=== PATIENT | female | born 1955 | race Caucasian/White ===

== ENCOUNTER 2020-05-13 22:05 | Inpatient (IN) | payer BC, MEDICARE ==
[~2020-05-13] VITALS: Ht 157.5 cm; Wt 67.8 kg
[2020-05-13 21:30] VITALS: BP 150/80
[2020-05-13 23:02] VITALS: BP 144/78
[2020-05-14] VITALS (7 sets, daily range): BP systolic 138–180; BP diastolic 69–106
[2020-05-14] MEDS ORDERED: HYDR12.58 PO (00:46)
[2020-05-14] MEDS ORDERED: METO-247 PO (00:46)
[2020-05-14] MEDS ORDERED: ESOM40CA PO (00:46)
[2020-05-14] MEDS ORDERED: LOSA-73 PO (00:46)
[2020-05-14] MEDS ORDERED: AMIT25TA PO (00:46)
[2020-05-14] MEDS ORDERED: ATOR20TA58 PO (00:46)
[2020-05-14] MEDS ORDERED: VALA10008 PO (00:46)
[2020-05-14] MEDS ORDERED: ALPR0.254 PO (00:46)
[2020-05-14] MEDS ORDERED: ESTR1.25 PO (00:46)
[2020-05-14] MEDS: IV NORMAL SALINE 1000ML BAG 1,000 ML IV SCH ×3 (00:57→21:00)
[2020-05-14] MEDS: AMITRIPTYLINE HCL 25 MG TABLET. PO SCH ×2 (01:00→19:15)
[2020-05-14] MEDS: KETOROLAC 15 MG/ML VIAL. IVP PRN ×4 (01:22→20:25)
[2020-05-14 04:12] LABS: BASO % 0 % (0-3); EOS % 0 % (0-3); HEMATOCRIT 38.3 % (36.0-47.0); HEMOGLOBIN 12.9 g/dL (12.0-15.5); LYMPH # 2.4 x10^3/uL (1.0-4.8); LYMPH % 15 % (24-48); MEAN CORPUSCULAR HEMOGLOBIN 30 pg (25-35); MEAN CORPUSCULAR HGB CONC 34 g/dL (31-37); MEAN CORPUSCULAR VOLUME 89 fL (79-100); MONO # 1.1 x10^3/uL (0.0-1.1); MONO % 7 % (0-9); NEUT # 13.2 x10^3/uL (1.8-7.7); NEUT % 79 % (31-73); PLATELET COUNT 204 x10^3/uL (140-400); RED CELL DISTRIBUTION WIDTH 13.8 % (11.5-14.5); WHITE BLOOD COUNT 16.8 x10^3/uL (4.0-11.0)
[2020-05-14 04:53] LABS: ALBUMIN 2.9 g/dL (3.4-5.0); ALBUMIN/GLOBULIN RATIO 0.8 (1.0-1.7); C-REACTIVE PROTEIN 3.3 mg/L (0-3.3); CALCIUM 7.7 mg/dL (8.5-10.1); CREATININE 0.8 mg/dL (0.6-1.0); GFR 71.5; POTASSIUM 3.5 mmol/L (3.5-5.1); TOTAL BILIRUBIN 0.3 mg/dL (0.2-1.0); TOTAL PROTEIN 6.4 g/dL (6.4-8.2)
[2020-05-14] MEDS: hydroCHLOROthiazide 12.5 MG CAPSULE PO SCH (08:29)
[2020-05-14] MEDS: METOPROLOL SUCC 24HR ER 100 MG TAB.ER.24H. PO SCH (08:29)
[2020-05-14] MEDS: ESTROGENS, CONJUGATED 0.625 MG TABLET PO SCH (08:29)
[2020-05-14] MEDS: LOSARTAN POTASSIUM 50 MG TABLET. PO SCH (08:29)
[2020-05-14] MEDS: valACYclovir 500 MG TABLET. PO SCH ×2 (08:30→19:18)
--- NOTE | 2020-05-14 09:05 | NUR ---
Patient complaining this morning of increased numbness from her feet and up her legs. She also feels like her throat is more weak this morning and her voice is more hoarse. Patient continues to be on 2L nasal canula and O2 sats stay above 95%. She states that she is very scared and anxious about her condition and has been reassured by staff that we are monitoring her closely. Dr. Barnes and Dr. Chung both notified of patients change in condition and her concerns.
[2020-05-14] MEDS: PANTOPRAZOLE IV PUSH 40 MG VIAL. IVP SCH (09:11)
[2020-05-14] MEDS: LABETALOL 20 MG/4 ML DISP.SYRIN. IVP PRN (09:12)
--- NOTE | 2020-05-14 10:20 | HP ---
ADMIT DATE: 05/13/2020 HISTORY OF PRESENT ILLNESS: The patient is a 65-year-old female patient who was admitted through the Emergency Room of [facility] where she came complaining of feeling dizzy with left arm numbness. The patient states that approximately 4 hours prior to arrival she had begun developing room spinning sensation. States it is somewhat difficult to ambulate and falls to the left side. She also notes left arm numbness. She denied any falls or head trauma. Denied any syncope. Denied any headache. She does note that she has felt generally fatigued as well as has some sore throat. She apparently had a flu shot as well as shingles shot at the same time a week ago and 4 days ago, she developed a bad headache. She also complained of hoarseness of voice, but she said that she has had also hiatal hernia and acid reflux, it caused hoarseness of voice. She was followed for that by Dr. Lomeli and she was on proton pump inhibitor twice a day and she is now getting only once a day. She was basically evaluated extensively in the Emergency Room, has had lab work, which is unremarkable. Urinalysis is unremarkable. Her CT scan of the head showed no acute intracranial abnormalities; however, CT angio showed that the patient has left middle cranial fossa meningioma measuring about 2 cm, otherwise normal CT angio of the head and neck. The CT scan of the soft tissue of the neck also unremarkable and she was admitted for further evaluation and treatment. Throughout her stay, she developed dysphagia and was unable to swallow even her saliva. She continued to complain of weakness that is generalized although when she is in bed she was able to move all her extremities. I could elicit her left ankle jerks with reinforcement, but not the right one. 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 When I saw her this morning, she continued to have hoarseness of voice and she is now complaining of generalized tingling and numbness of all upper and lower extremities and generalized weakness and continued to have dysphagia. She has episodes of tachycardia and hypertension. PAST MEDICAL HISTORY: Significant for hypertension, hyperlipidemia, hiatal hernia, and gastroesophageal reflux disease. PAST SURGICAL HISTORY: Significant for total abdominal hysterectomy, bilateral salpingo-oophorectomy. ALLERGIES: SHE IS ALLERGIC TO PENICILLIN. MEDICATIONS: Consist of valacyclovir 1000 mg twice a day, although when I asked her, she was not sure that she was on it; atorvastatin 20 mg at bedtime; metoprolol succinate 100 mg once a day; losartan potassium 50 mg once a day; amitriptyline 25 mg at bedtime; alprazolam 0.25 mg at bedtime; hydrochlorothiazide 12.5 mg once a day; Nexium 40 mg once a day, conjugated estrogen for Premarin 1.25 mg p.o. daily. The patient was actually kept n.p.o. as she has dysphagia. PHYSICAL EXAMINATION: GENERAL: When I saw her this morning, she was resting slightly propped up in bed, in no apparent respiratory distress. No pallor, jaundice, cyanosis or thyromegaly. No jugular venous distention or limb edema. VITAL SIGNS: Her heart rate was 112, blood pressure was 180/106, temperature was 97.7, respiratory rate was 18, and oxygen saturation 100% on 2 liters of oxygen. HEAD, EYES, EARS, NOSE AND THROAT: Showed normocephalic, atraumatic. NECK: Supple. HEART: Showed normal first and second heart sounds. No gallop, rub or murmur. CHEST: Clear to auscultation. No crepitation or rhonchi. ABDOMEN: Distended, soft, nontender. NEUROLOGIC: She is awake, alert. She has hoarseness of voice and continued to spit her saliva, she is unable to swallow it but all her cranial nerves are generally grossly intact. She moves all upper and lower extremities without difficulty. She does complain of subjective tingling and numbness in all her limbs and also when she stands, she is having weakness and inability to walk. LABORATORY DATA: This morning showed her white cell count to be 16,800, hemoglobin 12.9, hematocrit 38, MCV 89 and platelet count 204,000 with normal manual differential. Her chemistry showed a serum sodium 141, potassium 3.5, chloride 107, bicarbonate 25, anion gap of 9, BUN 14, creatinine 0.8, estimated GFR was 71 mL per minute. Her glucose 137, calcium was 7.7. Total bilirubin, AST, ALT, alkaline phosphatase were normal. Her C-reactive protein was only 3.3. Total protein was 6.4, albumin was 2.9. ASSESSMENT: In summary, this is a 65-year-old female patient who was transferred from [facility] where she was admitted with new onset of initially some dizziness and numbness in her left upper extremity. She also was noted to have generalized weakness and inability to walk. She has had also developed room spinning sensation and initially since it was somewhat difficult to ambulate and falls to the left. Throughout her stay on the day at [facility] she was unable to swallow and therefore we kept her n.p.o. and we did consult physical and occupational and speech therapy. She was seen by Dr. Angel, the neurologist. PLAN: My plan is to continue to keeping her n.p.o. We will check her forced inspiratory pressure and I have consulted the neurologist and continue with IV fluid and continue with pain management. We will also consult Physical and Occupational Therapy as well as speech therapy. BLANCHE MARROQUIN MD DR: SONIA/sudarshan JOB#: [id number] / [id number]
[2020-05-14] MEDS ORDERED: LIDOCAINE 1% Multi-Dose 20 ML VIAL. INJ ONE (12:00)
--- NOTE | 2020-05-14 13:05 | RAD ---
FLUOROSCOPICALLY GUIDED LUMBAR PUNCTURE FOR CSF SAMPLING: Clinical History: Difficulty swallowing, GB versus polyneuropathy. Procedure: The relative benefits, risks and alternatives to the procedure were discussed and verbal and written informed consent was obtained. The patient was placed prone and slightly oblique on the fluoroscopic table and bony landmarks were used to plan for a lumbar puncture. The patient was carefully prepped and draped in a sterile fashion and with local anesthetic and sterile technique, a 22-gauge spinal needle was advanced at the L2 level. The L4 level was originally attempted without success and required a 7 inch needle. Clear CSF was seen at L2 and approximately 10 cc of clear fluid were aspirated and sent for testing. Needle was removed with stylet in place. Hemostasis achieved. The procedure was well tolerated and the patient was sent to inpatient room in good condition. Total fluoroscopy time for the procedure was 0.5 minutes. 0 fluoroscopic spot images. On crosstable lateral view. IMPRESSION: Fluoroscopic guided lumbar puncture. Electronically signed by: Yadiel Herbert MD (05/14/2020 1:02 PM) [id number]
[2020-05-14 14:04] LABS: CSF CLARITY HAZY; CSF RBC COUNT 1825 /cmm (Not Established); CSF WBC COUNT 4 /cmm (Not Established)
[2020-05-14 14:05] LABS: CSF COLOR COLORLESS
[2020-05-14] MEDS: IMMUNE GLOBULIN GAMMA 10% IV SCH (17:51)
--- NOTE | 2020-05-14 18:23 | NUR ---
NIF -15CM H2O
[2020-05-14] MEDS: ATORVASTATIN CALCIUM 20 MG TABLET PO SCH (19:16)
[2020-05-14] MEDS: GABAPENTIN 300 MG CAPSULE. PO SCH (19:17)
--- NOTE | 2020-05-14 21:15 | PDOC2 ---
CONSULT Date of Consult Date of Consult DATE: 05/14/20 TIME: 21:14 Reason for Consult Reason for Consult: weakness Identification/Chief Complaint Chief Complaint weakness numbness History of Present Illness Reason for Visit: This patient is 65-year-old woman who was initially presented to [facility] where she was complaining of weakness. Patient was having difficulty with ambulation. She reports she was having symptoms of lightheadedness, dizziness. Patient had symptoms of tingling numbness which started in her feet and last 2 days. Patient had worsening of symptoms. Patient is currently feeling tingling numbness in her both legs. Patient was having weakness. Patient was having difficulty with ambulation she was having unsteady gait. Patient denied any complaint of difficulty speaking tingling numbness on the face. Patient denied any loss of better bowel control. Patient denies any complaint of headache nausea or vomiting chest pain shortness of breath. Patient had a flu shot and she was short in the last 1 week. Patient had worsening of symptoms Reason for Visit: This patient is 65-year-old woman who was initially presented to [facility] Current Medications Current Medications Current Medications Alprazolam (Xanax) 0.125 mg PRN QHS PRN PO ANXIETY / AGITATION; Start 05/14/20 at 00:45 Amitriptyline HCl (Elavil) 25 mg QHS PO ; Start 05/14/20 at 01:00 Atorvastatin Calcium (Lipitor) 20 mg QHS PO ; Start 05/14/20 at 21:00 Losartan Potassium (Cozaar) 50 mg DAILY PO ; Start 05/14/20 at 09:00 Metoprolol Succinate (Toprol Xl) 100 mg DAILY PO ; Start 05/14/20 at 09:00 Estrogens Conjugated (Premarin) 1.25 mg DAILY PO ; Start 05/14/20 at 09:00 Hydrochlorothiazide (Microzide) 12.5 mg DAILY PO ; Start 05/14/20 at 09:00 Valacyclovir HCl (Valtrex) 1,000 mg BID PO ; Start 05/14/20 at 09:00 Sodium Chloride 1,000 ml @ 100 mls/hr Q10H IV Last administered on 05/14/20at 11:00; Start 05/14/20 at 01:00 Labetalol HCl (Normodyne Iv Push) 10 mg PRN Q4HRS PRN IVP HYPERTENSION Last administered on 05/14/20at 09:12; Start 05/14/20 at 01:00 Pantoprazole Sodium (PROTONIX VIAL for IV PUSH) 40 mg DAILYAC IVP Last administered on 05/14/20at 09:11; Start 05/14/20 at 07:30 Ketorolac Tromethamine (Toradol 15mg Vial) 15 mg PRN Q6HRS PRN IVP INFLAMMATION Last administered on 05/14/20at 20:25; Start 05/14/20 at 01:15; Stop 05/19/20 at 01:14 Lidocaine HCl (Lidocaine 1% 20ml Vial) 20 ml 1X ONCE INJ Last administered on 05/14/20at 12:08; Start 05/14/20 at 12:00; Stop 05/14/20 at 12:01; Status DC Gabapentin (Neurontin) 300 mg HS PO ; Start 05/14/20 at 21:00 Immune Globulin 400 ml @ 0 mls/hr Q24H IV Last administered on 05/14/20at 17:51; Start 05/14/20 at 18:00; Stop 05/16/20 at 18:01 Active Scripts Active Reported Valacyclovir (Valacyclovir Hcl) 1,000 Mg Tablet 1 Tab PO BID Metoprolol Succinate ( Xl ) (Metoprolol Succinate) 100 Mg Tab.er.24h 1 Tab PO DAILY Losartan Potassium 50 Mg Tablet 50 Mg PO DAILY Hydrochlorothiazide Tablet (Hydrochlorothiazide) 12.5 Mg Tablet 12.5 Mg PO DAILY Nexium Capsule (Esomeprazole Magnesium) 40 Mg Capsule.dr 1 Cap PO DAILY Premarin (Estrogens, Conjugated) 1.25 Mg Tablet 1 Tab PO DAILY Atorvastatin Calcium 20 Mg Tablet 1 Tab PO DAILY Amitriptyline Hcl 25 Mg Tablet 1 Tab PO QHS Alprazolam 0.25 Mg Tablet 0.5 Tab PO QHS PRN Allergies Allergies: Coded Allergies: Penicillins (Verified Allergy, Intermediate, 05/14/20) codeine (Verified Allergy, Intermediate, 05/14/20) Physical Exam Physical Exam General no acute distress. HEENT: Normocephalic and atraumatic. NECK: Supple without bruit Respiratory: Clear to auscultation bilaterally Heart: Regular rate and rhythm, S1S2 normal NEUROLOGIC: Mental status Alert oriented. Cranial nerve equally reactive pupils, and intact extraocular movements. No facial asymmetry. Palate elevates and tongue protrudes in midline. Reflexes are 1-2 with flexor plantar responses. Coordination no dysmetria limited Strength diffuse weakness hypo reflexes ankle reflexes absent. Sensory exam is intact dec light touch and pinprick on lower exts. Gait in bed. A 10-point review of systems was obtained. Other than the history of present illness the remainder of the review of systems is negative. Vitals VITALS Vital Signs Date Time Temp Pulse Resp B/P (MAP) Pulse Ox O2 Delivery O2 Flow Rate FiO2 05/14/20 19:36 Nasal Cannula 2.0 05/14/20 19:23 98.7 95 18 154/95 (114) 99 98.7 Labs Labs Laboratory Tests Test 05/14/20 03:40 05/14/20 12:30 White Blood Count 16.8 x10^3/uL (4.0-11.0) Red Blood Count 4.30 x10^6/uL (3.50-5.40) Hemoglobin 12.9 g/dL (12.0-15.5) Hematocrit 38.3 % (36.0-47.0) Mean Corpuscular Volume 89 fL (79-100) Mean Corpuscular Hemoglobin 30 pg (25-35) Mean Corpuscular Hemoglobin Concent 34 g/dL (31-37) Red Cell Distribution Width 13.8 % (11.5-14.5) Platelet Count 204 x10^3/uL (140-400) Neutrophils (%) (Auto) 79 % (31-73) Lymphocytes (%) (Auto) 15 % (24-48) Monocytes (%) (Auto) 7 % (0-9) Eosinophils (%) (Auto) 0 % (0-3) Basophils (%) (Auto) 0 % (0-3) Neutrophils # (Auto) 13.2 x10^3/uL (1.8-7.7) Lymphocytes # (Auto) 2.4 x10^3/uL (1.0-4.8) Monocytes # (Auto) 1.1 x10^3/uL (0.0-1.1) Eosinophils # (Auto) 0.0 x10^3/uL (0.0-0.7) Basophils # (Auto) 0.0 x10^3/uL (0.0-0.2) Sodium Level 141 mmol/L (136-145) Potassium Level 3.5 mmol/L (3.5-5.1) Chloride Level 107 mmol/L (98-107) Carbon Dioxide Level 25 mmol/L (21-32) Anion Gap 9 (6-14) Blood Urea Nitrogen 14 mg/dL (7-20) Creatinine 0.8 mg/dL (0.6-1.0) Estimated GFR (Cockcroft-Gault) 71.5 BUN/Creatinine Ratio 18 (6-20) Glucose Level 137 mg/dL (70-99) Calcium Level 7.7 mg/dL (8.5-10.1) Total Bilirubin 0.3 mg/dL (0.2-1.0) Aspartate Amino Transf (AST/SGOT) 27 U/L (15-37) Alanine Aminotransferase (ALT/SGPT) 24 U/L (14-59) Alkaline Phosphatase 77 U/L (46-116) C-Reactive Protein, Quantitative 3.3 mg/L (0-3.3) Total Protein 6.4 g/dL (6.4-8.2) Albumin 2.9 g/dL (3.4-5.0) Albumin/Globulin Ratio 0.8 (1.0-1.7) CSF Color Colorless CSF Clarity Hazy CSF WBC 4 /cmm (Not Established) CSF RBC 1825 /cmm (Not Established) CSF Total Protein 54.2 mg/dL (15.0-45.0) Laboratory Tests Test 05/14/20 03:40 05/14/20 12:30 White Blood Count 16.8 x10^3/uL (4.0-11.0) Red Blood Count 4.30 x10^6/uL (3.50-5.40) Hemoglobin 12.9 g/dL (12.0-15.5) Hematocrit 38.3 % (36.0-47.0) Mean Corpuscular Volume 89 fL (79-100) Mean Corpuscular Hemoglobin 30 pg (25-35) Mean Corpuscular Hemoglobin Concent 34 g/dL (31-37) Red Cell Distribution Width 13.8 % (11.5-14.5) Platelet Count 204 x10^3/uL (140-400) Neutrophils (%) (Auto) 79 % (31-73) Lymphocytes (%) (Auto) 15 % (24-48) Monocytes (%) (Auto) 7 % (0-9) Eosinophils (%) (Auto) 0 % (0-3) Basophils (%) (Auto) 0 % (0-3) Neutrophils # (Auto) 13.2 x10^3/uL (1.8-7.7) Lymphocytes # (Auto) 2.4 x10^3/uL (1.0-4.8) Monocytes # (Auto) 1.1 x10^3/uL (0.0-1.1) Eosinophils # (Auto) 0.0 x10^3/uL (0.0-0.7) Basophils # (Auto) 0.0 x10^3/uL (0.0-0.2) Sodium Level 141 mmol/L (136-145) Potassium Level 3.5 mmol/L (3.5-5.1) Chloride Level 107 mmol/L (98-107) Carbon Dioxide Level 25 mmol/L (21-32) Anion Gap 9 (6-14) Blood Urea Nitrogen 14 mg/dL (7-20) Creatinine 0.8 mg/dL (0.6-1.0) Estimated GFR (Cockcroft-Gault) 71.5 BUN/Creatinine Ratio 18 (6-20) Glucose Level 137 mg/dL (70-99) Calcium Level 7.7 mg/dL (8.5-10.1) Total Bilirubin 0.3 mg/dL (0.2-1.0) Aspartate Amino Transf (AST/SGOT) 27 U/L (15-37) Alanine Aminotransferase (ALT/SGPT) 24 U/L (14-59) Alkaline Phosphatase 77 U/L (46-116) C-Reactive Protein, Quantitative 3.3 mg/L (0-3.3) Total Protein 6.4 g/dL (6.4-8.2) Albumin 2.9 g/dL (3.4-5.0) Albumin/Globulin Ratio 0.8 (1.0-1.7) CSF Color Colorless CSF Clarity Hazy CSF WBC 4 /cmm (Not Established) CSF RBC 1825 /cmm (Not Established) CSF Total Protein 54.2 mg/dL (15.0-45.0) Assessment/Plan Assessment/Plan This patient is 65-year-old woman who was initially presented to [facility] where she was complaining of weakness. Patient was having difficulty with ambulation. She reports she was having symptoms of lightheadedness, dizziness. Patient had symptoms of tingling numbness which started in her feet and last 2 days. Patient had worsening of symptoms. Patient is currently feeling tingling numbness in her both legs. Patient was having weakness. Patient was having difficulty with ambulation she was having unsteady gait. Patient denied any complaint of difficulty speaking tingling numbness on the face. Patient denied any loss of better bowel control. Patient denies any complaint of headache nausea or vomiting chest pain shortness of breath. Patient had a flu shot and she was short in the last 1 week. Patient had worsening of symptoms With the symptoms concerning for Guillian [place] syndrome with the symptoms of tingling numbness which are so pending from feet to leg with the weakness of her lower extremity with gait and balance difficulty. Patient had lumbar puncture, CSF with elevated protein. And patient on exam. Patient was started on IVIG 400 mg per KG per day. Will get MRI of brain, lumbar spine to further evaluate. PT OT speech evaluation. Close monitoring. Continue medical management. Plan discussed with patient at length ANI HUNT MD May 14, 2020 21:15
[2020-05-15] VITALS (7 sets, daily range): BP systolic 118–184; BP diastolic 57–106
[2020-05-15] MEDS: KETOROLAC 15 MG/ML VIAL. IVP PRN ×3 (03:37→23:01)
[2020-05-15] MEDS: IV NORMAL SALINE 1000ML BAG 1,000 ML IV SCH (07:00)
[2020-05-15] MEDS: METOPROLOL SUCC 24HR ER 100 MG TAB.ER.24H. PO SCH (07:51)
[2020-05-15] MEDS: LOSARTAN POTASSIUM 50 MG TABLET. PO SCH (07:51)
[2020-05-15] MEDS: ESTROGENS, CONJUGATED 0.625 MG TABLET PO SCH (07:51)
[2020-05-15] MEDS: hydroCHLOROthiazide 12.5 MG CAPSULE PO SCH (07:51)
[2020-05-15] MEDS: valACYclovir 500 MG TABLET. PO SCH ×2 (07:52→20:17)
[2020-05-15] MEDS: PANTOPRAZOLE IV PUSH 40 MG VIAL. IVP SCH ×2 (08:16→20:37)
[2020-05-15] MEDS: LIDOCAINE (700MG/PATCH) PATCH. TD SCH (09:11)
[2020-05-15] MEDS: AMINO AC 3%/ELECTROLYTE/GLYCER 1,000 ML IV SCH ×2 (09:12→23:01)
--- NOTE | 2020-05-15 10:13 | PN ---
DATE: 05/15/2020 SUBJECTIVE: The patient is resting, slightly propped up in bed, in no apparent respiratory distress. She is awake, alert, continued to have difficulty swallowing and weakness, although she is now having tingling, numbness and feels that something is squeezing her legs. She was evaluated yesterday by Dr. Schaefer; started her on IVIG. PHYSICAL EXAMINATION: GENERAL: When I examined her this morning, she looked well and was clearly in no apparent respiratory distress. No pallor, jaundice, cyanosis or thyromegaly. No jugular venous distention. No lower limb edema. VITAL SIGNS: Her heart rate was 109, blood pressure was 161/91, temperature was 99, respiratory rate 20, and oxygen saturation was 98% on 2 liters of oxygen. HEAD, EYES, EARS, NOSE, AND THROAT: Showed normocephalic, atraumatic. NECK: Supple. HEART: Showed normal first and second heart sounds. No gallop or murmur. CHEST: Clear to auscultation. No crepitation or rhonchi. ABDOMEN: Distended, soft. NEUROLOGIC: She is awake, alert, responding appropriately. All her cranial nerves intact. She moves her extremities without difficulty, although she obviously has difficulty walking. She has had a lumbar puncture done yesterday that was apparently traumatic. It did show that she has 4 wbc's, 1825 rbc's, and CSF protein was 54. 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 2. Dysphagia. 3. Autonomic instability with episodes of tachycardia and hypertension. 4. Other medical problems include: A. Hypertension. B. Hyperlipidemia. C. Hiatal hernia. D. Gastroesophageal reflux disease. PLAN: My plan is to consult the milled rubber tender, increase her Protonix to 40 mg IV twice a day. We will discontinue IV fluids, start her on procalamine and keep her obviously n.p.o. BLANCHE MARROQUIN MD DR: SONIA/sudarshan JOB#: [id number] / [id number]
--- NOTE | 2020-05-15 10:28 | RAD ---
EXAM: Chest, single view. HISTORY: Dysphagia. Aspiration. COMPARISON: 05/12/2020 FINDINGS: A frontal view of the chest is obtained. There is mild elevation of the right hemidiaphragm which may be positional. There is bilateral basilar atelectasis or interstitial infiltrate. The heart is normal in size. There is no convincing pleural effusion or pneumothorax. IMPRESSION: Bilateral basilar atelectasis or interstitial infiltrate. Electronically signed by: Judy Kowalski MD (05/15/2020 10:25 AM) [place]
--- NOTE | 2020-05-15 13:12 | PDOC ---
PULMONARY PROGRESS NOTES DATE: 05/15/20 TIME: 13:11 Vitals Vital Signs Date Time Temp Pulse Resp B/P (MAP) Pulse Ox O2 Delivery O2 Flow Rate FiO2 05/15/20 11:25 99.2 95 22 171/85 (113) 97 Nasal Cannula 2.0 99.2 Labs Laboratory Tests Test 05/14/20 03:40 05/14/20 12:30 White Blood Count 16.8 x10^3/uL (4.0-11.0) Red Blood Count 4.30 x10^6/uL (3.50-5.40) Hemoglobin 12.9 g/dL (12.0-15.5) Hematocrit 38.3 % (36.0-47.0) Mean Corpuscular Volume 89 fL (79-100) Mean Corpuscular Hemoglobin 30 pg (25-35) Mean Corpuscular Hemoglobin Concent 34 g/dL (31-37) Red Cell Distribution Width 13.8 % (11.5-14.5) Platelet Count 204 x10^3/uL (140-400) Neutrophils (%) (Auto) 79 % (31-73) Lymphocytes (%) (Auto) 15 % (24-48) Monocytes (%) (Auto) 7 % (0-9) Eosinophils (%) (Auto) 0 % (0-3) Basophils (%) (Auto) 0 % (0-3) Neutrophils # (Auto) 13.2 x10^3/uL (1.8-7.7) Lymphocytes # (Auto) 2.4 x10^3/uL (1.0-4.8) Monocytes # (Auto) 1.1 x10^3/uL (0.0-1.1) Eosinophils # (Auto) 0.0 x10^3/uL (0.0-0.7) Basophils # (Auto) 0.0 x10^3/uL (0.0-0.2) Sodium Level 141 mmol/L (136-145) Potassium Level 3.5 mmol/L (3.5-5.1) Chloride Level 107 mmol/L (98-107) Carbon Dioxide Level 25 mmol/L (21-32) Anion Gap 9 (6-14) Blood Urea Nitrogen 14 mg/dL (7-20) Creatinine 0.8 mg/dL (0.6-1.0) Estimated GFR (Cockcroft-Gault) 71.5 BUN/Creatinine Ratio 18 (6-20) Glucose Level 137 mg/dL (70-99) Calcium Level 7.7 mg/dL (8.5-10.1) Total Bilirubin 0.3 mg/dL (0.2-1.0) Aspartate Amino Transf (AST/SGOT) 27 U/L (15-37) Alanine Aminotransferase (ALT/SGPT) 24 U/L (14-59) Alkaline Phosphatase 77 U/L (46-116) C-Reactive Protein, Quantitative 3.3 mg/L (0-3.3) Total Protein 6.4 g/dL (6.4-8.2) Albumin 2.9 g/dL (3.4-5.0) Albumin/Globulin Ratio 0.8 (1.0-1.7) CSF Color Colorless CSF Clarity Hazy CSF WBC 4 /cmm (Not Established) CSF RBC 1825 /cmm (Not Established) CSF Total Protein 54.2 mg/dL (15.0-45.0) Medications Active Scripts Medications Dose Route/Sig Max Daily Dose Days Date Category Valacyclovir (Valacyclovir Hcl) 1,000 Mg Tablet 1 Tab PO BID 05/14/20 Reported Metoprolol Succinate ( Xl ) (Metoprolol Succinate) 100 Mg Tab.er.24h 1 Tab PO DAILY 05/14/20 Reported Losartan Potassium 50 Mg Tablet 50 Mg PO DAILY 05/14/20 Reported Hydrochlorothiazide Tablet (Hydrochlorothiazide) 12.5 Mg Tablet 12.5 Mg PO DAILY 05/14/20 Reported Nexium Capsule (Esomeprazole Magnesium) 40 Mg Capsule.dr 1 Cap PO DAILY 05/14/20 Reported Premarin (Estrogens, Conjugated) 1.25 Mg Tablet 1 Tab PO DAILY 05/14/20 Reported Atorvastatin Calcium 20 Mg Tablet 1 Tab PO DAILY 05/14/20 Reported Amitriptyline Hcl 25 Mg Tablet 1 Tab PO QHS 05/14/20 Reported Alprazolam 0.25 Mg Tablet 0.5 Tab PO QHS PRN 05/14/20 Reported Impression . Full note dictated [place] syndrome, acute hypoxemic respiratory failure We will monitor closely, with forced vital capacity and maximum inspiratory pressure, every 2 hours Discussed with nurse Discussed with and patient, currently patient stable no need to transfer to the intensive care unit VIJI LAZARO MD May 15, 2020 13:12
[2020-05-15] MEDS: ENOXAPARIN 40 MG/0.4 ML SYRINGE. SQ SCH (14:00)
--- NOTE | 2020-05-15 15:09 | CONS ---
DATE OF CONSULTATION: 05/15/2020 ATTENDING PHYSICIAN: Terrie Barnes MD CONSULTING PHYSICIAN: Viji Lazaro MD REASON FOR CONSULTATION: The patient is seen in pulmonary consultation at the request of Dr. Barnes for evaluation of respiratory insufficiency. 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 HISTORY OF PRESENT ILLNESS: The patient is a 65-year-old that was initially presented at [facility] with complaints of weakness, having some difficulty with ambulation. She also was having symptoms of lightheadedness and dizziness, tingling and numbness in her feet for the last 2 days prior to admission. Upon further questioning, the patient also had a laryngitis, no sore throat. She initially denied any difficulty speaking. She has been seen by Neurology. 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 She had a lumbar puncture CSF with elevated protein. The patient was started on IVIG. Over the last 24 hours, she has had increasing difficulty with controlling her oral secretions and the voice is soft and I was asked to see her in consultation. Earlier today, I ordered a NIF which was reported to be -50. Upon evaluation, the patient is awake, alert, following command. She does not appear to be in any significant respiratory distress. The patient had a CT head that showed no acute intracranial abnormality, has had a CT angio showed that the patient had a left middle cranial fossa meningioma measuring about [address] soft tissue of the neck was unremarkable. PAST MEDICAL HISTORY: Significant for hypertension, hyperlipidemia, hiatal hernia, gastroesophageal reflux. She recently underwent vaccination for both flu and shingles. PAST SURGICAL HISTORY: Status post total abdominal hysterectomy, bilateral salpingo-oophorectomy. MEDICATIONS: List was reviewed. REVIEW OF SYSTEMS: As indicated above, otherwise, a 10-point system was reviewed and negative VACCINATION HISTORY: The patient recently underwent a flu and shingles vaccination at the same. SOCIAL HISTORY: She does not smoke. ALLERGIES: PENICILLIN AND CODEINE. PHYSICAL EXAMINATION: VITAL SIGNS: Stable. O2 saturation currently on 2 liters was greater than 92%. GENERAL: The patient was awake, alert, following command. She is able to speak. She did have a little bit of upper airway noise. Otherwise, she was utilizing a Yankauer to maintain oral secretions clear out of her mouth. NECK: Jugular venous distention was not elevated. LUNGS: She had upper airway noise with expiratory wheeze. CARDIOVASCULAR: Regular rate and rhythm with S1, S2, no S3. ABDOMEN: Soft, nontender, nondistended. EXTREMITIES: No clubbing, cyanosis or edema. NEUROLOGIC: The patient was awake, alert, following commands. I asked her to push my hand away with the bottom of her foot bilaterally, it was pretty strong 8/10. Sensation was normal. A detailed neuro exam was not performed. She was able to be shrug her shoulders. She was able to stick out her tongue. LABORATORY DATA: White count was 16,000. Hemoglobin and hematocrit were noted. Electrolytes were noted. Chest x-ray revealed bilateral atelectasis and interstitial infiltrates. IMPRESSION: 1. Acute hypoxemic respiratory failure. 2. 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 3. History of hypertension, hyperlipidemia, gastroesophageal reflux. 4. Recent vaccination with flu and shingles. 5. History of recent laryngitis, suspect viral. DISCUSSION: At this juncture, the patient appears to be holding her own, clinically I do not think she has progressed over the last 24 hours. We will monitor her negative inspiratory force q. 2 hours. I have spoken with the nurse, she should inform me if her NIF drops by 50% of the initial NIF of -50. For now, we will continue support. The patient is undergoing IVIG. PLAN: 1. Continue IVIG. 2. N.p.o. for now. 3. Yankauer to maintain oral secretions clear. 4. Every 2 hours NIF. 5. Initiate incentive spirometry. 6. DVT prophylaxis. VIJI LAZARO MD DR: TARAH/sudarshan JOB#: [id number] / [id number]
--- NOTE | 2020-05-15 15:35 | NUR ---
did not admin the lovenox shot today, pt had a lumbar puncture yesterday 05/14/2020. Severino Anderson RN
--- NOTE | 2020-05-15 15:39 | PDOC ---
PROGRESS NOTES DOS: DATE: 05/15/20 TIME: 15:39 Plan This patient is 65-year-old woman who was initially presented to [facility] where she was complaining of weakness. Patient was having difficulty with ambulation. She reports she was having symptoms of lightheadedness, dizziness. Patient had symptoms of tingling numbness which started in her feet and last 2 days. Patient had worsening of symptoms. Patient is currently feeling tingling numbness in her both legs. Patient was having weakness. Patient was having difficulty with ambulation she was having unsteady gait. Patient denied any complaint of difficulty speaking tingling numbness on the face. Patient denied any loss of better bowel control. Patient denies any complaint of headache nausea or vomiting chest pain shortness of breath. Patient had a flu shot and she was short in the last 1 week. Patient had worsening of symptoms With the symptoms concerning for Guillian [place] syndrome with the symptoms of tingling numbness which are so pending from feet to leg with the weakness of her lower extremity with gait and balance difficulty. Patient had lumbar puncture, CSF with elevated protein. And patient on exam. Patient was started on IVIG 400 mg per KG per day. She has improvement in symptoms. Will get MRI of brain, lumbar spine to further evaluate. PT OT speech evaluation. Close monitoring. Continue medical management. Plan discussed with patient at length Subjective Patient is resting in bed. Family at bedside. She is feeling better. Her symptoms are improving. She denies any complaint of headache nausea or vomiting chest pain shortness of breath Objective Vital Signs Date Time Temp Pulse Resp B/P (MAP) Pulse Ox O2 Delivery O2 Flow Rate FiO2 05/15/20 11:25 99.2 95 22 171/85 (113) 97 Nasal Cannula 2.0 99.2 Intake and Output 05/15/20 07:00 Intake Total 0 ml Balance 0 ml Intake Oral 0 ml # Voids 5 PHYSICAL EXAM General no acute distress. HEENT: Normocephalic and atraumatic. NECK: Supple without bruit Respiratory: Clear to auscultation bilaterally Heart: Regular rate and rhythm, S1S2 normal NEUROLOGIC: Mental status Alert oriented. Cranial nerve equally reactive pupils, and intact extraocular movements. No facial asymmetry. Palate elevates and tongue protrudes in midline. Reflexes are 1-2 with flexor plantar responses. Coordination no dysmetria limited Strength diffuse weakness hypo reflexes ankle reflexes absent. Sensory exam is intact dec light touch and pinprick on lower exts. Gait in bed. A 10-point review of systems was obtained. Other than the history of present illness the remainder of the review of systems is negative. Review of Relevant I have reviewed the following items susan (where applicable) has been applied. Labs Laboratory Tests Test 05/14/20 03:40 05/14/20 12:30 White Blood Count 16.8 x10^3/uL (4.0-11.0) Red Blood Count 4.30 x10^6/uL (3.50-5.40) Hemoglobin 12.9 g/dL (12.0-15.5) Hematocrit 38.3 % (36.0-47.0) Mean Corpuscular Volume 89 fL (79-100) Mean Corpuscular Hemoglobin 30 pg (25-35) Mean Corpuscular Hemoglobin Concent 34 g/dL (31-37) Red Cell Distribution Width 13.8 % (11.5-14.5) Platelet Count 204 x10^3/uL (140-400) Neutrophils (%) (Auto) 79 % (31-73) Lymphocytes (%) (Auto) 15 % (24-48) Monocytes (%) (Auto) 7 % (0-9) Eosinophils (%) (Auto) 0 % (0-3) Basophils (%) (Auto) 0 % (0-3) Neutrophils # (Auto) 13.2 x10^3/uL (1.8-7.7) Lymphocytes # (Auto) 2.4 x10^3/uL (1.0-4.8) Monocytes # (Auto) 1.1 x10^3/uL (0.0-1.1) Eosinophils # (Auto) 0.0 x10^3/uL (0.0-0.7) Basophils # (Auto) 0.0 x10^3/uL (0.0-0.2) Sodium Level 141 mmol/L (136-145) Potassium Level 3.5 mmol/L (3.5-5.1) Chloride Level 107 mmol/L (98-107) Carbon Dioxide Level 25 mmol/L (21-32) Anion Gap 9 (6-14) Blood Urea Nitrogen 14 mg/dL (7-20) Creatinine 0.8 mg/dL (0.6-1.0) Estimated GFR (Cockcroft-Gault) 71.5 BUN/Creatinine Ratio 18 (6-20) Glucose Level 137 mg/dL (70-99) Calcium Level 7.7 mg/dL (8.5-10.1) Total Bilirubin 0.3 mg/dL (0.2-1.0) Aspartate Amino Transf (AST/SGOT) 27 U/L (15-37) Alanine Aminotransferase (ALT/SGPT) 24 U/L (14-59) Alkaline Phosphatase 77 U/L (46-116) C-Reactive Protein, Quantitative 3.3 mg/L (0-3.3) Total Protein 6.4 g/dL (6.4-8.2) Albumin 2.9 g/dL (3.4-5.0) Albumin/Globulin Ratio 0.8 (1.0-1.7) CSF Color Colorless CSF Clarity Hazy CSF WBC 4 /cmm (Not Established) CSF RBC 1825 /cmm (Not Established) CSF Total Protein 54.2 mg/dL (15.0-45.0) Medications Current Medications Alprazolam (Xanax) 0.125 mg PRN QHS PRN PO ANXIETY / AGITATION; Start 05/14/20 at 00:45 Amitriptyline HCl (Elavil) 25 mg QHS PO ; Start 05/14/20 at 01:00 Atorvastatin Calcium (Lipitor) 20 mg QHS PO ; Start 05/14/20 at 21:00 Losartan Potassium (Cozaar) 50 mg DAILY PO ; Start 05/14/20 at 09:00 Metoprolol Succinate (Toprol Xl) 100 mg DAILY PO ; Start 05/14/20 at 09:00 Estrogens Conjugated (Premarin) 1.25 mg DAILY PO ; Start 05/14/20 at 09:00 Hydrochlorothiazide (Microzide) 12.5 mg DAILY PO ; Start 05/14/20 at 09:00 Valacyclovir HCl (Valtrex) 1,000 mg BID PO ; Start 05/14/20 at 09:00 Sodium Chloride 1,000 ml @ 100 mls/hr Q10H IV Last administered on 05/15/20at 07:00; Start 05/14/20 at 01:00; Stop 05/15/20 at 08:17; Status DC Labetalol HCl (Normodyne Iv Push) 10 mg PRN Q4HRS PRN IVP HYPERTENSION Last administered on 05/14/20at 09:12; Start 05/14/20 at 01:00 Pantoprazole Sodium (PROTONIX VIAL for IV PUSH) 40 mg DAILYAC IVP Last administered on 05/15/20at 08:16; Start 05/14/20 at 07:30; Stop 05/15/20 at 08:23; Status DC Ketorolac Tromethamine (Toradol 15mg Vial) 15 mg PRN Q6HRS PRN IVP INFLAMMATION Last administered on 05/15/20at 10:39; Start 05/14/20 at 01:15; Stop 05/19/20 at 01:14 Lidocaine HCl (Lidocaine 1% 20ml Vial) 20 ml 1X ONCE INJ Last administered on 05/14/20at 12:08; Start 05/14/20 at 12:00; Stop 05/14/20 at 12:01; Status DC Gabapentin (Neurontin) 300 mg HS PO ; Start 05/14/20 at 21:00 Immune Globulin 400 ml @ 0 mls/hr Q24H IV Last administered on 05/14/20at 17:51; Start 05/14/20 at 18:00; Stop 05/16/20 at 18:01 Amino Acids/ Glycerin/ Electrolytes 1,000 ml @ 80 mls/hr [id number] IV Last administered on 05/15/20at 09:12; Start 05/15/20 at 09:00 Lidocaine (Lidoderm) 2 patch DAILY TD Last administered on 05/15/20at 09:11; Start 05/15/20 at 09:00 Miscellaneous (Lidoderm Patch Removal) 1 ea QHS MC ; Start 05/15/20 at 21:00 Pantoprazole Sodium (PROTONIX VIAL for IV PUSH) 40 mg BID IVP ; Start 05/15/20 at 21:00 Enoxaparin Sodium (Lovenox 40mg Syringe) 40 mg Q24H SQ ; Start 05/15/20 at 14:00 Active Scripts Active Reported Valacyclovir (Valacyclovir Hcl) 1,000 Mg Tablet 1 Tab PO BID Metoprolol Succinate ( Xl ) (Metoprolol Succinate) 100 Mg Tab.er.24h 1 Tab PO DAILY Losartan Potassium 50 Mg Tablet 50 Mg PO DAILY Hydrochlorothiazide Tablet (Hydrochlorothiazide) 12.5 Mg Tablet 12.5 Mg PO DAILY Nexium Capsule (Esomeprazole Magnesium) 40 Mg Capsule.dr 1 Cap PO DAILY Premarin (Estrogens, Conjugated) 1.25 Mg Tablet 1 Tab PO DAILY Atorvastatin Calcium 20 Mg Tablet 1 Tab PO DAILY Amitriptyline Hcl 25 Mg Tablet 1 Tab PO QHS Alprazolam 0.25 Mg Tablet 0.5 Tab PO QHS PRN Vitals/I & O Vital Sign - Last 24 Hours 05/14/20 05/14/20 05/14/20 05/15/20 19:23 19:36 22:33 03:22 Temp 98.7 98.0 98.6 98.7 98.0 98.6 Pulse 95 105 97 Resp 18 16 16 B/P (MAP) 154/95 (114) 138/92 (107) 147/92 (110) Pulse Ox 99 98 95 O2 Delivery Nasal Cannula Nasal Cannula Nasal Cannula Nasal Cannula O2 Flow Rate 2.0 2.0 2.0 2.0 05/15/20 05/15/20 05/15/20 05/15/20 06:35 07:51 07:51 08:00 Temp 99.0 99.0 Pulse 109 109 109 Resp 20 B/P (MAP) 161/91 (114) 161/91 161/91 Pulse Ox 98 O2 Delivery Nasal Cannula Nasal Cannula O2 Flow Rate 2.0 2.0 05/15/20 11:25 Temp 99.2 99.2 Pulse 95 Resp 22 B/P (MAP) 171/85 (113) Pulse Ox 97 O2 Delivery Nasal Cannula O2 Flow Rate 2.0 Intake and Output 05/14/20 05/14/20 05/15/20 15:00 23:00 07:00 Intake Total 0 ml 0 ml 0 ml Balance 0 ml 0 ml 0 ml Justicifation of Admission Dx: Justifications for Admission: Justification of Admission Dx: Yes ANI HUNT MD May 15, 2020 15:39
[2020-05-15] MEDS: IMMUNE GLOBULIN GAMMA 10% IV SCH (17:46)
[2020-05-15] MEDS: ATORVASTATIN CALCIUM 20 MG TABLET PO SCH (20:17)
[2020-05-15] MEDS: GABAPENTIN 300 MG CAPSULE. PO SCH (20:17)
[2020-05-15] MEDS: AMITRIPTYLINE HCL 25 MG TABLET. PO SCH (20:17)
[2020-05-15] MEDS: ENALAPRILAT 2.5 MG/2 ML VIAL. IVP PRN (20:37)
[2020-05-15] MEDS: PATCH REMOVAL. MC SCH (21:00)
[2020-05-15] MEDS ORDERED: ENALAPRILAT 2.5 MG/2 ML VIAL. IVP SCH (21:00)
[2020-05-16] VITALS (10 sets, daily range): BP systolic 102–172; BP diastolic 54–105
[2020-05-16 07:21] LABS: HEMATOCRIT 39.6 % (36.0-47.0); HEMOGLOBIN 13.3 g/dL (12.0-15.5); RED BLOOD COUNT 4.41 x10^6/uL (3.50-5.40); RED CELL DISTRIBUTION WIDTH 13.4 % (11.5-14.5); WHITE BLOOD COUNT 6.8 x10^3/uL (4.0-11.0)
[2020-05-16 07:33] LABS: ALBUMIN 2.3 g/dL (3.4-5.0); ALBUMIN/GLOBULIN RATIO 0.4 (1.0-1.7); CALCIUM 8.2 mg/dL (8.5-10.1); CREATININE 0.6 mg/dL (0.6-1.0); GFR 99.7; POTASSIUM 3.5 mmol/L (3.5-5.1); TOTAL BILIRUBIN 0.5 mg/dL (0.2-1.0); TOTAL PROTEIN 8.4 g/dL (6.4-8.2)
--- NOTE | 2020-05-16 07:58 | PN ---
DATE: SUBJECTIVE: The patient is resting, slightly propped up in bed, in no apparent respiratory distress. She stated that she feels that she has gained some strength in her upper extremities and her legs are restless and has desire to keep moving them. Continue to have dysphagia. She was helped with the physical therapist at the bedside commode, although she has not had any bowel movement. She did receive her first dose of immunoglobulin yesterday. She is scheduled for another one today. PHYSICAL EXAMINATION: GENERAL: When I examined her, she looked pale, no jaundice, cyanosis or thyromegaly. No jugular venous distention. No limb edema. VITAL SIGNS: Her heart rate was 111, blood pressure was 154/94, temperature 98.6, respiratory rate was 20, and oxygen saturation was 98% on 2 liters of oxygen. HEAD, EYES, EARS, NOSE AND THROAT: Normocephalic, atraumatic. NECK: Supple. CARDIAC: Normal first and second heart sounds. No gallop, rub or murmur. CHEST: Clear to auscultation. No crepitation or rhonchi. ABDOMEN: Distended, soft, nontender. NEUROLOGIC: She is awake, alert, responding appropriately. She continued to have hoarseness of voice. However, all her cranial nerves are intact. She moves all extremities without difficulty. Her intake and output are incompletely recorded. LABORATORY DATA: Her lab work this morning showed that her white cell count 6800, hemoglobin 13.3, hematocrit 39, MCV 90 and platelet count of 158,000. Her chemistry is still pending at the time of this dictation. ASSESSMENT: 1. 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 Today is her second dose. 2. Dysphagia, for which she is on PPN. 3. Autonomic instability with episodes of tachycardia and hypertension. 4. Other medical problems include: A. Hypertension. B. Hyperlipidemia. C. Hiatal hernia. D. Gastroesophageal reflux disease. Apparently, she was followed by Dr. Lomeli for acid reflux and was on Nexium 40 mg twice a day. It was recently cut down to once a day. PLAN: To continue with monitoring her negative inspiratory pressure and forced vital capacity every two hours. Continue with IV Protonix. Continue with PPN. Continue with IVIG as recommended by the neurologist. BLANCHE MARROQUIN MD DR: Fitz JOB#: [id number] / [id number]
[2020-05-16] MEDS: LOSARTAN POTASSIUM 50 MG TABLET. PO SCH (09:00)
[2020-05-16] MEDS: ESTROGENS, CONJUGATED 0.625 MG TABLET PO SCH (09:00)
[2020-05-16] MEDS: METOPROLOL SUCC 24HR ER 100 MG TAB.ER.24H. PO SCH (09:00)
[2020-05-16] MEDS: valACYclovir 500 MG TABLET. PO SCH ×2 (09:00→20:26)
[2020-05-16] MEDS: hydroCHLOROthiazide 12.5 MG CAPSULE PO SCH (09:00)
[2020-05-16] MEDS: LIDOCAINE (700MG/PATCH) PATCH. TD SCH (09:07)
[2020-05-16] MEDS ORDERED: GADOTERATE 7.5 MMOL/15ML VIAL. IVP ONE (09:15)
[2020-05-16] MEDS: ENALAPRILAT 2.5 MG/2 ML VIAL. IVP PRN ×2 (11:04→20:26)
[2020-05-16] MEDS: PANTOPRAZOLE IV PUSH 40 MG VIAL. IVP SCH ×2 (11:06→20:25)
[2020-05-16] MEDS: KETOROLAC 15 MG/ML VIAL. IVP PRN ×2 (11:06→20:26)
--- NOTE | 2020-05-16 13:01 | PDOC ---
PULMONARY PROGRESS NOTES DATE: 05/16/20 TIME: 12:57 Subjective Resting comfortably No shortness of breath no cough continues to have weakness Vitals Vital Signs Date Time Temp Pulse Resp B/P (MAP) Pulse Ox O2 Delivery O2 Flow Rate FiO2 05/16/20 11:34 98.9 103 18 172/78 (109) 97 Nasal Cannula 2.0 98.9 Labs Laboratory Tests Test 05/16/20 06:35 White Blood Count 6.8 x10^3/uL (4.0-11.0) Red Blood Count 4.41 x10^6/uL (3.50-5.40) Hemoglobin 13.3 g/dL (12.0-15.5) Hematocrit 39.6 % (36.0-47.0) Mean Corpuscular Volume 90 fL (79-100) Mean Corpuscular Hemoglobin 30 pg (25-35) Mean Corpuscular Hemoglobin Concent 34 g/dL (31-37) Red Cell Distribution Width 13.4 % (11.5-14.5) Platelet Count 158 x10^3/uL (140-400) Sodium Level 133 mmol/L (136-145) Potassium Level 3.5 mmol/L (3.5-5.1) Chloride Level 102 mmol/L (98-107) Carbon Dioxide Level 21 mmol/L (21-32) Anion Gap 10 (6-14) Blood Urea Nitrogen 16 mg/dL (7-20) Creatinine 0.6 mg/dL (0.6-1.0) Estimated GFR (Cockcroft-Gault) 99.7 BUN/Creatinine Ratio 27 (6-20) Glucose Level 128 mg/dL (70-99) Calcium Level 8.2 mg/dL (8.5-10.1) Total Bilirubin 0.5 mg/dL (0.2-1.0) Aspartate Amino Transf (AST/SGOT) 29 U/L (15-37) Alanine Aminotransferase (ALT/SGPT) 20 U/L (14-59) Alkaline Phosphatase 65 U/L (46-116) Total Protein 8.4 g/dL (6.4-8.2) Albumin 2.3 g/dL (3.4-5.0) Albumin/Globulin Ratio 0.4 (1.0-1.7) Laboratory Tests Test 05/16/20 06:35 White Blood Count 6.8 x10^3/uL (4.0-11.0) Red Blood Count 4.41 x10^6/uL (3.50-5.40) Hemoglobin 13.3 g/dL (12.0-15.5) Hematocrit 39.6 % (36.0-47.0) Mean Corpuscular Volume 90 fL (79-100) Mean Corpuscular Hemoglobin 30 pg (25-35) Mean Corpuscular Hemoglobin Concent 34 g/dL (31-37) Red Cell Distribution Width 13.4 % (11.5-14.5) Platelet Count 158 x10^3/uL (140-400) Sodium Level 133 mmol/L (136-145) Potassium Level 3.5 mmol/L (3.5-5.1) Chloride Level 102 mmol/L (98-107) Carbon Dioxide Level 21 mmol/L (21-32) Anion Gap 10 (6-14) Blood Urea Nitrogen 16 mg/dL (7-20) Creatinine 0.6 mg/dL (0.6-1.0) Estimated GFR (Cockcroft-Gault) 99.7 BUN/Creatinine Ratio 27 (6-20) Glucose Level 128 mg/dL (70-99) Calcium Level 8.2 mg/dL (8.5-10.1) Total Bilirubin 0.5 mg/dL (0.2-1.0) Aspartate Amino Transf (AST/SGOT) 29 U/L (15-37) Alanine Aminotransferase (ALT/SGPT) 20 U/L (14-59) Alkaline Phosphatase 65 U/L (46-116) Total Protein 8.4 g/dL (6.4-8.2) Albumin 2.3 g/dL (3.4-5.0) Albumin/Globulin Ratio 0.4 (1.0-1.7) Medications Active Scripts Medications Dose Route/Sig Max Daily Dose Days Date Category Valacyclovir (Valacyclovir Hcl) 1,000 Mg Tablet 1 Tab PO BID 05/14/20 Reported Metoprolol Succinate ( Xl ) (Metoprolol Succinate) 100 Mg Tab.er.24h 1 Tab PO DAILY 05/14/20 Reported Losartan Potassium 50 Mg Tablet 50 Mg PO DAILY 05/14/20 Reported Hydrochlorothiazide Tablet (Hydrochlorothiazide) 12.5 Mg Tablet 12.5 Mg PO DAILY 05/14/20 Reported Nexium Capsule (Esomeprazole Magnesium) 40 Mg Capsule.dr 1 Cap PO DAILY 05/14/20 Reported Premarin (Estrogens, Conjugated) 1.25 Mg Tablet 1 Tab PO DAILY 05/14/20 Reported Atorvastatin Calcium 20 Mg Tablet 1 Tab PO DAILY 05/14/20 Reported Amitriptyline Hcl 25 Mg Tablet 1 Tab PO QHS 05/14/20 Reported Alprazolam 0.25 Mg Tablet 0.5 Tab PO QHS PRN 05/14/20 Reported Comments CXR IMPRESSION: Bilateral basilar atelectasis or interstitial infiltrate. Impression . IMPRESSION: 1. Acute hypoxemic respiratory failure. 2. 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 3. History of hypertension, hyperlipidemia, gastroesophageal reflux. 4. Recent vaccination with flu and shingles. 5. History of recent laryngitis, suspect viral. Plan . PLAN: Continue supplemental oxygen as needed to keep oxygen saturations greater than 92% Monitor negative, notify provider if and if drops more than 50%--no decrease in in the last 24 hours Neurology Recommendations , MRI pending, LP preformed -- monitor cultures Continue IVIG per neurology IS at bedside Cont. NPO status and PPN for nutritional support DVT/GI -- lovenox/pepcid D/W VIJI YIN MD May 16, 2020 13:01
--- NOTE | 2020-05-16 13:45 | NUR ---
SS following for discharge planning. SS reviewed pt chart and discussed with pt RN. Pt is from home with spouse and is currently requiring oxygen. COVID19 negative. Pt on PPN and having MRI of brain and lumbar spine. SS will continue to follow for discharge planning.
--- NOTE | 2020-05-16 13:52 | NUR ---
SS following up with discharge planning. PT/OT recommended acute rehabilitation. SS met with pt and pt's family in room. SS discussed discharge planning and acute rehabilitation. SS provided pt's family with a list of acute rehabilitation facilities. Pt's family will discuss with pt and will notify SS of decision. SS will continue to follow for discharge planning.
--- NOTE | 2020-05-16 14:38 | RAD ---
BRAIN WO/W CONTRAST Date: 05/16/2020 8:57 AM Indication: Guillan Berre, lower extremity paresthesias, difficulty swallowing Comparison: CT 05/12/2020. Technique: Multiplanar multisequence MRI of the brain was performed with and without intravenous contrast using the standard protocol. 14 cc Dotarem contrast was administered intravenously during the exam. Findings: No acute infarct. No acute or chronic hemorrhage. The ventricles are normal in size and configuration without hydrocephalus. Mild scattered FLAIR hyperintensities in the subcortical and periventricular deep white matter, a nonspecific finding, most commonly seen with chronic small vessel ischemic disease. Left anterior middle cranial fossa extra-axial solid enhancing mass measuring 2.2 x 1.3 x 1.5 cm (TV by AP by CC). Mass effect on underlying temporal lobe. No underlying parenchymal edema. Diffuse pachymeningeal enhancement. The scalp and calvarium are normal. The pituitary and sella are normal. No Chiari malformation. The visualized upper cervical spine is normal. The visualized orbits and globes are normal. The visualized paranasal sinuses are clear. The mastoid air cells are clear. Normal flow voids within the vertebral, basilar, and internal carotid arteries indicating patency. IMPRESSION: 1. No acute infarct or hemorrhage. 2. Left sphenoid wing 2 cm meningioma. Mass effect on the anterior temporal lobe. No underlying parenchymal enhancement. 3. Diffuse pachymeningeal enhancement, likely related to recent lumbar puncture. 4. Mild scattered FLAIR hyperintensities in the subcortical and periventricular deep white matter, a nonspecific finding, most commonly seen with chronic small vessel ischemic disease. Electronically signed by: Jon Peter MD (05/16/2020 2:35 PM) [id number]
--- NOTE | 2020-05-16 14:43 | RAD ---
LUMBAR SPINE WO/W CONTRAST Date: 05/16/2020 8:57 AM Indication: Guillan Berre, lower extremity paresthesias Comparison: None. Technique: Multi-planar multi-weighted magnetic resonance imaging of the lumbar spine was performed with and without intravenous contrast using the standard lumbar spine protocol. 14 cc Dotarem contrast was administered intravenously during the examination. FINDINGS: The lumbar spine is normally aligned. No acute fracture. Mild multilevel degenerative disc desiccation and disc height loss. No marrow replacing process to suggest malignancy. The conus terminates at a normal level. No abnormal signal is seen within the visualized distal spinal cord. No clumping of intrathecal nerve roots. No abnormal enhancement. Sacral Tarlov cyst. No soft tissue abnormality in the visualized abdomen or pelvis. No significant spinal stenosis or neural foraminal narrowing. IMPRESSION: No abnormal enhancement of the nerve roots of the cauda equina. No significant spinal canal stenosis. Electronically signed by: Jon Peter MD (05/16/2020 2:40 PM) [id number]
--- NOTE | 2020-05-16 15:42 | PDOC ---
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 She noticed weakness starting after flu and shingles shots on 05/02 Spinal fluid showed 4 white blood cells, 1825 red blood cells, protein 54.2. C- reactive protein is 3.3 She still has some dysphagia. 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 Pachymeningeal enhancement, likely related to recent spinal tap. Coronavirus negative at [facility] IVIG 400 mg per KG per day x 5 days. Rehab, will need inpatient, consult social work Will need a decision regarding possible PEG if her swallowing does not continue to improve. Additional labs Close monitoring. Subjective Denies pain Objective Vital Signs Date Time Temp Pulse Resp B/P (MAP) Pulse Ox O2 Delivery O2 Flow Rate FiO2 05/16/20 14:49 99.0 106 20 102/54 (70) 98 Nasal Cannula 2.0 99.0 Intake and Output 05/16/20 07:00 Intake Total 1040 ml Output Total 600 ml Balance 440 ml Intake Oral 0 ml IV Total 1040 ml Output Urine Total 600 ml # Voids 1 PHYSICAL EXAM Physical Exam: Alert. Oriented to time, place and person. PERRL. EOMI. CN: no focal findings. Muscle tone: normal. Muscle strength: 3/5 DTR: 0-1+ Plantar reflex: Flexor Gait: not examined in bed. Sensory exam: Normal pinprick, decreased vibratory appreciation in feet. No cerebellar signs elicited. Review of Relevant I have reviewed the following items susan (where applicable) has been applied. Labs Laboratory Tests Test 05/16/20 06:35 White Blood Count 6.8 x10^3/uL (4.0-11.0) Red Blood Count 4.41 x10^6/uL (3.50-5.40) Hemoglobin 13.3 g/dL (12.0-15.5) Hematocrit 39.6 % (36.0-47.0) Mean Corpuscular Volume 90 fL (79-100) Mean Corpuscular Hemoglobin 30 pg (25-35) Mean Corpuscular Hemoglobin Concent 34 g/dL (31-37) Red Cell Distribution Width 13.4 % (11.5-14.5) Platelet Count 158 x10^3/uL (140-400) Sodium Level 133 mmol/L (136-145) Potassium Level 3.5 mmol/L (3.5-5.1) Chloride Level 102 mmol/L (98-107) Carbon Dioxide Level 21 mmol/L (21-32) Anion Gap 10 (6-14) Blood Urea Nitrogen 16 mg/dL (7-20) Creatinine 0.6 mg/dL (0.6-1.0) Estimated GFR (Cockcroft-Gault) 99.7 BUN/Creatinine Ratio 27 (6-20) Glucose Level 128 mg/dL (70-99) Calcium Level 8.2 mg/dL (8.5-10.1) Total Bilirubin 0.5 mg/dL (0.2-1.0) Aspartate Amino Transf (AST/SGOT) 29 U/L (15-37) Alanine Aminotransferase (ALT/SGPT) 20 U/L (14-59) Alkaline Phosphatase 65 U/L (46-116) Total Protein 8.4 g/dL (6.4-8.2) Albumin 2.3 g/dL (3.4-5.0) Albumin/Globulin Ratio 0.4 (1.0-1.7) Laboratory Tests Test 05/16/20 06:35 White Blood Count 6.8 x10^3/uL (4.0-11.0) Red Blood Count 4.41 x10^6/uL (3.50-5.40) Hemoglobin 13.3 g/dL (12.0-15.5) Hematocrit 39.6 % (36.0-47.0) Mean Corpuscular Volume 90 fL (79-100) Mean Corpuscular Hemoglobin 30 pg (25-35) Mean Corpuscular Hemoglobin Concent 34 g/dL (31-37) Red Cell Distribution Width 13.4 % (11.5-14.5) Platelet Count 158 x10^3/uL (140-400) Sodium Level 133 mmol/L (136-145) Potassium Level 3.5 mmol/L (3.5-5.1) Chloride Level 102 mmol/L (98-107) Carbon Dioxide Level 21 mmol/L (21-32) Anion Gap 10 (6-14) Blood Urea Nitrogen 16 mg/dL (7-20) Creatinine 0.6 mg/dL (0.6-1.0) Estimated GFR (Cockcroft-Gault) 99.7 BUN/Creatinine Ratio 27 (6-20) Glucose Level 128 mg/dL (70-99) Calcium Level 8.2 mg/dL (8.5-10.1) Total Bilirubin 0.5 mg/dL (0.2-1.0) Aspartate Amino Transf (AST/SGOT) 29 U/L (15-37) Alanine Aminotransferase (ALT/SGPT) 20 U/L (14-59) Alkaline Phosphatase 65 U/L (46-116) Total Protein 8.4 g/dL (6.4-8.2) Albumin 2.3 g/dL (3.4-5.0) Albumin/Globulin Ratio 0.4 (1.0-1.7) Medications Current Medications Alprazolam (Xanax) 0.125 mg PRN QHS PRN PO ANXIETY / AGITATION; Start 05/14/20 at 00:45 Amitriptyline HCl (Elavil) 25 mg QHS PO ; Start 05/14/20 at 01:00 Atorvastatin Calcium (Lipitor) 20 mg QHS PO ; Start 05/14/20 at 21:00 Losartan Potassium (Cozaar) 50 mg DAILY PO ; Start 05/14/20 at 09:00 Metoprolol Succinate (Toprol Xl) 100 mg DAILY PO ; Start 05/14/20 at 09:00 Estrogens Conjugated (Premarin) 1.25 mg DAILY PO ; Start 05/14/20 at 09:00 Hydrochlorothiazide (Microzide) 12.5 mg DAILY PO ; Start 05/14/20 at 09:00 Valacyclovir HCl (Valtrex) 1,000 mg BID PO ; Start 05/14/20 at 09:00 Sodium Chloride 1,000 ml @ 100 mls/hr Q10H IV Last administered on 05/15/20at 07:00; Start 05/14/20 at 01:00; Stop 05/15/20 at 08:17; Status DC Labetalol HCl (Normodyne Iv Push) 10 mg PRN Q4HRS PRN IVP HYPERTENSION Last administered on 05/14/20at 09:12; Start 05/14/20 at 01:00 Pantoprazole Sodium (PROTONIX VIAL for IV PUSH) 40 mg DAILYAC IVP Last administered on 05/15/20at 08:16; Start 05/14/20 at 07:30; Stop 05/15/20 at 08:23; Status DC Ketorolac Tromethamine (Toradol 15mg Vial) 15 mg PRN Q6HRS PRN IVP INFLAMMATION Last administered on 05/16/20at 11:06; Start 05/14/20 at 01:15; Stop 05/19/20 at 01:14 Lidocaine HCl (Lidocaine 1% 20ml Vial) 20 ml 1X ONCE INJ Last administered on 05/14/20at 12:08; Start 05/14/20 at 12:00; Stop 05/14/20 at 12:01; Status DC Gabapentin (Neurontin) 300 mg HS PO ; Start 05/14/20 at 21:00 Immune Globulin 400 ml @ 0 mls/hr Q24H IV Last administered on 05/15/20at 17:46; Start 05/14/20 at 18:00; Stop 05/16/20 at 18:01 Amino Acids/ Glycerin/ Electrolytes 1,000 ml @ 80 mls/hr [id number] IV Last administered on 05/15/20at 23:01; Start 05/15/20 at 09:00 Lidocaine (Lidoderm) 2 patch DAILY TD Last administered on 05/16/20at 09:07; Start 05/15/20 at 09:00 Miscellaneous (Lidoderm Patch Removal) 1 ea QHS MC Last administered on 05/15/20at 21:00; Start 05/15/20 at 21:00 Pantoprazole Sodium (PROTONIX VIAL for IV PUSH) 40 mg BID IVP Last administered on 05/16/20at 11:06; Start 05/15/20 at 21:00 Enoxaparin Sodium (Lovenox 40mg Syringe) 40 mg Q24H SQ ; Start 05/15/20 at 14:00 Enalaprilat (Vasotec Inj) 2.5 mg Q6HRS IVP ; Start 05/15/20 at 21:00; Stop 05/15/20 at 20:19; Status DC Enalaprilat (Vasotec Inj) 2.5 mg PRN Q6HRS PRN IVP HYPERTENSION Last administered on 05/16/20at 11:04; Start 05/15/20 at 20:30 Gadoterate Meglumine (Dotarem) 14 ml 1X ONCE IVP Last administered on 05/16/20at 12:58; Start 05/16/20 at 09:15; Stop 05/16/20 at 09:16; Status DC Active Scripts Active Reported Valacyclovir (Valacyclovir Hcl) 1,000 Mg Tablet 1 Tab PO BID Metoprolol Succinate ( Xl ) (Metoprolol Succinate) 100 Mg Tab.er.24h 1 Tab PO DAILY Losartan Potassium 50 Mg Tablet 50 Mg PO DAILY Hydrochlorothiazide Tablet (Hydrochlorothiazide) 12.5 Mg Tablet 12.5 Mg PO DAILY Nexium Capsule (Esomeprazole Magnesium) 40 Mg Capsule.dr 1 Cap PO DAILY Premarin (Estrogens, Conjugated) 1.25 Mg Tablet 1 Tab PO DAILY Atorvastatin Calcium 20 Mg Tablet 1 Tab PO DAILY Amitriptyline Hcl 25 Mg Tablet 1 Tab PO QHS Alprazolam 0.25 Mg Tablet 0.5 Tab PO QHS PRN Vitals/I & O Vital Sign - Last 24 Hours 05/15/20 05/15/20 05/15/20 05/15/20 16:17 19:30 19:40 20:37 Temp 99.0 99.5 99.0 99.5 Pulse 113 90 90 Resp 18 22 B/P (MAP) 158/63 (94) 184/106 (132) 184/106 Pulse Ox 99 98 O2 Delivery Nasal Cannula Nasal Cannula Nasal Cannula O2 Flow Rate 2.0 2.0 2.0 05/15/20 05/15/20 05/16/20 05/16/20 22:05 22:42 00:29 02:12 Temp 99.0 98.6 99.0 98.6 Pulse 105 111 Resp 18 20 B/P (MAP) 118/72 (87) 154/94 (114) Pulse Ox 99 98 97 97 O2 Delivery Nasal Cannula Nasal Cannula Nasal Cannula Nasal Cannula O2 Flow Rate 2.0 2.0 2.0 2.0 05/16/20 05/16/20 05/16/20 05/16/20 02:48 04:35 07:18 07:22 Temp 98.5 98.5 Pulse 100 Resp 20 B/P (MAP) 151/92 (111) Pulse Ox 97 97 98 98 O2 Delivery Nasal Cannula Nasal Cannula Nasal Cannula Nasal Cannula O2 Flow Rate 2.0 2.0 2.0 2.0 05/16/20 05/16/20 05/16/20 05/16/20 08:00 09:00 09:00 10:07 Pulse 106 106 B/P (MAP) 102/54 102/54 Pulse Ox 98 O2 Delivery Nasal Cannula Nasal Cannula O2 Flow Rate 2.0 2.0 05/16/20 05/16/20 05/16/20 11:04 11:34 14:49 Temp 98.9 99.0 98.9 99.0 Pulse 100 103 106 Resp 18 20 B/P (MAP) 151/92 172/78 (109) 102/54 (70) Pulse Ox 97 98 O2 Delivery Nasal Cannula Nasal Cannula O2 Flow Rate 2.0 2.0 Intake and Output 05/15/20 05/15/20 05/16/20 15:00 23:00 07:00 Intake Total 0 ml 400 ml 640 ml Output Total 600 ml Balance 0 ml -200 ml 640 ml Images BRAIN WO/W CONTRAST Date: 05/16/2020 8:57 AM Indication: Guillan Berre, lower extremity paresthesias, difficulty swallowing Comparison: CT 05/12/2020. Technique: Multiplanar multisequence MRI of the brain was performed with and without intravenous contrast using the standard protocol. 14 cc Dotarem contrast was administered intravenously during the exam. Findings: No acute infarct. No acute or chronic hemorrhage. The ventricles are normal in size and configuration without hydrocephalus. Mild scattered FLAIR hyperintensities in the subcortical and periventricular deep white matter, a nonspecific finding, most commonly seen with chronic small vessel ischemic disease. Left anterior middle cranial fossa extra-axial solid enhancing mass measuring 2.2 x 1.3 x 1.5 cm (TV by AP by CC). Mass effect on underlying temporal lobe. No underlying parenchymal edema. Diffuse pachymeningeal enhancement. The scalp and calvarium are normal. The pituitary and sella are normal. No Chiari malformation. The visualized upper cervical spine is normal. The visualized orbits and globes are normal. The visualized paranasal sinuses are clear. The mastoid air cells are clear. Normal flow voids within the vertebral, basilar, and internal carotid arteries indicating patency. IMPRESSION: 1. No acute infarct or hemorrhage. 2. Left sphenoid wing 2 cm meningioma. Mass effect on the anterior temporal lobe. No underlying parenchymal enhancement. 3. Diffuse pachymeningeal enhancement, likely related to recent lumbar puncture. 4. Mild scattered FLAIR hyperintensities in the subcortical and periventricular deep white matter, a nonspecific finding, most commonly seen with chronic small vessel ischemic disease. LUMBAR SPINE WO/W CONTRAST Date: 05/16/2020 8:57 AM Indication: Guillan Berre, lower extremity paresthesias Comparison: None. Technique: Multi-planar multi-weighted magnetic resonance imaging of the lumbar spine was performed with and without intravenous contrast using the standard lumbar spine protocol. 14 cc Dotarem contrast was administered intravenously during the examination. FINDINGS: The lumbar spine is normally aligned. No acute fracture. Mild multilevel degenerative disc desiccation and disc height loss. No marrow replacing process to suggest malignancy. The conus terminates at a normal level. No abnormal signal is seen within the visualized distal spinal cord. No clumping of intrathecal nerve roots. No abnormal enhancement. Sacral Tarlov cyst. No soft tissue abnormality in the visualized abdomen or pelvis. No significant spinal stenosis or neural foraminal narrowing. IMPRESSION: No abnormal enhancement of the nerve roots of the cauda equina. No significant spinal canal stenosis. Justicifation of Admission Dx: Justifications for Admission: Justification of Admission Dx: Yes ROLY SHABAZZ MD May 16, 2020 15:42
[2020-05-16] MEDS: ENOXAPARIN 40 MG/0.4 ML SYRINGE. SQ SCH (16:13)
[2020-05-16] MEDS: AMINO AC 3%/ELECTROLYTE/GLYCER 1,000 ML IV SCH ×2 (16:13→22:30)
--- NOTE | 2020-05-16 17:13 | NUR ---
Have reviewed and agree with documentation completed by consumer insights intern and made changes as needed/appropriate
[2020-05-16] MEDS: IMMUNE GLOBULIN GAMMA 10% IV SCH (18:25)
[2020-05-16] MEDS: ATORVASTATIN CALCIUM 20 MG TABLET PO SCH (20:26)
[2020-05-16] MEDS: GABAPENTIN 300 MG CAPSULE. PO SCH (20:26)
[2020-05-16] MEDS: AMITRIPTYLINE HCL 25 MG TABLET. PO SCH (20:26)
[2020-05-16] MEDS: PATCH REMOVAL. MC SCH (20:50)
[2020-05-17] VITALS (10 sets, daily range): BP systolic 144–181; BP diastolic 72–92
[2020-05-17] MEDS: KETOROLAC 15 MG/ML VIAL. IVP PRN ×3 (01:32→22:31)
[2020-05-17] MEDS: LIDOCAINE (700MG/PATCH) PATCH. TD SCH (05:17)
--- NOTE | 2020-05-17 08:55 | PN ---
DATE: 05/17/2020 SUBJECTIVE: The patient is resting slightly propped up in bed, in no apparent respiratory distress. She is awake, alert, continued to have episodes of tachycardia and hypertension. Continued to have obviously dysphagia; however, so far she did not require any intubation, she is maintaining her oxygen saturation at 98% on 2 liters of oxygen. PHYSICAL EXAMINATION: GENERAL: When I examined her this morning, she looked well and was clearly in no apparent respiratory distress. No pallor, jaundice, cyanosis or thyromegaly. No jugular venous distention. No lower limb edema. VITAL SIGNS: Her heart rate was 112, blood pressure was 141/85, temperature was 98.2, respiratory rate was 18 and oxygen saturation was 98% on 2 liters of oxygen. HEAD, EYES, EARS, NOSE AND THROAT: Showed normocephalic, atraumatic. NECK: Supple. HEART: Showed normal first and second heart sounds. No gallop, rub or murmur. CHEST: Clear to auscultation. No crepitation or rhonchi. ABDOMEN: Distended, soft, nontender. NEUROLOGIC: She is awake, alert, responding appropriately. All cranial nerves intact. She moves extremities without difficulty, although she is mostly bedbound. Her intake was 1040, output was 600. LABORATORY DATA: As of yesterday showed a serum sodium 133, potassium 3.5, chloride 102, bicarbonate 21, anion gap of 10, BUN 16, creatinine 0.6, estimated GFR was 99 mL per minute. Her glucose 128, calcium was 8.2. Total bilirubin, AST, ALT, alkaline phosphatase were normal. Total protein was 8.4, albumin was 2.3. As of yesterday, her white cell count is 6800, hemoglobin 13.3, hematocrit 39, MCV 90 and platelet count of 158,000. Her MRI of the brain showed that the patient has no acute infarct or hemorrhage. Left sphenoid wing 2 cm meningioma, mass effect on the anterior temporal lobe. No underlying parenchymal enhancement. Diffuse pachymeningeal enhancement, likely related to recent lumbar puncture. Mild scattered FLAIR hyperintensities in the subcortical and periventricular deep white matter and nonspecific finding most commonly seen with chronic small vessel ischemic disease. Her lumbar spine MRI showed that the patient has no abnormal enhancement of the nerve roots of the cauda equina. No significant spinal canal stenosis. ASSESSMENT: Guillain-Chelsea syndrome. The patient received 3 injections of IVIG. She continues unfortunate to have dysphagia, incidental left sphenoid wing 2 cm meningioma, pachymeningeal enhancement likely related to recent spinal tap. Her coronavirus was negative at [facility]. PLAN: Obviously to continue with IVIG 400 mg/kg per day for 5 days. Continue with physical and occupational therapy. I have placed a PICC line and consulted Dr. Lomeli as she has a history of esophagitis and recurrent laryngitis and wondering whether some of this is possibly related to esophageal stricture. BLANCHE MARROQUIN MD DR: SONIA/sudarshan JOB#: [id number] / [id number]
[2020-05-17] MEDS: LOSARTAN POTASSIUM 50 MG TABLET. PO SCH (09:00)
[2020-05-17] MEDS: METOPROLOL SUCC 24HR ER 100 MG TAB.ER.24H. PO SCH (09:00)
[2020-05-17] MEDS: hydroCHLOROthiazide 12.5 MG CAPSULE PO SCH (09:00)
[2020-05-17] MEDS: valACYclovir 500 MG TABLET. PO SCH ×2 (09:00→20:37)
--- NOTE | 2020-05-17 09:07 | PDOC ---
PULMONARY PROGRESS NOTES DATE: 05/17/20 TIME: 09:04 Subjective Resting comfortably, on 2 liter N/C No shortness of breath no cough Weakness has significantly improved Vitals Vital Signs Date Time Temp Pulse Resp B/P (MAP) Pulse Ox O2 Delivery O2 Flow Rate FiO2 05/17/20 08:23 96 Nasal Cannula 2.0 05/17/20 03:26 98.2 86 18 171/86 (114) 98.2 ROS: No Nausea, No Chest Pain, No Abdominal Pain, No Increase Cough General: Alert, Oriented X4 Lungs: Clear Cardiovascular: S1, S2 Abdomen: Soft, Non-tender Neuro Exam: Alert Extremities: No Edema Skin: Warm, Dry Labs Laboratory Tests Test 05/16/20 06:35 White Blood Count 6.8 x10^3/uL (4.0-11.0) Red Blood Count 4.41 x10^6/uL (3.50-5.40) Hemoglobin 13.3 g/dL (12.0-15.5) Hematocrit 39.6 % (36.0-47.0) Mean Corpuscular Volume 90 fL (79-100) Mean Corpuscular Hemoglobin 30 pg (25-35) Mean Corpuscular Hemoglobin Concent 34 g/dL (31-37) Red Cell Distribution Width 13.4 % (11.5-14.5) Platelet Count 158 x10^3/uL (140-400) Sodium Level 133 mmol/L (136-145) Potassium Level 3.5 mmol/L (3.5-5.1) Chloride Level 102 mmol/L (98-107) Carbon Dioxide Level 21 mmol/L (21-32) Anion Gap 10 (6-14) Blood Urea Nitrogen 16 mg/dL (7-20) Creatinine 0.6 mg/dL (0.6-1.0) Estimated GFR (Cockcroft-Gault) 99.7 BUN/Creatinine Ratio 27 (6-20) Glucose Level 128 mg/dL (70-99) Calcium Level 8.2 mg/dL (8.5-10.1) Total Bilirubin 0.5 mg/dL (0.2-1.0) Aspartate Amino Transf (AST/SGOT) 29 U/L (15-37) Alanine Aminotransferase (ALT/SGPT) 20 U/L (14-59) Alkaline Phosphatase 65 U/L (46-116) Total Protein 8.4 g/dL (6.4-8.2) Albumin 2.3 g/dL (3.4-5.0) Albumin/Globulin Ratio 0.4 (1.0-1.7) Medications Active Scripts Medications Dose Route/Sig Max Daily Dose Days Date Category Valacyclovir (Valacyclovir Hcl) 1,000 Mg Tablet 1 Tab PO BID 05/14/20 Reported Metoprolol Succinate ( Xl ) (Metoprolol Succinate) 100 Mg Tab.er.24h 1 Tab PO DAILY 05/14/20 Reported Losartan Potassium 50 Mg Tablet 50 Mg PO DAILY 05/14/20 Reported Hydrochlorothiazide Tablet (Hydrochlorothiazide) 12.5 Mg Tablet 12.5 Mg PO DAILY 05/14/20 Reported Nexium Capsule (Esomeprazole Magnesium) 40 Mg Capsule.dr 1 Cap PO DAILY 05/14/20 Reported Premarin (Estrogens, Conjugated) 1.25 Mg Tablet 1 Tab PO DAILY 05/14/20 Reported Atorvastatin Calcium 20 Mg Tablet 1 Tab PO DAILY 05/14/20 Reported Amitriptyline Hcl 25 Mg Tablet 1 Tab PO QHS 05/14/20 Reported Alprazolam 0.25 Mg Tablet 0.5 Tab PO QHS PRN 05/14/20 Reported Comments CXR IMPRESSION: Bilateral basilar atelectasis or interstitial infiltrate. MRI brain IMPRESSION: 1. No acute infarct or hemorrhage. 2. Left sphenoid wing 2 cm meningioma. Mass effect on the anterior temporal lobe. No underlying parenchymal enhancement. 3. Diffuse pachymeningeal enhancement, likely related to recent lumbar puncture. 4. Mild scattered FLAIR hyperintensities in the subcortical and periventricular deep white matter, a nonspecific finding, most commonly seen with chronic small vessel ischemic disease. Impression . IMPRESSION: 1. Acute hypoxemic respiratory failure. 2. Clinical presentation compatible with Guillain-Orlando syndrome. 3. History of hypertension, hyperlipidemia, gastroesophageal reflux. 4. Recent vaccination with flu and shingles. 5. History of recent laryngitis, suspect viral. Plan . PLAN: Continue supplemental oxygen as needed to keep oxygen saturations greater than 92% Monitor NIF, notify provider if and if drops more than -25 ----no decrease in in the last 24 hours-- NIF today was -60 Neurology Recommendations, LP preformed -- monitor cultures Continue IVIG per neurology IS at bedside Cont. NPO status and PPN for nutritional support-- ST to eval PT/OT DVT/GI -- lovenox/pepcid D/W ANI DEVRIES MD May 17, 2020 09:07
--- NOTE | 2020-05-17 09:47 | PDOC2 ---
GI CONSULT Date of Service: DATE: 05/17/20 TIME: 09:47 Reason For Consult: esophageal stricture??? 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 Associated w/ dysphagia - unable to tolerate secretions. Upper and lower extremity weakness has improved. Says yesterday she was able to tell when she needed to urinate. Does have a h/o reflux - past ENT eval for laryngitis/hoarseness - eventually led to GI eval. EGD by Dr. Lomeli in 04/2011 showed Grade 1 reflux esophagitis, non-erosive gastritis, and normal duodenum. Was on Nexium BID for awhile with improvement - most recently on daily dosing per PCP. Also recalls having esophagram in the past - recalls no significant findings. Reflux mostly occurs at night or after drinking the occasional/rare glass of wine. However, prior to this, NO h/o dysphagia. Denies odynophagia, n/v, abd pain, diarrhea, hematochezia, melena, or weight loss. Hasn't stooled since this all began. Has been told she has IBS and a hiatal hernia. No GB, liver, pancreas, or PUD history. Had a colonoscopy in the past - was a difficult procedure and she was awake so never wants to repeat that. Has had Cologuard testing and barium enemas since then - recalls no significant findings. PMH: PMH: HTN, HLD, GERD, anxiety D&C, hysterectomy w/ BSO FH: Family History: Cancer (lung - mother), CAD, CVA, DM, Other (father - cirrhosis) Social History: Smoke: No ALCOHOL: occassional Drugs: None ROS: GEN: Denies fevers, chills, sweats HEENT: +hoarseness CV: Denies chest pain RESP: +SOA GI: Per HPI : Denies hematuria, dysuria ENDO: Denies weight changes NEURO: Denies confusion, dizziness MSK: +weakness SKIN: Denies jaundice, pruritus Vitals: Vitals: Vital Signs Date Time Temp Pulse Resp B/P (MAP) Pulse Ox O2 Delivery O2 Flow Rate FiO2 05/17/20 08:23 96 Nasal Cannula 2.0 05/17/20 07:00 98.5 120 22 179/91 (120) 98.5 Labs: Labs: Laboratory Tests Test 05/17/20 09:30 White Blood Count 6.8 x10^3/uL Red Blood Count 4.14 x10^6/uL Hemoglobin 12.6 g/dL Hematocrit 37.3 % Mean Corpuscular Volume 90 fL Mean Corpuscular Hemoglobin 30 pg Mean Corpuscular Hemoglobin Concent 34 g/dL Red Cell Distribution Width 13.3 % Platelet Count 178 x10^3/uL Sodium Level 136 mmol/L Potassium Level 3.4 mmol/L Chloride Level 103 mmol/L Carbon Dioxide Level 23 mmol/L Anion Gap 10 Blood Urea Nitrogen 23 mg/dL Creatinine 0.7 mg/dL Estimated GFR (Cockcroft-Gault) 83.5 BUN/Creatinine Ratio 33 Glucose Level 119 mg/dL Calcium Level 8.6 mg/dL Phosphorus Level 2.8 mg/dL Magnesium Level 2.9 mg/dL Total Bilirubin 0.9 mg/dL Aspartate Amino Transf (AST/SGOT) 29 U/L Alanine Aminotransferase (ALT/SGPT) 24 U/L Alkaline Phosphatase 70 U/L Total Protein 9.4 g/dL Albumin 2.5 g/dL Albumin/Globulin Ratio 0.4 Vitamin B12 Level 621 pg/mL Thyroid Stimulating Hormone (TSH) 1.060 uIU/mL Allergies: Coded Allergies: Penicillins (Verified Allergy, Intermediate, 05/14/20) codeine (Verified Allergy, Intermediate, 05/14/20) Medications: Active Scripts Medications Dose Route/Sig Max Daily Dose Days Date Category Valacyclovir (Valacyclovir Hcl) 1,000 Mg Tablet 1 Tab PO BID 05/14/20 Reported Metoprolol Succinate ( Xl ) (Metoprolol Succinate) 100 Mg Tab.er.24h 1 Tab PO DAILY 05/14/20 Reported Losartan Potassium 50 Mg Tablet 50 Mg PO DAILY 05/14/20 Reported Hydrochlorothiazide Tablet (Hydrochlorothiazide) 12.5 Mg Tablet 12.5 Mg PO DAILY 05/14/20 Reported Nexium Capsule (Esomeprazole Magnesium) 40 Mg Capsule.dr 1 Cap PO DAILY 05/14/20 Reported Premarin (Estrogens, Conjugated) 1.25 Mg Tablet 1 Tab PO DAILY 05/14/20 Reported Atorvastatin Calcium 20 Mg Tablet 1 Tab PO DAILY 05/14/20 Reported Amitriptyline Hcl 25 Mg Tablet 1 Tab PO QHS 05/14/20 Reported Alprazolam 0.25 Mg Tablet 0.5 Tab PO QHS PRN 05/14/20 Reported Imaging: Imaging: 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 Etiology of dysphagia appears r/t to current acute illness which is under work-up. Prognosis for safe po intake long- term is unclear but not favorable in short-term. Would consider short-term non- oral nutrition and f/u medical diagnosis and any potential progress toward resuming safe po intake. Videoswallow not indicated at this time as pt unable to produce a swallow for study. RECOMMENDATIONS: NPO meds and nutrition; Yankauer suction bedside; aggressive oral care. NO ice chips, no swabs soaked in water. Written precautions provided to RN to send w/pt chart upon xfer to 2. BREAD OVEN OPERATOR will f/u per POC. DW MARYSE Jin and pt. S/p LP 05/14 CXR 05/15 IMPRESSION: Bilateral basilar atelectasis or interstitial infiltrate. L-spine MRI 05/16 IMPRESSION: No abnormal enhancement of the nerve roots of the cauda equina. No significant spinal canal stenosis. Brain MRI 05/16 IMPRESSION: 1. No acute infarct or hemorrhage. 2. Left sphenoid wing 2 cm meningioma. Mass effect on the anterior temporal lobe. No underlying parenchymal enhancement. 3. Diffuse pachymeningeal enhancement, likely related to recent lumbar puncture. 4. Mild scattered FLAIR hyperintensities in the subcortical and periventricular deep white matter, a nonspecific finding, most commonly seen with chronic small vessel ischemic disease. 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 Not clear that current dysphagia is a GI issue. Follow BREAD OVEN OPERATOR evals, continue IV PPI BID. Reviewed other notes - possible need for PEG mentioned so I discussed with her. GENARO POWELL May 17, 2020 09:47
[2020-05-17 10:02] LABS: HEMATOCRIT 37.3 % (36.0-47.0); HEMOGLOBIN 12.6 g/dL (12.0-15.5); RED BLOOD COUNT 4.14 x10^6/uL (3.50-5.40); RED CELL DISTRIBUTION WIDTH 13.3 % (11.5-14.5); WHITE BLOOD COUNT 6.8 x10^3/uL (4.0-11.0)
[2020-05-17 10:23] LABS: MAGNESIUM 2.9 mg/dL (1.8-2.4); PHOSPHORUS 2.8 mg/dL (2.6-4.7)
[2020-05-17 10:26] LABS: ALBUMIN 2.5 g/dL (3.4-5.0); ALBUMIN/GLOBULIN RATIO 0.4 (1.0-1.7); CALCIUM 8.6 mg/dL (8.5-10.1); CREATININE 0.7 mg/dL (0.6-1.0); GFR 83.5; POTASSIUM 3.4 mmol/L (3.5-5.1); TOTAL BILIRUBIN 0.9 mg/dL (0.2-1.0); TOTAL PROTEIN 9.4 g/dL (6.4-8.2)
[2020-05-17] MEDS: AMINO AC 3%/ELECTROLYTE/GLYCER 1,000 ML IV SCH (11:00)
[2020-05-17] MEDS: ESTROGENS, CONJ VAGINAL CREAM 30GM TUBE. VG SCH (11:11)
--- NOTE | 2020-05-17 13:01 | NUR ---
SS following up with discharge planning. SS reviewed pt chart and discussed with pt RN. COVID19 negative. Pt is currently requiring oxygen. Pt NPO. Pt having PICC line placed today and per RN, starting TPN later today. SS met with pt and and family in room and discussed discharge planning and residential unit. Pt's family agreeable to residential unit but reported that they will NOT go to [facility]. Pt and pt's family requesting referral to [facility], ; fax [phone]. SS phoned and faxed referral as requested. SS received notification from [facility] stating that they are on admission holds for TPN pt's due to staffing. SS was notified that [facility] in [facility] is accepting TPN pt's. SS met with pt and discussed [facility] location. Pt was agreeable. SS phoned and faxed referral to [facility], ; fax [phone]. SS will continue to follow for discharge planning.
[2020-05-17] MEDS ORDERED: LIDOCAINE WITH 8.4% SOD BICARB 3 ML DISP.SYRIN. INJ ONE (14:00)
[2020-05-17] MEDS ORDERED: LIDOCAINE WITH 8.4% SOD BICARB 3 ML DISP.SYRIN. ONE (14:06)
[2020-05-17] MEDS: PANTOPRAZOLE IV PUSH 40 MG VIAL. IVP SCH ×2 (15:32→20:36)
[2020-05-17] MEDS: ENOXAPARIN 40 MG/0.4 ML SYRINGE. SQ SCH (15:32)
[2020-05-17] MEDS: TPN PER PHARMACY MC PRN (15:39)
--- NOTE | 2020-05-17 15:39 | NUR ---
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 -Serum mag elevated, start TPN with 5 mEq/day mag sulfate. -BMP, mag, phos, triglyceride tomorrow. R: Begin TPN @ 63 ml/hr and above formula. Will monitor electrolytes, glucose, and tolerance to TPN. JARED BAILEY FORMERLY [facility], 05/17/20 [id number]
--- NOTE | 2020-05-17 16:11 | RAD ---
Exam: Fluoroscopic and ultrasound guided right percutaneous inserted central venous catheter placement 05/17/2020 2:07 PM .Indication: starting TPN Technique: Informed oral and written consent were obtained. The right upper extremity was prepped and draped using sterile barrier technique. All elements of maximal sterile barrier technique including the use of a cap, mask, sterile gown, sterile gloves, large sterile sheet, appropriate hand hygiene, and 2% chlorhexidine for cutaneous antisepsis (or acceptable alternative antiseptic per current guidelines) were followed for this procedure.. Real-time ultrasound demonstrated a patent right basilic vein which was prepped and draped in usual sterile fashion. 1% lidocaine used for local anesthesia. Using real-time ultrasound guidance the access needle percutaneously punctured the selected right basilic vein. Reference ultrasound images were saved to the medical record. A guidewire was advanced through the needle to the cavoatrial junction, and a peel-away sheath placed. The catheter was cut to length and inserted through the peel-away sheath such that its tip is at the cavoatrial junction. The wire and sheath were removed, and the catheter secured in place, and a sterile dressing was applied. Catheter was found to flush and aspirate normally. No immediate complications are identified. FLUORO TIME: 0.1 DOSE AREA PRODUCT: 0.2 Gycm2 Impression: Ultrasound and fluoroscopically guided placement of a right upper extremity PICC line.
[2020-05-17] MEDS: IMMUNE GLOBULIN GAMMA 10% IV SCH (17:55)
--- NOTE | 2020-05-17 19:49 | PDOC ---
PROGRESS NOTES Date of Service DATE: 05/17/20 TIME: 19:44 Assessment Guillain [place] syndrome, already improving with IVIG. She has received 4 of 5 intended dosages to a total of 2 g/kg. Her speech is better today. She notes that yesterday she was only able to speak a few words and lose her wind. Now she is able to speak complete sentences. She noticed weakness starting after flu and shingles shots on 05/02 Spinal fluid showed 4 white blood cells, 1825 red blood cells, protein 54.2. C- reactive protein is 3.3 She still has dysphagia and inability to swallow. TPN was initiated. 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 Pachymeningeal enhancement, likely related to recent spinal tap. Coronavirus negative at [place]' Plan IVIG 400 mg per KG per day x 5 days. 1 more dosage to go. Rehab, will need inpatient, consult social work Will need a decision regarding possible PEG if her swallowing does not continue to improve. Speech therapy will evaluate her daily. Close monitoring. Subjective I am feeling a little better. My speech is better than yesterday. My arms are much less tingly and they are strong. My legs are less tingly but they feel like something tight is wrapped around them. It is not a painful sensation Objective Vital Signs Date Time Temp Pulse Resp B/P (MAP) Pulse Ox O2 Delivery O2 Flow Rate FiO2 05/17/20 18:55 119 18 181/83 (115) 96 Nasal Cannula 2.0 05/17/20 18:29 99.2 99.2 Intake and Output 05/17/20 07:00 Intake Total 1040 ml Output Total 600 ml Balance 440 ml Intake Oral 0 ml IV Total 1040 ml Output Urine Total 600 ml PHYSICAL EXAM She was alert, awake and cooperative. Speech was slight hoarse but fluent and easy to understand. She was able to complete sentences. She followed commands well. She was fully oriented. Cranial nerves were intact. Muscle bulk and tone was normal. Power was fairly full in the upper extremities except for arm abduction 4/5. She was quite weak in both legs. Tendon reflexes were absent in the legs but present at biceps. Toes were not upgoing. Sensation was intact to light touch, sharp, cold thermal and vibration bilaterally in upper and lower extremities. Review of Relevant I have reviewed the following items susan (where applicable) has been applied. Labs Laboratory Tests Test 05/16/20 06:35 05/17/20 09:30 White Blood Count 6.8 x10^3/uL (4.0-11.0) 6.8 x10^3/uL (4.0-11.0) Red Blood Count 4.41 x10^6/uL (3.50-5.40) 4.14 x10^6/uL (3.50-5.40) Hemoglobin 13.3 g/dL (12.0-15.5) 12.6 g/dL (12.0-15.5) Hematocrit 39.6 % (36.0-47.0) 37.3 % (36.0-47.0) Mean Corpuscular Volume 90 fL (79-100) 90 fL (79-100) Mean Corpuscular Hemoglobin 30 pg (25-35) 30 pg (25-35) Mean Corpuscular Hemoglobin Concent 34 g/dL (31-37) 34 g/dL (31-37) Red Cell Distribution Width 13.4 % (11.5-14.5) 13.3 % (11.5-14.5) Platelet Count 158 x10^3/uL (140-400) 178 x10^3/uL (140-400) Sodium Level 133 mmol/L (136-145) 136 mmol/L (136-145) Potassium Level 3.5 mmol/L (3.5-5.1) 3.4 mmol/L (3.5-5.1) Chloride Level 102 mmol/L (98-107) 103 mmol/L (98-107) Carbon Dioxide Level 21 mmol/L (21-32) 23 mmol/L (21-32) Anion Gap 10 (6-14) 10 (6-14) Blood Urea Nitrogen 16 mg/dL (7-20) 23 mg/dL (7-20) Creatinine 0.6 mg/dL (0.6-1.0) 0.7 mg/dL (0.6-1.0) Estimated GFR (Cockcroft-Gault) 99.7 83.5 BUN/Creatinine Ratio 27 (6-20) 33 (6-20) Glucose Level 128 mg/dL (70-99) 119 mg/dL (70-99) Calcium Level 8.2 mg/dL (8.5-10.1) 8.6 mg/dL (8.5-10.1) Total Bilirubin 0.5 mg/dL (0.2-1.0) 0.9 mg/dL (0.2-1.0) Aspartate Amino Transf (AST/SGOT) 29 U/L (15-37) 29 U/L (15-37) Alanine Aminotransferase (ALT/SGPT) 20 U/L (14-59) 24 U/L (14-59) Alkaline Phosphatase 65 U/L (46-116) 70 U/L (46-116) Total Protein 8.4 g/dL (6.4-8.2) 9.4 g/dL (6.4-8.2) Albumin 2.3 g/dL (3.4-5.0) 2.5 g/dL (3.4-5.0) Albumin/Globulin Ratio 0.4 (1.0-1.7) 0.4 (1.0-1.7) Phosphorus Level 2.8 mg/dL (2.6-4.7) Magnesium Level 2.9 mg/dL (1.8-2.4) Vitamin B12 Level 621 pg/mL (247-911) Thyroid Stimulating Hormone (TSH) 1.060 uIU/mL (0.358-3.74) Laboratory Tests Test 05/17/20 09:30 White Blood Count 6.8 x10^3/uL (4.0-11.0) Red Blood Count 4.14 x10^6/uL (3.50-5.40) Hemoglobin 12.6 g/dL (12.0-15.5) Hematocrit 37.3 % (36.0-47.0) Mean Corpuscular Volume 90 fL (79-100) Mean Corpuscular Hemoglobin 30 pg (25-35) Mean Corpuscular Hemoglobin Concent 34 g/dL (31-37) Red Cell Distribution Width 13.3 % (11.5-14.5) Platelet Count 178 x10^3/uL (140-400) Sodium Level 136 mmol/L (136-145) Potassium Level 3.4 mmol/L (3.5-5.1) Chloride Level 103 mmol/L (98-107) Carbon Dioxide Level 23 mmol/L (21-32) Anion Gap 10 (6-14) Blood Urea Nitrogen 23 mg/dL (7-20) Creatinine 0.7 mg/dL (0.6-1.0) Estimated GFR (Cockcroft-Gault) 83.5 BUN/Creatinine Ratio 33 (6-20) Glucose Level 119 mg/dL (70-99) Calcium Level 8.6 mg/dL (8.5-10.1) Phosphorus Level 2.8 mg/dL (2.6-4.7) Magnesium Level 2.9 mg/dL (1.8-2.4) Total Bilirubin 0.9 mg/dL (0.2-1.0) Aspartate Amino Transf (AST/SGOT) 29 U/L (15-37) Alanine Aminotransferase (ALT/SGPT) 24 U/L (14-59) Alkaline Phosphatase 70 U/L (46-116) Total Protein 9.4 g/dL (6.4-8.2) Albumin 2.5 g/dL (3.4-5.0) Albumin/Globulin Ratio 0.4 (1.0-1.7) Vitamin B12 Level 621 pg/mL (247-911) Thyroid Stimulating Hormone (TSH) 1.060 uIU/mL (0.358-3.74) Medications Current Medications Alprazolam (Xanax) 0.125 mg PRN QHS PRN PO ANXIETY / AGITATION; Start 05/14/20 at 00:45 Amitriptyline HCl (Elavil) 25 mg QHS PO ; Start 05/14/20 at 01:00 Atorvastatin Calcium (Lipitor) 20 mg QHS PO ; Start 05/14/20 at 21:00 Losartan Potassium (Cozaar) 50 mg DAILY PO ; Start 05/14/20 at 09:00 Metoprolol Succinate (Toprol Xl) 100 mg DAILY PO ; Start 05/14/20 at 09:00 Estrogens Conjugated (Premarin) 1.25 mg DAILY PO ; Start 05/14/20 at 09:00; Stop 05/17/20 at 08:23; Status DC Hydrochlorothiazide (Microzide) 12.5 mg DAILY PO ; Start 05/14/20 at 09:00 Valacyclovir HCl (Valtrex) 1,000 mg BID PO ; Start 05/14/20 at 09:00 Sodium Chloride 1,000 ml @ 100 mls/hr Q10H IV Last administered on 05/15/20 07:00; Start 05/14/20 at 01:00; Stop 05/15/20 at 08:17; Status DC Labetalol HCl (Normodyne Iv Push) 10 mg PRN Q4HRS PRN IVP HYPERTENSION Last administered on 05/14/20at 09:12; Start 05/14/20 at 01:00 Pantoprazole Sodium (PROTONIX VIAL for IV PUSH) 40 mg DAILYAC IVP Last administered on 05/15/20at 08:16; Start 05/14/20 at 07:30; Stop 05/15/20 at 08:23; Status DC Ketorolac Tromethamine (Toradol 15mg Vial) 15 mg PRN Q6HRS PRN IVP INFLAMMATION Last administered on 05/17/20 01:32; Start 05/14/20 at 01:15; Stop 05/19/20 at 01:14 Lidocaine HCl (Lidocaine 1% 20ml Vial) 20 ml 1X ONCE INJ Last administered on 05/14/20at 12:08; Start 05/14/20 at 12:00; Stop 05/14/20 at 12:01; Status DC Gabapentin (Neurontin) 300 mg HS PO ; Start 05/14/20 at 21:00 Immune Globulin 400 ml @ 0 mls/hr Q24H IV Last administered on 05/16/20 18:25; Start 05/14/20 at 18:00; Stop 05/16/20 at 18:01; Status DC Amino Acids/ Glycerin/ Electrolytes 1,000 ml @ 80 mls/hr [id number] IV Last administered on 05/16/20at 16:13; Start 05/15/20 at 09:00; Stop 05/17/20 at 21:59 Lidocaine (Lidoderm) 2 patch DAILY TD Last administered on 05/17/20 05:17; Start 05/15/20 at 09:00 Miscellaneous (Lidoderm Patch Removal) 1 ea QHS MC Last administered on 05/16/20at 20:50; Start 05/15/20 at 21:00 Pantoprazole Sodium (PROTONIX VIAL for IV PUSH) 40 mg BID IVP Last administered on 05/17/20at 15:32; Start 05/15/20 at 21:00 Enoxaparin Sodium (Lovenox 40mg Syringe) 40 mg Q24H SQ Last administered on 05/17/20at 15:32; Start 05/15/20 at 14:00 Enalaprilat (Vasotec Inj) 2.5 mg Q6HRS IVP ; Start 05/15/20 at 21:00; Stop 05/15/20 at 20:19; Status DC Enalaprilat (Vasotec Inj) 2.5 mg PRN Q6HRS PRN IVP HYPERTENSION Last administered on 05/16/20at 20:26; Start 05/15/20 at 20:30 Gadoterate Meglumine (Dotarem) 14 ml 1X ONCE IVP Last administered on 05/16/20at 12:58; Start 05/16/20 at 09:15; Stop 05/16/20 at 09:16; Status DC Estrogens Conjugated (Premarin) 2 sarah DAILY VG Last administered on 05/17/20at 11:11; Start 05/17/20 at 09:00 Info (Tpn Per Pharmacy) 1 each PRN DAILY PRN MC SEE COMMENTS Last administered on 05/17/20at 15:39; Start 05/17/20 at 08:30 Sodium Chloride 90 meq/Potassium Chloride 50 meq/ Potassium Phosphate 13.6 mmol/Magnesium Sulfate 5 meq/ Calcium Gluconate 10 meq/ Multivitamins 10 ml/Chromium/ Copper/Manganese/ Seleni/Zn 1 ml/ Total Parenteral Nutrition/Amino Acids/Dextrose/ Fat Emulsion Intravenous 1,512 ml @ 63 mls/hr TPN CONT IV ; Start 05/17/20 at 22:00; Stop 05/18/20 at 21:59 Lidocaine HCl (Buffered Lidocaine 1%) 3 ml 1X ONCE INJ Last administered on 05/17/20at 14:22; Start 05/17/20 at 14:00; Stop 05/17/20 at 14:01; Status DC Lidocaine HCl (Buffered Lidocaine 1%) 3 ml STK-MED ONCE .ROUTE ; Start 05/17/20 at 14:06; Stop 05/17/20 at 14:07; Status DC Immune Globulin 300 ml @ 0 mls/hr Q24H IV Last administered on 05/17/20at 17:55; Start 05/17/20 at 18:00; Stop 05/18/20 at 18:01 Active Scripts Active Reported Valacyclovir (Valacyclovir Hcl) 1,000 Mg Tablet 1 Tab PO BID Metoprolol Succinate ( Xl ) (Metoprolol Succinate) 100 Mg Tab.er.24h 1 Tab PO DAILY Losartan Potassium 50 Mg Tablet 50 Mg PO DAILY Hydrochlorothiazide Tablet (Hydrochlorothiazide) 12.5 Mg Tablet 12.5 Mg PO DAILY Nexium Capsule (Esomeprazole Magnesium) 40 Mg Capsule.dr 1 Cap PO DAILY Premarin (Estrogens, Conjugated) 1.25 Mg Tablet 1 Tab PO DAILY Atorvastatin Calcium 20 Mg Tablet 1 Tab PO DAILY Amitriptyline Hcl 25 Mg Tablet 1 Tab PO QHS Alprazolam 0.25 Mg Tablet 0.5 Tab PO QHS PRN Vitals/I & O Vital Sign - Last 24 Hours 05/16/20 05/16/20 05/16/20 05/16/20 19:54 20:00 20:26 23:34 Temp 98.7 98.7 Pulse 111 117 106 Resp 18 B/P (MAP) 154/76 (102) 164/76 157/105 (122) Pulse Ox 98 92 O2 Delivery Nasal Cannula Nasal Cannula O2 Flow Rate 2.0 2.0 05/16/20 05/17/20 05/17/20 05/17/20 23:35 03:26 07:00 08:00 Temp 98.2 98.5 98.2 98.5 Pulse 86 120 Resp 18 22 B/P (MAP) 171/86 (114) 179/91 (120) Pulse Ox 98 98 96 O2 Delivery Nasal Cannula Nasal Cannula Nasal Cannula Nasal Cannula O2 Flow Rate 2.0 2.0 2.0 2.0 05/17/20 05/17/20 05/17/20 05/17/20 08:23 11:00 15:00 17:55 Temp 99.0 98.8 99.2 99.0 98.8 99.2 Pulse 94 102 121 Resp 20 18 18 B/P (MAP) 164/81 (108) 155/88 (110) 151/92 (111) Pulse Ox 96 98 96 97 O2 Delivery Nasal Cannula Nasal Cannula Nasal Cannula Nasal Cannula O2 Flow Rate 2.0 2.0 2.0 2.0 05/17/20 05/17/20 05/17/20 18:10 18:29 18:55 Temp 99.1 99.2 99.1 99.2 Pulse 106 100 119 Resp 18 18 18 B/P (MAP) 178/79 (112) 175/87 (116) 181/83 (115) Pulse Ox 95 96 96 O2 Delivery Nasal Cannula Nasal Cannula Nasal Cannula O2 Flow Rate 2.0 2.0 2.0 Intake and Output 05/16/20 05/16/20 05/17/20 15:00 23:00 07:00 Intake Total 0 ml 400 ml 640 ml Output Total 300 ml 300 ml Balance 0 ml 100 ml 340 ml Justicifation of Admission Dx: Justifications for Admission: Justification of Admission Dx: Yes ANTONIO GONZALEZ MD May 17, 2020 19:49
[2020-05-17] MEDS: ENALAPRILAT 2.5 MG/2 ML VIAL. IVP PRN (20:36)
[2020-05-17] MEDS: ATORVASTATIN CALCIUM 20 MG TABLET PO SCH (20:37)
[2020-05-17] MEDS: AMITRIPTYLINE HCL 25 MG TABLET. PO SCH (20:37)
[2020-05-17] MEDS: GABAPENTIN 300 MG CAPSULE. PO SCH (20:37)
[2020-05-17] MEDS: PATCH REMOVAL. MC SCH (20:37)
[2020-05-17] MEDS: [UNRECOGNIZED DRUG - OTHER] IV SCH (22:00)
[2020-05-17] MEDS: AMINO ACID IV SCH (22:00)
[2020-05-17] MEDS: DEXTROSE 70% IV SCH (22:00)
[2020-05-17] MEDS: TOTAL PARENTERAL NUTRITION IV SCH (22:00)
[2020-05-18] MEDS: fentaNYL PF VIAL 100 MCG/2 ML VIAL IVP PRN ×2 (02:01→09:27)
[2020-05-18] MEDS: LIDOCAINE (700MG/PATCH) PATCH. TD SCH (02:10)
[2020-05-18] MEDS: TOTAL PARENTERAL NUTRITION IV SCH (02:39)
[2020-05-18] MEDS: AMINO ACID IV SCH (02:39)
[2020-05-18] MEDS: DEXTROSE 70% IV SCH (02:39)
[2020-05-18] MEDS: [UNRECOGNIZED DRUG - OTHER] IV SCH (02:39)
[2020-05-18 03:03] VITALS: BP 128/87
[2020-05-18 07:00] VITALS: BP 176/81
[2020-05-18] MEDS: hydroCHLOROthiazide 12.5 MG CAPSULE PO SCH (08:01)
[2020-05-18] MEDS: LOSARTAN POTASSIUM 50 MG TABLET. PO SCH (08:01)
[2020-05-18] MEDS: METOPROLOL SUCC 24HR ER 100 MG TAB.ER.24H. PO SCH (08:01)
[2020-05-18] MEDS: valACYclovir 500 MG TABLET. PO SCH ×2 (08:01→21:00)
[2020-05-18] MEDS: PANTOPRAZOLE IV PUSH 40 MG VIAL. IVP SCH ×2 (09:26→21:57)
[2020-05-18] MEDS: ESTROGENS, CONJ VAGINAL CREAM 30GM TUBE. VG SCH (09:27)
--- NOTE | 2020-05-18 09:38 | PN ---
DATE: 05/18/2020 SUBJECTIVE: The patient is resting, slightly propped up in bed, in no apparent respiratory distress. She is awake, alert. She said that she is able to talk much easier than before. She attempted even to swallow some of his saliva today. Her biggest problem is her back pain for which I started her on fentanyl 50 mcg IV every 3 hours. PHYSICAL EXAMINATION: GENERAL: When I examined her this morning, she looked well and was clearly in no apparent distress, pale, no jaundice, cyanosis or thyromegaly. No jugular venous distention. No limb edema. VITAL SIGNS: Her heart rate was 109, blood pressure was 176/81, temperature was 99, respiratory rate was 16, and oxygen saturation was 94% on 2 liters of oxygen. HEENT:: Showed normocephalic, atraumatic. NECK: Supple. HEART: Showed normal first and second heart sounds. No gallop or murmur. CHEST: Shows central trachea, equal bilateral chest expansion, air entry, vesicular breath sounds. No crepitation or rhonchi. ABDOMEN: Distended, soft, nontender. NEUROLOGIC: She was more awake, alert, responding appropriately. All her cranial nerves intact. She moves extremities without difficulty. Her intake over the last 24 hours was 1040, output was 600. LABORATORY DATA: As of yesterday, her white cell count was 6800, hemoglobin 12.6, hematocrit 37, MCV 90 and platelet count of 178,000. Her serum sodium was 136, potassium 3.4, chloride 103, bicarbonate 23, anion gap of 10, BUN 23, creatinine 0.7, estimated GFR was 83 mL per minute. Her glucose was 119, calcium was 8.6, phosphorus 2.8, magnesium was 2.9. Total bilirubin, AST, ALT, alkaline phosphatase are normal. Total protein was 9.4, albumin was 2.5. Her vitamin B12 was 621 and TSH was 1.060. ASSESSMENT: 1. Guillain-[place] syndrome. The patient received so far 4 injections of IVIG; however, she continued to have dysphagia. 2. She has incidental left sphenoid wing 2 cm meningioma with pachymeningeal enhancement likely related to recent spinal tap. 3. Her coronavirus by PCR was negative. OTHER MEDICAL PROBLEMS: Include: A. Hypertension. B. Hyperlipidemia. C. Hiatal hernia. D. Gastroesophageal reflux disease. PLAN: Obviously to continue with IVIG as well as recommended by the neurologist. Continue with TPN for nutritional support. Continue with pain management. Continue with physical and occupational and speech. BLANCHE MARROQUIN MD DR: SONIA/sudarshan JOB#: [id number] / [id number]
--- NOTE | 2020-05-18 10:16 | PDOC ---
PULMONARY PROGRESS NOTES DATE: 05/18/20 TIME: 10:14 Subjective Resting comfortably, on 2 liter N/C No shortness of breath no cough Weakness has significantly improved, able to lift legs off bed, improvement in voice production Complains of back pain Vitals Vital Signs Date Time Temp Pulse Resp B/P (MAP) Pulse Ox O2 Delivery O2 Flow Rate FiO2 05/18/20 09:27 94 Nasal Cannula 2.0 05/18/20 07:00 99.0 109 16 176/81 (112) 99.0 ROS: No Nausea, No Chest Pain, No Abdominal Pain, No Increase Cough General: Alert, Oriented X4 Lungs: Clear Cardiovascular: S1, S2 Abdomen: Soft, Non-tender Neuro Exam: Alert Extremities: No Edema Skin: Warm, Dry Labs Laboratory Tests Test 05/17/20 09:30 White Blood Count 6.8 x10^3/uL (4.0-11.0) Red Blood Count 4.14 x10^6/uL (3.50-5.40) Hemoglobin 12.6 g/dL (12.0-15.5) Hematocrit 37.3 % (36.0-47.0) Mean Corpuscular Volume 90 fL (79-100) Mean Corpuscular Hemoglobin 30 pg (25-35) Mean Corpuscular Hemoglobin Concent 34 g/dL (31-37) Red Cell Distribution Width 13.3 % (11.5-14.5) Platelet Count 178 x10^3/uL (140-400) Sodium Level 136 mmol/L (136-145) Potassium Level 3.4 mmol/L (3.5-5.1) Chloride Level 103 mmol/L (98-107) Carbon Dioxide Level 23 mmol/L (21-32) Anion Gap 10 (6-14) Blood Urea Nitrogen 23 mg/dL (7-20) Creatinine 0.7 mg/dL (0.6-1.0) Estimated GFR (Cockcroft-Gault) 83.5 BUN/Creatinine Ratio 33 (6-20) Glucose Level 119 mg/dL (70-99) Calcium Level 8.6 mg/dL (8.5-10.1) Phosphorus Level 2.8 mg/dL (2.6-4.7) Magnesium Level 2.9 mg/dL (1.8-2.4) Total Bilirubin 0.9 mg/dL (0.2-1.0) Aspartate Amino Transf (AST/SGOT) 29 U/L (15-37) Alanine Aminotransferase (ALT/SGPT) 24 U/L (14-59) Alkaline Phosphatase 70 U/L (46-116) Total Protein 9.4 g/dL (6.4-8.2) Albumin 2.5 g/dL (3.4-5.0) Albumin/Globulin Ratio 0.4 (1.0-1.7) Vitamin B12 Level 621 pg/mL (247-911) Thyroid Stimulating Hormone (TSH) 1.060 uIU/mL (0.358-3.74) Medications Active Scripts Medications Dose Route/Sig Max Daily Dose Days Date Category Valacyclovir (Valacyclovir Hcl) 1,000 Mg Tablet 1 Tab PO BID 05/14/20 Reported Metoprolol Succinate ( Xl ) (Metoprolol Succinate) 100 Mg Tab.er.24h 1 Tab PO DAILY 05/14/20 Reported Losartan Potassium 50 Mg Tablet 50 Mg PO DAILY 05/14/20 Reported Hydrochlorothiazide Tablet (Hydrochlorothiazide) 12.5 Mg Tablet 12.5 Mg PO DAILY 05/14/20 Reported Nexium Capsule (Esomeprazole Magnesium) 40 Mg Capsule.dr 1 Cap PO DAILY 05/14/20 Reported Premarin (Estrogens, Conjugated) 1.25 Mg Tablet 1 Tab PO DAILY 05/14/20 Reported Atorvastatin Calcium 20 Mg Tablet 1 Tab PO DAILY 05/14/20 Reported Amitriptyline Hcl 25 Mg Tablet 1 Tab PO QHS 05/14/20 Reported Alprazolam 0.25 Mg Tablet 0.5 Tab PO QHS PRN 05/14/20 Reported Comments CXR IMPRESSION: Bilateral basilar atelectasis or interstitial infiltrate. MRI brain IMPRESSION: 1. No acute infarct or hemorrhage. 2. Left sphenoid wing 2 cm meningioma. Mass effect on the anterior temporal lobe. No underlying parenchymal enhancement. 3. Diffuse pachymeningeal enhancement, likely related to recent lumbar puncture. 4. Mild scattered FLAIR hyperintensities in the subcortical and periventricular deep white matter, a nonspecific finding, most commonly seen with chronic small vessel ischemic disease. Impression . IMPRESSION: 1. Acute hypoxemic respiratory failure. 2. Clinical presentation compatible with Guillain-[place] syndrome. 3. History of hypertension, hyperlipidemia, gastroesophageal reflux. 4. Recent vaccination with flu and shingles. 5. History of recent laryngitis, suspect viral. Plan . PLAN: Continue supplemental oxygen as needed to keep oxygen saturations greater than 92%-- on 2 liters N/C wean as tolerated Monitor NIF, notify provider if and if drops more than -25 ----no decrease in in the last 24 hours-- NIF today was -70 Neurology Recommendations, LP preformed -- monitor cultures Continue IVIG per neurology IS at bedside Cont. TPN for nutritional support PT/OT DVT/GI -- lovenox/pepcid D/W ANI DEVRIES MD May 18, 2020 10:15
[2020-05-18 10:24] VITALS: BP 184/87
--- NOTE | 2020-05-18 11:28 | NUR ---
SS following up with discharge planning. SS reviewed pt chart and discussed with pt RN. Pt is currently requiring oxygen. Pt on TPN. COVID19 negative. SS phoned and faxed referral to [facility] in [facility] on 05/17/2020. SS contacted Eron at [facility], , and requested update on acceptance decision. SS will continue to follow for discharge planning.
--- NOTE | 2020-05-18 11:58 | PDOC ---
Date of Service: DATE: 05/18/20 TIME: 11:54 Subjective: Subjective: Swallowing might be better - thinks was able to swallow saliva once, but then not a second time. Moving arms and legs. Objective: Vital Signs: Vital Signs Date Time Temp Pulse Resp B/P (MAP) Pulse Ox O2 Delivery O2 Flow Rate FiO2 05/18/20 10:24 98.1 100 20 184/87 (119) 92 Nasal Cannula 2.0 98.1 Imaging: S/p PICC 05/17 PE: GEN: NAD HEENT: hoarse - voice a little stronger? 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 Justicifation of Admission Dx: Justifications for Admission: Justification of Admission Dx: Yes GENARO POWELL May 18, 2020 11:58
[2020-05-18] MEDS: TPN PER PHARMACY MC PRN ×2 (12:06→16:23)
[2020-05-18 14:14] LABS: HEMATOCRIT 35.5 % (36.0-47.0); HEMOGLOBIN 12.1 g/dL (12.0-15.5); RED BLOOD COUNT 3.76 x10^6/uL (3.50-5.40); RED CELL DISTRIBUTION WIDTH 13.9 % (11.5-14.5); WHITE BLOOD COUNT 7.5 x10^3/uL (4.0-11.0)
[2020-05-18] MEDS: ENOXAPARIN 40 MG/0.4 ML SYRINGE. SQ SCH (14:22)
[2020-05-18 15:00] VITALS: BP 180/91
[2020-05-18 15:02] LABS: ALBUMIN 2.5 g/dL (3.4-5.0); ALBUMIN/GLOBULIN RATIO 0.4 (1.0-1.7); CALCIUM 8.6 mg/dL (8.5-10.1); CREATININE 0.7 mg/dL (0.6-1.0); GFR 83.5; MAGNESIUM 2.2 mg/dL (1.8-2.4); PHOSPHORUS 1.8 mg/dL (2.6-4.7); POTASSIUM 3.5 mmol/L (3.5-5.1); TOTAL BILIRUBIN 1.2 mg/dL (0.2-1.0); TOTAL PROTEIN 9.3 g/dL (6.4-8.2)
--- NOTE | 2020-05-18 16:25 | NUR ---
Pharmacy TPN Dosing Note S: LILLIAN CLEANING is a 65 year old F Currently receiving Central Continuous TPN started 05/17/20 B:Pertinent PMH: Guiann [place] Syndrome Height: 5 feet, 2 inches Weight: 73.0 kg Current diet: NPO LABS: Sodium: 142 Potassium: 3.5 Chloride: 107 Calcium: 8.6 Corrected Calcium: 9.80 Magnesium: 2.2 CO2: 29 SCr: 0.7 Glucose: 168 Albumin: 2.5 AST: 35 ALT: 31 TPN FORMULA: TPN TYPE: Central Continuous AMINO ACIDS: 60 gm DEXTROSE: 195 gm LIPIDS: 20 gm SODIUM CHLORIDE: 90 mEq SODIUM ACETATE: mEq SODIUM PHOSPHATE: mmol POTASSIUM CHLORIDE: 50 mEq POTASSIUM ACETATE: mEq POTASSIUM PHOSPHATE: 20 mmol MAGNESIUM: 5 mEq CALCIUM: 10 mEq INSULIN: - units MULTIPLE VITAMIN: 10 ml TRACE ELEMENTS: 1 ml(s) TPN PLAN: INCREASE PHOSPATE TO 20 MM CMP/LYTES TOMORROW R: Continue TPN AT 63ML/HR Will monitor electrolytes, glucose, and tolerance to TPN. [facility], 05/18/20 [id number]
[2020-05-18] MEDS: IMMUNE GLOBULIN GAMMA 10% IV SCH (17:47)
[2020-05-18] MEDS: LABETALOL 20 MG/4 ML DISP.SYRIN. IVP PRN (19:10)
[2020-05-18 19:33] VITALS: BP 181/99
[2020-05-18] MEDS: PATCH REMOVAL. MC SCH (21:00)
[2020-05-18] MEDS: ATORVASTATIN CALCIUM 20 MG TABLET PO SCH (21:00)
[2020-05-18] MEDS: AMITRIPTYLINE HCL 25 MG TABLET. PO SCH (21:00)
[2020-05-18] MEDS: GABAPENTIN 300 MG CAPSULE. PO SCH (21:00)
--- NOTE | 2020-05-18 21:29 | PDOC ---
PROGRESS NOTES Date of Service DATE: 05/18/20 TIME: 21:24 Assessment Guillain Medrano syndrome, already improving with IVIG. She currently receiving her fifth IVIG dosage to achieve a total of 2 g/kg. Her speech is better today. She notes that 2 days ago she was only able to speak a few words and lose her wind. Now she is able to speak complete sentences. She noticed weakness starting after flu and shingles shots on 05/02 Spinal fluid showed 4 white blood cells, 1825 red blood cells, protein 54.2. C- reactive protein is 3.3 She still has dysphagia and inability to swallow. TPN was initiated. 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 Pachymeningeal enhancement, likely related to recent spinal tap. Coronavirus negative at [facility] IVIG 400 mg per KG per day x 5 days. Today completes the course. If she deteriorates in 3-4 weeks she could receive another 1 g/kg but we can play this by ear. Rehab, will need inpatient, consult social work Will need a decision regarding possible PEG if her swallowing does not continue to improve. Speech therapy will likely need to do a video swallow on Saturday. She continues to work with physical therapy. After she is done with the session she feels like she has run a marathon. Close monitoring. Subjective I feel like when I try to swallow it is getting stuck at the bottom of my throat. It still feels like there is a squeezing sensation in my feet but is not painful. The tingling is gone in my hands. Objective Laboratory Tests Test 05/18/20 14:00 05/18/20 14:40 White Blood Count 7.5 x10^3/uL Red Blood Count 3.76 x10^6/uL Hemoglobin 12.1 g/dL Hematocrit 35.5 % Mean Corpuscular Volume 94 fL Mean Corpuscular Hemoglobin 32 pg Mean Corpuscular Hemoglobin Concent 34 g/dL Red Cell Distribution Width 13.9 % Platelet Count 147 x10^3/uL Sodium Level 142 mmol/L Potassium Level 3.5 mmol/L Chloride Level 107 mmol/L Carbon Dioxide Level 29 mmol/L Anion Gap 6 Blood Urea Nitrogen 23 mg/dL Creatinine 0.7 mg/dL Estimated GFR (Cockcroft-Gault) 83.5 BUN/Creatinine Ratio 33 Glucose Level 168 mg/dL Calcium Level 8.6 mg/dL Phosphorus Level 1.8 mg/dL Magnesium Level 2.2 mg/dL Total Bilirubin 1.2 mg/dL Aspartate Amino Transf (AST/SGOT) 35 U/L Alanine Aminotransferase (ALT/SGPT) 31 U/L Alkaline Phosphatase 63 U/L Total Protein 9.3 g/dL Albumin 2.5 g/dL Albumin/Globulin Ratio 0.4 Triglycerides Level 125 mg/dL Current Medications Medications (Trade) Dose Ordered Sig/Demarco Route PRN Reason Start Time Stop Time Status Last Admin Dose Admin Alprazolam (Xanax) 0.125 mg PRN QHS PRN PO ANXIETY / AGITATION 05/14/20 00:45 Amitriptyline HCl (Elavil) 25 mg QHS PO 05/14/20 01:00 Atorvastatin Calcium (Lipitor) 20 mg QHS PO 05/14/20 21:00 Losartan Potassium (Cozaar) 50 mg DAILY PO 05/14/20 09:00 Metoprolol Succinate (Toprol Xl) 100 mg DAILY PO 05/14/20 09:00 Estrogens Conjugated (Premarin) 1.25 mg DAILY PO 05/14/20 09:00 05/17/20 08:23 DC Hydrochlorothiazide (Microzide) 12.5 mg DAILY PO 05/14/20 09:00 Valacyclovir HCl (Valtrex) 1,000 mg BID PO 05/14/20 09:00 Sodium Chloride 1,000 ml @ 100 mls/hr Q10H IV 05/14/20 01:00 05/15/20 08:17 DC 05/15/20 07:00 Labetalol HCl (Normodyne Iv Push) 10 mg PRN Q4HRS PRN IVP HYPERTENSION 05/14/20 01:00 05/18/20 19:10 Pantoprazole Sodium (PROTONIX VIAL for IV PUSH) 40 mg DAILYAC IVP 05/14/20 07:30 05/15/20 08:23 DC 05/15/20 08:16 Ketorolac Tromethamine (Toradol 15mg Vial) 15 mg PRN Q6HRS PRN IVP INFLAMMATION 05/14/20 01:15 05/19/20 01:14 05/17/20 22:31 Lidocaine HCl (Lidocaine 1% 20ml Vial) 20 ml 1X ONCE INJ 05/14/20 12:00 05/14/20 12:01 DC 05/14/20 12:08 Gabapentin (Neurontin) 300 mg HS PO 05/14/20 21:00 Immune Globulin 400 ml @ 0 mls/hr Q24H IV 05/14/20 18:00 05/16/20 18:01 DC 05/16/20 18:25 Amino Acids/ Glycerin/ Electrolytes 1,000 ml @ 80 mls/hr [id number] IV 05/15/20 09:00 05/17/20 21:59 DC 05/16/20 16:13 Lidocaine (Lidoderm) 2 patch DAILY TD 05/15/20 09:00 05/18/20 02:10 Miscellaneous (Lidoderm Patch Removal) 1 ea QHS MC 05/15/20 21:00 05/17/20 20:37 Pantoprazole Sodium (PROTONIX VIAL for IV PUSH) 40 mg BID IVP 05/15/20 21:00 05/18/20 09:26 Enoxaparin Sodium (Lovenox 40mg Syringe) 40 mg Q24H SQ 05/15/20 14:00 05/18/20 14:22 Enalaprilat (Vasotec Inj) 2.5 mg Q6HRS IVP 05/15/20 21:00 05/15/20 20:19 DC Enalaprilat (Vasotec Inj) 2.5 mg PRN Q6HRS PRN IVP HYPERTENSION 05/15/20 20:30 05/17/20 20:36 Gadoterate Meglumine (Dotarem) 14 ml 1X ONCE IVP 05/16/20 09:15 05/16/20 09:16 DC 05/16/20 12:58 Estrogens Conjugated (Premarin) 2 sarah DAILY VG 05/17/20 09:00 05/18/20 09:27 Info (Tpn Per Pharmacy) 1 each PRN DAILY PRN MC SEE COMMENTS 05/17/20 08:30 05/18/20 16:23 Sodium Chloride 90 meq/Potassium Chloride 50 meq/ Potassium Phosphate 13.6 mmol/Magnesium Sulfate 5 meq/ Calcium Gluconate 10 meq/ Multivitamins 10 ml/Chromium/ Copper/Manganese/ Seleni/Zn 1 ml/ Total Parenteral Nutrition/Amino Acids/Dextrose/ Fat Emulsion Intravenous 1,512 ml @ 63 mls/hr TPN CONT IV 05/17/20 22:00 05/18/20 21:59 05/18/20 02:39 Lidocaine HCl (Buffered Lidocaine 1%) 3 ml 1X ONCE INJ 05/17/20 14:00 05/17/20 14:01 DC 05/17/20 14:22 Lidocaine HCl (Buffered Lidocaine 1%) 3 ml STK-MED ONCE .ROUTE 05/17/20 14:06 05/17/20 14:07 DC Immune Globulin 300 ml @ 0 mls/hr Q24H IV 05/17/20 18:00 05/18/20 18:01 DC 05/18/20 17:47 Fentanyl Citrate (Fentanyl 2ml Vial) 50 mcg PRN Q3HRS PRN IVP SEVERE PAIN 7-10 05/18/20 02:00 05/18/20 09:27 Sodium Chloride 90 meq/Potassium Chloride 50 meq/ Potassium Phosphate 20 mmol/ Magnesium Sulfate 5 meq/Calcium Gluconate 10 meq/ Multivitamins 10 ml/Chromium/ Copper/Manganese/ Seleni/Zn 1 ml/ Total Parenteral Nutrition/Amino Acids/Dextrose/ Fat Emulsion Intravenous 1,512 ml @ 63 mls/hr TPN CONT IV 05/18/20 22:00 05/19/20 21:59 Vital Signs Date Time Temp Pulse Resp B/P (MAP) Pulse Ox O2 Delivery O2 Flow Rate FiO2 05/18/20 19:33 99.3 93 16 181/99 (126) 97 Room Air 99.3 05/18/20 15:00 2.0 Intake and Output 05/18/20 07:00 Intake Total 843 ml Output Total 1000 ml Balance -157 ml Intake Oral 0 ml Other 843 ml Output Urine Total 1000 ml PHYSICAL EXAM She was lying in bed in no distress. She was able to talk loudly, clearly and fluently. Her voice seems somewhat hoarse. She was well oriented. She had a good fund of recent and remote knowledge. Attention and concentration was intact. Cranial nerves II through XII are intact. Muscle bulk and tone was normal. Arm strength was good. She was able to briskly raise either leg off the bed. Power was 4/5. Reflexes were absent at the knees and ankles but present at biceps. Sensation was intact to light touch. Review of Relevant I have reviewed the following items susan (where applicable) has been applied. Labs Laboratory Tests Test 05/17/20 09:30 05/18/20 14:00 05/18/20 14:40 White Blood Count 6.8 x10^3/uL (4.0-11.0) 7.5 x10^3/uL (4.0-11.0) Red Blood Count 4.14 x10^6/uL (3.50-5.40) 3.76 x10^6/uL (3.50-5.40) Hemoglobin 12.6 g/dL (12.0-15.5) 12.1 g/dL (12.0-15.5) Hematocrit 37.3 % (36.0-47.0) 35.5 % (36.0-47.0) Mean Corpuscular Volume 90 fL (79-100) 94 fL (79-100) Mean Corpuscular Hemoglobin 30 pg (25-35) 32 pg (25-35) Mean Corpuscular Hemoglobin Concent 34 g/dL (31-37) 34 g/dL (31-37) Red Cell Distribution Width 13.3 % (11.5-14.5) 13.9 % (11.5-14.5) Platelet Count 178 x10^3/uL (140-400) 147 x10^3/uL (140-400) Sodium Level 136 mmol/L (136-145) 142 mmol/L (136-145) Potassium Level 3.4 mmol/L (3.5-5.1) 3.5 mmol/L (3.5-5.1) Chloride Level 103 mmol/L (98-107) 107 mmol/L (98-107) Carbon Dioxide Level 23 mmol/L (21-32) 29 mmol/L (21-32) Anion Gap 10 (6-14) 6 (6-14) Blood Urea Nitrogen 23 mg/dL (7-20) 23 mg/dL (7-20) Creatinine 0.7 mg/dL (0.6-1.0) 0.7 mg/dL (0.6-1.0) Estimated GFR (Cockcroft-Gault) 83.5 83.5 BUN/Creatinine Ratio 33 (6-20) 33 (6-20) Glucose Level 119 mg/dL (70-99) 168 mg/dL (70-99) Calcium Level 8.6 mg/dL (8.5-10.1) 8.6 mg/dL (8.5-10.1) Phosphorus Level 2.8 mg/dL (2.6-4.7) 1.8 mg/dL (2.6-4.7) Magnesium Level 2.9 mg/dL (1.8-2.4) 2.2 mg/dL (1.8-2.4) Total Bilirubin 0.9 mg/dL (0.2-1.0) 1.2 mg/dL (0.2-1.0) Aspartate Amino Transf (AST/SGOT) 29 U/L (15-37) 35 U/L (15-37) Alanine Aminotransferase (ALT/SGPT) 24 U/L (14-59) 31 U/L (14-59) Alkaline Phosphatase 70 U/L (46-116) 63 U/L (46-116) Total Protein 9.4 g/dL (6.4-8.2) 9.3 g/dL (6.4-8.2) Albumin 2.5 g/dL (3.4-5.0) 2.5 g/dL (3.4-5.0) Albumin/Globulin Ratio 0.4 (1.0-1.7) 0.4 (1.0-1.7) Vitamin B12 Level 621 pg/mL (247-911) Thyroid Stimulating Hormone (TSH) 1.060 uIU/mL (0.358-3.74) Triglycerides Level 125 mg/dL (0-150) Laboratory Tests Test 05/18/20 14:00 05/18/20 14:40 White Blood Count 7.5 x10^3/uL (4.0-11.0) Red Blood Count 3.76 x10^6/uL (3.50-5.40) Hemoglobin 12.1 g/dL (12.0-15.5) Hematocrit 35.5 % (36.0-47.0) Mean Corpuscular Volume 94 fL (79-100) Mean Corpuscular Hemoglobin 32 pg (25-35) Mean Corpuscular Hemoglobin Concent 34 g/dL (31-37) Red Cell Distribution Width 13.9 % (11.5-14.5) Platelet Count 147 x10^3/uL (140-400) Sodium Level 142 mmol/L (136-145) Potassium Level 3.5 mmol/L (3.5-5.1) Chloride Level 107 mmol/L (98-107) Carbon Dioxide Level 29 mmol/L (21-32) Anion Gap 6 (6-14) Blood Urea Nitrogen 23 mg/dL (7-20) Creatinine 0.7 mg/dL (0.6-1.0) Estimated GFR (Cockcroft-Gault) 83.5 BUN/Creatinine Ratio 33 (6-20) Glucose Level 168 mg/dL (70-99) Calcium Level 8.6 mg/dL (8.5-10.1) Phosphorus Level 1.8 mg/dL (2.6-4.7) Magnesium Level 2.2 mg/dL (1.8-2.4) Total Bilirubin 1.2 mg/dL (0.2-1.0) Aspartate Amino Transf (AST/SGOT) 35 U/L (15-37) Alanine Aminotransferase (ALT/SGPT) 31 U/L (14-59) Alkaline Phosphatase 63 U/L (46-116) Total Protein 9.3 g/dL (6.4-8.2) Albumin 2.5 g/dL (3.4-5.0) Albumin/Globulin Ratio 0.4 (1.0-1.7) Triglycerides Level 125 mg/dL (0-150) Medications Current Medications Alprazolam (Xanax) 0.125 mg PRN QHS PRN PO ANXIETY / AGITATION; Start 05/14/20 at 00:45 Amitriptyline HCl (Elavil) 25 mg QHS PO ; Start 05/14/20 at 01:00 Atorvastatin Calcium (Lipitor) 20 mg QHS PO ; Start 05/14/20 at 21:00 Losartan Potassium (Cozaar) 50 mg DAILY PO ; Start 05/14/20 at 09:00 Metoprolol Succinate (Toprol Xl) 100 mg DAILY PO ; Start 05/14/20 at 09:00 Estrogens Conjugated (Premarin) 1.25 mg DAILY PO ; Start 05/14/20 at 09:00; Stop 05/17/20 at 08:23; Status DC Hydrochlorothiazide (Microzide) 12.5 mg DAILY PO ; Start 05/14/20 at 09:00 Valacyclovir HCl (Valtrex) 1,000 mg BID PO ; Start 10/10/20 at 09:00 Sodium Chloride 1,000 ml @ 100 mls/hr Q10H IV Last administered on 05/15/20at 07:00; Start 05/14/20 at 01:00; Stop 05/15/20 at 08:17; Status DC Labetalol HCl (Normodyne Iv Push) 10 mg PRN Q4HRS PRN IVP HYPERTENSION Last administered on 05/18/20at 19:10; Start 05/14/20 at 01:00 Pantoprazole Sodium (PROTONIX VIAL for IV PUSH) 40 mg DAILYAC IVP Last administered on 05/15/20at 08:16; Start 05/14/20 at 07:30; Stop 05/15/20 at 08:23; Status DC Ketorolac Tromethamine (Toradol 15mg Vial) 15 mg PRN Q6HRS PRN IVP INFLAMMATION Last administered on 05/17/20at 22:31; Start 05/14/20 at 01:15; Stop 05/19/20 at 01:14 Lidocaine HCl (Lidocaine 1% 20ml Vial) 20 ml 1X ONCE INJ Last administered on 05/14/20at 12:08; Start 05/14/20 at 12:00; Stop 05/14/20 at 12:01; Status DC Gabapentin (Neurontin) 300 mg HS PO ; Start 05/14/20 at 21:00 Immune Globulin 400 ml @ 0 mls/hr Q24H IV Last administered on 05/16/20at 18:25; Start 05/14/20 at 18:00; Stop 05/16/20 at 18:01; Status DC Amino Acids/ Glycerin/ Electrolytes 1,000 ml @ 80 mls/hr [id number] IV Last adm inistered on 05/16/20at 16:13; Start 05/15/20 at 09:00; Stop 05/17/20 at 21:59; Status DC Lidocaine (Lidoderm) 2 patch DAILY TD Last administered on 05/18/20at 02:10; Start 05/15/20 at 09:00 Miscellaneous (Lidoderm Patch Removal) 1 ea QHS MC Last administered on 05/17/20at 20:37; Start 05/15/20 at 21:00 Pantoprazole Sodium (PROTONIX VIAL for IV PUSH) 40 mg BID IVP Last administered on 05/18/20at 09:26; Start 05/15/20 at 21:00 Enoxaparin Sodium (Lovenox 40mg Syringe) 40 mg Q24H SQ Last administered on 05/18/20at 14:22; Start 05/15/20 at 14:00 Enalaprilat (Vasotec Inj) 2.5 mg Q6HRS IVP ; Start 05/15/20 at 21:00; Stop 05/15/20 at 20:19; Status DC Enalaprilat (Vasotec Inj) 2.5 mg PRN Q6HRS PRN IVP HYPERTENSION Last administered on 05/17/20at 20:36; Start 05/15/20 at 20:30 Gadoterate Meglumine (Dotarem) 14 ml 1X ONCE IVP Last administered on 05/16/20at 12:58; Start 05/16/20 at 09:15; Stop 05/16/20 at 09:16; Status DC Estrogens Conjugated (Premarin) 2 sarah DAILY VG Last administered on 05/18/20at 09:27; Start 05/17/20 at 09:00 Info (Tpn Per Pharmacy) 1 each PRN DAILY PRN MC SEE COMMENTS Last administered on 05/18/20at 16:23; Start 05/17/20 at 08:30 Sodium Chloride 90 meq/Potassium Chloride 50 meq/ Potassium Phosphate 13.6 mmol/Magnesium Sulfate 5 meq/ Calcium Gluconate 10 meq/ Multivitamins 10 ml/Chromium/ Copper/Manganese/ Seleni/Zn 1 ml/ Total Parenteral Nutrition/Amino Acids/Dextrose/ Fat Emulsion Intravenous 1,512 ml @ 63 mls/hr TPN CONT IV Last administered on 05/18/20at 02:39; Start 05/17/20 at 22:00; Stop 05/18/20 at 21:59 Lidocaine HCl (Buffered Lidocaine 1%) 3 ml 1X ONCE INJ Last administered on 05/17/20at 14:22; Start 05/17/20 at 14:00; Stop 05/17/20 at 14:01; Status DC Lidocaine HCl (Buffered Lidocaine 1%) 3 ml STK-MED ONCE .ROUTE ; Start 05/17/20 at 14:06; Stop 05/17/20 at 14:07; Status DC Immune Globulin 300 ml @ 0 mls/hr Q24H IV Last administered on 05/18/20at 17:47; Start 05/17/20 at 18:00; Stop 05/18/20 at 18:01; Status DC Fentanyl Citrate (Fentanyl 2ml Vial) 50 mcg PRN Q3HRS PRN IVP SEVERE PAIN 7-10 Last administered on 05/18/20at 09:27; Start 05/18/20 at 02:00 Sodium Chloride 90 meq/Potassium Chloride 50 meq/ Potassium Phosphate 20 mmol/ Magnesium Sulfate 5 meq/Calcium Gluconate 10 meq/ Multivitamins 10 ml/Chromium/ Copper/Manganese/ Seleni/Zn 1 ml/ Total Parenteral Nutrition/Amino Acids/Dextrose/ Fat Emulsion Intravenous 1,512 ml @ 63 mls/hr TPN CONT IV ; Start 05/18/20 at 22:00; Stop 05/19/20 at 21:59 Active Scripts Active Reported Valacyclovir (Valacyclovir Hcl) 1,000 Mg Tablet 1 Tab PO BID Metoprolol Succinate ( Xl ) (Metoprolol Succinate) 100 Mg Tab.er.24h 1 Tab PO DAILY Losartan Potassium 50 Mg Tablet 50 Mg PO DAILY Hydrochlorothiazide Tablet (Hydrochlorothiazide) 12.5 Mg Tablet 12.5 Mg PO DAILY Nexium Capsule (Esomeprazole Magnesium) 40 Mg Capsule.dr 1 Cap PO DAILY Premarin (Estrogens, Conjugated) 1.25 Mg Tablet 1 Tab PO DAILY Atorvastatin Calcium 20 Mg Tablet 1 Tab PO DAILY Amitriptyline Hcl 25 Mg Tablet 1 Tab PO QHS Alprazolam 0.25 Mg Tablet 0.5 Tab PO QHS PRN Vitals/I & O Vital Sign - Last 24 Hours 05/17/20 05/18/20 05/18/20 05/18/20 23:00 02:01 02:31 03:03 Temp 98.1 98.4 98.1 98.4 Pulse 101 100 Resp 18 18 18 18 B/P (MAP) 144/72 (96) 128/87 (101) Pulse Ox 97 97 97 96 O2 Delivery Nasal Cannula Nasal Cannula Nasal Cannula Nasal Cannula O2 Flow Rate 2.0 2.0 2.0 2.0 05/18/20 05/18/20 05/18/20 05/18/20 07:00 08:00 09:27 09:57 Temp 99.0 99.0 Pulse 109 Resp 16 B/P (MAP) 176/81 (112) Pulse Ox 94 94 92 O2 Delivery Nasal Cannula Nasal Cannula Nasal Cannula Nasal Cannula O2 Flow Rate 2.0 2.0 2.0 2.0 05/18/20 05/18/20 05/18/20 05/18/20 10:24 15:00 19:10 19:33 Temp 98.1 98.0 99.3 98.1 98.0 99.3 Pulse 100 107 106 93 Resp 20 16 16 B/P (MAP) 184/87 (119) 180/91 (120) 183/94 181/99 (126) Pulse Ox 92 98 97 O2 Delivery Nasal Cannula Nasal Cannula Room Air O2 Flow Rate 2.0 2.0 l Intake and Output 05/17/20 05/17/20 05/18/20 15:00 23:00 07:00 Intake Total 0 ml 150 ml 693 ml Output Total 400 ml 300 ml 300 ml Balance -400 ml -150 ml 393 ml Justicifation of Admission Dx: Justifications for Admission: Justification of Admission Dx: Yes ANTONIO GONZALEZ MD May 18, 2020 21:29
[2020-05-18 22:00] VITALS: BP 170/89
[2020-05-18] MEDS ORDERED: [UNRECOGNIZED DRUG - OTHER] IV SCH (22:00)
[2020-05-18] MEDS ORDERED: DEXTROSE 70% IV SCH (22:00)
[2020-05-18] MEDS ORDERED: TOTAL PARENTERAL NUTRITION IV SCH (22:00)
[2020-05-18] MEDS ORDERED: AMINO ACID IV SCH (22:00)
[2020-05-18] MEDS: ENALAPRILAT 2.5 MG/2 ML VIAL. IVP PRN (22:07)
[2020-05-19] MEDS: fentaNYL PF VIAL 100 MCG/2 ML VIAL IVP PRN ×2 (00:40→08:21)
[2020-05-19 03:00] VITALS: BP 158/76
[2020-05-19 06:40] LABS: HEMATOCRIT 33.4 % (36.0-47.0); HEMOGLOBIN 11.4 g/dL (12.0-15.5); RED BLOOD COUNT 3.74 x10^6/uL (3.50-5.40); RED CELL DISTRIBUTION WIDTH 13.1 % (11.5-14.5); WHITE BLOOD COUNT 8.9 x10^3/uL (4.0-11.0)
[2020-05-19 06:41] LABS: ALBUMIN 2.3 g/dL (3.4-5.0); ALBUMIN/GLOBULIN RATIO 0.3 (1.0-1.7); CALCIUM 8.6 mg/dL (8.5-10.1); CREATININE 0.6 mg/dL (0.6-1.0); GFR 99.7; MAGNESIUM 2.3 mg/dL (1.8-2.4); PHOSPHORUS 2.9 mg/dL (2.6-4.7); POTASSIUM 3.4 mmol/L (3.5-5.1); TOTAL BILIRUBIN 1.1 mg/dL (0.2-1.0); TOTAL PROTEIN 9.4 g/dL (6.4-8.2)
[2020-05-19 07:00] VITALS: BP 193/94
[2020-05-19] MEDS: LOSARTAN POTASSIUM 50 MG TABLET. PO SCH (07:57)
[2020-05-19] MEDS: valACYclovir 500 MG TABLET. PO SCH ×2 (07:57→21:00)
[2020-05-19] MEDS: METOPROLOL SUCC 24HR ER 100 MG TAB.ER.24H. PO SCH (07:57)
[2020-05-19] MEDS: hydroCHLOROthiazide 12.5 MG CAPSULE PO SCH (07:57)
[2020-05-19] MEDS: LIDOCAINE (700MG/PATCH) PATCH. TD SCH (08:20)
[2020-05-19] MEDS: PANTOPRAZOLE IV PUSH 40 MG VIAL. IVP SCH ×2 (08:21→20:16)
[2020-05-19] MEDS: LABETALOL 20 MG/4 ML DISP.SYRIN. IVP PRN ×2 (08:21→10:53)
[2020-05-19] MEDS: ESTROGENS, CONJ VAGINAL CREAM 30GM TUBE. VG SCH (08:36)
--- NOTE | 2020-05-19 09:55 | PDOC ---
PULMONARY PROGRESS NOTES DATE: 05/19/20 TIME: 09:53 Subjective Resting comfortably, on 2 liter N/C No shortness of breath no cough Weakness has significantly improved, able to lift legs off bed, improvement in voice production Complains of back pain Vitals Vital Signs Date Time Temp Pulse Resp B/P (MAP) Pulse Ox O2 Delivery O2 Flow Rate FiO2 05/19/20 08:51 17 95 Nasal Cannula 2.0 05/19/20 08:21 104 193/94 05/19/20 07:00 97.9 97.9 ROS: No Nausea, No Chest Pain, No Abdominal Pain, No Increase Cough General: Alert, Oriented X4 Lungs: Clear Cardiovascular: S1, S2 Abdomen: Soft, Non-tender Neuro Exam: Alert Extremities: No Edema Skin: Warm, Dry Labs Laboratory Tests Test 05/18/20 14:00 05/18/20 14:40 05/19/20 06:00 White Blood Count 7.5 x10^3/uL (4.0-11.0) 8.9 x10^3/uL (4.0-11.0) Red Blood Count 3.76 x10^6/uL (3.50-5.40) 3.74 x10^6/uL (3.50-5.40) Hemoglobin 12.1 g/dL (12.0-15.5) 11.4 g/dL (12.0-15.5) Hematocrit 35.5 % (36.0-47.0) 33.4 % (36.0-47.0) Mean Corpuscular Volume 94 fL (79-100) 89 fL (79-100) Mean Corpuscular Hemoglobin 32 pg (25-35) 31 pg (25-35) Mean Corpuscular Hemoglobin Concent 34 g/dL (31-37) 34 g/dL (31-37) Red Cell Distribution Width 13.9 % (11.5-14.5) 13.1 % (11.5-14.5) Platelet Count 147 x10^3/uL (140-400) 170 x10^3/uL (140-400) Sodium Level 142 mmol/L (136-145) 142 mmol/L (136-145) Potassium Level 3.5 mmol/L (3.5-5.1) 3.4 mmol/L (3.5-5.1) Chloride Level 107 mmol/L (98-107) 108 mmol/L (98-107) Carbon Dioxide Level 29 mmol/L (21-32) 28 mmol/L (21-32) Anion Gap 6 (6-14) 6 (6-14) Blood Urea Nitrogen 23 mg/dL (7-20) 20 mg/dL (7-20) Creatinine 0.7 mg/dL (0.6-1.0) 0.6 mg/dL (0.6-1.0) Estimated GFR (Cockcroft-Gault) 83.5 99.7 BUN/Creatinine Ratio 33 (6-20) 33 (6-20) Glucose Level 168 mg/dL (70-99) 173 mg/dL (70-99) Calcium Level 8.6 mg/dL (8.5-10.1) 8.6 mg/dL (8.5-10.1) Phosphorus Level 1.8 mg/dL (2.6-4.7) 2.9 mg/dL (2.6-4.7) Magnesium Level 2.2 mg/dL (1.8-2.4) 2.3 mg/dL (1.8-2.4) Total Bilirubin 1.2 mg/dL (0.2-1.0) 1.1 mg/dL (0.2-1.0) Aspartate Amino Transf (AST/SGOT) 35 U/L (15-37) 34 U/L (15-37) Alanine Aminotransferase (ALT/SGPT) 31 U/L (14-59) 31 U/L (14-59) Alkaline Phosphatase 63 U/L (46-116) 53 U/L (46-116) Total Protein 9.3 g/dL (6.4-8.2) 9.4 g/dL (6.4-8.2) Albumin 2.5 g/dL (3.4-5.0) 2.3 g/dL (3.4-5.0) Albumin/Globulin Ratio 0.4 (1.0-1.7) 0.3 (1.0-1.7) Triglycerides Level 125 mg/dL (0-150) Laboratory Tests Test 05/18/20 14:00 05/18/20 14:40 05/19/20 06:00 White Blood Count 7.5 x10^3/uL (4.0-11.0) 8.9 x10^3/uL (4.0-11.0) Red Blood Count 3.76 x10^6/uL (3.50-5.40) 3.74 x10^6/uL (3.50-5.40) Hemoglobin 12.1 g/dL (12.0-15.5) 11.4 g/dL (12.0-15.5) Hematocrit 35.5 % (36.0-47.0) 33.4 % (36.0-47.0) Mean Corpuscular Volume 94 fL (79-100) 89 fL (79-100) Mean Corpuscular Hemoglobin 32 pg (25-35) 31 pg (25-35) Mean Corpuscular Hemoglobin Concent 34 g/dL (31-37) 34 g/dL (31-37) Red Cell Distribution Width 13.9 % (11.5-14.5) 13.1 % (11.5-14.5) Platelet Count 147 x10^3/uL (140-400) 170 x10^3/uL (140-400) Sodium Level 142 mmol/L (136-145) 142 mmol/L (136-145) Potassium Level 3.5 mmol/L (3.5-5.1) 3.4 mmol/L (3.5-5.1) Chloride Level 107 mmol/L (98-107) 108 mmol/L (98-107) Carbon Dioxide Level 29 mmol/L (21-32) 28 mmol/L (21-32) Anion Gap 6 (6-14) 6 (6-14) Blood Urea Nitrogen 23 mg/dL (7-20) 20 mg/dL (7-20) Creatinine 0.7 mg/dL (0.6-1.0) 0.6 mg/dL (0.6-1.0) Estimated GFR (Cockcroft-Gault) 83.5 99.7 BUN/Creatinine Ratio 33 (6-20) 33 (6-20) Glucose Level 168 mg/dL (70-99) 173 mg/dL (70-99) Calcium Level 8.6 mg/dL (8.5-10.1) 8.6 mg/dL (8.5-10.1) Phosphorus Level 1.8 mg/dL (2.6-4.7) 2.9 mg/dL (2.6-4.7) Magnesium Level 2.2 mg/dL (1.8-2.4) 2.3 mg/dL (1.8-2.4) Total Bilirubin 1.2 mg/dL (0.2-1.0) 1.1 mg/dL (0.2-1.0) Aspartate Amino Transf (AST/SGOT) 35 U/L (15-37) 34 U/L (15-37) Alanine Aminotransferase (ALT/SGPT) 31 U/L (14-59) 31 U/L (14-59) Alkaline Phosphatase 63 U/L (46-116) 53 U/L (46-116) Total Protein 9.3 g/dL (6.4-8.2) 9.4 g/dL (6.4-8.2) Albumin 2.5 g/dL (3.4-5.0) 2.3 g/dL (3.4-5.0) Albumin/Globulin Ratio 0.4 (1.0-1.7) 0.3 (1.0-1.7) Triglycerides Level 125 mg/dL (0-150) Medications Active Scripts Medications Dose Route/Sig Max Daily Dose Days Date Category Valacyclovir (Valacyclovir Hcl) 1,000 Mg Tablet 1 Tab PO BID 05/14/20 Reported Metoprolol Succinate ( Xl ) (Metoprolol Succinate) 100 Mg Tab.er.24h 1 Tab PO DAILY 05/14/20 Reported Losartan Potassium 50 Mg Tablet 50 Mg PO DAILY 05/14/20 Reported Hydrochlorothiazide Tablet (Hydrochlorothiazide) 12.5 Mg Tablet 12.5 Mg PO DAILY 05/14/20 Reported Nexium Capsule (Esomeprazole Magnesium) 40 Mg Capsule.dr 1 Cap PO DAILY 05/14/20 Reported Premarin (Estrogens, Conjugated) 1.25 Mg Tablet 1 Tab PO DAILY 05/14/20 Reported Atorvastatin Calcium 20 Mg Tablet 1 Tab PO DAILY 05/14/20 Reported Amitriptyline Hcl 25 Mg Tablet 1 Tab PO QHS 05/14/20 Reported Alprazolam 0.25 Mg Tablet 0.5 Tab PO QHS PRN 05/14/20 Reported Comments CXR IMPRESSION: Bilateral basilar atelectasis or interstitial infiltrate. MRI brain IMPRESSION: 1. No acute infarct or hemorrhage. 2. Left sphenoid wing 2 cm meningioma. Mass effect on the anterior temporal lobe. No underlying parenchymal enhancement. 3. Diffuse pachymeningeal enhancement, likely related to recent lumbar puncture. 4. Mild scattered FLAIR hyperintensities in the subcortical and periventricular deep white matter, a nonspecific finding, most commonly seen with chronic small vessel ischemic disease. Impression . IMPRESSION: 1. Acute hypoxemic respiratory failure. 2. Guillain-[place] syndrome. 3. History of hypertension, hyperlipidemia, gastroesophageal reflux. 4. Recent vaccination with flu and shingles. 5. History of recent laryngitis, suspect viral. 6. Dysphagia Plan . PLAN: Continue supplemental oxygen as needed to keep oxygen saturations greater than 92%-- on 2 liters N/C wean as tolerated Monitor NIF, notify provider if and if drops more than -25 ----no decrease in in the last 24 hours-- NIF 05/18 was -70, VC 1.3 litres Neurology Recommendations, LP preformed -- monitor cultures Continue IVIG per neurology IS at bedside Cont. TPN for nutritional support PT/OT DVT/GI -- lovenox/pepcid D/W ANI DEVRIES MD May 19, 2020 09:55
--- NOTE | 2020-05-19 10:13 | PN ---
DATE: 05/19/2020 SUBJECTIVE: The patient is resting, slightly propped up in bed, in no apparent distress, awake, alert, maintaining her oxygen saturation at 97% on room air. Her biggest complaint is her back pain She apparently has managed to swallow some of her secretion. PHYSICAL EXAMINATION: GENERAL: When I examined her, she was pale, no jaundice, cyanosis or thyromegaly. No jugular venous distention. No limb edema. VITAL SIGNS: Her heart rate was 104, blood pressure was 193/94, temperature 97.9, respiratory rate was 14 and oxygen saturation was 95%. HEENT: Showed normocephalic, atraumatic. NECK: Supple. HEART: Showed normal first and second heart sounds. No gallop or murmur. CHEST: Clear to auscultation. No crepitation or rhonchi. ABDOMEN: Distended, soft, nontender. No guarding or rigidity. No organomegaly. All hernial orifice intact. Bowel sounds normal. NEUROLOGIC: She is awake, alert, responding appropriately. All cranial nerves intact. She moves her extremities without difficulty. Her intake was 845, output was 1000. LABORATORY DATA: As of this morning, her white cell count was 8900, hemoglobin 11.4, hematocrit 33, MCV 89 and platelet count of 170,000. Serum sodium 142, potassium 3.4, chloride 108, bicarbonate 28, anion gap of 6, BUN 20, creatinine 0.6, estimated GFR was 99 mL per minute. Her glucose 173, calcium was 8.6. Total bilirubin, AST, ALT, alkaline phosphatase were normal. Total protein 9.4, albumin was 2.3. ASSESSMENT: 1. Guillain-[place] syndrome. The patient received her fifth injection of IVIG; however, she continued to have dysphagia. 2. She has incidental finding of a sphenoid wing 2 cm meningioma with pachymeningeal enhancement likely due to recent spinal tap. 3. Her coronavirus by PCR was negative. 4. Other medical problems include: A. Hypertension. B. Hyperlipidemia. C. Hiatal hernia. B. Gastroesophageal reflux disease. PLAN: The patient has received her fifth dose of IVIG as recommended by neurologist. She is on TPN for nutritional support. She has continued back pain. I will start her on a fentanyl patch. Meanwhile, continue with physical and occupational and speech therapist. I will consult Dr. Jacob to see if he can assist with her pain management. BLANCHE MARROQUIN MD DR: SONIA/sudarshan JOB#: [id number] / [id number]
[2020-05-19 10:52] VITALS: BP 181/87
[2020-05-19] MEDS ORDERED: fentaNYL 25MCG/HR PATCH 1 PATCH PATCH.TD72 TD SCH (11:00)
[2020-05-19] MEDS: TPN PER PHARMACY MC PRN ×2 (12:30→12:36)
--- NOTE | 2020-05-19 12:35 | NUR ---
Pharmacy TPN Dosing Note S: LILLIAN CLEANING is a 65 year old F Currently receiving Central Continuous TPN started 05/17/20 B:Pertinent PMH: Guillann Duncan Syndrome Height: 5 feet, 2 inches Weight: 72.6 kg Current diet: NPO LABS: Sodium: 142 Potassium: 3.4 Chloride: 108 Calcium: 8.6 Corrected Calcium: 9.96 Magnesium: 2.3 CO2: 28 SCr: 0.6 Glucose: 173 Albumin: 2.3 AST: 34 ALT: 31 TPN FORMULA: TPN TYPE: Central Continuous AMINO ACIDS: 60 gm DEXTROSE: 195 gm LIPIDS: 20 gm SODIUM CHLORIDE: 90 mEq POTASSIUM ACETATE: 70 mEq POTASSIUM PHOSPHATE: 20 mmol MAGNESIUM: 5 mEq CALCIUM: 10 mEq MULTIPLE VITAMIN: 10 ml TRACE ELEMENTS: 1 ml(s) TPN PLAN: Increase potassium to 70 mEq/bag and convert to acetate salt form. R: Change TPN per plan and ordered formula Will monitor electrolytes, glucose, and tolerance to TPN. Antonina Mcdermott Eulalio, 05/19/20 1516
--- NOTE | 2020-05-19 12:36 | NUR ---
SS following up with discharge planning. SS reviewed pt chart and discussed with pt RN. Pt is currently on room air and TPN. SS received notification from Tiffani at [facility] on [address] reporting that they could not accept pt under her [employer] commercial plan because the reimbursement rate was low and TPN would be too costly. SS met with pt and family in room to discuss discharge planning. SS provided pt with other long-term unit options such as [facility] and [facility]. Pt and pt's family reported that they wanted to go to [facility] and offered to privately pay for TPN. SS contacted Tiffani at [facility] and discussed. Tiffani is currently discussing options for care with her business department and reported that she will contact SS with options for admission. SS will continue to follow for discharge planning.
--- NOTE | 2020-05-19 13:05 | PDOC ---
Date of Service: DATE: 05/19/20 TIME: 13:01 Subjective: Subjective: Breathing better. Wakes up in the night feeling "panicked." Suctioning less - sometimes she thinks she might swallow? Other times feels like she swallows an air bubble. Objective: Vital Signs: Vital Signs Date Time Temp Pulse Resp B/P (MAP) Pulse Ox O2 Delivery O2 Flow Rate FiO2 05/19/20 10:53 95 181/87 05/19/20 10:52 98.5 20 96 Room Air 98.5 05/19/20 08:51 2.0 Labs: Laboratory Tests Test 05/18/20 14:00 05/18/20 14:40 05/19/20 06:00 White Blood Count 7.5 x10^3/uL 8.9 x10^3/uL Red Blood Count 3.76 x10^6/uL 3.74 x10^6/uL Hemoglobin 12.1 g/dL 11.4 g/dL Hematocrit 35.5 % 33.4 % Mean Corpuscular Volume 94 fL 89 fL Mean Corpuscular Hemoglobin 32 pg 31 pg Mean Corpuscular Hemoglobin Concent 34 g/dL 34 g/dL Red Cell Distribution Width 13.9 % 13.1 % Platelet Count 147 x10^3/uL 170 x10^3/uL Sodium Level 142 mmol/L 142 mmol/L Potassium Level 3.5 mmol/L 3.4 mmol/L Chloride Level 107 mmol/L 108 mmol/L Carbon Dioxide Level 29 mmol/L 28 mmol/L Anion Gap 6 6 Blood Urea Nitrogen 23 mg/dL 20 mg/dL Creatinine 0.7 mg/dL 0.6 mg/dL Estimated GFR (Cockcroft-Gault) 83.5 99.7 BUN/Creatinine Ratio 33 33 Glucose Level 168 mg/dL 173 mg/dL Calcium Level 8.6 mg/dL 8.6 mg/dL Phosphorus Level 1.8 mg/dL 2.9 mg/dL Magnesium Level 2.2 mg/dL 2.3 mg/dL Total Bilirubin 1.2 mg/dL 1.1 mg/dL Aspartate Amino Transf (AST/SGOT) 35 U/L 34 U/L Alanine Aminotransferase (ALT/SGPT) 31 U/L 31 U/L Alkaline Phosphatase 63 U/L 53 U/L Total Protein 9.3 g/dL 9.4 g/dL Albumin 2.5 g/dL 2.3 g/dL Albumin/Globulin Ratio 0.4 0.3 Triglycerides Level 125 mg/dL Imaging: [employer] eval 05/18 * No change in swallow function from 05/17. Pt con't on tx 4 of 5 IVIG treatments. at bedside. Pt con't to expectorate her secretions w/assist of Noa. Pt sitting in bed. Phonation quality improving daily as is cough; cough con't mildly hoarse and mildly low intesity. Extensive dysphagia education completed as outlined above. During session, pt attempted to swallow saliva only twice after which she expectorated and used suction as she felt it did not clear w/swallow. IMPRESSIONS: Mild improvement from eval. Laryngeal dysfunction con't w/moderate dysphagia w/pt unable to swallow her secretions. No po given d/t risk to pt at this time based on inability to handle own secretions as well as results w/attempted dry/saliva swallows. Will con't f/u and allow time for medical improvment that would positively impact swallow function. Anticipate pt may require long-term non-oral nutrition given progress thus far has not resulted in functional swallow for safe and efficient po intake. RECOMMENDATIONS: Con't NPO meds and nutrition. Aggressive oral care. Consider need for non-oral nutrition. Decrease POC to 3x over 7 days. PE: GEN: NAD - up in chair - suctioning less LUNGS: clear, room air sat 96% HEART: RRR ABD: S/ND/NT NEURO/PSYCH: A & O 3 A/P: Weakness - better in extremities, possible Guillian-[place] syndrome - resp status better Dysphagia - new, on TPN H/o GERD on PPI -- Swallow eval as above, will review w/ Dr. Lomeli. Justicifation of Admission Dx: Justifications for Admission: Justification of Admission Dx: Yes GENARO POWELL May 19, 2020 13:05
[2020-05-19] MEDS: ENOXAPARIN 40 MG/0.4 ML SYRINGE. SQ SCH (14:53)
[2020-05-19 15:11] VITALS: BP 147/84
--- NOTE | 2020-05-19 16:04 | NUR ---
Have reviewed documentation completed by internet marketing specialist and made changes/adjustments. RD available [id number] as needed
[2020-05-19 17:10] LABS: ANA INTERP Negative (.)
[2020-05-19 18:09] LABS: ALBUM 2.9 g/dL (2.9-4.4); ALPHA 1 0.2 g/dL (0.0-0.4); ALPHA 2 1.1 g/dL (0.4-1.0); BETA 0.8 g/dL (0.7-1.3); GAMMA 3.5 g/dL (0.4-1.8); PROTEIN TOTAL 8.5 g/dL (6.0-8.5); SPEP AG RATIO 0.5 (0.7-1.7)
[2020-05-19 19:49] VITALS: BP 196/97
--- NOTE | 2020-05-19 20:15 | NUR ---
Computer went down/ after scanning Ativan and before saving. Rescanned patient and corrected time on administration of Ativan.
[2020-05-19] MEDS: ENALAPRILAT 2.5 MG/2 ML VIAL. IVP PRN (20:17)
--- NOTE | 2020-05-19 20:18 | PDOC ---
PROGRESS NOTES Date of Service DATE: 05/19/20 TIME: 20:13 Assessment Guillain [place] syndrome, already improving with IVIG. She completed IVIG dosage to achieve a total of 2 g/kg. Her speech is better today. She notes that 3 days ago she was only able to speak a few words and lose her wind. Now she is able to speak complete sentences. She noticed weakness starting after flu and shingles shots on 05/02. Overall I feel her legs are becoming stronger. She still does not have reflexes in the legs and still maintains the reflexes in the arms. Spinal fluid showed 4 white blood cells, 1825 red blood cells, protein 54.2. C- reactive protein is 3.3 She still has dysphagia and inability to swallow. TPN was initiated. 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 Pachymeningeal enhancement, likely related to recent spinal tap. Coronavirus negative at [facility] Completed the course of IVIG. If she deteriorates in 3-4 weeks she could receive another 1 g/kg but we can play this by ear. Rehab, will need inpatient, consult social work Will need a decision regarding possible PEG if her swallowing does not continue to improve. I have ordered a speech therapy guided a video swallow for Saturday. She continues to work with physical therapy. After she is done with the session she feels like she has run a marathon. Continue close monitoring. She is becoming extremely anxious because she is not on her usual medications. I will make available intravenous lorazepam as needed. She will be able to go to inpatient rehabilitation once the nutritional route is secured. Subjective I had a pretty good day. I am feeling a little anxious. My son was watching me today and he said I did swallow. Objective Vital Signs Date Time Temp Pulse Resp B/P (MAP) Pulse Ox O2 Delivery O2 Flow Rate FiO2 05/19/20 19:49 99.2 123 22 196/97 (130) 97 Room Air 99.2 05/19/20 14:53 2.0 Intake and Output 05/19/20 07:00 Intake Total 0 ml Output Total 50 ml Balance -50 ml Intake Oral 0 ml Output Urine Total 50 ml # Voids 4 PHYSICAL EXAM She was alert, awake and cooperative. Speech was quite powerful and without deficit. Cranial nerves were intact. Muscle bulk and tone was normal. Power was full in the arms. Power in the legs was 4/5. Reflexes were absent in the legs but present in the biceps. Sensation was intact to light touch, cold thermal and vibration. Review of Relevant I have reviewed the following items susan (where applicable) has been applied. Labs Laboratory Tests Test 05/18/20 14:00 05/18/20 14:40 05/19/20 06:00 White Blood Count 7.5 x10^3/uL (4.0-11.0) 8.9 x10^3/uL (4.0-11.0) Red Blood Count 3.76 x10^6/uL (3.50-5.40) 3.74 x10^6/uL (3.50-5.40) Hemoglobin 12.1 g/dL (12.0-15.5) 11.4 g/dL (12.0-15.5) Hematocrit 35.5 % (36.0-47.0) 33.4 % (36.0-47.0) Mean Corpuscular Volume 94 fL (79-100) 89 fL (79-100) Mean Corpuscular Hemoglobin 32 pg (25-35) 31 pg (25-35) Mean Corpuscular Hemoglobin Concent 34 g/dL (31-37) 34 g/dL (31-37) Red Cell Distribution Width 13.9 % (11.5-14.5) 13.1 % (11.5-14.5) Platelet Count 147 x10^3/uL (140-400) 170 x10^3/uL (140-400) Sodium Level 142 mmol/L (136-145) 142 mmol/L (136-145) Potassium Level 3.5 mmol/L (3.5-5.1) 3.4 mmol/L (3.5-5.1) Chloride Level 107 mmol/L (98-107) 108 mmol/L (98-107) Carbon Dioxide Level 29 mmol/L (21-32) 28 mmol/L (21-32) Anion Gap 6 (6-14) 6 (6-14) Blood Urea Nitrogen 23 mg/dL (7-20) 20 mg/dL (7-20) Creatinine 0.7 mg/dL (0.6-1.0) 0.6 mg/dL (0.6-1.0) Estimated GFR (Cockcroft-Gault) 83.5 99.7 BUN/Creatinine Ratio 33 (6-20) 33 (6-20) Glucose Level 168 mg/dL (70-99) 173 mg/dL (70-99) Calcium Level 8.6 mg/dL (8.5-10.1) 8.6 mg/dL (8.5-10.1) Phosphorus Level 1.8 mg/dL (2.6-4.7) 2.9 mg/dL (2.6-4.7) Magnesium Level 2.2 mg/dL (1.8-2.4) 2.3 mg/dL (1.8-2.4) Total Bilirubin 1.2 mg/dL (0.2-1.0) 1.1 mg/dL (0.2-1.0) Aspartate Amino Transf (AST/SGOT) 35 U/L (15-37) 34 U/L (15-37) Alanine Aminotransferase (ALT/SGPT) 31 U/L (14-59) 31 U/L (14-59) Alkaline Phosphatase 63 U/L (46-116) 53 U/L (46-116) Total Protein 9.3 g/dL (6.4-8.2) 9.4 g/dL (6.4-8.2) Albumin 2.5 g/dL (3.4-5.0) 2.3 g/dL (3.4-5.0) Albumin/Globulin Ratio 0.4 (1.0-1.7) 0.3 (1.0-1.7) Triglycerides Level 125 mg/dL (0-150) Laboratory Tests Test 05/19/20 06:00 White Blood Count 8.9 x10^3/uL (4.0-11.0) Red Blood Count 3.74 x10^6/uL (3.50-5.40) Hemoglobin 11.4 g/dL (12.0-15.5) Hematocrit 33.4 % (36.0-47.0) Mean Corpuscular Volume 89 fL (79-100) Mean Corpuscular Hemoglobin 31 pg (25-35) Mean Corpuscular Hemoglobin Concent 34 g/dL (31-37) Red Cell Distribution Width 13.1 % (11.5-14.5) Platelet Count 170 x10^3/uL (140-400) Sodium Level 142 mmol/L (136-145) Potassium Level 3.4 mmol/L (3.5-5.1) Chloride Level 108 mmol/L (98-107) Carbon Dioxide Level 28 mmol/L (21-32) Anion Gap 6 (6-14) Blood Urea Nitrogen 20 mg/dL (7-20) Creatinine 0.6 mg/dL (0.6-1.0) Estimated GFR (Cockcroft-Gault) 99.7 BUN/Creatinine Ratio 33 (6-20) Glucose Level 173 mg/dL (70-99) Calcium Level 8.6 mg/dL (8.5-10.1) Phosphorus Level 2.9 mg/dL (2.6-4.7) Magnesium Level 2.3 mg/dL (1.8-2.4) Total Bilirubin 1.1 mg/dL (0.2-1.0) Aspartate Amino Transf (AST/SGOT) 34 U/L (15-37) Alanine Aminotransferase (ALT/SGPT) 31 U/L (14-59) Alkaline Phosphatase 53 U/L (46-116) Total Protein 9.4 g/dL (6.4-8.2) Albumin 2.3 g/dL (3.4-5.0) Albumin/Globulin Ratio 0.3 (1.0-1.7) Medications Current Medications Alprazolam (Xanax) 0.125 mg PRN QHS PRN PO ANXIETY / AGITATION; Start 05/14/20 at 00:45 Amitriptyline HCl (Elavil) 25 mg QHS PO ; Start 05/14/20 at 01:00 Atorvastatin Calcium (Lipitor) 20 mg QHS PO ; Start 05/14/20 at 21:00 Losartan Potassium (Cozaar) 50 mg DAILY PO ; Start 05/14/20 at 09:00 Metoprolol Succinate (Toprol Xl) 100 mg DAILY PO ; Start 05/14/20 at 09:00 Estrogens Conjugated (Premarin) 1.25 mg DAILY PO ; Start 05/14/20 at 09:00; Stop 05/17/20 at 08:23; Status DC Hydrochlorothiazide (Microzide) 12.5 mg DAILY PO ; Start 05/14/20 at 09:00 Valacyclovir HCl (Valtrex) 1,000 mg BID PO ; Start 05/14/20 at 09:00 Sodium Chloride 1,000 ml @ 100 mls/hr Q10H IV Last administered on 05/15/20at 07:00; Start 05/14/20 at 01:00; Stop 05/15/20 at 08:17; Status DC Labetalol HCl (Normodyne Iv Push) 10 mg PRN Q4HRS PRN IVP HYPERTENSION, 2ND CHOICE Last administered on 05/19/20at 10:53; Start 05/14/20 at 01:00 Pantoprazole Sodium (PROTONIX VIAL for IV PUSH) 40 mg DAILYAC IVP Last administered on 05/15/20at 08:16; Start 05/14/20 at 07:30; Stop 05/15/20 at 08:23; Status DC Ketorolac Tromethamine (Toradol 15mg Vial) 15 mg PRN Q6HRS PRN IVP INFLAMMATION Last administered on 05/17/20at 22:31; Start 05/14/20 at 01:15; Stop 05/19/20 at 01:14; Status DC Lidocaine HCl (Lidocaine 1% 20ml Vial) 20 ml 1X ONCE INJ Last administered on 05/14/20at 12:08; Start 05/14/20 at 12:00; Stop 05/14/20 at 12:01; Status DC Gabapentin (Neurontin) 300 mg HS PO ; Start 05/14/20 at 21:00 Immune Globulin 400 ml @ 0 mls/hr Q24H IV Last administered on 05/16/20at 18:25; Start 05/14/20 at 18:00; Stop 05/16/20 at 18:01; Status DC Amino Acids/ Glycerin/ Electrolytes 1,000 ml @ 80 mls/hr [id number] IV Last administered on 05/16/20at 16:13; Start 05/15/20 at 09:00; Stop 05/17/20 at 21:59; Status DC Lidocaine (Lidoderm) 2 patch DAILY TD Last administered on 05/19/20at 08:20; Start 05/15/20 at 09:00 Miscellaneous (Lidoderm Patch Removal) 1 ea QHS MC Last administered on 05/17/20at 20:37; Start 05/15/20 at 21:00 Pantoprazole Sodium (PROTONIX VIAL for IV PUSH) 40 mg BID IVP Last administered on 05/19/20at 08:21; Start 05/15/20 at 21:00 Enoxaparin Sodium (Lovenox 40mg Syringe) 40 mg Q24H SQ Last administered on 05/19/20at 14:53; Start 05/15/20 at 14:00 Enalaprilat (Vasotec Inj) 2.5 mg Q6HRS IVP ; Start 05/15/20 at 21:00; Stop 05/15/20 at 20:19; Status DC Enalaprilat (Vasotec Inj) 2.5 mg PRN Q6HRS PRN IVP HYPERTENSION, 1ST CHOICE Last administered on 05/18/20at 22:07; Start 05/15/20 at 20:30 Gadoterate Meglumine (Dotarem) 14 ml 1X ONCE IVP Last administered on 05/16/20at 12:58; Start 05/16/20 at 09:15; Stop 05/16/20 at 09:16; Status DC Estrogens Conjugated (Premarin) 2 sarah DAILY VG Last administered on 05/18/20at 09:27; Start 05/17/20 at 09:00 Info (Tpn Per Pharmacy) 1 each PRN DAILY PRN MC SEE COMMENTS Last administered on 05/19/20at 12:36; Start 05/17/20 at 08:30 Sodium Chloride 90 meq/Potassium Chloride 50 meq/ Potassium Phosphate 13.6 mmol/Magnesium Sulfate 5 meq/ Calcium Gluconate 10 meq/ Multivitamins 10 ml/Chromium/ Copper/Manganese/ Seleni/Zn 1 ml/ Total Parenteral Nutrition/Amino Acids/Dextrose/ Fat Emulsion Intravenous 1,512 ml @ 63 mls/hr TPN CONT IV Last administered on 05/18/20at 02:39; Start 05/17/20 at 22:00; Stop 05/18/20 at 21:59; Status DC Lidocaine HCl (Buffered Lidocaine 1%) 3 ml 1X ONCE INJ Last administered on 05/17/20at 14:22; Start 05/17/20 at 14:00; Stop 05/17/20 at 14:01; Status DC Lidocaine HCl (Buffered Lidocaine 1%) 3 ml STK-MED ONCE .ROUTE ; Start 05/17/20 at 14:06; Stop 05/17/20 at 14:07; Status DC Immune Globulin 300 ml @ 0 mls/hr Q24H IV Last administered on 05/18/20at 17:47; Start 05/17/20 at 18:00; Stop 05/18/20 at 18:01; Status DC Fentanyl Citrate (Fentanyl 2ml Vial) 50 mcg PRN Q3HRS PRN IVP SEVERE PAIN 7-10 Last administered on 05/19/20at 08:21; Start 05/18/20 at 02:00 Sodium Chloride 90 meq/Potassium Chloride 50 meq/ Potassium Phosphate 20 mmol/ Magnesium Sulfate 5 meq/Calcium Gluconate 10 meq/ Multivitamins 10 ml/Chromium/ Copper/Manganese/ Seleni/Zn 1 ml/ Total Parenteral Nutrition/Amino Acids/Dextrose/ Fat Emulsion Intravenous 1,512 ml @ 63 mls/hr TPN CONT IV Last administered on 05/18/20at 21:58; Start 05/18/20 at 22:00; Stop 05/19/20 at 21:59 Fentanyl (Duragesic 25mcg/ Hr Patch) 1 patch Q3DAYS TD Last administered on 05/19/20at 10:50; Start 05/19/20 at 11:00 Sodium Chloride 90 meq/Potassium Acetate 70 meq/ Potassium Phosphate 20 mmol/ Magnesium Sulfate 5 meq/Calcium Gluconate 10 meq/ Multivitamins 10 ml/Chromium/ Copper/Manganese/ Seleni/Zn 1 ml/ Total Parenteral Nutrition/Amino Acids/Dextrose/ Fat Emulsion Intravenous 1,512 ml @ 63 mls/hr TPN CONT IV ; Start 05/19/20 at 22:00; Stop 05/20/20 at 21:59 Lorazepam (Ativan Inj) 0.5 mg Q6HRS PRN IVP ANXIETY / AGITATION; Start 05/19/20 at 20:15; Status UNV Active Scripts Active Reported Valacyclovir (Valacyclovir Hcl) 1,000 Mg Tablet 1 Tab PO BID Metoprolol Succinate ( Xl ) (Metoprolol Succinate) 100 Mg Tab.er.24h 1 Tab PO DAILY Losartan Potassium 50 Mg Tablet 50 Mg PO DAILY Hydrochlorothiazide Tablet (Hydrochlorothiazide) 12.5 Mg Tablet 12.5 Mg PO DAILY Nexium Capsule (Esomeprazole Magnesium) 40 Mg Capsule.dr 1 Cap PO DAILY Premarin (Estrogens, Conjugated) 1.25 Mg Tablet 1 Tab PO DAILY Atorvastatin Calcium 20 Mg Tablet 1 Tab PO DAILY Amitriptyline Hcl 25 Mg Tablet 1 Tab PO QHS Alprazolam 0.25 Mg Tablet 0.5 Tab PO QHS PRN Vitals/I & O Vital Sign - Last 24 Hours 05/18/20 05/18/20 05/19/20 05/19/20 22:00 22:07 00:40 01:10 Temp 98.8 98.8 Pulse 97 93 Resp 16 18 18 B/P (MAP) 170/89 (116) 181/99 Pulse Ox 96 96 96 O2 Delivery Room Air Nasal Cannula Nasal Cannula O2 Flow Rate 2.0 2.0 05/19/20 05/19/20 05/19/20 05/19/20 03:00 07:00 08:00 08:21 Temp 98.9 97.9 98.9 97.9 Pulse 105 104 104 Resp 20 B/P (MAP) 158/76 (103) 193/94 (127) 193/94 Pulse Ox 97 95 O2 Delivery Room Air Room Air Nasal Cannula O2 Flow Rate 2.0 05/19/20 05/19/20 05/19/20 05/19/20 08:21 08:51 10:50 10:52 Temp 98.5 98.5 Pulse 95 Resp 14 17 16 20 B/P (MAP) 181/87 (118) Pulse Ox 95 95 95 96 O2 Delivery Room Air Nasal Cannula Room Air Room Air O2 Flow Rate 2.0 05/19/20 05/19/20 05/19/20 05/19/20 10:53 14:53 15:11 19:49 Temp 97.9 99.2 97.9 99.2 Pulse 95 84 123 Resp 18 22 B/P (MAP) 181/87 147/84 (105) 196/97 (130) Pulse Ox 96 98 97 O2 Delivery Nasal Cannula Room Air Room Air O2 Flow Rate 2.0 Intake and Output 05/18/20 05/18/20 05/19/20 15:00 23:00 07:00 Intake Total 0 ml 0 ml Output Total 50 ml Balance -50 ml 0 ml Justicifation of Admission Dx: Justifications for Admission: Justification of Admission Dx: Yes ANTONIO GONZALEZ MD May 19, 2020 20:18
[2020-05-19] MEDS: AMITRIPTYLINE HCL 25 MG TABLET. PO SCH (21:00)
[2020-05-19] MEDS: GABAPENTIN 300 MG CAPSULE. PO SCH (21:00)
[2020-05-19] MEDS: PATCH REMOVAL. MC SCH (21:00)
[2020-05-19] MEDS: ATORVASTATIN CALCIUM 20 MG TABLET PO SCH (21:00)
[2020-05-19] MEDS ORDERED: DEXTROSE 70% IV SCH (22:00)
[2020-05-19] MEDS ORDERED: TOTAL PARENTERAL NUTRITION IV SCH (22:00)
[2020-05-19] MEDS ORDERED: [UNRECOGNIZED DRUG - OTHER] IV SCH (22:00)
[2020-05-19] MEDS ORDERED: AMINO ACID IV SCH (22:00)
[2020-05-19 22:24] VITALS: BP 169/96
[2020-05-20 02:00] VITALS: BP 154/80
[2020-05-20 07:00] VITALS: BP 182/101
[2020-05-20 07:12] LABS: CALCIUM 8.5 mg/dL (8.5-10.1); CREATININE 0.6 mg/dL (0.6-1.0); GFR 99.7; MAGNESIUM 1.9 mg/dL (1.8-2.4); PHOSPHORUS 3.5 mg/dL (2.6-4.7)
[2020-05-20] MEDS: LABETALOL 20 MG/4 ML DISP.SYRIN. IVP PRN ×3 (07:44→21:07)
[2020-05-20] MEDS: PANTOPRAZOLE IV PUSH 40 MG VIAL. IVP SCH ×2 (07:44→21:07)
[2020-05-20] MEDS: ESTROGENS, CONJ VAGINAL CREAM 30GM TUBE. VG SCH (07:56)
[2020-05-20] MEDS: LIDOCAINE (700MG/PATCH) PATCH. TD SCH (08:01)
[2020-05-20 08:04] VITALS: BP 168/77
[2020-05-20] MEDS: LOSARTAN POTASSIUM 50 MG TABLET. PO SCH (08:04)
[2020-05-20] MEDS: METOPROLOL SUCC 24HR ER 100 MG TAB.ER.24H. PO SCH (08:05)
[2020-05-20] MEDS: hydroCHLOROthiazide 12.5 MG CAPSULE PO SCH (08:05)
[2020-05-20] MEDS: valACYclovir 500 MG TABLET. PO SCH ×2 (08:05→21:00)
--- NOTE | 2020-05-20 09:37 | PDOC ---
PULMONARY PROGRESS NOTES DATE: 05/20/20 TIME: 09:33 Subjective Resting comfortably, room air No shortness of breath no cough states she is getting stronger Vitals Vital Signs Date Time Temp Pulse Resp B/P (MAP) Pulse Ox O2 Delivery O2 Flow Rate FiO2 05/20/20 08:04 108 168/77 (107) 05/20/20 07:55 94 Room Air 05/20/20 07:00 98.0 21 98.0 05/19/20 20:00 2.0 ROS: No Nausea, No Chest Pain, No Abdominal Pain, No Increase Cough General: Alert, Oriented X4 Lungs: Clear Cardiovascular: S1, S2 Abdomen: Soft, Non-tender Neuro Exam: Alert Extremities: No Edema Skin: Warm, Dry Labs Laboratory Tests Test 05/18/20 14:00 05/18/20 14:40 05/19/20 06:00 05/20/20 06:30 White Blood Count 7.5 x10^3/uL (4.0-11.0) 8.9 x10^3/uL (4.0-11.0) Red Blood Count 3.76 x10^6/uL (3.50-5.40) 3.74 x10^6/uL (3.50-5.40) Hemoglobin 12.1 g/dL (12.0-15.5) 11.4 g/dL (12.0-15.5) Hematocrit 35.5 % (36.0-47.0) 33.4 % (36.0-47.0) Mean Corpuscular Volume 94 fL (79-100) 89 fL (79-100) Mean Corpuscular Hemoglobin 32 pg (25-35) 31 pg (25-35) Mean Corpuscular Hemoglobin Concent 34 g/dL (31-37) 34 g/dL (31-37) Red Cell Distribution Width 13.9 % (11.5-14.5) 13.1 % (11.5-14.5) Platelet Count 147 x10^3/uL (140-400) 170 x10^3/uL (140-400) Sodium Level 142 mmol/L (136-145) 142 mmol/L (136-145) 142 mmol/L (136-145) Potassium Level 3.5 mmol/L (3.5-5.1) 3.4 mmol/L (3.5-5.1) 4.0 mmol/L (3.5-5.1) Chloride Level 107 mmol/L (98-107) 108 mmol/L (98-107) 107 mmol/L (98-107) Carbon Dioxide Level 29 mmol/L (21-32) 28 mmol/L (21-32) 29 mmol/L (21-32) Anion Gap 6 (6-14) 6 (6-14) 6 (6-14) Blood Urea Nitrogen 23 mg/dL (7-20) 20 mg/dL (7-20) 21 mg/dL (7-20) Creatinine 0.7 mg/dL (0.6-1.0) 0.6 mg/dL (0.6-1.0) 0.6 mg/dL (0.6-1.0) Estimated GFR (Cockcroft-Gault) 83.5 99.7 99.7 BUN/Creatinine Ratio 33 (6-20) 33 (6-20) Glucose Level 168 mg/dL (70-99) 173 mg/dL (70-99) 189 mg/dL (70-99) Calcium Level 8.6 mg/dL (8.5-10.1) 8.6 mg/dL (8.5-10.1) 8.5 mg/dL (8.5-10.1) Phosphorus Level 1.8 mg/dL (2.6-4.7) 2.9 mg/dL (2.6-4.7) 3.5 mg/dL (2.6-4.7) Magnesium Level 2.2 mg/dL (1.8-2.4) 2.3 mg/dL (1.8-2.4) 1.9 mg/dL (1.8-2.4) Total Bilirubin 1.2 mg/dL (0.2-1.0) 1.1 mg/dL (0.2-1.0) Aspartate Amino Transf (AST/SGOT) 35 U/L (15-37) 34 U/L (15-37) Alanine Aminotransferase (ALT/SGPT) 31 U/L (14-59) 31 U/L (14-59) Alkaline Phosphatase 63 U/L (46-116) 53 U/L (46-116) Total Protein 9.3 g/dL (6.4-8.2) 9.4 g/dL (6.4-8.2) Albumin 2.5 g/dL (3.4-5.0) 2.3 g/dL (3.4-5.0) Albumin/Globulin Ratio 0.4 (1.0-1.7) 0.3 (1.0-1.7) Triglycerides Level 125 mg/dL (0-150) Laboratory Tests Test 05/20/20 06:30 Sodium Level 142 mmol/L (136-145) Potassium Level 4.0 mmol/L (3.5-5.1) Chloride Level 107 mmol/L (98-107) Carbon Dioxide Level 29 mmol/L (21-32) Anion Gap 6 (6-14) Blood Urea Nitrogen 21 mg/dL (7-20) Creatinine 0.6 mg/dL (0.6-1.0) Estimated GFR (Cockcroft-Gault) 99.7 Glucose Level 189 mg/dL (70-99) Calcium Level 8.5 mg/dL (8.5-10.1) Phosphorus Level 3.5 mg/dL (2.6-4.7) Magnesium Level 1.9 mg/dL (1.8-2.4) Medications Active Scripts Medications Dose Route/Sig Max Daily Dose Days Date Category Valacyclovir (Valacyclovir Hcl) 1,000 Mg Tablet 1 Tab PO BID 05/14/20 Reported Metoprolol Succinate ( Xl ) (Metoprolol Succinate) 100 Mg Tab.er.24h 1 Tab PO DAILY 05/14/20 Reported Losartan Potassium 50 Mg Tablet 50 Mg PO DAILY 05/14/20 Reported Hydrochlorothiazide Tablet (Hydrochlorothiazide) 12.5 Mg Tablet 12.5 Mg PO DAILY 05/14/20 Reported Nexium Capsule (Esomeprazole Magnesium) 40 Mg Capsule.dr 1 Cap PO DAILY 05/14/20 Reported Premarin (Estrogens, Conjugated) 1.25 Mg Tablet 1 Tab PO DAILY 05/14/20 Reported Atorvastatin Calcium 20 Mg Tablet 1 Tab PO DAILY 05/14/20 Reported Amitriptyline Hcl 25 Mg Tablet 1 Tab PO QHS 05/14/20 Reported Alprazolam 0.25 Mg Tablet 0.5 Tab PO QHS PRN 05/14/20 Reported Comments CXR IMPRESSION: Bilateral basilar atelectasis or interstitial infiltrate. MRI brain IMPRESSION: 1. No acute infarct or hemorrhage. 2. Left sphenoid wing 2 cm meningioma. Mass effect on the anterior temporal lobe. No underlying parenchymal enhancement. 3. Diffuse pachymeningeal enhancement, likely related to recent lumbar puncture. 4. Mild scattered FLAIR hyperintensities in the subcortical and periventricular deep white matter, a nonspecific finding, most commonly seen with chronic small vessel ischemic disease. Impression . IMPRESSION: 1. Acute hypoxemic respiratory failure--resolved 2. Guillain-[place] syndrome-- improving S/P IVIG tx. 3. History of hypertension, hyperlipidemia, gastroesophageal reflux. 4. Recent vaccination with flu and shingles. 5. History of recent laryngitis, suspect viral. 6. Dysphagia-- Plan . PLAN: Continue supplemental oxygen as needed to keep oxygen saturations greater than 92%-- now on room air Monitor NIF, notify provider if and if drops more than -25 ----no decrease in in the last 24 hours-- (-)50 NIF today Neurology Recommendations, LP preformed -- monitor cultures Completed full course IVIG IS at bedside Cont. PPN for nutritional support--- follow ST recfabiola, planned for swallow test today PT/OT DVT/GI -- lovenox/pepcid D/W ANI DEVRIES MD May 20, 2020 09:37
[2020-05-20] MEDS ORDERED: BISACODYL 10 MG SUPP.RECT. PR PRN (09:45)
[2020-05-20] MEDS ORDERED: DOCUSATE SODIUM 283 MG/5 ML ENEMA. PR PRN (09:45)
--- NOTE | 2020-05-20 09:55 | NUR ---
SS following up with discharge planning. SS reviewed pt chart and discussed with pt RN. Pt is currently on room air. Pt on TPN. PT/OT recommended alf unit. Pt and pt's family declining [facility] and [facility]. Pt's family insisting pt go to [facility] in [facility]. SS received phone contact from Tiffani at [facility] reporting that pt's [facility] plan does not reimburse well and offers no options for carve out. Tiffani reported that pt's family cannot privately pay for TPN because it would be a breach of there contract with [facility]. She reported that [facility] could not accept pt unless TPN was discontinued. SS met with pt and discussed. SS provided options of [facility] and [facility]. Pt declined other options at this time. SS discussed possibility of home with TPN through an infusion company and home healthcare. Pt reported that she would discuss with her family. SS contacted pt's spouse and left a voicemail discussing options and requesting a return call. SS phoned and faxed demographics to [employer], ; fax [phone], and requested benefits check for home TPN. SS will continue to follow for discharge planning.
[2020-05-20] MEDS ORDERED: BUPIVACAINE MPF 0.25% 10 ML VIAL. IJ ONE (10:00)
[2020-05-20] MEDS ORDERED: methylPREDNISolone ACETATE 40 MG/ML VIAL. IM ONE (10:00)
[2020-05-20 11:00] VITALS: BP 184/101
[2020-05-20] MEDS ORDERED: BARIUM SULFATE 40% (APPLE) 148 GM PWD. PO ONE (11:15)
--- NOTE | 2020-05-20 11:43 | PDOC ---
Date of Service: DATE: 05/20/20 TIME: 11:40 Objective: Objective: D/w nurse - suctioning secretions less. Reviewed SW note - discharge plans to SNU unclear - difficult w/ need for TPN and family's preferences. Vital Signs: Vital Signs Date Time Temp Pulse Resp B/P (MAP) Pulse Ox O2 Delivery O2 Flow Rate FiO2 05/20/20 11:00 98.6 114 20 184/101 (128) 99 Room Air 98.6 05/19/20 20:00 2.0 Labs: Laboratory Tests Test 05/20/20 06:30 Sodium Level 142 mmol/L Potassium Level 4.0 mmol/L Chloride Level 107 mmol/L Carbon Dioxide Level 29 mmol/L Anion Gap 6 Blood Urea Nitrogen 21 mg/dL Creatinine 0.6 mg/dL Estimated GFR (Cockcroft-Gault) 99.7 Glucose Level 189 mg/dL Calcium Level 8.5 mg/dL Phosphorus Level 3.5 mg/dL Magnesium Level 1.9 mg/dL PE: GEN: NAD LUNGS: room air HEART: RRR ABD: non-distended NEURO/PSYCH: sleeping - not awakened A/P: Weakness, 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 Continue TPN and PPI. Justicifation of Admission Dx: Justifications for Admission: Justification of Admission Dx: Yes GENARO POWELL May 20, 2020 11:43
[2020-05-20] MEDS: TPN PER PHARMACY MC PRN (12:04)
--- NOTE | 2020-05-20 13:54 | NUR ---
SS following up with pt's RN. SS received notification that home TPN with [facility] is covered at 100%. SS met with pt's son and pt's daughter in room and discuss discharge planning and options for fpc unit vs home with TPN. Pt's family reported that pt will not go to [facility] or [facility]. Pt's family reported that they would prefer home TPN with home healthcare. They reported that pt's spouse would be at hospital at 1500 and would discuss with him and would notify SS of there decision. SS will continue to follow for discharge planning.
--- NOTE | 2020-05-20 14:34 | CONS ---
DATE OF CONSULTATION: 05/20/2020 ATTENDING PHYSICIAN: Terrie Barnes MD REASON FOR CONSULTATION: The patient was seen at the request of Dr. Barnes for rehab evaluation. HISTORY OF PRESENT ILLNESS: This is a 65-year-old right-handed female, retired. The patient was seen initially at [facility] Emergency Room complaining of feeling dizzy and left arm numbness. About 4 hours prior to her arrival in the Emergency Room, she began developing the room spinning sensation, some difficulty to ambulate and falls to the left side. She noted left arm numbness. She denies any falls or head trauma in the past. She denies any syncopal episode or any headache. She felt generally fatigued as well as some sore throat. She had a flu shot as well as shingles injection done about a week before her problem started. The patient also complained of bad headache about 4 days prior to her admission. She also complained of hoarseness of her voice, but states that she had hiatal hernia and acid reflux, which causes some hoarseness on occasion. Dr. Lomeli is following her. The patient had evaluation in the Emergency Room, which failed to reveal any acute abnormalities, but CT angiogram revealed left middle cranial fossa meningioma measuring about 2 cm. The patient developed dysphagia and unable to swallow her saliva while in the Emergency Room, also complained of generalized weakness, but she was able to move her extremities and she had absent right ankle jerk. 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 The patient also had an episode of tachycardia and hypertension. PAST MEDICAL HISTORY: Includes hypertension, hyperlipidemia, hiatal hernia, gastroesophageal reflux disease, status post total abdominal hysterectomy, bilateral salpingo-oophorectomy. ALLERGIES: SHE IS KNOWN ALLERGIC TO PENICILLIN. The patient lives with her who still works in [employer], had a few stairs for her to manage. Since admission, the patient was diagnosed as having symptoms concerning Guillain-Concord syndrome with tingling and numbness and some weakness in her left leg with a difficulty gait and balance. She had lumbar puncture, which revealed elevated cerebrospinal fluid. The patient was started on IVIG 400 mg per kg and she also had an MRI scan of her brain and lumbar spine, which revealed no acute infarct or hemorrhage, left sphenoid wing 2 cm meningioma mass effect on the anterior temporal lobe. No underlying parenchymal enhancement. MRI scan of lumbar vertebrae failed to reveal any acute abnormality. It revealed mild multilevel degenerative disk disease. The patient improved after IVIG. She continued to have some numbness in her feet and right index finger area stiffness. The patient continues to have difficulty swallowing and she is scheduled for a video dysphagia study later on this afternoon. The patient also admits increased lower back pain with radiation to her left lower extremity since lumbar puncture. The patient is being followed by physical therapy and occupational therapy and they notes of her requiring significant assistance with mobility and self-care and recommended transfer to acute inpatient rehabilitation. The patient's main complaint is lower back pain with radiation to her left lower extremity and difficulty swallowing, she wants to eat. Because she is receiving parenteral nutrition that is a disqualification for her to go to acute rehabilitation unit. PHYSICAL EXAMINATION: Today revealed a middle-aged female. She is alert, oriented to time, place, person and circumstance and follows commands appropriately, moves all 4 extremities voluntarily where she had 4+/5 grade muscle strength. Deep tendon reflexes are decreased in upper extremities and absent at both knees and ankles and she had slightly decreased touch and pinprick sensation in her feet when compared to proximal aspects of her lower extremities. She had painful limited movements of her lumbar spine with tenderness to palpation over lumbar paraspinal muscles extending over to sacroiliac joint area and straight leg raising test is negative bilaterally. The patient is independent, rolling from side to side. I have not tested her transfers or ambulation skills at this time. Her skin is intact at this time. 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 RECOMMENDATION: To try physical modalities to help ease her back pain and also use lumbar support while up to consider trigger point injection if the pain persists. Agree with the plans for inpatient rehabilitation when she is medically stable. Dr. Barnes, I appreciate asking me to participate in the care of this interesting patient. I will be glad to see her for followup with you on as needed basis. JORDAN MORILLO MD DR: ANGIE/sudarshan JOB#: [id number] / [id number] GENO
--- NOTE | 2020-05-20 15:03 | NUR ---
Pharmacy TPN Dosing Note S: LILLIAN CLEANING is a 65 year old F Currently receiving Central Continuous TPN started 05/17/20 B:Pertinent PMH: Guillann [place] Syndrome Height: 5 feet, 2 inches Weight: 72.5 kg Current diet: NPO LABS: Sodium: 142 Potassium: 4 Chloride: 107 Calcium: 8.6 Corrected Calcium: 9.96 Magnesium: 2.3 CO2: 29 SCr: 0.6 Glucose: 189 Albumin: 2.3 AST: 34 ALT: 31 TPN FORMULA: TPN TYPE: Central Continuous AMINO ACIDS: 70 gm DEXTROSE: 225 gm LIPIDS: 20 gm SODIUM CHLORIDE: 90 mEq SODIUM ACETATE: mEq SODIUM PHOSPHATE: mmol POTASSIUM CHLORIDE: - mEq POTASSIUM ACETATE: 70 mEq POTASSIUM PHOSPHATE: 20 mmol MAGNESIUM: 5 mEq CALCIUM: 10 mEq INSULIN: - units MULTIPLE VITAMIN: 10 ml TRACE ELEMENTS: 1 ml(s) TPN PLAN: Adjust TPN macro nutrients per straw hat brusher recommendation,no change in micro nutrients R: Continue TPN as per the above change Will monitor electrolytes, glucose, and tolerance to TPN. RAUL BELTRÁN [facility], 05/20/20 [id number]
[2020-05-20] MEDS: ENOXAPARIN 40 MG/0.4 ML SYRINGE. SQ SCH (15:32)
--- NOTE | 2020-05-20 16:01 | NUR ---
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 Discussed w/dietary department and pt's RN, dietary department to send packets of nectar-thick thickener to pt's room. Once pt able to eat >50% of meals and supplements and tolerate, ok per RD to stop TPN. Discussed w/RN trying oral supplements (Ensure) thickened to nectar thick consistency to increase PO intake of calories and protein; each Ensure supplement provides 350 calories and [address] available [id number] as needed; will continue to follow and provide additional recommendations as needed/appropriate.
--- NOTE | 2020-05-20 17:51 | RAD ---
PROCEDURE: VIDEO SWALLOW STUDY STUDY DATE: 05/20/2020 CLINICAL INDICATION / HISTORY: Reason: dysphagia from Guillain-Heath syndrome . TECHNIQUE: Real-time fluoroscopic imaging examination was performed in conjunction with speech therapy. The patient was administered barium labeled thin liquids, nectar, honey, pudding, mixed and solid consistency compounds. FLUOROSCOPY TIME: 3.5 minutes. Number of Images: 0 COMPARISON: None FINDINGS: In the oral stage, those reduced oral coordination with increased transit time. In the pharyngeal phase, reduced laryngeal elevation and laryngeal closure was observed with some vallecular residue post swallow. Deep laryngeal penetration was observed with thin liquids by cup intermittently. IMPRESSION: Dysphagia of the oral and pharyngeal phases. Laryngeal penetration observed with thin liquids but no tracheal penetration is identified. Please refer to speech pathology notes for complete details and recommendations. Electronically signed by: Darrius Morris MD (05/20/2020 5:47 PM) [id number]
[2020-05-20 19:45] VITALS: BP 173/87
[2020-05-20] MEDS: PATCH REMOVAL. MC SCH (21:00)
--- NOTE | 2020-05-20 21:00 | NUR ---
Pt diet recently changed and now she can take oral medications. Pt refused acyclovir at [facility], states she would like to speak with the doctor about this medication more before taking it. We discussed its indication/action together.
[2020-05-20] MEDS: ATORVASTATIN CALCIUM 20 MG TABLET PO SCH (21:04)
[2020-05-20] MEDS: AMITRIPTYLINE HCL 25 MG TABLET. PO SCH (21:04)
[2020-05-20] MEDS: GABAPENTIN 300 MG CAPSULE. PO SCH (21:04)
--- NOTE | 2020-05-20 21:08 | PDOC ---
PROGRESS NOTES Date of Service DATE: 05/20/20 TIME: 21:03 Assessment Guillain Medrano syndrome, already improving with IVIG. She completed IVIG dosage to achieve a total of 2 g/kg. Her speech continues to improve. Now she able to speak complete sentences. She noticed weakness starting after flu and shingles shots on 05/02. Overall I feel her legs are becoming stronger. She still does not have reflexes in the legs and still maintains the reflexes in the arms. She was able to swallow today with a video swallow and is now taking in a modified diet. The speech therapist is concerned about her fatiguing while eating. Spinal fluid showed 4 white blood cells, 1825 red blood cells, protein 54.2. C-reactive protein is 3.3 Incidental left sphenoid wing 2 cm meningioma. Pachymeningeal enhancement, likely related to recent spinal tap. Coronavirus negative at [facility] Plan Completed the course of IVIG. If she deteriorates in 3-4 weeks she could receive another 1 g/kg but we can play this by ear. Rehab, will need inpatient, consult social work We will need to see how she does with the eating over the next day or 2. If she can maintain her food and fluid intake then she will be ready to transfer to a rehab facility. She continues to work with physical therapy. After she is done with the session she feels like she has run a marathon. Continue close monitoring. She is becoming extremely anxious because she is not on her usual medications. I will continue to make available intravenous lorazepam as needed. Subjective I was able to drink my first Diet Coke in a long time. We used thickener in it. It tasted the same. It hit the back of my throat and it was wonderful. Objective Vital Signs Date Time Temp Pulse Resp B/P (MAP) Pulse Ox O2 Delivery O2 Flow Rate FiO2 05/20/20 19:45 98.3 108 18 173/87 (115) 97 Room Air 98.3 05/20/20 08:00 2.0 Intake and Output 05/20/20 07:00 Intake Total 0 ml Balance 0 ml Intake Oral 0 ml # Voids 4 PHYSICAL EXAM She was initially sleeping upon my arrival. She awoke easily and was interactive. She had a good fund of recent and remote knowledge. Attention and concentration was intact. Her voice still had a hoarse sound. She continue to use the external suction for her oral secretions even though she is able to really swallow. The eyes were conjugate. There was no weakness with smile, eye closure or eyebrow movement. She moves her arms and legs well. She could raise her legs quickly off the bed without delay. Sensation was intact to light touch. Review of Relevant I have reviewed the following items susan (where applicable) has been applied. Labs Laboratory Tests Test 05/19/20 06:00 05/20/20 06:30 White Blood Count 8.9 x10^3/uL (4.0-11.0) Red Blood Count 3.74 x10^6/uL (3.50-5.40) Hemoglobin 11.4 g/dL (12.0-15.5) Hematocrit 33.4 % (36.0-47.0) Mean Corpuscular Volume 89 fL (79-100) Mean Corpuscular Hemoglobin 31 pg (25-35) Mean Corpuscular Hemoglobin Concent 34 g/dL (31-37) Red Cell Distribution Width 13.1 % (11.5-14.5) Platelet Count 170 x10^3/uL (140-400) Sodium Level 142 mmol/L (136-145) 142 mmol/L (136-145) Potassium Level 3.4 mmol/L (3.5-5.1) 4.0 mmol/L (3.5-5.1) Chloride Level 108 mmol/L (98-107) 107 mmol/L (98-107) Carbon Dioxide Level 28 mmol/L (21-32) 29 mmol/L (21-32) Anion Gap 6 (6-14) 6 (6-14) Blood Urea Nitrogen 20 mg/dL (7-20) 21 mg/dL (7-20) Creatinine 0.6 mg/dL (0.6-1.0) 0.6 mg/dL (0.6-1.0) Estimated GFR (Cockcroft-Gault) 99.7 99.7 BUN/Creatinine Ratio 33 (6-20) Glucose Level 173 mg/dL (70-99) 189 mg/dL (70-99) Calcium Level 8.6 mg/dL (8.5-10.1) 8.5 mg/dL (8.5-10.1) Phosphorus Level 2.9 mg/dL (2.6-4.7) 3.5 mg/dL (2.6-4.7) Magnesium Level 2.3 mg/dL (1.8-2.4) 1.9 mg/dL (1.8-2.4) Total Bilirubin 1.1 mg/dL (0.2-1.0) Aspartate Amino Transf (AST/SGOT) 34 U/L (15-37) Alanine Aminotransferase (ALT/SGPT) 31 U/L (14-59) Alkaline Phosphatase 53 U/L (46-116) Total Protein 9.4 g/dL (6.4-8.2) Albumin 2.3 g/dL (3.4-5.0) Albumin/Globulin Ratio 0.3 (1.0-1.7) Laboratory Tests Test 05/20/20 06:30 Sodium Level 142 mmol/L (136-145) Potassium Level 4.0 mmol/L (3.5-5.1) Chloride Level 107 mmol/L (98-107) Carbon Dioxide Level 29 mmol/L (21-32) Anion Gap 6 (6-14) Blood Urea Nitrogen 21 mg/dL (7-20) Creatinine 0.6 mg/dL (0.6-1.0) Estimated GFR (Cockcroft-Gault) 99.7 Glucose Level 189 mg/dL (70-99) Calcium Level 8.5 mg/dL (8.5-10.1) Phosphorus Level 3.5 mg/dL (2.6-4.7) Magnesium Level 1.9 mg/dL (1.8-2.4) Medications Current Medications Alprazolam (Xanax) 0.125 mg PRN QHS PRN PO ANXIETY / AGITATION; Start 05/14/20 at 00:45 Amitriptyline HCl (Elavil) 25 mg QHS PO ; Start 05/14/20 at 01:00 Atorvastatin Calcium (Lipitor) 20 mg QHS PO ; Start 05/14/20 at 21:00 Losartan Potassium (Cozaar) 50 mg DAILY PO ; Start 05/14/20 at 09:00 Metoprolol Succinate (Toprol Xl) 100 mg DAILY PO ; Start 05/14/20 at 09:00 Estrogens Conjugated (Premarin) 1.25 mg DAILY PO ; Start 05/14/20 at 09:00; Stop 05/17/20 at 08:23; Status DC Hydrochlorothiazide (Microzide) 12.5 mg DAILY PO ; Start 05/14/20 at 09:00 Valacyclovir HCl (Valtrex) 1,000 mg BID PO ; Start 05/14/20 at 09:00 Sodium Chloride 1,000 ml @ 100 mls/hr Q10H IV Last administered on 05/15/20at 07:00; Start 05/14/20 at 01:00; Stop 05/15/20 at 08:17; Status DC Labetalol HCl (Normodyne Iv Push) 10 mg PRN Q4HRS PRN IVP HYPERTENSION, 2ND CHOICE Last administered on 05/20/20at 17:07; Start 05/14/20 at 01:00 Pantoprazole Sodium (PROTONIX VIAL for IV PUSH) 40 mg DAILYAC IVP Last administered on 05/15/20at 08:16; Start 05/14/20 at 07:30; Stop 05/15/20 at 08:23; Status DC Ketorolac Tromethamine (Toradol 15mg Vial) 15 mg PRN Q6HRS PRN IVP INFLAMMATION Last administered on 05/17/20at 22:31; Start 05/14/20 at 01:15; Stop 05/19/20 at 01:14; Status DC Lidocaine HCl (Lidocaine 1% 20ml Vial) 20 ml 1X ONCE INJ Last administered on 05/14/20at 12:08; Start 05/14/20 at 12:00; Stop 05/14/20 at 12:01; Status DC Gabapentin (Neurontin) 300 mg HS PO ; Start 05/14/20 at 21:00 Immune Globulin 400 ml @ 0 mls/hr Q24H IV Last administered on 05/16/20at 18:25; Start 05/14/20 at 18:00; Stop 05/16/20 at 18:01; Status DC Amino Acids/ Glycerin/ Electrolytes 1,000 ml @ 80 mls/hr [id number] IV Last admin istered on 05/16/20at 16:13; Start 05/15/20 at 09:00; Stop 05/17/20 at 21:59; Status DC Lidocaine (Lidoderm) 2 patch DAILY TD Last administered on 05/20/20at 08:01; Start 05/15/20 at 09:00 Miscellaneous (Lidoderm Patch Removal) 1 ea QHS MC Last administered on 05/17/20at 20:37; Start 05/15/20 at 21:00 Pantoprazole Sodium (PROTONIX VIAL for IV PUSH) 40 mg BID IVP Last administered on 05/20/20at 07:44; Start 05/15/20 at 21:00 Enoxaparin Sodium (Lovenox 40mg Syringe) 40 mg Q24H SQ Last administered on 05/20/20at 15:32; Start 05/15/20 at 14:00 Enalaprilat (Vasotec Inj) 2.5 mg Q6HRS IVP ; Start 05/15/20 at 21:00; Stop 05/15/20 at 20:19; Status DC Enalaprilat (Vasotec Inj) 2.5 mg PRN Q6HRS PRN IVP HYPERTENSION, 1ST CHOICE Last administered on 05/19/20at 20:17; Start 05/15/20 at 20:30 Gadoterate Meglumine (Dotarem) 14 ml 1X ONCE IVP Last administered on 05/16/20at 12:58; Start 05/16/20 at 09:15; Stop 05/16/20 at 09:16; Status DC Estrogens Conjugated (Premarin) 2 sarah DAILY VG Last administered on 05/20/20at 07:56; Start 05/17/20 at 09:00 Info (Tpn Per Pharmacy) 1 each PRN DAILY PRN MC SEE COMMENTS Last administered on 05/20/20at 12:04; Start 05/17/20 at 08:30 Sodium Chloride 90 meq/Potassium Chloride 50 meq/ Potassium Phosphate 13.6 mmol/Magnesium Sulfate 5 meq/ Calcium Gluconate 10 meq/ Multivitamins 10 ml/Chromium/ Copper/Manganese/ Seleni/Zn 1 ml/ Total Parenteral Nutrition/Amino Acids/Dextrose/ Fat Emulsion Intravenous 1,512 ml @ 63 mls/hr TPN CONT IV Last administered on 05/18/20at 02:39; Start 05/17/20 at 22:00; Stop 05/18/20 at 21:59; Status DC Lidocaine HCl (Buffered Lidocaine 1%) 3 ml 1X ONCE INJ Last administered on 05/17/20at 14:22; Start 05/17/20 at 14:00; Stop 05/17/20 at 14:01; Status DC Lidocaine HCl (Buffered Lidocaine 1%) 3 ml STK-MED ONCE .ROUTE ; Start 05/17/20 at 14:06; Stop 05/17/20 at 14:07; Status DC Immune Globulin 300 ml @ 0 mls/hr Q24H IV Last administered on 05/18/20at 17:47; Start 05/17/20 at 18:00; Stop 05/18/20 at 18:01; Status DC Fentanyl Citrate (Fentanyl 2ml Vial) 50 mcg PRN Q3HRS PRN IVP SEVERE PAIN 7-10 Last administered on 05/19/20at 08:21; Start 05/18/20 at 02:00 Sodium Chloride 90 meq/Potassium Chloride 50 meq/ Potassium Phosphate 20 mmol/ Magnesium Sulfate 5 meq/Calcium Gluconate 10 meq/ Multivitamins 10 ml/Chromium/ Copper/Manganese/ Seleni/Zn 1 ml/ Total Parenteral Nutrition/Amino Acids/Dextrose/ Fat Emulsion Intravenous 1,512 ml @ 63 mls/hr TPN CONT IV Last administered on 05/18/20at 21:58; Start 05/18/20 at 22:00; Stop 05/19/20 at 21:59; Status DC Fentanyl (Duragesic 25mcg/ Hr Patch) 1 patch Q3DAYS TD Last administered on 05/19/20at 10:50; Start 05/19/20 at 11:00 Sodium Chloride 90 meq/Potassium Acetate 70 meq/ Potassium Phosphate 20 mmol/ Magnesium Sulfate 5 meq/Calcium Gluconate 10 meq/ Multivitamins 10 ml/Chromium/ Copper/Manganese/ Seleni/Zn 1 ml/ Total Parenteral Nutrition/Amino Acids/Dextrose/ Fat Emulsion Intravenous 1,512 ml @ 63 mls/hr TPN CONT IV Last administered on 05/19/20at 22:15; Start 05/19/20 at 22:00; Stop 05/20/20 at 21:59 Lorazepam (Ativan Inj) 0.5 mg PRN Q6HRS PRN IVP ANXIETY / AGITATION Last administered on 05/19/20at 20:15; Start 05/19/20 at 20:15 Bisacodyl (Dulcolax Supp) 10 mg PRN DAILY PRN GA CONSTIPATION; Start 05/20/20 at 09:45 Docusate Sodium (Enemeez) 283 mg PRN DAILY PRN GA CONSTIPATION; Start 05/20/20 at 09:45 Methylprednisolone Acetate (DEPO-Medrol 40MG VIAL) 40 mg 1X ONCE IM ; Start 05/20/20 at 10:00; Stop 05/20/20 at 10:01; Status DC Bupivacaine HCl (Sensorcaine-Mpf 0.25%) 10 ml 1X ONCE IJ ; Start 05/20/20 at 10:00; Stop 05/20/20 at 10:01; Status DC Barium Sulfate (Varibar Thin Liquid Apple) 148 gm 1X ONCE PO Last administered on 05/20/20at 14:30; Start 05/20/20 at 11:15; Stop 05/20/20 at 11:17; Status DC Sodium Chloride 90 meq/Potassium Acetate 70 meq/ Potassium Phosphate 20 mmol/ Magnesium Sulfate 5 meq/Calcium Gluconate 10 meq/ Multivitamins 10 ml/Chromium/ Copper/Manganese/ Seleni/Zn 1 ml/ Total Parenteral Nutrition/Amino Acids/Dextrose/ Fat Emulsion Intravenous 1,512 ml @ 63 mls/hr TPN CONT IV ; Start 05/20/20 at 22:00; Stop 05/21/20 at 21:59 Active Scripts Active Reported Valacyclovir (Valacyclovir Hcl) 1,000 Mg Tablet 1 Tab PO BID Metoprolol Succinate ( Xl ) (Metoprolol Succinate) 100 Mg Tab.er.24h 1 Tab PO DAILY Losartan Potassium 50 Mg Tablet 50 Mg PO DAILY Hydrochlorothiazide Tablet (Hydrochlorothiazide) 12.5 Mg Tablet 12.5 Mg PO DAILY Nexium Capsule (Esomeprazole Magnesium) 40 Mg Capsule.dr 1 Cap PO DAILY Premarin (Estrogens, Conjugated) 1.25 Mg Tablet 1 Tab PO DAILY Atorvastatin Calcium 20 Mg Tablet 1 Tab PO DAILY Amitriptyline Hcl 25 Mg Tablet 1 Tab PO QHS Alprazolam 0.25 Mg Tablet 0.5 Tab PO QHS PRN Vitals/I & O Vital Sign - Last 24 Hours 05/19/20 05/20/20 05/20/20 05/20/20 22:24 02:00 04:01 07:00 Temp 98.8 98.0 98.8 98.0 Pulse 99 126 120 Resp 16 18 21 B/P (MAP) 169/96 (120) 154/80 (104) 182/101 (128) Pulse Ox 96 95 97 O2 Delivery Room Air Room Air Room Air 10/16/20 10/16/20 10/16/20 10/16/20 07:44 07:55 08:00 08:04 Pulse 120 108 B/P (MAP) 182/101 168/77 (107) Pulse Ox 94 O2 Delivery Room Air Nasal Cannula O2 Flow Rate 2.0 05/20/20 05/20/20 05/20/20 11:00 17:07 19:45 Temp 98.6 98.3 98.6 98.3 Pulse 114 167 108 Resp 20 18 B/P (MAP) 184/101 (128) 158/98 173/87 (115) Pulse Ox 99 97 O2 Delivery Room Air Room Air Intake and Output 05/19/20 05/19/20 05/20/20 15:00 23:00 07:00 Intake Total 0 ml Balance 0 ml Justicifation of Admission Dx: Justifications for Admission: Justification of Admission Dx: Yes ANTONIO GONZALEZ MD May 20, 2020 21:08
[2020-05-20] MEDS: fentaNYL PF VIAL 100 MCG/2 ML VIAL IVP PRN (21:38)
[2020-05-20] MEDS ORDERED: DEXTROSE 70% IV SCH (22:00)
[2020-05-20] MEDS ORDERED: TOTAL PARENTERAL NUTRITION IV SCH (22:00)
[2020-05-20] MEDS ORDERED: AMINO ACID IV SCH (22:00)
[2020-05-20] MEDS ORDERED: [UNRECOGNIZED DRUG - OTHER] IV SCH (22:00)
[2020-05-20 23:20] VITALS: BP 124/69
[2020-05-21 03:25] VITALS: BP 136/76
[2020-05-21 06:21] LABS: CALCIUM 8.8 mg/dL (8.5-10.1); CREATININE 0.7 mg/dL (0.6-1.0); GFR 83.5; PHOSPHORUS 4.2 mg/dL (2.6-4.7); POTASSIUM 4.1 mmol/L (3.5-5.1)
[2020-05-21 07:00] VITALS: BP 143/78
[2020-05-21] MEDS: hydroCHLOROthiazide 12.5 MG CAPSULE PO SCH (09:00)
[2020-05-21] MEDS: METOPROLOL SUCC 24HR ER 100 MG TAB.ER.24H. PO SCH (09:00)
[2020-05-21] MEDS: valACYclovir 500 MG TABLET. PO SCH ×2 (09:00→21:00)
--- NOTE | 2020-05-21 09:05 | PDOC ---
PROGRESS NOTES Date of Service DATE: 05/21/20 TIME: 09:00 Subjective Subjective No new complaints. Objective Objective Vital Signs Date Time Temp Pulse Resp B/P (MAP) Pulse Ox O2 Delivery O2 Flow Rate FiO2 05/21/20 08:01 97 Room Air 05/21/20 07:00 98.5 106 20 143/78 (99) 2.0 98.5 Intake and Output 05/21/20 07:00 Intake Total 340 ml Output Total 650 ml Balance -310 ml Intake Oral 340 ml Output Urine Total 650 ml Physical Exam Physical Exam She is alert,supine in bed with head end of bed propped up and she is eating breakfast. She admits no significant back pain this AM. Plan Plan of Care To rehab unit when arrangements re completed. Comment Review of Relevant I have reviewed the following items susan (where applicable) has been applied. Labs Laboratory Tests Test 05/20/20 06:30 05/21/20 05:25 Sodium Level 142 mmol/L (136-145) 139 mmol/L (136-145) Potassium Level 4.0 mmol/L (3.5-5.1) 4.1 mmol/L (3.5-5.1) Chloride Level 107 mmol/L (98-107) 103 mmol/L (98-107) Carbon Dioxide Level 29 mmol/L (21-32) 30 mmol/L (21-32) Anion Gap 6 (6-14) 6 (6-14) Blood Urea Nitrogen 21 mg/dL (7-20) 26 mg/dL (7-20) Creatinine 0.6 mg/dL (0.6-1.0) 0.7 mg/dL (0.6-1.0) Estimated GFR (Cockcroft-Gault) 99.7 83.5 Glucose Level 189 mg/dL (70-99) 189 mg/dL (70-99) Calcium Level 8.5 mg/dL (8.5-10.1) 8.8 mg/dL (8.5-10.1) Phosphorus Level 3.5 mg/dL (2.6-4.7) 4.2 mg/dL (2.6-4.7) Magnesium Level 1.9 mg/dL (1.8-2.4) 2.0 mg/dL (1.8-2.4) Laboratory Tests Test 05/21/20 05:25 Sodium Level 139 mmol/L (136-145) Potassium Level 4.1 mmol/L (3.5-5.1) Chloride Level 103 mmol/L (98-107) Carbon Dioxide Level 30 mmol/L (21-32) Anion Gap 6 (6-14) Blood Urea Nitrogen 26 mg/dL (7-20) Creatinine 0.7 mg/dL (0.6-1.0) Estimated GFR (Cockcroft-Gault) 83.5 Glucose Level 189 mg/dL (70-99) Calcium Level 8.8 mg/dL (8.5-10.1) Phosphorus Level 4.2 mg/dL (2.6-4.7) Magnesium Level 2.0 mg/dL (1.8-2.4) Medications Current Medications Alprazolam (Xanax) 0.125 mg PRN QHS PRN PO ANXIETY / AGITATION; Start 05/14/20 at 00:45 Amitriptyline HCl (Elavil) 25 mg QHS PO Last administered on 05/20/20at 21:04; Start 05/14/20 at 01:00 Atorvastatin Calcium (Lipitor) 20 mg QHS PO Last administered on 05/20/20at 21:04; Start 05/14/20 at 21:00 Losartan Potassium (Cozaar) 50 mg DAILY PO ; Start 05/14/20 at 09:00 Metoprolol Succinate (Toprol Xl) 100 mg DAILY PO ; Start 05/14/20 at 09:00 Estrogens Conjugated (Premarin) 1.25 mg DAILY PO ; Start 05/14/20 at 09:00; Stop 05/17/20 at 08:23; Status DC Hydrochlorothiazide (Microzide) 12.5 mg DAILY PO ; Start 05/14/20 at 09:00 Valacyclovir HCl (Valtrex) 1,000 mg BID PO ; Start 05/14/20 at 09:00 Sodium Chloride 1,000 ml @ 100 mls/hr Q10H IV Last administered on 05/15/20at 07:00; Start 05/14/20 at 01:00; Stop 05/15/20 at 08:17; Status DC Labetalol HCl (Normodyne Iv Push) 10 mg PRN Q4HRS PRN IVP HYPERTENSION, 2ND CHOICE Last administered on 05/20/20at 21:07; Start 05/14/20 at 01:00 Pantoprazole Sodium (PROTONIX VIAL for IV PUSH) 40 mg DAILYAC IVP Last administered on 05/15/20at 08:16; Start 05/14/20 at 07:30; Stop 05/15/20 at 08:23; Status DC Ketorolac Tromethamine (Toradol 15mg Vial) 15 mg PRN Q6HRS PRN IVP INFLAMMATION Last administered on 05/17/20at 22:31; Start 05/14/20 at 01:15; Stop 05/19/20 at 01:14; Status DC Lidocaine HCl (Lidocaine 1% 20ml Vial) 20 ml 1X ONCE INJ Last administered on 05/14/20at 12:08; Start 05/14/20 at 12:00; Stop 05/14/20 at 12:01; Status DC Gabapentin (Neurontin) 300 mg HS PO Last administered on 05/20/20at 21:04; Start 05/14/20 at 21:00 Immune Globulin 400 ml @ 0 mls/hr Q24H IV Last administered on 05/16/20at 18:25; Start 05/14/20 at 18:00; Stop 05/16/20 at 18:01; Status DC Amino Acids/ Glycerin/ Electrolytes 1,000 ml @ 80 mls/hr [id number] IV Last administered on 05/16/20at 16:13; Start 05/15/20 at 09:00; Stop 05/17/20 at 21:59; Status DC Lidocaine (Lidoderm) 2 patch DAILY TD Last administered on 05/20/20at 08:01; Start 05/15/20 at 09:00 Miscellaneous (Lidoderm Patch Removal) 1 ea QHS MC Last administered on 05/20/20at 21:00; Start 05/15/20 at 21:00 Pantoprazole Sodium (PROTONIX VIAL for IV PUSH) 40 mg BID IVP Last administered on 05/20/20at 21:07; Start 05/15/20 at 21:00 Enoxaparin Sodium (Lovenox 40mg Syringe) 40 mg Q24H SQ Last administered on 05/20/20at 15:32; Start 05/15/20 at 14:00 Enalaprilat (Vasotec Inj) 2.5 mg Q6HRS IVP ; Start 05/15/20 at 21:00; Stop 05/15/20 at 20:19; Status DC Enalaprilat (Vasotec Inj) 2.5 mg PRN Q6HRS PRN IVP HYPERTENSION, 1ST CHOICE Last administered on 05/19/20at 20:17; Start 05/15/20 at 20:30 Gadoterate Meglumine (Dotarem) 14 ml 1X ONCE IVP Last administered on 05/16/20at 12:58; Start 05/16/20 at 09:15; Stop 05/16/20 at 09:16; Status DC Estrogens Conjugated (Premarin) 2 sarah DAILY VG Last administered on 05/20/20at 07:56; Start 05/17/20 at 09:00 Info (Tpn Per Pharmacy) 1 each PRN DAILY PRN MC SEE COMMENTS Last administered on 05/20/20at 12:04; Start 05/17/20 at 08:30 Sodium Chloride 90 meq/Potassium Chloride 50 meq/ Potassium Phosphate 13.6 mmol/Magnesium Sulfate 5 meq/ Calcium Gluconate 10 meq/ Multivitamins 10 ml/Chromium/ Copper/Manganese/ Seleni/Zn 1 ml/ Total Parenteral Nutrition/Amino Acids/Dextrose/ Fat Emulsion Intravenous 1,512 ml @ 63 mls/hr TPN CONT IV Last administered on 05/18/20at 02:39; Start 05/17/20 at 22:00; Stop 05/18/20 at 21:59; Status DC Lidocaine HCl (Buffered Lidocaine 1%) 3 ml 1X ONCE INJ Last administered on 05/17/20at 14:22; Start 05/17/20 at 14:00; Stop 05/17/20 at 14:01; Status DC Lidocaine HCl (Buffered Lidocaine 1%) 3 ml STK-MED ONCE .ROUTE ; Start 05/17/20 at 14:06; Stop 05/17/20 at 14:07; Status DC Immune Globulin 300 ml @ 0 mls/hr Q24H IV Last administered on 05/18/20at 17:47; Start 05/17/20 at 18:00; Stop 05/18/20 at 18:01; Status DC Fentanyl Citrate (Fentanyl 2ml Vial) 50 mcg PRN Q3HRS PRN IVP SEVERE PAIN 7-10 Last administered on 05/20/20at 21:38; Start 05/18/20 at 02:00 Sodium Chloride 90 meq/Potassium Chloride 50 meq/ Potassium Phosphate 20 mmol/ Magnesium Sulfate 5 meq/Calcium Gluconate 10 meq/ Multivitamins 10 ml/Chromium/ Copper/Manganese/ Seleni/Zn 1 ml/ Total Parenteral Nutrition/Amino Acids/Dextrose/ Fat Emulsion Intravenous 1,512 ml @ 63 mls/hr TPN CONT IV Last administered on 05/18/20at 21:58; Start 05/18/20 at 22:00; Stop 05/19/20 at 21:59; Status DC Fentanyl (Duragesic 25mcg/ Hr Patch) 1 patch Q3DAYS TD Last administered on 05/19/20at 10:50; Start 05/19/20 at 11:00 Sodium Chloride 90 meq/Potassium Acetate 70 meq/ Potassium Phosphate 20 mmol/ Magnesium Sulfate 5 meq/Calcium Gluconate 10 meq/ Multivitamins 10 ml/Chromium/ Copper/Manganese/ Seleni/Zn 1 ml/ Total Parenteral Nutrition/Amino Acids/Dextrose/ Fat Emulsion Intravenous 1,512 ml @ 63 mls/hr TPN CONT IV Last administered on 05/19/20at 22:15; Start 05/19/20 at 22:00; Stop 05/20/20 at 21:59; Status DC Lorazepam (Ativan Inj) 0.5 mg PRN Q6HRS PRN IVP ANXIETY / AGITATION Last administered on 05/19/20at 20:15; Start 05/19/20 at 20:15 Bisacodyl (Dulcolax Supp) 10 mg PRN DAILY PRN [place] CONSTIPATION; Start 05/20/20 at 09:45 Docusate Sodium (Enemeez) 283 mg PRN DAILY PRN [place] CONSTIPATION; Start 05/20/20 at 09:45 Methylprednisolone Acetate (DEPO-Medrol 40MG VIAL) 40 mg 1X ONCE IM ; Start 05/20/20 at 10:00; Stop 05/20/20 at 10:01; Status DC Bupivacaine HCl (Sensorcaine-Mpf 0.25%) 10 ml 1X ONCE IJ ; Start 05/20/20 at 10:00; Stop 05/20/20 at 10:01; Status DC Barium Sulfate (Varibar Thin Liquid Apple) 148 gm 1X ONCE PO Last administered on 05/20/20at 14:30; Start 05/20/20 at 11:15; Stop 05/20/20 at 11:17; Status DC Sodium Chloride 90 meq/Potassium Acetate 70 meq/ Potassium Phosphate 20 mmol/ Magnesium Sulfate 5 meq/Calcium Gluconate 10 meq/ Multivitamins 10 ml/Chromium/ Copper/Manganese/ Seleni/Zn 1 ml/ Total Parenteral Nutrition/Amino Acids/Dextrose/ Fat Emulsion Intravenous 1,512 ml @ 63 mls/hr TPN CONT IV Last administered on 05/20/20at 21:39; Start 05/20/20 at 22:00; Stop 05/21/20 at 21:59 Active Scripts Active Reported Valacyclovir (Valacyclovir Hcl) 1,000 Mg Tablet 1 Tab PO BID Metoprolol Succinate ( Xl ) (Metoprolol Succinate) 100 Mg Tab.er.24h 1 Tab PO DAILY Losartan Potassium 50 Mg Tablet 50 Mg PO DAILY Hydrochlorothiazide Tablet (Hydrochlorothiazide) 12.5 Mg Tablet 12.5 Mg PO DAILY Nexium Capsule (Esomeprazole Magnesium) 40 Mg Capsule.dr 1 Cap PO DAILY Premarin (Estrogens, Conjugated) 1.25 Mg Tablet 1 Tab PO DAILY Atorvastatin Calcium 20 Mg Tablet 1 Tab PO DAILY Amitriptyline Hcl 25 Mg Tablet 1 Tab PO QHS Alprazolam 0.25 Mg Tablet 0.5 Tab PO QHS PRN Vitals/I & O Vital Sign - Last 24 Hours 05/20/20 05/20/20 05/20/20 05/20/20 11:00 17:07 19:45 19:45 Temp 98.6 98.3 98.6 98.3 Pulse 114 167 108 Resp 20 18 B/P (MAP) 184/101 (128) 158/98 173/87 (115) Pulse Ox 99 97 O2 Delivery Room Air Room Air Room Air 05/20/20 05/20/20 05/20/20 05/20/20 21:07 21:38 22:08 23:20 Temp 98.0 98.0 Pulse 108 88 Resp 20 20 18 B/P (MAP) 173/87 124/69 (87) Pulse Ox 97 O2 Delivery Room Air Room Air 05/21/20 05/21/20 05/21/20 03:25 07:00 08:01 Temp 98.0 98.5 98.0 98.5 Pulse 107 106 Resp 18 20 B/P (MAP) 136/76 (96) 143/78 (99) Pulse Ox 100 97 97 O2 Delivery Nasal Cannula Nasal Cannula Room Air O2 Flow Rate 2.0 2.0 Intake and Output 05/20/20 05/20/20 05/21/20 15:00 23:00 07:00 Intake Total 0 ml 100 ml 240 ml Output Total 450 ml 200 ml Balance 0 ml -350 ml 40 ml Justifications for Admission Other Justification Nutrition Consultation Dietary Evaluation: Recommendations by RD: Dietary education by RD, Increase Calorie Intake, Protein supplementation Comments: REC advance diet as able/appropriate per TRANSPORTATION MAINTENANCE SPECIALIST, goal diet cardiac w/textures per TRANSPORTATION MAINTENANCE SPECIALIST recommendations REC continue TPN for short-term non-oral nutrition needs at this time and increasing TPN macros to 70 g AA, 225 dextrose, 20 g lipids (1225 kcal, 70 g protein), meeting ~61% est kcal, 100% est protein needs.If unable to advance diet within 24 - 72 hours, recommend consideration of feeding tube for TFs to best meet nutrition needs and support gut function Expected Outcomes/Goals: diet advancement- not met, ongoing, additional goal est 05/19 TPN to meet >75% of pt needs Malnutrition Findings: Food and Nutrition Intake (Sev: <50% est energy req 5days Body Fat Depletion (Non Severe: Mild Depletion Weight Status: Overweight JORDAN MORILLO MD May 21, 2020 09:04
[2020-05-21] MEDS: PANTOPRAZOLE IV PUSH 40 MG VIAL. IVP SCH ×2 (09:58→21:00)
[2020-05-21] MEDS: LOSARTAN POTASSIUM 50 MG TABLET. PO SCH (09:58)
[2020-05-21] MEDS: ESTROGENS, CONJ VAGINAL CREAM 30GM TUBE. VG SCH (09:59)
--- NOTE | 2020-05-21 10:00 | PDOC ---
PULMONARY PROGRESS NOTES DATE: 05/21/20 TIME: 09:59 Subjective on ra, sob better, has cough and post nasal drip states she is getting stronger Vitals Vital Signs Date Time Temp Pulse Resp B/P (MAP) Pulse Ox O2 Delivery O2 Flow Rate FiO2 05/21/20 08:01 97 Room Air 05/21/20 07:00 98.5 106 20 143/78 (99) 2.0 98.5 ROS: No Nausea, No Chest Pain, No Abdominal Pain, No Increase Cough General: Alert, Oriented X4 Lungs: Clear Cardiovascular: S1, S2 Abdomen: Soft, Non-tender Neuro Exam: Alert Extremities: No Edema Skin: Warm, Dry Labs Laboratory Tests Test 05/20/20 06:30 05/21/20 05:25 Sodium Level 142 mmol/L (136-145) 139 mmol/L (136-145) Potassium Level 4.0 mmol/L (3.5-5.1) 4.1 mmol/L (3.5-5.1) Chloride Level 107 mmol/L (98-107) 103 mmol/L (98-107) Carbon Dioxide Level 29 mmol/L (21-32) 30 mmol/L (21-32) Anion Gap 6 (6-14) 6 (6-14) Blood Urea Nitrogen 21 mg/dL (7-20) 26 mg/dL (7-20) Creatinine 0.6 mg/dL (0.6-1.0) 0.7 mg/dL (0.6-1.0) Estimated GFR (Cockcroft-Gault) 99.7 83.5 Glucose Level 189 mg/dL (70-99) 189 mg/dL (70-99) Calcium Level 8.5 mg/dL (8.5-10.1) 8.8 mg/dL (8.5-10.1) Phosphorus Level 3.5 mg/dL (2.6-4.7) 4.2 mg/dL (2.6-4.7) Magnesium Level 1.9 mg/dL (1.8-2.4) 2.0 mg/dL (1.8-2.4) Laboratory Tests Test 05/21/20 05:25 Sodium Level 139 mmol/L (136-145) Potassium Level 4.1 mmol/L (3.5-5.1) Chloride Level 103 mmol/L (98-107) Carbon Dioxide Level 30 mmol/L (21-32) Anion Gap 6 (6-14) Blood Urea Nitrogen 26 mg/dL (7-20) Creatinine 0.7 mg/dL (0.6-1.0) Estimated GFR (Cockcroft-Gault) 83.5 Glucose Level 189 mg/dL (70-99) Calcium Level 8.8 mg/dL (8.5-10.1) Phosphorus Level 4.2 mg/dL (2.6-4.7) Magnesium Level 2.0 mg/dL (1.8-2.4) Medications Active Scripts Medications Dose Route/Sig Max Daily Dose Days Date Category Valacyclovir (Valacyclovir Hcl) 1,000 Mg Tablet 1 Tab PO BID 05/14/20 Reported Metoprolol Succinate ( Xl ) (Metoprolol Succinate) 100 Mg Tab.er.24h 1 Tab PO DAILY 05/14/20 Reported Losartan Potassium 50 Mg Tablet 50 Mg PO DAILY 05/14/20 Reported Hydrochlorothiazide Tablet (Hydrochlorothiazide) 12.5 Mg Tablet 12.5 Mg PO DAILY 05/14/20 Reported Nexium Capsule (Esomeprazole Magnesium) 40 Mg Capsule.dr 1 Cap PO DAILY 05/14/20 Reported Premarin (Estrogens, Conjugated) 1.25 Mg Tablet 1 Tab PO DAILY 05/14/20 Reported Atorvastatin Calcium 20 Mg Tablet 1 Tab PO DAILY 05/14/20 Reported Amitriptyline Hcl 25 Mg Tablet 1 Tab PO QHS 05/14/20 Reported Alprazolam 0.25 Mg Tablet 0.5 Tab PO QHS PRN 05/14/20 Reported Comments CXR IMPRESSION: Bilateral basilar atelectasis or interstitial infiltrate. MRI brain IMPRESSION: 1. No acute infarct or hemorrhage. 2. Left sphenoid wing 2 cm meningioma. Mass effect on the anterior temporal lobe. No underlying parenchymal enhancement. 3. Diffuse pachymeningeal enhancement, likely related to recent lumbar puncture. 4. Mild scattered FLAIR hyperintensities in the subcortical and periventricular deep white matter, a nonspecific finding, most commonly seen with chronic small vessel ischemic disease. Impression . IMPRESSION: 1. Acute hypoxemic respiratory failure--resolved 2. 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 3. History of hypertension, hyperlipidemia, gastroesophageal reflux. 4. Recent vaccination with flu and shingles. 5. History of recent laryngitis, suspect viral. 6. Dysphagia-- Plan . PLAN: Continue supplemental oxygen as needed to keep oxygen saturations greater than 92%-- now on room air Monitor NIF, notify provider if and if drops more than -25 ---- Neurology Recommendations, LP preformed -- monitor cultures Completed full course IVIG IS at bedside Cont. PPN for nutritional support--- follow ST recs, planned for swallow test today PT/OT add flonase for post nasal drip DVT/GI -- lovenox/pepcid D/W RN, pt JEFRY MIRANDA MD May 21, 2020 10:00
[2020-05-21] MEDS: LIDOCAINE (700MG/PATCH) PATCH. TD SCH (10:01)
[2020-05-21 11:00] VITALS: BP 91/60
[2020-05-21] MEDS: TPN PER PHARMACY MC PRN (13:11)
--- NOTE | 2020-05-21 13:12 | NUR ---
Pharmacy TPN Dosing Note S: LILLIAN CLEANING is a 65 year old F Currently receiving Central Continuous TPN started 05/17/20 B:Pertinent PMH: Guillann [place] Syndrome Height: 5 feet, 2 inches Weight: 74.4 kg Current diet: Dysphagia III LABS: Sodium: 139 Potassium: 4.1 Chloride: 103 Calcium: 8.8 Corrected Calcium: 10.16 Magnesium: 2 CO2: 30 SCr: 0.7 Glucose: 189 Albumin: 2.3 AST: 34 ALT: 31 TPN FORMULA: TPN TYPE: Central Continuous AMINO ACIDS: 70 gm DEXTROSE: 225 gm LIPIDS: 20 gm SODIUM CHLORIDE: 90 mEq POTASSIUM ACETATE: 70 mEq POTASSIUM PHOSPHATE: 20 mmol MAGNESIUM: 5 mEq CALCIUM: 10 mEq MULTIPLE VITAMIN: 10 ml TRACE ELEMENTS: 1 ml(s) TPN PLAN: No change in TPN. R: Continue same TPN formula. Will monitor electrolytes, glucose, and tolerance to TPN. [facility], 05/21/20 [id number]
--- NOTE | 2020-05-21 14:03 | PDOC ---
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 She noticed weakness starting after flu and shingles shots on 05/02 Spinal fluid showed 4 white blood cells, 1825 red blood cells, protein 54.2. C- reactive protein is 3.3 She still has some dysphagia. 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 Pachymeningeal enhancement, likely related to recent spinal tap. Coronavirus negative at [facility] that she was on Valacyclovir for zoster or herpes, I told her this would not of caused the Guillain Medrano Plan She has completed the course of IVIG. If she deteriorates in 3-4 weeks she cou ld receive another 1 g/kg Rehab, will need inpatient, consult social work, Dr. Jacob's consult appreciated Monitor oral intake Continue physical therapy. After she is done with the session she feels like she has run a marathon. Continue close monitoring. Switch intravenous lorazepam to her usual Xanax. Objective Vital Signs Date Time Temp Pulse Resp B/P (MAP) Pulse Ox O2 Delivery O2 Flow Rate FiO2 05/21/20 09:58 106 143/78 05/21/20 08:01 97 Room Air 05/21/20 07:40 2.0 05/21/20 07:00 98.5 20 98.5 Intake and Output 05/21/20 07:00 Intake Total 340 ml Output Total 650 ml Balance -310 ml Intake Oral 340 ml Output Urine Total 650 ml PHYSICAL EXAM Alert. Oriented to time, place and person. PERRL. EOMI. CN: no focal findings. Muscle tone: normal. Muscle strength: 3/5 DTR: 0-1+ Plantar reflex: Flexor Gait: not examined in bed. Sensory exam: Normal pinprick, decreased vibratory appreciation in feet. No cerebellar signs elicited. Review of Relevant I have reviewed the following items susan (where applicable) has been applied. Labs Laboratory Tests Test 05/20/20 06:30 05/21/20 05:25 Sodium Level 142 mmol/L (136-145) 139 mmol/L (136-145) Potassium Level 4.0 mmol/L (3.5-5.1) 4.1 mmol/L (3.5-5.1) Chloride Level 107 mmol/L (98-107) 103 mmol/L (98-107) Carbon Dioxide Level 29 mmol/L (21-32) 30 mmol/L (21-32) Anion Gap 6 (6-14) 6 (6-14) Blood Urea Nitrogen 21 mg/dL (7-20) 26 mg/dL (7-20) Creatinine 0.6 mg/dL (0.6-1.0) 0.7 mg/dL (0.6-1.0) Estimated GFR (Cockcroft-Gault) 99.7 83.5 Glucose Level 189 mg/dL (70-99) 189 mg/dL (70-99) Calcium Level 8.5 mg/dL (8.5-10.1) 8.8 mg/dL (8.5-10.1) Phosphorus Level 3.5 mg/dL (2.6-4.7) 4.2 mg/dL (2.6-4.7) Magnesium Level 1.9 mg/dL (1.8-2.4) 2.0 mg/dL (1.8-2.4) Laboratory Tests Test 05/21/20 05:25 Sodium Level 139 mmol/L (136-145) Potassium Level 4.1 mmol/L (3.5-5.1) Chloride Level 103 mmol/L (98-107) Carbon Dioxide Level 30 mmol/L (21-32) Anion Gap 6 (6-14) Blood Urea Nitrogen 26 mg/dL (7-20) Creatinine 0.7 mg/dL (0.6-1.0) Estimated GFR (Cockcroft-Gault) 83.5 Glucose Level 189 mg/dL (70-99) Calcium Level 8.8 mg/dL (8.5-10.1) Phosphorus Level 4.2 mg/dL (2.6-4.7) Magnesium Level 2.0 mg/dL (1.8-2.4) Medications Current Medications Alprazolam (Xanax) 0.125 mg PRN QHS PRN PO ANXIETY / AGITATION; Start 05/14/20 at 00:45 Amitriptyline HCl (Elavil) 25 mg QHS PO Last administered on 05/20/20at 21:04; Start 05/14/20 at 01:00 Atorvastatin Calcium (Lipitor) 20 mg QHS PO Last administered on 05/20/20at 21:04; Start 05/14/20 at 21:00 Losartan Potassium (Cozaar) 50 mg DAILY PO Last administered on 05/21/20at 09:58; Start 05/14/20 at 09:00 Metoprolol Succinate (Toprol Xl) 100 mg DAILY PO ; Start 05/14/20 at 09:00 Estrogens Conjugated (Premarin) 1.25 mg DAILY PO ; Start 05/14/20 at 09:00; Stop 05/17/20 at 08:23; Status DC Hydrochlorothiazide (Microzide) 12.5 mg DAILY PO ; Start 05/14/20 at 09:00 Valacyclovir HCl (Valtrex) 1,000 mg BID PO ; Start 05/14/20 at 09:00 Sodium Chloride 1,000 ml @ 100 mls/hr Q10H IV Last administered on 05/15/20at 07:00; Start 05/14/20 at 01:00; Stop 05/15/20 at 08:17; Status DC Labetalol HCl (Normodyne Iv Push) 10 mg PRN Q4HRS PRN IVP HYPERTENSION, 2ND CHOICE Last administered on 05/20/20at 21:07; Start 05/14/20 at 01:00 Pantoprazole Sodium (PROTONIX VIAL for IV PUSH) 40 mg DAILYAC IVP Last administered on 05/15/20at 08:16; Start 05/14/20 at 07:30; Stop 05/15/20 at 0 8:23; Status DC Ketorolac Tromethamine (Toradol 15mg Vial) 15 mg PRN Q6HRS PRN IVP INFLAMMATION Last administered on 05/17/20at 22:31; Start 05/14/20 at 01:15; Stop 05/19/20 at 01:14; Status DC Lidocaine HCl (Lidocaine 1% 20ml Vial) 20 ml 1X ONCE INJ Last administered on 05/14/20at 12:08; Start 05/14/20 at 12:00; Stop 05/14/20 at 12:01; Status DC Gabapentin (Neurontin) 300 mg HS PO Last administered on 05/20/20at 21:04; Start 05/14/20 at 21:00 Immune Globulin 400 ml @ 0 mls/hr Q24H IV Last administered on 05/16/20at 18:25; Start 05/14/20 at 18:00; Stop 05/16/20 at 18:01; Status DC Amino Acids/ Glycerin/ Electrolytes 1,000 ml @ 80 mls/hr [id number] IV Last administered on 05/16/20at 16:13; Start 05/15/20 at 09:00; Stop 05/17/20 at 21:59; Status DC Lidocaine (Lidoderm) 2 patch DAILY TD Last administered on 05/21/20at 10:01; Start 05/15/20 at 09:00 Miscellaneous (Lidoderm Patch Removal) 1 ea QHS MC Last administered on 05/20/20at 21:00; Start 05/15/20 at 21:00 Pantoprazole Sodium (PROTONIX VIAL for IV PUSH) 40 mg BID IVP Last administered on 05/21/20at 09:58; Start 05/15/20 at 21:00 Enoxaparin Sodium (Lovenox 40mg Syringe) 40 mg Q24H SQ Last administered on 05/20/20at 15:32; Start 05/15/20 at 14:00 Enalaprilat (Vasotec Inj) 2.5 mg Q6HRS IVP ; Start 05/15/20 at 21:00; Stop 05/15/20 at 20:19; Status DC Enalaprilat (Vasotec Inj) 2.5 mg PRN Q6HRS PRN IVP HYPERTENSION, 1ST CHOICE Last administered on 05/19/20at 20:17; Start 05/15/20 at 20:30 Gadoterate Meglumine (Dotarem) 14 ml 1X ONCE IVP Last administered on 05/16/20at 12:58; Start 05/16/20 at 09:15; Stop 05/16/20 at 09:16; Status DC Estrogens Conjugated (Premarin) 2 sarah DAILY VG Last administered on 05/21/20at 09:59; Start 05/17/20 at 09:00 Info (Tpn Per Pharmacy) 1 each PRN DAILY PRN MC SEE COMMENTS Last administered on 05/21/20at 13:11; Start 05/17/20 at 08:30 Sodium Chloride 90 meq/Potassium Chloride 50 meq/ Potassium Phosphate 13.6 mmol/Magnesium Sulfate 5 meq/ Calcium Gluconate 10 meq/ Multivitamins 10 ml/Chromium/ Copper/Manganese/ Seleni/Zn 1 ml/ Total Parenteral Nutrition/Amino Acids/Dextrose/ Fat Emulsion Intravenous 1,512 ml @ 63 mls/hr TPN CONT IV Last administered on 05/18/20at 02:39; Start 05/17/20 at 22:00; Stop 05/18/20 at 21:59; Status DC Lidocaine HCl (Buffered Lidocaine 1%) 3 ml 1X ONCE INJ Last administered on 05/17/20at 14:22; Start 05/17/20 at 14:00; Stop 05/17/20 at 14:01; Status DC Lidocaine HCl (Buffered Lidocaine 1%) 3 ml STK-MED ONCE .ROUTE ; Start 05/17/20 at 14:06; Stop 05/17/20 at 14:07; Status DC Immune Globulin 300 ml @ 0 mls/hr Q24H IV Last administered on 05/18/20at 17:47; Start 05/17/20 at 18:00; Stop 05/18/20 at 18:01; Status DC Fentanyl Citrate (Fentanyl 2ml Vial) 50 mcg PRN Q3HRS PRN IVP SEVERE PAIN 7-10 Last administered on 05/20/20at 21:38; Start 05/18/20 at 02:00 Sodium Chloride 90 meq/Potassium Chloride 50 meq/ Potassium Phosphate 20 mmol/ Magnesium Sulfate 5 meq/Calcium Gluconate 10 meq/ Multivitamins 10 ml/Chromium/ Copper/Manganese/ Seleni/Zn 1 ml/ Total Parenteral Nutrition/Amino Acids/Dextrose/ Fat Emulsion Intravenous 1,512 ml @ 63 mls/hr TPN CONT IV Last administered on 05/18/20at 21:58; Start 05/18/20 at 22:00; Stop 05/19/20 at 21:59; Status DC Fentanyl (Duragesic 25mcg/ Hr Patch) 1 patch Q3DAYS TD Last administered on 05/19/20at 10:50; Start 05/19/20 at 11:00 Sodium Chloride 90 meq/Potassium Acetate 70 meq/ Potassium Phosphate 20 mmol/ Magnesium Sulfate 5 meq/Calcium Gluconate 10 meq/ Multivitamins 10 ml/Chromium/ Copper/Manganese/ Seleni/Zn 1 ml/ Total Parenteral Nutrition/Amino Acids/Dextrose/ Fat Emulsion Intravenous 1,512 ml @ 63 mls/hr TPN CONT IV Last administered on 05/19/20at 22:15; Start 05/19/20 at 22:00; Stop 05/20/20 at 21:59; Status DC Lorazepam (Ativan Inj) 0.5 mg PRN Q6HRS PRN IVP ANXIETY / AGITATION Last administered on 05/19/20at 20:15; Start 05/19/20 at 20:15 Bisacodyl (Dulcolax Supp) 10 mg PRN DAILY PRN [place] CONSTIPATION; Start 05/20/20 at 09:45 Docusate Sodium (Enemeez) 283 mg PRN DAILY PRN [place] CONSTIPATION; Start 05/20/20 at 09:45 Methylprednisolone Acetate (DEPO-Medrol 40MG VIAL) 40 mg 1X ONCE IM ; Start 05/20/20 at 10:00; Stop 05/20/20 at 10:01; Status DC Bupivacaine HCl (Sensorcaine-Mpf 0.25%) 10 ml 1X ONCE IJ ; Start 05/20/20 at 10:00; Stop 05/20/20 at 10:01; Status DC Barium Sulfate (Varibar Thin Liquid Apple) 148 gm 1X ONCE PO Last administered on 05/20/20at 14:30; Start 05/20/20 at 11:15; Stop 05/20/20 at 11:17; Status DC Sodium Chloride 90 meq/Potassium Acetate 70 meq/ Potassium Phosphate 20 mmol/ Magnesium Sulfate 5 meq/Calcium Gluconate 10 meq/ Multivitamins 10 ml/Chromium/ Copper/Manganese/ Seleni/Zn 1 ml/ Total Parenteral Nutrition/Amino Acids/Dextrose/ Fat Emulsion Intravenous 1,512 ml @ 63 mls/hr TPN CONT IV Last administered on 05/20/20at 21:39; Start 05/20/20 at 22:00; Stop 05/21/20 at 21:59 Fluticasone Propionate (Flonase) 2 spray DAILY NS ; Start 05/21/20 at 12:00 Sodium Chloride 90 meq/Potassium Acetate 70 meq/ Potassium Phosphate 20 mmol/ Magnesium Sulfate 5 meq/Calcium Gluconate 10 meq/ Multivitamins 10 ml/Chromium/ Copper/Manganese/ Seleni/Zn 1 ml/ Total Parenteral Nutrition/Amino Acids/Dextrose/ Fat Emulsion Intravenous 1,512 ml @ 63 mls/hr TPN CONT IV ; Start 05/21/20 at 22:00; Stop 05/22/20 at 21:59 Active Scripts Active Reported Valacyclovir (Valacyclovir Hcl) 1,000 Mg Tablet 1 Tab PO BID Metoprolol Succinate ( Xl ) (Metoprolol Succinate) 100 Mg Tab.er.24h 1 Tab PO DAILY Losartan Potassium 50 Mg Tablet 50 Mg PO DAILY Hydrochlorothiazide Tablet (Hydrochlorothiazide) 12.5 Mg Tablet 12.5 Mg PO DAILY Nexium Capsule (Esomeprazole Magnesium) 40 Mg Capsule.dr 1 Cap PO DAILY Premarin (Estrogens, Conjugated) 1.25 Mg Tablet 1 Tab PO DAILY Atorvastatin Calcium 20 Mg Tablet 1 Tab PO DAILY Amitriptyline Hcl 25 Mg Tablet 1 Tab PO QHS Alprazolam 0.25 Mg Tablet 0.5 Tab PO QHS PRN Vitals/I & O Vital Sign - Last 24 Hours 05/20/20 05/20/20 05/20/20 05/20/20 17:07 19:45 19:45 21:07 Temp 98.3 98.3 Pulse 167 108 108 Resp 18 B/P (MAP) 158/98 173/87 (115) 173/87 Pulse Ox 97 O2 Delivery Room Air Room Air 05/20/20 05/20/20 05/20/20 05/21/20 21:38 22:08 23:20 03:25 Temp 98.0 98.0 98.0 98.0 Pulse 88 107 Resp 20 20 18 18 B/P (MAP) 124/69 (87) 136/76 (96) Pulse Ox 97 100 O2 Delivery Room Air Room Air Nasal Cannula O2 Flow Rate 2.0 05/21/20 05/21/20 05/21/20 05/21/20 07:00 07:40 08:01 09:00 Temp 98.5 98.5 Pulse 106 106 Resp 20 B/P (MAP) 143/78 (99) 143/78 Pulse Ox 97 97 O2 Delivery Nasal Cannula Nasal Cannula Room Air O2 Flow Rate 2.0 2.0 05/21/20 09:58 Pulse 106 B/P (MAP) 143/78 Intake and Output 05/20/20 05/20/20 05/21/20 15:00 23:00 07:00 Intake Total 0 ml 100 ml 240 ml Output Total 450 ml 200 ml Balance 0 ml -350 ml 40 ml Justicifation of Admission Dx: Justifications for Admission: Justification of Admission Dx: Yes ROLY SHABAZZ MD May 21, 2020 14:03
[2020-05-21] MEDS: FLUTICASONE 50MCG/NASAL SPRAY 16GM BOTTLE. NS SCH (14:17)
[2020-05-21] MEDS: ENOXAPARIN 40 MG/0.4 ML SYRINGE. SQ SCH (14:18)
[2020-05-21 15:00] VITALS: BP 93/62
--- NOTE | 2020-05-21 15:39 | PN ---
DATE: 05/21/2020 SUBJECTIVE:. She is sitting up, eating her breakfast. She is apparently now on nectar-thickened liquid. She is on a pureed and solid appears to be safe in small boluses, but she apparently is still aspirating thin liquid and therefore should be on nectar or honey thickened liquid. PHYSICAL EXAMINATION: GENERAL: When I examined her this morning, she looked well and was clearly in no apparent respiratory distress. No pallor, jaundice, cyanosis, or thyromegaly. No jugular venous distention or limb edema. VITAL SIGNS: Her heart rate was 106, blood pressure was 143/78, temperature was 98.5, respiratory rate was 20, and oxygen saturation was 97% on 2 L of oxygen. HEAD, EYES, EARS, NOSE, AND THROAT: Normocephalic, atraumatic. NECK: Supple. HEART: Showed normal first and second heart sounds. No gallop or murmur. CHEST: Clear to auscultation. No crepitation or rhonchi. ABDOMEN: Distended, soft, nontender. NEUROLOGIC: She is awake, alert, definitely gaining strength. She gets out of the bed to bedside commode. Her intake over the last 24 hours and output are incompletely recorded. LABORATORY DATA: Her lab work this morning showed a serum sodium 139, potassium 4.1, chloride 103, bicarbonate 30, anion gap of 6, BUN 26, creatinine 0.7, and estimated GFR was 83 mL per minute. Her glucose 189, calcium was 8.8. Total protein was 4.2. Albumin was 2. Her white cell count was 8900, hemoglobin 11, hematocrit 33, MCV 89, and platelet count of 170,000. ASSESSMENT: 1. 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 2. She did have a video swallowing evaluation and she is now on pureed diet with nectar thickened liquid. 3. The patient has sphenoidal wing 2-cm meningioma which is incidental. 4. Pachymeningeal enhancement, likely due to a recent spinal tap. 5. Her coronavirus PCR was negative. 6. Other medical problems include: A. Hypertension. B. Hyperlipidemia. C. Hiatal hernia. D. Gastroesophageal reflux disease. PLAN: Obviously to continue with nutritional support. Continue with occupational therapy. Continue with physical therapy. She would probably be discharged to a rehab center on Saturday. BLANCHE MARROQUIN MD DR: Fitz JOB#: [id number] / [id number]
[2020-05-21 19:42] VITALS: BP 122/63
[2020-05-21] MEDS: GABAPENTIN 300 MG CAPSULE. PO SCH (21:00)
[2020-05-21] MEDS: PATCH REMOVAL. MC SCH (21:00)
[2020-05-21] MEDS ORDERED: [UNRECOGNIZED DRUG - OTHER] IV SCH (22:00)
[2020-05-21] MEDS ORDERED: AMINO ACID IV SCH (22:00)
[2020-05-21] MEDS ORDERED: DEXTROSE 70% IV SCH (22:00)
[2020-05-21] MEDS ORDERED: TOTAL PARENTERAL NUTRITION IV SCH (22:00)
[2020-05-21] MEDS: AMITRIPTYLINE HCL 25 MG TABLET. PO SCH (22:04)
[2020-05-21] MEDS: ATORVASTATIN CALCIUM 20 MG TABLET PO SCH (22:05)
[2020-05-21 22:45] VITALS: BP 134/84
[2020-05-22 03:15] VITALS: BP 138/78
[2020-05-22] MEDS: fentaNYL PF VIAL 100 MCG/2 ML VIAL IVP PRN (06:23)
[2020-05-22 07:00] VITALS: BP 128/71
--- NOTE | 2020-05-22 07:17 | NUR ---
Documented on 0500 interventions to clear interventions for the day.
--- NOTE | 2020-05-22 08:30 | PDOC ---
PULMONARY PROGRESS NOTES DATE: 05/22/20 TIME: 08:30 Subjective on ra, sob better, cough and post nasal drip better w flonase, has back pain states she is getting stronger, nif yesterday -60 Vitals Vital Signs Date Time Temp Pulse Resp B/P (MAP) Pulse Ox O2 Delivery O2 Flow Rate FiO2 05/22/20 07:00 98.5 108 19 128/71 (90) 98 Nasal Cannula 2.0 98.5 ROS: No Nausea, No Chest Pain, No Abdominal Pain General: Alert, Oriented X4 Lungs: Clear Cardiovascular: S1, S2 Abdomen: Soft, Non-tender Neuro Exam: Alert Extremities: No Edema Skin: Warm, Dry Labs Laboratory Tests Test 05/21/20 05:25 Sodium Level 139 mmol/L (136-145) Potassium Level 4.1 mmol/L (3.5-5.1) Chloride Level 103 mmol/L (98-107) Carbon Dioxide Level 30 mmol/L (21-32) Anion Gap 6 (6-14) Blood Urea Nitrogen 26 mg/dL (7-20) Creatinine 0.7 mg/dL (0.6-1.0) Estimated GFR (Cockcroft-Gault) 83.5 Glucose Level 189 mg/dL (70-99) Calcium Level 8.8 mg/dL (8.5-10.1) Phosphorus Level 4.2 mg/dL (2.6-4.7) Magnesium Level 2.0 mg/dL (1.8-2.4) Medications Active Scripts Medications Dose Route/Sig Max Daily Dose Days Date Category Valacyclovir (Valacyclovir Hcl) 1,000 Mg Tablet 1 Tab PO BID 05/14/20 Reported Metoprolol Succinate ( Xl ) (Metoprolol Succinate) 100 Mg Tab.er.24h 1 Tab PO DAILY 05/14/20 Reported Losartan Potassium 50 Mg Tablet 50 Mg PO DAILY 05/14/20 Reported Hydrochlorothiazide Tablet (Hydrochlorothiazide) 12.5 Mg Tablet 12.5 Mg PO DAILY 05/14/20 Reported Nexium Capsule (Esomeprazole Magnesium) 40 Mg Capsule.dr 1 Cap PO DAILY 05/14/20 Reported Premarin (Estrogens, Conjugated) 1.25 Mg Tablet 1 Tab PO DAILY 05/14/20 Reported Atorvastatin Calcium 20 Mg Tablet 1 Tab PO DAILY 05/14/20 Reported Amitriptyline Hcl 25 Mg Tablet 1 Tab PO QHS 05/14/20 Reported Alprazolam 0.25 Mg Tablet 0.5 Tab PO QHS PRN 05/14/20 Reported Comments CXR IMPRESSION: Bilateral basilar atelectasis or interstitial infiltrate. MRI brain IMPRESSION: 1. No acute infarct or hemorrhage. 2. Left sphenoid wing 2 cm meningioma. Mass effect on the anterior temporal lobe. No underlying parenchymal enhancement. 3. Diffuse pachymeningeal enhancement, likely related to recent lumbar puncture. 4. Mild scattered FLAIR hyperintensities in the subcortical and periventricular deep white matter, a nonspecific finding, most commonly seen with chronic small vessel ischemic disease. Impression . IMPRESSION: 1. Acute hypoxemic respiratory failure--resolved 2. Guillain-Rudolph syndrome-- improving S/P IVIG tx. 3. History of hypertension, hyperlipidemia, gastroesophageal reflux. 4. Recent vaccination with flu and shingles. 5. History of recent laryngitis, suspect viral. 6. Dysphagia-- Plan . PLAN: Continue supplemental oxygen as needed to keep oxygen saturations greater than 92%-- now on room air Monitor NIF, notify provider if and if drops more than -25 ---- Neurology Recommendations, LP preformed -- monitor cultures Completed full course IVIG IS at bedside to use PT/OT speech cont flonase for post nasal drip DVT/GI -- lovenox/pepcichong D/W RN, pt JEFRY MIRANDA MD May 22, 2020 08:30
[2020-05-22] MEDS: FLUTICASONE 50MCG/NASAL SPRAY 16GM BOTTLE. NS SCH (09:00)
[2020-05-22] MEDS: LOSARTAN POTASSIUM 50 MG TABLET. PO SCH (09:00)
[2020-05-22] MEDS: ESTROGENS, CONJ VAGINAL CREAM 30GM TUBE. VG SCH (09:00)
[2020-05-22] MEDS: hydroCHLOROthiazide 12.5 MG CAPSULE PO SCH (09:00)
[2020-05-22] MEDS: valACYclovir 500 MG TABLET. PO SCH ×2 (09:00→21:39)
[2020-05-22] MEDS: PANTOPRAZOLE IV PUSH 40 MG VIAL. IVP SCH ×2 (09:43→21:40)
[2020-05-22] MEDS: METOPROLOL SUCC 24HR ER 100 MG TAB.ER.24H. PO SCH (09:44)
[2020-05-22] MEDS: fentaNYL 50MCG/HR PATCH 1 PATCH PATCH.TD72 TD SCH (09:45)
--- NOTE | 2020-05-22 10:14 | PN ---
DATE: 05/22/2020 SUBJECTIVE: The patient is resting, slightly propped up in bed, eating her breakfast. She continued to complain of back pain and unfortunately she has fentanyl injection that was not offered to her for some reason. I made it clear to the nursing staff that she has the injection available every 3 hours of necessary and they did increase her fentanyl patch to 50 mcg. PHYSICAL EXAMINATION: GENERAL: When I saw her this morning, she looked well and was clearly in no apparent respiratory distress, pale, but no jaundice, cyanosis, or thyromegaly. No jugular venous distension. No lower limb edema. VITAL SIGNS: Her heart rate was 108, blood pressure was 128/71, temperature was 98.5, respiratory rate was 19 and oxygen saturation was 98% on 2 liters of oxygen. HEAD, EYES, EARS, NOSE AND THROAT: Showed normocephalic, atraumatic. NECK: Supple. HEART: Showed normal first and second heart sounds. No gallop, rub or murmur. CHEST: Clear to auscultation. No crepitation or rhonchi. ABDOMEN: Distended, soft, nontender. NEUROLOGIC: She is awake, alert, responding appropriately. All her cranial nerves intact. She moves extremities spontaneously without difficulty. She is now eating soft diet. Her intake over the last 24 hours was 340, output 650. LABORATORY DATA: She has no lab works ordered for this morning. ASSESSMENT: 1. Guillain-[place] syndrome. The patient completed her IVIG treatment and received total of 2 g/kg. 2. She did have a video swallowing evaluation. She is now on a pureed diet with nectar thickened liquid. 3. The patient has sphenoid wing 2 cm meningioma which is an incidental finding. 4. Pachymeningeal enhancement likely due to recent spinal tap. 5. Her coronavirus-2 PCR was negative. 6. She has multiple other medical problems including: A. Hypertension. B. Hyperlipidemia. C. Hiatal hernia. D. Gastroesophageal reflux disease. PLAN: To continue obviously with nutritional support orally and through TPN, continue with physical and occupational therapy. She will be discharged probably tomorrow to a rehab center. BLANCHE MARROQUIN MD DR: SONIA/sudarshan JOB#: [id number] / [id number]
[2020-05-22] MEDS: TPN PER PHARMACY MC PRN (10:53)
--- NOTE | 2020-05-22 10:53 | NUR ---
Pharmacy TPN Dosing Note S: LILLIAN CLEANING is a 65 year old F Currently receiving Central Continuous TPN started 05/17/20 B:Pertinent PMH: Guillann [place] Syndrome Height: 5 feet, 2 inches Weight: 73.0 kg Current diet: Dysphagia III LABS: Sodium: 139 Potassium: 4.1 Chloride: 103 Calcium: 8.8 Corrected Calcium: 10.16 Magnesium: 2 CO2: 30 SCr: 0.7 Glucose: 189 Albumin: 2.3 AST: 34 ALT: 31 TPN FORMULA: TPN TYPE: Central Continuous AMINO ACIDS: 70 gm DEXTROSE: 225 gm LIPIDS: 20 gm SODIUM CHLORIDE: 90 mEq POTASSIUM ACETATE: 70 mEq POTASSIUM PHOSPHATE: 20 mmol MAGNESIUM: 5 mEq CALCIUM: 10 mEq MULTIPLE VITAMIN: 10 ml TRACE ELEMENTS: 1 ml(s) TPN PLAN: No change in TPN. R: Continue same TPN formula. Will monitor electrolytes, glucose, and tolerance to TPN. CHICHO PATEL [facility], 05/22/20 [id number]
[2020-05-22 11:00] VITALS: BP 86/58
[2020-05-22] MEDS: LIDOCAINE (700MG/PATCH) PATCH. TD SCH (13:40)
[2020-05-22] MEDS: ENOXAPARIN 40 MG/0.4 ML SYRINGE. SQ SCH (13:42)
--- NOTE | 2020-05-22 13:51 | PDOC ---
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 She noticed weakness starting after flu and shingles shots on 05/02 Spinal fluid showed 4 white blood cells, 1825 red blood cells, protein 54.2. C- reactive protein is 3.3 She still has some dysphagia. 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 Pachymeningeal enhancement, likely related to recent spinal tap. Coronavirus negative at [facility] that she was on Valacyclovir for zoster or herpes, I told her this would not of caused the Guillain [place] Complains of orthostatic lightheadedness, note hypotension. Plan Back off on blood pressure medications. Appears she is taking sufficiently orally that she does not need the TPN anymore. She has completed the course of IVIG. If she deteriorates in 3-4 weeks she could receive another 1 g/kg Rehab, will need inpatient, consult social work, Dr. Jacob's consult appreciated Monitor oral intake Continue physical therapy. Continue close monitoring. Switch intravenous lorazepam to her usual Xanax. Discussed with patient and . Subjective Complains of orthostatic lightheadedness, is eating much better. Does not think she needs the TPN. Objective Vital Signs Date Time Temp Pulse Resp B/P (MAP) Pulse Ox O2 Delivery O2 Flow Rate FiO2 05/22/20 13:44 14 Room Air 05/22/20 11:00 98.3 116 86/58 (67) 96 2.0 98.3 Intake and Output 05/22/20 07:00 Intake Total 700 ml Output Total 700 ml Balance 0 ml Intake Oral 700 ml Output Urine Total 700 ml # Voids 1 PHYSICAL EXAM Alert. Oriented to time, place and person. PERRL. EOMI. CN: no focal findings. Muscle tone: normal. Muscle strength: 3/5 DTR: 0-1+ Plantar reflex: Flexor Gait: not examined in bed. Sensory exam: Normal pinprick, decreased vibratory appreciation in feet. No cerebellar signs elicited. Review of Relevant I have reviewed the following items susan (where applicable) has been applied. Labs Laboratory Tests Test 05/21/20 05:25 Sodium Level 139 mmol/L (136-145) Potassium Level 4.1 mmol/L (3.5-5.1) Chloride Level 103 mmol/L (98-107) Carbon Dioxide Level 30 mmol/L (21-32) Anion Gap 6 (6-14) Blood Urea Nitrogen 26 mg/dL (7-20) Creatinine 0.7 mg/dL (0.6-1.0) Estimated GFR (Cockcroft-Gault) 83.5 Glucose Level 189 mg/dL (70-99) Calcium Level 8.8 mg/dL (8.5-10.1) Phosphorus Level 4.2 mg/dL (2.6-4.7) Magnesium Level 2.0 mg/dL (1.8-2.4) Medications Current Medications Alprazolam (Xanax) 0.125 mg PRN QHS PRN PO ANXIETY / AGITATION; Start 05/14/20 at 00:45 Amitriptyline HCl (Elavil) 25 mg QHS PO Last administered on 05/21/20at 22:04; Start 05/14/20 at 01:00 Atorvastatin Calcium (Lipitor) 20 mg QHS PO Last administered on 05/21/20at 22:05; Start 05/14/20 at 21:00 Losartan Potassium (Cozaar) 50 mg DAILY PO Last administered on 05/21/20at 09:58; Start 05/14/20 at 09:00 Metoprolol Succinate (Toprol Xl) 100 mg DAILY PO Last administered on 05/22/20at 09:44; Start 05/14/20 at 09:00 Estrogens Conjugated (Premarin) 1.25 mg DAILY PO ; Start 05/14/20 at 09:00; Stop 05/17/20 at 08:23; Status DC Hydrochlorothiazide (Microzide) 12.5 mg DAILY PO ; Start 05/14/20 at 09:00 Valacyclovir HCl (Valtrex) 1,000 mg BID PO ; Start 05/14/20 at 09:00 Sodium Chloride 1,000 ml @ 100 mls/hr Q10H IV Last administered on 05/15/20at 07:00; Start 05/14/20 at 01:00; Stop 05/15/20 at 08:17; Status DC Labetalol HCl (Normodyne Iv Push) 10 mg PRN Q4HRS PRN IVP HYPERTENSION, 2ND CHOICE Last administered on 05/20/20at 21:07; Start 05/14/20 at 01:00 Pantoprazole Sodium (PROTONIX VIAL for IV PUSH) 40 mg DAILYAC IVP Last ad ministered on 05/15/20at 08:16; Start 05/14/20 at 07:30; Stop 05/15/20 at 08:23; Status DC Ketorolac Tromethamine (Toradol 15mg Vial) 15 mg PRN Q6HRS PRN IVP INFLAMMATION Last administered on 05/17/20at 22:31; Start 05/14/20 at 01:15; Stop 05/19/20 at 01:14; Status DC Lidocaine HCl (Lidocaine 1% 20ml Vial) 20 ml 1X ONCE INJ Last administered on 05/14/20at 12:08; Start 05/14/20 at 12:00; Stop 05/14/20 at 12:01; Status DC Gabapentin (Neurontin) 300 mg HS PO Last administered on 05/20/20 21:04; Start 05/14/20 at 21:00 Immune Globulin 400 ml @ 0 mls/hr Q24H IV Last administered on 05/16/20at 18:25; Start 05/14/20 at 18:00; Stop 05/16/20 at 18:01; Status DC Amino Acids/ Glycerin/ Electrolytes 1,000 ml @ 80 mls/hr [id number] IV Last administered on 05/16/20at 16:13; Start 05/15/20 at 09:00; Stop 05/17/20 at 21:59; Status DC Lidocaine (Lidoderm) 2 patch DAILY TD Last administered on 05/22/20at 13:40; Start 05/15/20 at 09:00 Miscellaneous (Lidoderm Patch Removal) 1 ea QHS MC Last administered on 05/21/20at 21:00; Start 05/15/20 at 21:00 Pantoprazole Sodium (PROTONIX VIAL for IV PUSH) 40 mg BID IVP Last administered on 05/22/20at 09:43; Start 05/15/20 at 21:00 Enoxaparin Sodium (Lovenox 40mg Syringe) 40 mg Q24H SQ Last administered on 05/22/20at 13:42; Start 05/15/20 at 14:00 Enalaprilat (Vasotec Inj) 2.5 mg Q6HRS IVP ; Start 10/11/20 at 21:00; Stop 05/15/20 at 20:19; Status DC Enalaprilat (Vasotec Inj) 2.5 mg PRN Q6HRS PRN IVP HYPERTENSION, 1ST CHOICE Last administered on 05/19/20at 20:17; Start 05/15/20 at 20:30 Gadoterate Meglumine (Dotarem) 14 ml 1X ONCE IVP Last administered on 05/16/20at 12:58; Start 05/16/20 at 09:15; Stop 05/16/20 at 09:16; Status DC Estrogens Conjugated (Premarin) 2 sarah DAILY VG Last administered on 05/22/20at 09:00; Start 05/17/20 at 09:00 Info (Tpn Per Pharmacy) 1 each PRN DAILY PRN MC SEE COMMENTS Last administered on 05/22/20at 10:53; Start 05/17/20 at 08:30 Sodium Chloride 90 meq/Potassium Chloride 50 meq/ Potassium Phosphate 13.6 mmol/Magnesium Sulfate 5 meq/ Calcium Gluconate 10 meq/ Multivitamins 10 ml/Chromium/ Copper/Manganese/ Seleni/Zn 1 ml/ Total Parenteral Nutrition/Amino Acids/Dextrose/ Fat Emulsion Intravenous 1,512 ml @ 63 mls/hr TPN CONT IV Last administered on 05/18/20at 02:39; Start 05/17/20 at 22:00; Stop 05/18/20 at 21:59; Status DC Lidocaine HCl (Buffered Lidocaine 1%) 3 ml 1X ONCE INJ Last administered on 05/17/20at 14:22; Start 05/17/20 at 14:00; Stop 05/17/20 at 14:01; Status DC Lidocaine HCl (Buffered Lidocaine 1%) 3 ml STK-MED ONCE .ROUTE ; Start 05/17/20 at 14:06; Stop 05/17/20 at 14:07; Status DC Immune Globulin 300 ml @ 0 mls/hr Q24H IV Last administered on 05/18/20at 17:47; Start 05/17/20 at 18:00; Stop 05/18/20 at 18:01; Status DC Fentanyl Citrate (Fentanyl 2ml Vial) 50 mcg PRN Q3HRS PRN IVP SEVERE PAIN 7-10 Last administered on 05/22/20at 06:23; Start 05/18/20 at 02:00 Sodium Chloride 90 meq/Potassium Chloride 50 meq/ Potassium Phosphate 20 mmol/ Magnesium Sulfate 5 meq/Calcium Gluconate 10 meq/ Multivitamins 10 ml/Chromium/ Copper/Manganese/ Seleni/Zn 1 ml/ Total Parenteral Nutrition/Amino Acids/Dextrose/ Fat Emulsion Intravenous 1,512 ml @ 63 mls/hr TPN CONT IV Last administered on 05/18/20at 21:58; Start 05/18/20 at 22:00; Stop 05/19/20 at 21:59; Status DC Fentanyl (Duragesic 25mcg/ Hr Patch) 1 patch Q3DAYS TD Last administered on 05/19/20at 10:50; Start 05/19/20 at 11:00; Stop 05/22/20 at 08:23; Status DC Sodium Chloride 90 meq/Potassium Acetate 70 meq/ Potassium Phosphate 20 mmol/ Magnesium Sulfate 5 meq/Calcium Gluconate 10 meq/ Multivitamins 10 ml/Chromium/ Copper/Manganese/ Seleni/Zn 1 ml/ Total Parenteral Nutrition/Amino Acids/Dextrose/ Fat Emulsion Intravenous 1,512 ml @ 63 mls/hr TPN CONT IV Last administered on 05/19/20at 22:15; Start 05/19/20 at 22:00; Stop 05/20/20 at 21:59; Status DC Lorazepam (Ativan Inj) 0.5 mg PRN Q6HRS PRN IVP ANXIETY / AGITATION Last administered on 05/19/20at 20:15; Start 05/19/20 at 20:15 Bisacodyl (Dulcolax Supp) 10 mg PRN DAILY PRN [place] CONSTIPATION-1st choice; Start 05/20/20 at 09:45 Docusate Sodium (Enemeez) 283 mg PRN DAILY PRN [place] CONSTIPATION; Start 05/20/20 at 09:45 Methylprednisolone Acetate (DEPO-Medrol 40MG VIAL) 40 mg 1X ONCE IM ; Start 05/20/20 at 10:00; Stop 05/20/20 at 10:01; Status DC Bupivacaine HCl (Sensorcaine-Mpf 0.25%) 10 ml 1X ONCE IJ ; Start 05/20/20 at 10:00; Stop 05/20/20 at 10:01; Status DC Barium Sulfate (Varibar Thin Liquid Apple) 148 gm 1X ONCE PO Last administered on 05/20/20at 14:30; Start 05/20/20 at 11:15; Stop 05/20/20 at 11:17; Status DC Sodium Chloride 90 meq/Potassium Acetate 70 meq/ Potassium Phosphate 20 mmol/ Magnesium Sulfate 5 meq/Calcium Gluconate 10 meq/ Multivitamins 10 ml/Chromium/ Copper/Manganese/ Seleni/Zn 1 ml/ Total Parenteral Nutrition/Amino Acids/Dextrose/ Fat Emulsion Intravenous 1,512 ml @ 63 mls/hr TPN CONT IV Last administered on 05/20/20at 21:39; Start 05/20/20 at 22:00; Stop 05/21/20 at 21:59; Status DC Fluticasone Propionate (Flonase) 2 spray DAILY NS Last administered on 05/05 03/24at 09:00; Start 05/21/20 at 12:00 Sodium Chloride 90 meq/Potassium Acetate 70 meq/ Potassium Phosphate 20 mmol/ Magnesium Sulfate 5 meq/Calcium Gluconate 10 meq/ Multivitamins 10 ml/Chromium/ Copper/Manganese/ Seleni/Zn 1 ml/ Total Parenteral Nutrition/Amino Acids/Dextrose/ Fat Emulsion Intravenous 1,512 ml @ 63 mls/hr TPN CONT IV Last administered on 05/21/20at 22:04; Start 05/21/20 at 22:00; Stop 05/22/20 at 21:59 Fentanyl (Duragesic 50mcg/ Hr Patch) 1 patch Q3DAYS TD Last administered on 05/22/20at 09:45; Start 05/22/20 at 09:00 Sodium Chloride 90 meq/Potassium Acetate 70 meq/ Potassium Phosphate 20 mmol/ Magnesium Sulfate 5 meq/Calcium Gluconate 10 meq/ Multivitamins 10 ml/Chromium/ Copper/Manganese/ Seleni/Zn 1 ml/ Total Parenteral Nutrition/Amino Acids/Dextrose/ Fat Emulsion Intravenous 1,512 ml @ 63 mls/hr TPN CONT IV ; Start 05/22/20 at 22:00; Stop 05/23/20 at 21:59 Active Scripts Active Reported Valacyclovir (Valacyclovir Hcl) 1,000 Mg Tablet 1 Tab PO BID Metoprolol Succinate ( Xl ) (Metoprolol Succinate) 100 Mg Tab.er.24h 1 Tab PO DAILY Losartan Potassium 50 Mg Tablet 50 Mg PO DAILY Hydrochlorothiazide Tablet (Hydrochlorothiazide) 12.5 Mg Tablet 12.5 Mg PO DAILY Nexium Capsule (Esomeprazole Magnesium) 40 Mg Capsule.dr 1 Cap PO DAILY Premarin (Estrogens, Conjugated) 1.25 Mg Tablet 1 Tab PO DAILY Atorvastatin Calcium 20 Mg Tablet 1 Tab PO DAILY Amitriptyline Hcl 25 Mg Tablet 1 Tab PO QHS Alprazolam 0.25 Mg Tablet 0.5 Tab PO QHS PRN Vitals/I & O Vital Sign - Last 24 Hours 05/21/20 05/21/20 05/21/20 05/21/20 15:00 19:42 20:10 22:45 Temp 98.1 99.2 98.7 98.1 99.2 98.7 Pulse 127 120 118 Resp 18 18 18 B/P (MAP) 93/62 (72) 122/63 (82) 134/84 (101) Pulse Ox 97 94 97 O2 Delivery Nasal Cannula Nasal Cannula Nasal Cannula Nasal Cannula O2 Flow Rate 2.0 2.0 2.0 2.0 05/22/20 05/22/20 05/22/20 05/22/20 03:15 06:23 07:00 07:45 Temp 98.4 98.5 98.4 98.5 Pulse 118 108 Resp 18 19 B/P (MAP) 138/78 (98) 128/71 (90) Pulse Ox 100 98 O2 Delivery Nasal Cannula Nasal Cannula Nasal Cannula Nasal Cannula O2 Flow Rate 2.0 2.0 2.0 2.0 05/22/20 05/22/20 05/22/20 05/22/20 09:00 09:44 09:45 11:00 Temp 98.3 98.3 Pulse 99 108 116 Resp 20 B/P (MAP) 86/58 128/71 86/58 (67) Pulse Ox 98 96 O2 Delivery Nasal Cannula Nasal Cannula O2 Flow Rate 2.0 2.0 05/22/20 13:44 Resp 14 O2 Delivery Room Air Intake and Output 05/21/20 05/21/20 05/22/20 15:00 23:00 07:00 Intake Total 100 ml 350 ml 250 ml Output Total 150 ml 450 ml 100 ml Balance -50 ml -100 ml 150 ml Justicifation of Admission Dx: Justifications for Admission: Justification of Admission Dx: Yes ROLY SHABAZZ MD May 22, 2020 13:51
[2020-05-22 15:00] VITALS: BP 122/63
[2020-05-22 19:45] VITALS: BP 114/62
[2020-05-22] MEDS: PATCH REMOVAL. MC SCH (21:00)
[2020-05-22] MEDS: ATORVASTATIN CALCIUM 20 MG TABLET PO SCH (21:39)
[2020-05-22] MEDS: GABAPENTIN 300 MG CAPSULE. PO SCH (21:39)
[2020-05-22] MEDS: AMITRIPTYLINE HCL 25 MG TABLET. PO SCH (21:39)
[2020-05-22] MEDS: ALPRAZolam 0.25 MG TABLET PO PRN (21:43)
[2020-05-22] MEDS ORDERED: DEXTROSE 70% IV SCH (22:00)
[2020-05-22] MEDS ORDERED: [UNRECOGNIZED DRUG - OTHER] IV SCH (22:00)
[2020-05-22] MEDS ORDERED: AMINO ACID IV SCH (22:00)
[2020-05-22] MEDS ORDERED: TOTAL PARENTERAL NUTRITION IV SCH (22:00)
[2020-05-22 23:05] VITALS: BP 115/65
[2020-05-23 03:05] VITALS: BP 119/69
[2020-05-23 06:35] LABS: ALBUMIN 2.1 g/dL (3.4-5.0); ALBUMIN/GLOBULIN RATIO 0.4 (1.0-1.7); CALCIUM 8.5 mg/dL (8.5-10.1); CREATININE 0.7 mg/dL (0.6-1.0); GFR 83.5; POTASSIUM 4.3 mmol/L (3.5-5.1); TOTAL BILIRUBIN 0.7 mg/dL (0.2-1.0); TOTAL PROTEIN 7.2 g/dL (6.4-8.2)
[2020-05-23 06:51] LABS: HEMOGLOBIN 9.6 g/dL (12.0-15.5); RED BLOOD COUNT 3.11 x10^6/uL (3.50-5.40); RED CELL DISTRIBUTION WIDTH 13.2 % (11.5-14.5); WHITE BLOOD COUNT 11.8 x10^3/uL (4.0-11.0)
[2020-05-23 07:05] VITALS: BP 133/66
--- NOTE | 2020-05-23 08:41 | PDOC ---
PULMONARY PROGRESS NOTES DATE: 05/23/20 TIME: 08:41 Subjective Patient continues to clinically improve, getting stronger Patient is able to demonstrate I-S at 750 Patient is now on a dysphagia 2 diet, and room air No overnight concerns from nursing, denies any shortness of breath cough or chest pain Vitals Vital Signs Date Time Temp Pulse Resp B/P (MAP) Pulse Ox O2 Delivery O2 Flow Rate FiO2 05/23/20 08:21 97 Room Air 05/23/20 07:05 98.7 103 18 133/66 (88) 98.7 05/22/20 15:00 2.0 ROS: No Nausea, No Chest Pain, No Abdominal Pain General: Alert, Oriented X4 Lungs: Clear Cardiovascular: S1, S2 Abdomen: Soft, Non-tender Neuro Exam: Alert Extremities: No Edema Skin: Warm, Dry Labs Laboratory Tests Test 05/23/20 05:40 White Blood Count 11.8 x10^3/uL (4.0-11.0) Red Blood Count 3.11 x10^6/uL (3.50-5.40) Hemoglobin 9.6 g/dL (12.0-15.5) Hematocrit 28.0 % (36.0-47.0) Mean Corpuscular Volume 90 fL (79-100) Mean Corpuscular Hemoglobin 31 pg (25-35) Mean Corpuscular Hemoglobin Concent 34 g/dL (31-37) Red Cell Distribution Width 13.2 % (11.5-14.5) Platelet Count 145 x10^3/uL (140-400) Sodium Level 138 mmol/L (136-145) Potassium Level 4.3 mmol/L (3.5-5.1) Chloride Level 104 mmol/L (98-107) Carbon Dioxide Level 31 mmol/L (21-32) Anion Gap 3 (6-14) Blood Urea Nitrogen 24 mg/dL (7-20) Creatinine 0.7 mg/dL (0.6-1.0) Estimated GFR (Cockcroft-Gault) 83.5 BUN/Creatinine Ratio 34 (6-20) Glucose Level 121 mg/dL (70-99) Calcium Level 8.5 mg/dL (8.5-10.1) Total Bilirubin 0.7 mg/dL (0.2-1.0) Aspartate Amino Transf (AST/SGOT) 59 U/L (15-37) Alanine Aminotransferase (ALT/SGPT) 89 U/L (14-59) Alkaline Phosphatase 68 U/L (46-116) Total Protein 7.2 g/dL (6.4-8.2) Albumin 2.1 g/dL (3.4-5.0) Albumin/Globulin Ratio 0.4 (1.0-1.7) Laboratory Tests Test 05/23/20 05:40 White Blood Count 11.8 x10^3/uL (4.0-11.0) Red Blood Count 3.11 x10^6/uL (3.50-5.40) Hemoglobin 9.6 g/dL (12.0-15.5) Hematocrit 28.0 % (36.0-47.0) Mean Corpuscular Volume 90 fL (79-100) Mean Corpuscular Hemoglobin 31 pg (25-35) Mean Corpuscular Hemoglobin Concent 34 g/dL (31-37) Red Cell Distribution Width 13.2 % (11.5-14.5) Platelet Count 145 x10^3/uL (140-400) Sodium Level 138 mmol/L (136-145) Potassium Level 4.3 mmol/L (3.5-5.1) Chloride Level 104 mmol/L (98-107) Carbon Dioxide Level 31 mmol/L (21-32) Anion Gap 3 (6-14) Blood Urea Nitrogen 24 mg/dL (7-20) Creatinine 0.7 mg/dL (0.6-1.0) Estimated GFR (Cockcroft-Gault) 83.5 BUN/Creatinine Ratio 34 (6-20) Glucose Level 121 mg/dL (70-99) Calcium Level 8.5 mg/dL (8.5-10.1) Total Bilirubin 0.7 mg/dL (0.2-1.0) Aspartate Amino Transf (AST/SGOT) 59 U/L (15-37) Alanine Aminotransferase (ALT/SGPT) 89 U/L (14-59) Alkaline Phosphatase 68 U/L (46-116) Total Protein 7.2 g/dL (6.4-8.2) Albumin 2.1 g/dL (3.4-5.0) Albumin/Globulin Ratio 0.4 (1.0-1.7) Medications Active Scripts Medications Dose Route/Sig Max Daily Dose Days Date Category Valacyclovir (Valacyclovir Hcl) 1,000 Mg Tablet 1 Tab PO BID 05/14/20 Reported Metoprolol Succinate ( Xl ) (Metoprolol Succinate) 100 Mg Tab.er.24h 1 Tab PO DAILY 05/14/20 Reported Losartan Potassium 50 Mg Tablet 50 Mg PO DAILY 05/14/20 Reported Hydrochlorothiazide Tablet (Hydrochlorothiazide) 12.5 Mg Tablet 12.5 Mg PO DAILY 05/14/20 Reported Nexium Capsule (Esomeprazole Magnesium) 40 Mg Capsule.dr 1 Cap PO DAILY 05/14/20 Reported Premarin (Estrogens, Conjugated) 1.25 Mg Tablet 1 Tab PO DAILY 05/14/20 Reported Atorvastatin Calcium 20 Mg Tablet 1 Tab PO DAILY 05/14/20 Reported Amitriptyline Hcl 25 Mg Tablet 1 Tab PO QHS 05/14/20 Reported Alprazolam 0.25 Mg Tablet 0.5 Tab PO QHS PRN 05/14/20 Reported Comments CXR IMPRESSION: Bilateral basilar atelectasis or interstitial infiltrate. MRI brain IMPRESSION: 1. No acute infarct or hemorrhage. 2. Left sphenoid wing 2 cm meningioma. Mass effect on the anterior temporal lobe. No underlying parenchymal enhancement. 3. Diffuse pachymeningeal enhancement, likely related to recent lumbar puncture. 4. Mild scattered FLAIR hyperintensities in the subcortical and periventricular deep white matter, a nonspecific finding, most commonly seen with chronic small vessel ischemic disease. Impression . IMPRESSION: 1. Acute hypoxemic respiratory failure--resolved 2. Guillain-[place] syndrome-- improving S/P IVIG tx. 3. History of hypertension, hyperlipidemia, gastroesophageal reflux. 4. Recent vaccination with flu and shingles. 5. History of recent laryngitis, suspect viral. 6. Dysphagia--on dysphagia diet, follow speech recommendations Plan . PLAN: Continue supplemental oxygen as needed to keep oxygen saturations greater than 92%-- now on room air Patient is stable from pulmonary standpoint, Monitor NIF PRN Neurology Recommendations, LP preformed -- monitor cultures Completed full course IVIG IS at bedside to use, able to do 750 today, instructed on hourly use PT/OT speech DVT/GI -- lovenox/pepcid We will see the patient on a as needed basis please call with any questions or concerns, okay to discharge to rehab from our standpoint D/W RNIVETH SABATO MD May 23, 2020 08:41
[2020-05-23] MEDS: LIDOCAINE (700MG/PATCH) PATCH. TD SCH (08:45)
[2020-05-23] MEDS: hydroCHLOROthiazide 12.5 MG CAPSULE PO SCH (08:49)
[2020-05-23] MEDS: PANTOPRAZOLE IV PUSH 40 MG VIAL. IVP SCH (08:52)
[2020-05-23] MEDS: FLUTICASONE 50MCG/NASAL SPRAY 16GM BOTTLE. NS SCH (09:00)
[2020-05-23] MEDS: valACYclovir 500 MG TABLET. PO SCH ×2 (09:00→21:00)
[2020-05-23] MEDS ORDERED: METOPROLOL SUCC 24HR ER 100 MG TAB.ER.24H. PO SCH (09:00)
[2020-05-23] MEDS ORDERED: LOSARTAN POTASSIUM 50 MG TABLET. PO SCH (09:00)
[2020-05-23] MEDS: ESTROGENS, CONJ VAGINAL CREAM 30GM TUBE. VG SCH (09:00)
--- NOTE | 2020-05-23 09:18 | PDOC ---
PROGRESS NOTES Date of Service DATE: 05/23/20 TIME: 09:07 Subjective Subjective No new complaints. She had problems with low back pain, blood pressure and anxiety yesterday. Objective Objective Vital Signs Date Time Temp Pulse Resp B/P (MAP) Pulse Ox O2 Delivery O2 Flow Rate FiO2 05/23/20 08:21 97 Room Air 05/23/20 07:05 98.7 103 18 133/66 (88) 98.7 05/22/20 15:00 2.0 Intake and Output 05/23/20 07:00 Intake Total 1751 ml Output Total 500 ml Balance 1251 ml Intake Oral 680 ml IV Total 1071 ml Output Urine Total 500 ml # Bowel Movements 1 Physical Exam Physical Exam She is alert,supine in bed and comfortable and no change noted with her neur ological examination. Her B P while supine is 133/84 mm Hg,while sitting up it was 107/70 mm Hg,and it dropped to 73/60 while up. She needs supervision with bed mobility and sitting up and even standing up with roller walker but secondary to her dizziness,I have not seen her walking. She is voiding well and even had a bowel movement yesterday. Assessment Assessment Orthostatic hypotension. Plan Plan of Care To try abdominal binder and MACIEJ hose to help with her orthostasis and to rehab unit when medically stable. Comment Review of Relevant I have reviewed the following items susan (where applicable) has been applied. Labs Laboratory Tests Test 05/23/20 05:40 White Blood Count 11.8 x10^3/uL (4.0-11.0) Red Blood Count 3.11 x10^6/uL (3.50-5.40) Hemoglobin 9.6 g/dL (12.0-15.5) Hematocrit 28.0 % (36.0-47.0) Mean Corpuscular Volume 90 fL (79-100) Mean Corpuscular Hemoglobin 31 pg (25-35) Mean Corpuscular Hemoglobin Concent 34 g/dL (31-37) Red Cell Distribution Width 13.2 % (11.5-14.5) Platelet Count 145 x10^3/uL (140-400) Sodium Level 138 mmol/L (136-145) Potassium Level 4.3 mmol/L (3.5-5.1) Chloride Level 104 mmol/L (98-107) Carbon Dioxide Level 31 mmol/L (21-32) Anion Gap 3 (6-14) Blood Urea Nitrogen 24 mg/dL (7-20) Creatinine 0.7 mg/dL (0.6-1.0) Estimated GFR (Cockcroft-Gault) 83.5 BUN/Creatinine Ratio 34 (6-20) Glucose Level 121 mg/dL (70-99) Calcium Level 8.5 mg/dL (8.5-10.1) Total Bilirubin 0.7 mg/dL (0.2-1.0) Aspartate Amino Transf (AST/SGOT) 59 U/L (15-37) Alanine Aminotransferase (ALT/SGPT) 89 U/L (14-59) Alkaline Phosphatase 68 U/L (46-116) Total Protein 7.2 g/dL (6.4-8.2) Albumin 2.1 g/dL (3.4-5.0) Albumin/Globulin Ratio 0.4 (1.0-1.7) Laboratory Tests Test 05/23/20 05:40 White Blood Count 11.8 x10^3/uL (4.0-11.0) Red Blood Count 3.11 x10^6/uL (3.50-5.40) Hemoglobin 9.6 g/dL (12.0-15.5) Hematocrit 28.0 % (36.0-47.0) Mean Corpuscular Volume 90 fL (79-100) Mean Corpuscular Hemoglobin 31 pg (25-35) Mean Corpuscular Hemoglobin Concent 34 g/dL (31-37) Red Cell Distribution Width 13.2 % (11.5-14.5) Platelet Count 145 x10^3/uL (140-400) Sodium Level 138 mmol/L (136-145) Potassium Level 4.3 mmol/L (3.5-5.1) Chloride Level 104 mmol/L (98-107) Carbon Dioxide Level 31 mmol/L (21-32) Anion Gap 3 (6-14) Blood Urea Nitrogen 24 mg/dL (7-20) Creatinine 0.7 mg/dL (0.6-1.0) Estimated GFR (Cockcroft-Gault) 83.5 BUN/Creatinine Ratio 34 (6-20) Glucose Level 121 mg/dL (70-99) Calcium Level 8.5 mg/dL (8.5-10.1) Total Bilirubin 0.7 mg/dL (0.2-1.0) Aspartate Amino Transf (AST/SGOT) 59 U/L (15-37) Alanine Aminotransferase (ALT/SGPT) 89 U/L (14-59) Alkaline Phosphatase 68 U/L (46-116) Total Protein 7.2 g/dL (6.4-8.2) Albumin 2.1 g/dL (3.4-5.0) Albumin/Globulin Ratio 0.4 (1.0-1.7) Medications Current Medications Alprazolam (Xanax) 0.125 mg PRN QHS PRN PO ANXIETY / AGITATION Last administered on 05/22/20at 21:43; Start 05/14/20 at 00:45 Amitriptyline HCl (Elavil) 25 mg QHS PO Last administered on 05/22/20at 21:39; Start 05/14/20 at 01:00 Atorvastatin Calcium (Lipitor) 20 mg QHS PO Last administered on 05/22/20at 21:39; Start 05/14/20 at 21:00 Losartan Potassium (Cozaar) 50 mg DAILY PO Last administered on 05/21/20at 09:58; Start 05/14/20 at 09:00; Stop 05/22/20 at 13:50; Status DC Metoprolol Succinate (Toprol Xl) 100 mg DAILY PO Last administered on 05/22/20at 09:44; Start 05/14/20 at 09:00; Stop 05/22/20 at 13:50; Status DC Estrogens Conjugated (Premarin) 1.25 mg DAILY PO ; Start 05/14/20 at 09:00; Stop 05/17/20 at 08:23; Status DC Hydrochlorothiazide (Microzide) 12.5 mg DAILY PO ; Start 05/14/20 at 09:00 Valacyclovir HCl (Valtrex) 1,000 mg BID PO Last administered on 05/22/20at 21:39; Start 05/14/20 at 09:00 Sodium Chloride 1,000 ml @ 100 mls/hr Q10H IV Last administered on 05/15/20at 07:00; Start 05/14/20 at 01:00; Stop 05/15/20 at 08:17; Status DC Labetalol HCl (Normodyne Iv Push) 10 mg PRN Q4HRS PRN IVP HYPERTENSION, 2ND CHOICE Last administered on 05/20/20 21:07; Start 05/14/20 at 01:00 Pantoprazole Sodium (PROTONIX VIAL for IV PUSH) 40 mg DAILYAC IVP Last administered on 05/15/20at 08:16; Start 05/14/20 at 07:30; Stop 05/15/20 at 08:23; Status DC Ketorolac Tromethamine (Toradol 15mg Vial) 15 mg PRN Q6HRS PRN IVP INFLAMMATION Last administered on 05/17/20at 22:31; Start 05/14/20 at 01:15; Stop 05/19/20 at 01:14; Status DC Lidocaine HCl (Lidocaine 1% 20ml Vial) 20 ml 1X ONCE INJ Last administered on 05/14/20at 12:08; Start 05/14/20 at 12:00; Stop 05/14/20 at 12:01; Status DC Gabapentin (Neurontin) 300 mg HS PO Last administered on 05/22/20at 21:39; Start 05/14/20 at 21:00 Immune Globulin 400 ml @ 0 mls/hr Q24H IV Last administered on 05/16/20 18:25; Start 05/14/20 at 18:00; Stop 05/16/20 at 18:01; Status DC Amino Acids/ Glycerin/ Electrolytes 1,000 ml @ 80 mls/hr [id number] IV Last administered on 05/16/20 16:13; Start 05/15/20 at 09:00; Stop 05/17/20 at 21:59; Status DC Lidocaine (Lidoderm) 2 patch DAILY TD Last administered on 05/22/20at 13:40; Start 05/15/20 at 09:00 Miscellaneous (Lidoderm Patch Removal) 1 ea QHS MC Last administered on 05/22/20 21:00; Start 05/15/20 at 21:00 Pantoprazole Sodium (PROTONIX VIAL for IV PUSH) 40 mg BID IVP Last administered on 05/22/20at 21:40; Start 05/15/20 at 21:00 Enoxaparin Sodium (Lovenox 40mg Syringe) 40 mg Q24H SQ Last administered on 05/22/20at 13:42; Start 05/15/20 at 14:00 Enalaprilat (Vasotec Inj) 2.5 mg Q6HRS IVP ; Start 05/15/20 at 21:00; Stop 05/15/20 at 20:19; Status DC Enalaprilat (Vasotec Inj) 2.5 mg PRN Q6HRS PRN IVP HYPERTENSION, 1ST CHOICE Last administered on 05/19/20at 20:17; Start 05/15/20 at 20:30 Gadoterate Meglumine (Dotarem) 14 ml 1X ONCE IVP Last administered on 05/16/20at 12:58; Start 05/16/20 at 09:15; Stop 05/16/20 at 09:16; Status DC Estrogens Conjugated (Premarin) 2 sarah DAILY VG Last administered on 05/22/20at 09:00; Start 05/17/20 at 09:00 Info (Tpn Per Pharmacy) 1 each PRN DAILY PRN MC SEE COMMENTS Last administered on 05/22/20at 10:53; Start 05/17/20 at 08:30; Stop 05/22/20 at 13:50; Status DC Sodium Chloride 90 meq/Potassium Chloride 50 meq/ Potassium Phosphate 13.6 mmol/Magnesium Sulfate 5 meq/ Calcium Gluconate 10 meq/ Multivitamins 10 ml/Ch romium/ Copper/Manganese/ Seleni/Zn 1 ml/ Total Parenteral Nutrition/Amino Acids/Dextrose/ Fat Emulsion Intravenous 1,512 ml @ 63 mls/hr TPN CONT IV Last administered on 05/18/20at 02:39; Start 05/17/20 at 22:00; Stop 05/18/20 at 21:59; Status DC Lidocaine HCl (Buffered Lidocaine 1%) 3 ml 1X ONCE INJ Last administered on 05/17/20at 14:22; Start 05/17/20 at 14:00; Stop 05/17/20 at 14:01; Status DC Lidocaine HCl (Buffered Lidocaine 1%) 3 ml STK-MED ONCE .ROUTE ; Start 05/17/20 at 14:06; Stop 05/17/20 at 14:07; Status DC Immune Globulin 300 ml @ 0 mls/hr Q24H IV Last administered on 05/18/20at 17:47; Start 05/17/20 at 18:00; Stop 05/18/20 at 18:01; Status DC Fentanyl Citrate (Fentanyl 2ml Vial) 50 mcg PRN Q3HRS PRN IVP SEVERE PAIN 7-10 Last administered on 05/22/20at 06:23; Start 05/18/20 at 02:00 Sodium Chloride 90 meq/Potassium Chloride 50 meq/ Potassium Phosphate 20 mmol/ Magnesium Sulfate 5 meq/Calcium Gluconate 10 meq/ Multivitamins 10 ml/Chromium/ Copper/Manganese/ Seleni/Zn 1 ml/ Total Parenteral Nutrition/Amino Acids/Dextrose/ Fat Emulsion Intravenous 1,512 ml @ 63 mls/hr TPN CONT IV Last administered on 05/18/20at 21:58; Start 05/18/20 at 22:00; Stop 05/19/20 at 21:59; Status DC Fentanyl (Duragesic 25mcg/ Hr Patch) 1 patch Q3DAYS TD Last administered on 05/19/20at 10:50; Start 05/19/20 at 11:00; Stop 05/22/20 at 08:23; Status DC Sodium Chloride 90 meq/Potassium Acetate 70 meq/ Potassium Phosphate 20 mmol/ Magnesium Sulfate 5 meq/Calcium Gluconate 10 meq/ Multivitamins 10 ml/Chromium/ Copper/Manganese/ Seleni/Zn 1 ml/ Total Parenteral Nutrition/Amino Acids/Dextrose/ Fat Emulsion Intravenous 1,512 ml @ 63 mls/hr TPN CONT IV Last administered on 05/19/20at 22:15; Start 05/19/20 at 22:00; Stop 05/20/20 at 21:59; Status DC Lorazepam (Ativan Inj) 0.5 mg PRN Q6HRS PRN IVP ANXIETY / AGITATION Last administered on 05/19/20at 20:15; Start 05/19/20 at 20:15 Bisacodyl (Dulcolax Supp) 10 mg PRN DAILY PRN [place] CONSTIPATION-1st choice; Start 05/20/20 at 09:45 Docusate Sodium (Enemeez) 283 mg PRN DAILY PRN [place] CONSTIPATION; Start 05/20/20 at 09:45 Methylprednisolone Acetate (DEPO-Medrol 40MG VIAL) 40 mg 1X ONCE IM ; Start 05/20/20 at 10:00; Stop 05/20/20 at 10:01; Status DC Bupivacaine HCl (Sensorcaine-Mpf 0.25%) 10 ml 1X ONCE IJ ; Start 05/20/20 at 10:00; Stop 05/20/20 at 10:01; Status DC Barium Sulfate (Varibar Thin Liquid Apple) 148 gm 1X ONCE PO Last administered on 05/20/20at 14:30; Start 05/20/20 at 11:15; Stop 05/20/20 at 11:17; Status DC Sodium Chloride 90 meq/Potassium Acetate 70 meq/ Potassium Phosphate 20 mmol/ Magnesium Sulfate 5 meq/Calcium Gluconate 10 meq/ Multivitamins 10 ml/Chromium/ Copper/Manganese/ Seleni/Zn 1 ml/ Total Parenteral Nutrition/Amino Acids/Dextrose/ Fat Emulsion Intravenous 1,512 ml @ 63 mls/hr TPN CONT IV Last administered on 05/20/20at 21:39; Start 05/20/20 at 22:00; Stop 05/21/20 at 21:59; Status DC Fluticasone Propionate (Flonase) 2 spray DAILY NS Last administered on 05/22/20at 09:00; Start 05/21/20 at 12:00 Sodium Chloride 90 meq/Potassium Acetate 70 meq/ Potassium Phosphate 20 mmol/ Magnesium Sulfate 5 meq/Calcium Gluconate 10 meq/ Multivitamins 10 ml/Chromium/ Copper/Manganese/ Seleni/Zn 1 ml/ Total Parenteral Nutrition/Amino Acids/Dextrose/ Fat Emulsion Intravenous 1,512 ml @ 63 mls/hr TPN CONT IV Last administered on 05/21/20at 22:04; Start 05/21/20 at 22:00; Stop 05/22/20 at 21:59; Status DC Fentanyl (Duragesic 50mcg/ Hr Patch) 1 patch Q3DAYS TD Last administered on 05/22/20at 09:45; Start 05/22/20 at 09:00 Sodium Chloride 90 meq/Potassium Acetate 70 meq/ Potassium Phosphate 20 mmol/ Magnesium Sulfate 5 meq/Calcium Gluconate 10 meq/ Multivitamins 10 ml/Chromium/ Copper/Manganese/ Seleni/Zn 1 ml/ Total Parenteral Nutrition/Amino Acids/Dextrose/ Fat Emulsion Intravenous 1,512 ml @ 63 mls/hr TPN CONT IV ; Start 05/22/20 at 22:00; Stop 05/23/20 at 21:59 Losartan Potassium (Cozaar) 25 mg DAILY PO ; Start 05/23/20 at 09:00 Metoprolol Succinate (Toprol Xl) 50 mg DAILY PO ; Start 05/23/20 at 09:00 Active Scripts Active Reported Valacyclovir (Valacyclovir Hcl) 1,000 Mg Tablet 1 Tab PO BID Metoprolol Succinate ( Xl ) (Metoprolol Succinate) 100 Mg Tab.er.24h 1 Tab PO DAILY Losartan Potassium 50 Mg Tablet 50 Mg PO DAILY Hydrochlorothiazide Tablet (Hydrochlorothiazide) 12.5 Mg Tablet 12.5 Mg PO DAILY Nexium Capsule (Esomeprazole Magnesium) 40 Mg Capsule.dr 1 Cap PO DAILY Premarin (Estrogens, Conjugated) 1.25 Mg Tablet 1 Tab PO DAILY Atorvastatin Calcium 20 Mg Tablet 1 Tab PO DAILY Amitriptyline Hcl 25 Mg Tablet 1 Tab PO QHS Alprazolam 0.25 Mg Tablet 0.5 Tab PO QHS PRN Vitals/I & O Vital Sign - Last 24 Hours 05/22/20 05/22/20 05/22/20 05/22/20 09:44 09:45 11:00 13:44 Temp 98.3 98.3 Pulse 108 116 Resp 20 14 B/P (MAP) 128/71 86/58 (67) Pulse Ox 98 96 O2 Delivery Nasal Cannula Nasal Cannula Room Air O2 Flow Rate 2.0 2.0 05/22/20 05/22/20 05/22/20 05/22/20 15:00 19:45 20:00 23:05 Temp 98.3 98.6 98.5 98.3 98.6 98.5 Pulse 116 108 103 Resp 19 18 18 B/P (MAP) 122/63 (82) 114/62 (79) 115/65 (82) Pulse Ox 98 93 94 O2 Delivery Nasal Cannula Room Air Room Air Room Air O2 Flow Rate 2.0 05/23/20 05/23/20 05/23/20 03:05 07:05 08:21 Temp 98.3 98.7 98.3 98.7 Pulse 99 103 Resp 18 18 B/P (MAP) 119/69 (86) 133/66 (88) Pulse Ox 98 99 97 O2 Delivery Room Air Room Air Room Air Intake and Output 05/22/20 05/22/20 05/23/20 15:00 23:00 07:00 Intake Total 1421 ml 270 ml 60 ml Output Total 300 ml 200 ml Balance 1421 ml -30 ml -140 ml Justifications for Admission Other Justification Nutrition Consultation Dietary Evaluation: Recommendations by RD: Dietary education by RD, Increase Calorie Intake, Protein supplementation Comments: REC advance diet as able/appropriate per [employer]IREMENT SALES CONSULTANT, goal diet cardiac w/textures per [employer]IREMENT SALES CONSULTANT recommendations REC continue TPN for short-term non-oral nutrition needs at this time and increasing TPN macros to 70 g AA, 225 dextrose, 20 g lipids (1225 kcal, 70 g protein), meeting ~61% est kcal, 100% est protein needs.If unable to advance diet within 24 - 72 hours, recommend consideration of feeding tube for TFs to best meet nutrition needs and support gut function Expected Outcomes/Goals: diet advancement- not met, ongoing, additional goal est 10/15 TPN to meet >75% of pt needs Malnutrition Findings: Food and Nutrition Intake (Sev: <50% est energy req 5days Body Fat Depletion (Non Severe: Mild Depletion Weight Status: Overweight JORDAN MORILLO MD May 23, 2020 09:18
--- NOTE | 2020-05-23 09:35 | SNU/HH DC ---
DISCHARGE ORDERS DISCHARGE INFORMATION: DISCHARGE DATE: May 23, 2020 FINAL DIAGNOSIS guillian barre syndrome dysphagia CONDITION ON DISCHARGE: Stable CODE STATUS: Code Status: Full [facility]: SNF STAY <30 DAYS: Yes POST DISCHARGE ORDERS: ACTIVITY ORDERS: Activity as tolerated DIET AFTER DISCHARGE: Regular TREATMENT/EQUIPMENT ORDERS: Physical Therapy For: Evalulation/Treatment Occupational Therapy For: Evaluation/Treatment Speech Language Pathology For: Evaluation/Treatment DISCHARGE MEDICATIONS: Home Meds Reported Medications Valacyclovir Hcl (VALACYCLOVIR) 1,000 Mg Tablet, 1 TAB PO BID for antiviral, #30 TAB 3 Refills 05/14/20 Metoprolol Succinate (METOPROLOL SUCCINATE ( XL )) 100 Mg Tab.er.24h, 1 TAB PO DAILY for HTN, #30 TAB 5 Refills 05/14/20 Losartan Potassium (LOSARTAN POTASSIUM) 50 Mg Tablet, 50 MG PO DAILY for HYPERTENSION, TAB 05/14/20 Hydrochlorothiazide (HYDROCHLOROTHIAZIDE TABLET) 12.5 Mg Tablet, 12.5 MG PO DAILY for DIURETIC, TAB 0 Refills 05/14/20 Esomeprazole Magnesium (NEXIUM CAPSULE) 40 Mg Capsule.dr, 1 CAP PO DAILY for gerd, #30 CAP 5 Refills 05/14/20 Estrogens, Conjugated (PREMARIN) 1.25 Mg Tablet, 1 TAB PO DAILY for hormone replacement, #30 TAB 5 Refills 05/14/20 Atorvastatin Calcium (ATORVASTATIN CALCIUM) 20 Mg Tablet, 1 TAB PO DAILY for cholesterol, #30 TAB 5 Refills 05/14/20 Amitriptyline Hcl (AMITRIPTYLINE HCL) 25 Mg Tablet, 1 TAB PO QHS for depression, #30 TAB 5 Refills 05/14/20 Alprazolam (ALPRAZOLAM) 0.25 Mg Tablet, 0.5 TAB PO QHS PRN for ANXIETY / AGITATION, #90 TAB 05/14/20 BLANCHE MARROQUIN MD May 23, 2020 09:35
--- NOTE | 2020-05-23 09:51 | PDOC ---
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 She noticed weakness starting after flu and shingles shots on 05/02 Spinal fluid showed 4 white blood cells, 1825 red blood cells, protein 54.2. C- reactive protein is 3.3 She still has some dysphagia. 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 Pachymeningeal enhancement, likely related to recent spinal tap. Coronavirus negative at [facility] that she was on Valacyclovir for zoster or herpes, I told her this would not of caused the Guillain Medrano Complains of orthostatic lightheadedness, note hypotension, better with reduction of blood pressure medications, blood pressure is acceptable. Plan She has completed the course of IVIG. If she deteriorates in 3-4 weeks she could receive another 1 g/kg Rehab, will need inpatient, consult social work, Dr. Jacob's consult appreciated Monitor oral intake Continue physical therapy. Continue close monitoring. Subjective Dizziness is better Objective Vital Signs Date Time Temp Pulse Resp B/P (MAP) Pulse Ox O2 Delivery O2 Flow Rate FiO2 05/23/20 08:48 103 133/66 05/23/20 08:21 97 Room Air 05/23/20 07:05 98.7 18 98.7 05/22/20 15:00 2.0 Intake and Output 05/23/20 07:00 Intake Total 1751 ml Output Total 500 ml Balance 1251 ml Intake Oral 680 ml IV Total 1071 ml Output Urine Total 500 ml # Bowel Movements 1 PHYSICAL EXAM Alert. Oriented to time, place and person. PERRL. EOMI. CN: no focal findings. Muscle tone: normal. Muscle strength: 3/5 DTR: 0-1+ Plantar reflex: Flexor Gait: not examined in bed. Sensory exam: Normal pinprick, decreased vibratory appreciation in feet. No cerebellar signs elicited. Review of Relevant I have reviewed the following items susan (where applicable) has been applied. Labs Laboratory Tests Test 05/23/20 05:40 White Blood Count 11.8 x10^3/uL (4.0-11.0) Red Blood Count 3.11 x10^6/uL (3.50-5.40) Hemoglobin 9.6 g/dL (12.0-15.5) Hematocrit 28.0 % (36.0-47.0) Mean Corpuscular Volume 90 fL (79-100) Mean Corpuscular Hemoglobin 31 pg (25-35) Mean Corpuscular Hemoglobin Concent 34 g/dL (31-37) Red Cell Distribution Width 13.2 % (11.5-14.5) Platelet Count 145 x10^3/uL (140-400) Sodium Level 138 mmol/L (136-145) Potassium Level 4.3 mmol/L (3.5-5.1) Chloride Level 104 mmol/L (98-107) Carbon Dioxide Level 31 mmol/L (21-32) Anion Gap 3 (6-14) Blood Urea Nitrogen 24 mg/dL (7-20) Creatinine 0.7 mg/dL (0.6-1.0) Estimated GFR (Cockcroft-Gault) 83.5 BUN/Creatinine Ratio 34 (6-20) Glucose Level 121 mg/dL (70-99) Calcium Level 8.5 mg/dL (8.5-10.1) Total Bilirubin 0.7 mg/dL (0.2-1.0) Aspartate Amino Transf (AST/SGOT) 59 U/L (15-37) Alanine Aminotransferase (ALT/SGPT) 89 U/L (14-59) Alkaline Phosphatase 68 U/L (46-116) Total Protein 7.2 g/dL (6.4-8.2) Albumin 2.1 g/dL (3.4-5.0) Albumin/Globulin Ratio 0.4 (1.0-1.7) Laboratory Tests Test 05/23/20 05:40 White Blood Count 11.8 x10^3/uL (4.0-11.0) Red Blood Count 3.11 x10^6/uL (3.50-5.40) Hemoglobin 9.6 g/dL (12.0-15.5) Hematocrit 28.0 % (36.0-47.0) Mean Corpuscular Volume 90 fL (79-100) Mean Corpuscular Hemoglobin 31 pg (25-35) Mean Corpuscular Hemoglobin Concent 34 g/dL (31-37) Red Cell Distribution Width 13.2 % (11.5-14.5) Platelet Count 145 x10^3/uL (140-400) Sodium Level 138 mmol/L (136-145) Potassium Level 4.3 mmol/L (3.5-5.1) Chloride Level 104 mmol/L (98-107) Carbon Dioxide Level 31 mmol/L (21-32) Anion Gap 3 (6-14) Blood Urea Nitrogen 24 mg/dL (7-20) Creatinine 0.7 mg/dL (0.6-1.0) Estimated GFR (Cockcroft-Gault) 83.5 BUN/Creatinine Ratio 34 (6-20) Glucose Level 121 mg/dL (70-99) Calcium Level 8.5 mg/dL (8.5-10.1) Total Bilirubin 0.7 mg/dL (0.2-1.0) Aspartate Amino Transf (AST/SGOT) 59 U/L (15-37) Alanine Aminotransferase (ALT/SGPT) 89 U/L (14-59) Alkaline Phosphatase 68 U/L (46-116) Total Protein 7.2 g/dL (6.4-8.2) Albumin 2.1 g/dL (3.4-5.0) Albumin/Globulin Ratio 0.4 (1.0-1.7) Medications Current Medications Alprazolam (Xanax) 0.125 mg PRN QHS PRN PO ANXIETY / AGITATION Last administered on 05/22/20at 21:43; Start 05/14/20 at 00:45 Amitriptyline HCl (Elavil) 25 mg QHS PO Last administered on 05/22/20at 21:39; Start 05/14/20 at 01:00 Atorvastatin Calcium (Lipitor) 20 mg QHS PO Last administered on 05/22/20at 21:39; Start 05/14/20 at 21:00 Losartan Potassium (Cozaar) 50 mg DAILY PO Last administered on 05/21/20at 09:58; Start 05/14/20 at 09:00; Stop 05/22/20 at 13:50; Status DC Metoprolol Succinate (Toprol Xl) 100 mg DAILY PO Last administered on 05/22/20at 09:44; Start 05/14/20 at 09:00; Stop 05/22/20 at 13:50; Status DC Estrogens Conjugated (Premarin) 1.25 mg DAILY PO ; Start 05/14/20 at 09:00; Stop 05/17/20 at 08:23; Status DC Hydrochlorothiazide (Microzide) 12.5 mg DAILY PO Last administered on 05/23/20at 08:49; Start 05/14/20 at 09:00 Valacyclovir HCl (Valtrex) 1,000 mg BID PO Last administered on 05/22/20at 21:39; Start 05/14/20 at 09:00 Sodium Chloride 1,000 ml @ 100 mls/hr Q10H IV Last administered on 05/15/20at 07:00; Start 05/14/20 at 01:00; Stop 05/15/20 at 08:17; Status DC Labetalol HCl (Normodyne Iv Push) 10 mg PRN Q4HRS PRN IVP HYPERTENSION, 2ND CHOICE Last administered on 05/20/20at 21:07; Start 05/14/20 at 01:00 Pantoprazole Sodium (PROTONIX VIAL for IV PUSH) 40 mg DAILYAC IVP Last administered on 05/15/20at 08:16; Start 05/14/20 at 07:30; Stop 05/15/20 at 08:23; Status DC Ketorolac Tromethamine (Toradol 15mg Vial) 15 mg PRN Q6HRS PRN IVP INFLAMMATION Last administered on 05/17/20at 22:31; Start 05/14/20 at 01:15; Stop 05/19/20 at 01:14; Status DC Lidocaine HCl (Lidocaine 1% 20ml Vial) 20 ml 1X ONCE INJ Last administered on 05/14/20at 12:08; Start 05/14/20 at 12:00; Stop 05/14/20 at 12:01; Status DC Gabapentin (Neurontin) 300 mg HS PO Last administered on 05/22/20at 21:39; Start 05/14/20 at 21:00 Immune Globulin 400 ml @ 0 mls/hr Q24H IV Last administered on 05/16/20at 18:25; Start 05/14/20 at 18:00; Stop 05/16/20 at 18:01; Status DC Amino Acids/ Glycerin/ Electrolytes 1,000 ml @ 80 mls/hr [id number] IV Last administered on 05/16/20at 16:13; Start 05/15/20 at 09:00; Stop 05/17/20 at 21:59; Status DC Lidocaine (Lidoderm) 2 patch DAILY TD Last administered on 05/23/20at 08:45; Start 05/15/20 at 09:00 Miscellaneous (Lidoderm Patch Removal) 1 ea QHS MC Last administered on 05/22/20at 21:00; Start 05/15/20 at 21:00 Pantoprazole Sodium (PROTONIX VIAL for IV PUSH) 40 mg BID IVP Last administered on 05/23/20at 08:52; Start 05/15/20 at 21:00 Enoxaparin Sodium (Lovenox 40mg Syringe) 40 mg Q24H SQ Last administered on 05/22/20at 13:42; Start 05/15/20 at 14:00 Enalaprilat (Vasotec Inj) 2.5 mg Q6HRS IVP ; Start 05/15/20 at 21:00; Stop 05/15/20 at 20:19; Status DC Enalaprilat (Vasotec Inj) 2.5 mg PRN Q6HRS PRN IVP HYPERTENSION, 1ST CHOICE Last administered on 05/19/20at 20:17; Start 05/15/20 at 20:30 Gadoterate Meglumine (Dotarem) 14 ml 1X ONCE IVP Last administered on 05/16/20at 12:58; Start 05/16/20 at 09:15; Stop 05/16/20 at 09:16; Status DC Estrogens Conjugated (Premarin) 2 sarah DAILY VG Last administered on 05/22/20at 09:00; Start 05/17/20 at 09:00 Info (Tpn Per Pharmacy) 1 each PRN DAILY PRN MC SEE COMMENTS Last administered on 05/22/20at 10:53; Start 05/17/20 at 08:30; Stop 05/22/20 at 13:50; Status DC Sodium Chloride 90 meq/Potassium Chloride 50 meq/ Potassium Phosphate 13.6 mmol/Magnesium Sulfate 5 meq/ Calcium Gluconate 10 meq/ Multivitamins 10 m l/Chromium/ Copper/Manganese/ Seleni/Zn 1 ml/ Total Parenteral Nutrition/Amino Acids/Dextrose/ Fat Emulsion Intravenous 1,512 ml @ 63 mls/hr TPN CONT IV Last administered on 05/18/20at 02:39; Start 05/17/20 at 22:00; Stop 05/18/20 at 21:59; Status DC Lidocaine HCl (Buffered Lidocaine 1%) 3 ml 1X ONCE INJ Last administered on 05/17/20at 14:22; Start 05/17/20 at 14:00; Stop 05/17/20 at 14:01; Status DC Lidocaine HCl (Buffered Lidocaine 1%) 3 ml STK-MED ONCE .ROUTE ; Start 05/17/20 at 14:06; Stop 05/17/20 at 14:07; Status DC Immune Globulin 300 ml @ 0 mls/hr Q24H IV Last administered on 05/18/20at 17:47; Start 05/17/20 at 18:00; Stop 05/18/20 at 18:01; Status DC Fentanyl Citrate (Fentanyl 2ml Vial) 50 mcg PRN Q3HRS PRN IVP SEVERE PAIN 7-10 Last administered on 05/22/20at 06:23; Start 05/18/20 at 02:00 Sodium Chloride 90 meq/Potassium Chloride 50 meq/ Potassium Phosphate 20 mmol/ Magnesium Sulfate 5 meq/Calcium Gluconate 10 meq/ Multivitamins 10 ml/Chromium/ Copper/Manganese/ Seleni/Zn 1 ml/ Total Parenteral Nutrition/Amino Acids/Dextrose/ Fat Emulsion Intravenous 1,512 ml @ 63 mls/hr TPN CONT IV Last administered on 05/18/20at 21:58; Start 05/18/20 at 22:00; Stop 05/19/20 at 21:59; Status DC Fentanyl (Duragesic 25mcg/ Hr Patch) 1 patch Q3DAYS TD Last administered on 05/19/20at 10:50; Start 05/19/20 at 11:00; Stop 05/22/20 at 08:23; Status DC Sodium Chloride 90 meq/Potassium Acetate 70 meq/ Potassium Phosphate 20 mmol/ Magnesium Sulfate 5 meq/Calcium Gluconate 10 meq/ Multivitamins 10 ml/Chromium/ Copper/Manganese/ Seleni/Zn 1 ml/ Total Parenteral Nutrition/Amino Acids/Dextrose/ Fat Emulsion Intravenous 1,512 ml @ 63 mls/hr TPN CONT IV Last administered on 05/19/20at 22:15; Start 05/19/20 at 22:00; Stop 05/20/20 at 21:59; Status DC Lorazepam (Ativan Inj) 0.5 mg PRN Q6HRS PRN IVP ANXIETY / AGITATION Last administered on 05/19/20at 20:15; Start 05/19/20 at 20:15 Bisacodyl (Dulcolax Supp) 10 mg PRN DAILY PRN [place] CONSTIPATION-1st choice; Start 05/20/20 at 09:45 Docusate Sodium (Enemeez) 283 mg PRN DAILY PRN [place] CONSTIPATION; Start 05/20/20 at 09:45 Methylprednisolone Acetate (DEPO-Medrol 40MG VIAL) 40 mg 1X ONCE IM ; Start 05/20/20 at 10:00; Stop 05/20/20 at 10:01; Status DC Bupivacaine HCl (Sensorcaine-Mpf 0.25%) 10 ml 1X ONCE IJ ; Start 05/20/20 at 10:00; Stop 05/20/20 at 10:01; Status DC Barium Sulfate (Varibar Thin Liquid Apple) 148 gm 1X ONCE PO Last administered on 05/20/20at 14:30; Start 05/20/20 at 11:15; Stop 05/20/20 at 11:17; Status DC Sodium Chloride 90 meq/Potassium Acetate 70 meq/ Potassium Phosphate 20 mmol/ Magnesium Sulfate 5 meq/Calcium Gluconate 10 meq/ Multivitamins 10 ml/Chromium/ Copper/Manganese/ Seleni/Zn 1 ml/ Total Parenteral Nutrition/Amino Acids/Dextrose/ Fat Emulsion Intravenous 1,512 ml @ 63 mls/hr TPN CONT IV Last administered on 05/20/20at 21:39; Start 05/20/20 at 22:00; Stop 05/21/20 at 21:59; Status DC Fluticasone Propionate (Flonase) 2 spray DAILY NS Last administered on 05/23/20at 09:00; Start 05/21/20 at 12:00 Sodium Chloride 90 meq/Potassium Acetate 70 meq/ Potassium Phosphate 20 mmol/ Magnesium Sulfate 5 meq/Calcium Gluconate 10 meq/ Multivitamins 10 ml/Chromium/ Copper/Manganese/ Seleni/Zn 1 ml/ Total Parenteral Nutrition/Amino Acids/Dextrose/ Fat Emulsion Intravenous 1,512 ml @ 63 mls/hr TPN CONT IV Last administered on 05/21/20at 22:04; Start 05/21/20 at 22:00; Stop 05/22/20 at 21:59; Status DC Fentanyl (Duragesic 50mcg/ Hr Patch) 1 patch Q3DAYS TD Last administered on 05/22/20at 09:45; Start 05/22/20 at 09:00 Sodium Chloride 90 meq/Potassium Acetate 70 meq/ Potassium Phosphate 20 mmol/ Magnesium Sulfate 5 meq/Calcium Gluconate 10 meq/ Multivitamins 10 ml/Chromium/ Copper/Manganese/ Seleni/Zn 1 ml/ Total Parenteral Nutrition/Amino Acids/Dextrose/ Fat Emulsion Intravenous 1,512 ml @ 63 mls/hr TPN CONT IV ; Start 05/22/20 at 22:00; Stop 05/23/20 at 21:59 Losartan Potassium (Cozaar) 25 mg DAILY PO Last administered on 05/23/20at 08:48; Start 05/23/20 at 09:00 Metoprolol Succinate (Toprol Xl) 50 mg DAILY PO ; Start 05/23/20 at 09:00 Active Scripts Active Reported Valacyclovir (Valacyclovir Hcl) 1,000 Mg Tablet 1 Tab PO BID Metoprolol Succinate ( Xl ) (Metoprolol Succinate) 100 Mg Tab.er.24h 1 Tab PO DAILY Losartan Potassium 50 Mg Tablet 50 Mg PO DAILY Hydrochlorothiazide Tablet (Hydrochlorothiazide) 12.5 Mg Tablet 12.5 Mg PO DAILY Nexium Capsule (Esomeprazole Magnesium) 40 Mg Capsule.dr 1 Cap PO DAILY Premarin (Estrogens, Conjugated) 1.25 Mg Tablet 1 Tab PO DAILY Atorvastatin Calcium 20 Mg Tablet 1 Tab PO DAILY Amitriptyline Hcl 25 Mg Tablet 1 Tab PO QHS Alprazolam 0.25 Mg Tablet 0.5 Tab PO QHS PRN Vitals/I & O Vital Sign - Last 24 Hours 05/22/20 05/22/20 05/22/20 05/22/20 11:00 13:44 15:00 19:45 Temp 98.3 98.3 98.6 98.3 98.3 98.6 Pulse 116 116 108 Resp 18 B/P (MAP) 86/58 (67) 122/63 (82) 114/62 (79) Pulse Ox 96 98 93 O2 Delivery Nasal Cannula Room Air Nasal Cannula Room Air O2 Flow Rate 2.0 2.0 05/22/20 05/22/20 05/23/20 05/23/20 20:00 23:05 03:05 07:05 Temp 98.5 98.3 98.7 98.5 98.3 98.7 Pulse 103 99 103 Resp 18 18 18 B/P (MAP) 115/65 (82) 119/69 (86) 133/66 (88) Pulse Ox 94 98 99 O2 Delivery Room Air Room Air Room Air Room Air 05/23/20 05/23/20 08:21 08:48 Pulse 103 B/P (MAP) 133/66 Pulse Ox 97 O2 Delivery Room Air Intake and Output 05/22/20 05/22/20 05/23/20 15:00 23:00 07:00 Intake Total 1421 ml 270 ml 60 ml Output Total 300 ml 200 ml Balance 1421 ml -30 ml -140 ml Justicifation of Admission Dx: Justifications for Admission: Justification of Admission Dx: Yes ROLY SHABAZZ MD May 23, 2020 09:51
--- NOTE | 2020-05-23 10:04 | PN ---
DATE: 05/23/2020 SUBJECTIVE: The patient is a 65-year-old female patient who was originally seen at the Emergency Room of [facility] with a complaint of weakness, having difficulty with ambulation. She reports having symptoms of lightheadedness, dizziness, symptoms of tingling and numbness which started on her feet the last 4 days. The patient has worsening of her symptoms. All these symptoms started after she had received vaccinations for the flu as well as for chickenpox and she was clinically diagnosed with Guillain-Petty syndrome and was transferred to [facility] where we followed her closely measuring her negative inspiratory pressure as well as vital capacity. She was started on IVIG and has received a total of 2 g/kg. Her biggest complaint was dysphagia and therefore she had a PICC line and started on TPN. She was seen also by the speech therapist and was seen by the neurologist. She had a lumbar puncture, which showed CSF showing elevated protein consistent with Guillain-Petty syndrome. She had MRI of her brain and lumbar spine. The MRI of the brain showed incidental finding of a 2-cm meningioma. It has a mass effect on the anterior temporal lobe. No underlying parenchymal enhancement. She has diffuse pachymeningeal enhancement likely related to recent lumbar puncture. She has also mild scattered FLAIR hyperintensities in the subcortical and periventricular deep white matter as a nonspecific finding most commonly seen with chronic small vessel ischemic disease. The patient did actually very well. Her dysphagia resolved. She is now on a regular diet and her TPN was discontinued. She did have a video swallowing evaluation. The impression of the video swallowing evaluation showed dysphagia of oral and pharyngeal phases, laryngeal penetration observed with thin liquids, but no tracheal penetration is identified. She was observed to have marked postural hypotension, most likely due to autonomic neuropathy related to Guillain-Petty syndrome and also because she has been in bed for a long time and Dr. Jacob recommended an elastic stocking as well as abdominal binders. I did also put parameters for her antihypertensive medication. She has labile hypertension. PHYSICAL EXAMINATION: GENERAL: When I saw her today, she looked well and was clearly in no apparent respiratory distress. No pallor, jaundice, cyanosis, or thyromegaly. No jugular venous distention. No limb edema. VITAL SIGNS: Her heart rate was 103, blood pressure was 133/66, temperature was 98.7, respiratory rate 18, and oxygen saturation was 97% on room air. HEENT: Showed normocephalic, atraumatic. NECK: Supple. HEART: Showed normal first and second sounds. No gallop, rub, or murmur. CHEST: Clear to auscultation. No crepitation or rhonchi. ABDOMEN: Soft, nontender. NEUROLOGIC: She is awake, alert, responding appropriately. She moves her extremities without difficulty. LABORATORY DATA: Her most recent lab work showed a white cell count of 11,800, hemoglobin 9.6, hematocrit 28, MCV 90, and platelet count of 145,000. Her chemistry showed a serum sodium 138, potassium 4.3, chloride 104, bicarbonate 31, anion gap of 3, BUN 24, creatinine 0.7, estimated GFR was 83 mL per minute, her glucose 121, and calcium was 8.5. Total bilirubin and alkaline phosphatase were normal. AST and ALT slightly elevated. Total protein 7.2, albumin was 2.1. Her antinuclear antibody was negative and her CSF showed she has 4 wbc's and CSF protein was high at 54 consistent with Guillain-Petty syndrome. ASSESSMENT: 1. Guillain-Petty syndrome. The patient completed her IVIG treatment and received a total of 2 g/kg, doing well. 2. She did have a video swallowing evaluation. She is now on a pureed diet with nectar-thickened liquid. 3. The patient has sphenoid wing 0.2 cm meningioma which is an incidental finding. 4. Pachymeningeal enhancement, likely due to recent spinal tap. 5. Her coronavirus by PCR was negative. 6. She has multiple other medical problems including: A. Hypertension. B. Hyperlipidemia. C. Hiatal hernia. D. Gastroesophageal reflux disease. 7. She does have marked postural hypotension, likely due to autonomic neuropathy due to Guillain-Petty syndrome and also because she has been in bed for a long time. BLANCHE MARROQUIN MD DR: SONIA/sudarshan JOB#: [id number] / [id number]
[2020-05-23 10:42] VITALS: BP 97/62
--- NOTE | 2020-05-23 12:42 | NUR ---
SS following up with discharge planning. SS reviewed pt chart and discussed with pt RN. Pt is currently on room air. Pt now off TPN. PT/OT recommended acute rehabilitation. COVID19 negative. SS met with pt and pt's spouse in room and was notified that they wanted pt to go to [facility] in [facility] now that pt is off TPN. SS phoned and faxed new referral to [facility] in [facility], ; fax [phone]. SS received notification at a later time from PT/OT and Dr. Jacob stating that pt needed to go to acute rehabilitation. PT/OT and Dr. Jacob spoke with pt and pt's spouse. SS met with pt and pt's spouse and was notified that now they want to go to [facility], ; fax [phone]. SS phoned and faxed referral as requested. SS will await acceptance decision and insurance determination and will proceed accordingly.
--- NOTE | 2020-05-23 12:47 | PDOC ---
Date of Service: DATE: 05/23/20 TIME: 12:44 Subjective: Subjective: Tells me eating without issue. Says swallowing issues "are behind me now." Objective: Vital Signs: Vital Signs Date Time Temp Pulse Resp B/P (MAP) Pulse Ox O2 Delivery O2 Flow Rate FiO2 05/23/20 10:42 98.3 102 18 97/62 (74) 96 Room Air 98.3 05/23/20 08:00 2.0 Labs: Laboratory Tests Test 05/23/20 05:40 White Blood Count 11.8 x10^3/uL Red Blood Count 3.11 x10^6/uL Hemoglobin 9.6 g/dL Hematocrit 28.0 % Mean Corpuscular Volume 90 fL Mean Corpuscular Hemoglobin 31 pg Mean Corpuscular Hemoglobin Concent 34 g/dL Red Cell Distribution Width 13.2 % Platelet Count 145 x10^3/uL Sodium Level 138 mmol/L Potassium Level 4.3 mmol/L Chloride Level 104 mmol/L Carbon Dioxide Level 31 mmol/L Anion Gap 3 Blood Urea Nitrogen 24 mg/dL Creatinine 0.7 mg/dL Estimated GFR (Cockcroft-Gault) 83.5 BUN/Creatinine Ratio 34 Glucose Level 121 mg/dL Calcium Level 8.5 mg/dL Total Bilirubin 0.7 mg/dL Aspartate Amino Transf (AST/SGOT) 59 U/L Alanine Aminotransferase (ALT/SGPT) 89 U/L Alkaline Phosphatase 68 U/L Total Protein 7.2 g/dL Albumin 2.1 g/dL Albumin/Globulin Ratio 0.4 Imaging: Videoswallow 05/20 IMPRESSION: Dysphagia of the oral and pharyngeal phases. Laryngeal penetration observed with thin liquids but no tracheal penetration is identified. Please refer to speech pathology notes for complete details and recommendations. Initial Videoswallow Study Results Videoswallow completed earlier this date. See full rpt to follow in i nterventions. IMPRESSIONS: Mild-moderate oropharyngeal dysphagia w/oral delay and deep penetration during swallow of thin liquids, not clearly ejected on ~50% of trials. No penetration of nectar or honey thick liquids. Puree and solids appeared safe in small, </= 1/2 tsp boluses. Though swallow appears safe for modified diet, efficiency of intake may preclude pt meeting nutritional needs solely via po in the near future. Additionally, fatigue over the course of a meal may be a factor in % po intake. RECOMMENDATIONS: Initiate dysphagia III diet. Pt safe for nectar thick liquids but order in computer will reflect honey thick liquids d/t closed choices. Packets of gel thickener requested from dietitian. Pt /family may thicken liquid to nectar using 4oz liquid:1 pkt thickener. Education was completed w/pt and her on same late this date following video. KRYSTAL Gordon. Will f/u. PE: GEN: NAD - looks better, talking on phone, present LUNGS: clear anteriorly HEART: RRR ABD: S/ND/NT NEURO/PSYCH: A & O 3 A/P: Suspected Guillian-Woolrich Dysphagia - improved H/o GERD -- Note discharge orders. Change to PO PPI since eating. Justicifation of Admission Dx: Justifications for Admission: Justification of Admission Dx: Yes GENARO POWELL May 23, 2020 12:47
--- NOTE | 2020-05-23 13:47 | NUR ---
SS following up with discharge planning. Pt accepted at [facility] pending insurance authorization. SS will continue to follow for discharge planning.
[2020-05-23] MEDS: ENOXAPARIN 40 MG/0.4 ML SYRINGE. SQ SCH (14:19)
[2020-05-23 14:44] VITALS: BP 105/60
--- NOTE | 2020-05-23 15:10 | NUR ---
Have reviewed and agree with documentation completed by web design intern and made changes as needed/appropriate
[2020-05-23] MEDS: PANTOPRAZOLE 40 MG TABLET.DR. PO SCH (17:53)
[2020-05-23 19:30] VITALS: BP 118/65
[2020-05-23] MEDS: AMITRIPTYLINE HCL 25 MG TABLET. PO SCH (20:15)
[2020-05-23] MEDS: ATORVASTATIN CALCIUM 20 MG TABLET PO SCH (20:15)
[2020-05-23] MEDS: GABAPENTIN 300 MG CAPSULE. PO SCH (20:15)
[2020-05-23] MEDS: ALPRAZolam 0.25 MG TABLET PO PRN (20:15)
[2020-05-23] MEDS: PATCH REMOVAL. MC SCH (21:00)
[2020-05-23 23:30] VITALS: BP 117/68
[2020-05-24 03:35] VITALS: BP 117/62
[2020-05-24 07:34] VITALS: BP 109/63
[2020-05-24] MEDS ORDERED: IV NORMAL SALINE 500ML BAG 500 ML IV ONE (08:15)
[2020-05-24] MEDS: FLUTICASONE 50MCG/NASAL SPRAY 16GM BOTTLE. NS SCH (08:34)
--- NOTE | 2020-05-24 08:34 | PN ---
DATE: 05/24/2020 SUBJECTIVE: The patient is sitting slightly propped up in bed, in no apparent distress. On questioning her, she denied any complaints except obviously the postural hypotension when she stands up. PHYSICAL EXAMINATION: GENERAL: When I examined her, she looked pale, but no jaundice, cyanosis or thyromegaly. No jugular venous distention. No limb edema. VITAL SIGNS: Her heart rate was 117, blood pressure was 109/63, temperature was 98.3, respiratory rate was 14 and oxygen saturation was 96%. HEAD, EYES, EARS, NOSE, AND THROAT: Normocephalic, atraumatic. NECK: Supple. CARDIAC: Normal first and second heart sounds. No gallop or murmur. CHEST: Clear to auscultation. No crepitation or rhonchi. ABDOMEN: Distended, soft, nontender. NEUROLOGIC: She was awake, alert, responding appropriately. All cranial nerves intact. She moves extremities without difficulty. She ambulates with a walker, although the postural hypotension makes it difficult for her to move around. Her intake over the last 24 hours was 1750, output was 500. LABORATORY DATA: As of yesterday showed a white cell count of 11,800, hemoglobin 10, hematocrit 28, MCV 90 and platelet count of 145,000. Her chemistry showed a serum sodium 138, potassium 4.3, chloride 104, bicarbonate 31, anion gap of 3, BUN 24, creatinine 0.7, estimated GFR was 83 mL per minute. Her glucose 121, calcium was 8.5. Total bilirubin and alkaline phosphatase normal. AST and ALT were slightly elevated. Total protein 7.2, albumin was 2.1. ASSESSMENT AND PLAN: 1. Guillain-[place] syndrome. The patient completed her IVIG treatment and received a total of 2 g/kg, doing well. 2. She did have a video swallowing evaluation. She is now on a pureed diet with nectar thickened liquid. 3. She is now having problem with postural hypotension, likely due to autonomic neuropathy for which we started him on elastic stockings and abdominal binder. I cut down her blood pressure medication; however, she continued to have probably some form of autonomic instability as she has tachycardia. 4. Pachymeningeal enhancement likely due to recent spinal tap. 5. Her coronavirus PCR was negative. 6. She has multiple other medical problems including: A. Hypertension that is now very labile. B. Hyperlipidemia. C. Hiatal hernia. D. Gastroesophageal reflux disease. 7. For her postural hypotension, we ordered elastic stockings and abdominal binder. I cut down her antihypertensive medication, might give her a bolus of IV fluid to see if that will help with her postural hypotension. BLANCHE MARROQUIN MD DR: SONIA/sudarshan JOB#: [id number] / [id number]
[2020-05-24] MEDS: ESTROGENS, CONJUGATED 0.625 MG TABLET PO SCH (08:37)
--- NOTE | 2020-05-24 08:39 | PDOC ---
PULMONARY PROGRESS NOTES DATE: 05/24/20 TIME: 08:39 Subjective Using I-S. Not more short of air. No chest pain no pressure Vitals Vital Signs Date Time Temp Pulse Resp B/P (MAP) Pulse Ox O2 Delivery O2 Flow Rate FiO2 05/24/20 07:34 98.3 117 1 109/63 (78) 96 Room Air 98.3 05/24/20 07:25 2.0 ROS: No Nausea, No Chest Pain, No Abdominal Pain General: Alert, Oriented X4 Lungs: Clear Cardiovascular: S1, S2 Abdomen: Soft, Non-tender Neuro Exam: Alert Extremities: No Edema Skin: Warm, Dry Labs Laboratory Tests Test 05/23/20 05:40 White Blood Count 11.8 x10^3/uL (4.0-11.0) Red Blood Count 3.11 x10^6/uL (3.50-5.40) Hemoglobin 9.6 g/dL (12.0-15.5) Hematocrit 28.0 % (36.0-47.0) Mean Corpuscular Volume 90 fL (79-100) Mean Corpuscular Hemoglobin 31 pg (25-35) Mean Corpuscular Hemoglobin Concent 34 g/dL (31-37) Red Cell Distribution Width 13.2 % (11.5-14.5) Platelet Count 145 x10^3/uL (140-400) Sodium Level 138 mmol/L (136-145) Potassium Level 4.3 mmol/L (3.5-5.1) Chloride Level 104 mmol/L (98-107) Carbon Dioxide Level 31 mmol/L (21-32) Anion Gap 3 (6-14) Blood Urea Nitrogen 24 mg/dL (7-20) Creatinine 0.7 mg/dL (0.6-1.0) Estimated GFR (Cockcroft-Gault) 83.5 BUN/Creatinine Ratio 34 (6-20) Glucose Level 121 mg/dL (70-99) Calcium Level 8.5 mg/dL (8.5-10.1) Total Bilirubin 0.7 mg/dL (0.2-1.0) Aspartate Amino Transf (AST/SGOT) 59 U/L (15-37) Alanine Aminotransferase (ALT/SGPT) 89 U/L (14-59) Alkaline Phosphatase 68 U/L (46-116) Total Protein 7.2 g/dL (6.4-8.2) Albumin 2.1 g/dL (3.4-5.0) Albumin/Globulin Ratio 0.4 (1.0-1.7) Medications Active Scripts Medications Dose Route/Sig Max Daily Dose Days Date Category Valacyclovir (Valacyclovir Hcl) 1,000 Mg Tablet 1 Tab PO BID 05/14/20 Reported Metoprolol Succinate ( Xl ) (Metoprolol Succinate) 100 Mg Tab.er.24h 1 Tab PO DAILY 05/14/20 Reported Losartan Potassium 50 Mg Tablet 50 Mg PO DAILY 05/14/20 Reported Hydrochlorothiazide Tablet (Hydrochlorothiazide) 12.5 Mg Tablet 12.5 Mg PO DAILY 05/14/20 Reported Nexium Capsule (Esomeprazole Magnesium) 40 Mg Capsule.dr 1 Cap PO DAILY 05/14/20 Reported Premarin (Estrogens, Conjugated) 1.25 Mg Tablet 1 Tab PO DAILY 05/14/20 Reported Atorvastatin Calcium 20 Mg Tablet 1 Tab PO DAILY 05/14/20 Reported Amitriptyline Hcl 25 Mg Tablet 1 Tab PO QHS 05/14/20 Reported Alprazolam 0.25 Mg Tablet 0.5 Tab PO QHS PRN 05/14/20 Reported Comments CXR IMPRESSION: Bilateral basilar atelectasis or interstitial infiltrate. MRI brain IMPRESSION: 1. No acute infarct or hemorrhage. 2. Left sphenoid wing 2 cm meningioma. Mass effect on the anterior temporal lobe. No underlying parenchymal enhancement. 3. Diffuse pachymeningeal enhancement, likely related to recent lumbar puncture. 4. Mild scattered FLAIR hyperintensities in the subcortical and periventricular deep white matter, a nonspecific finding, most commonly seen with chronic small vessel ischemic disease. Impression . IMPRESSION: 1. Acute hypoxemic respiratory failure--resolved 2. 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 3. History of hypertension, hyperlipidemia, gastroesophageal reflux. 4. Recent vaccination with flu and shingles. 5. History of recent laryngitis, suspect viral. 6. Dysphagia--on dysphagia diet, follow speech recommendations Plan . Continue current support. Discussed with at the bedside Continue supplemental oxygen as needed to keep oxygen saturations greater than 92%-- now on room air Patient is stable from pulmonary standpoint, Monitor NIF PRN Neurology Recommendations, LP preformed -- monitor cultures Completed full course IVIG IS at bedside to use, able to do 750 today, instructed on hourly use PT/OT speech DVT/GI -- lovenox/pepcid We will see patient as needed. Call if needed. VIJI LAZARO MD May 24, 2020 08:39
[2020-05-24] MEDS: LIDOCAINE (700MG/PATCH) PATCH. TD SCH (08:44)
[2020-05-24] MEDS: PANTOPRAZOLE 40 MG TABLET.DR. PO SCH ×2 (08:47→16:42)
--- NOTE | 2020-05-24 08:52 | PDOC ---
PROGRESS NOTES Date of Service DATE: 05/24/20 TIME: 08:50 Subjective Subjective No new complaints. Objective Objective Vital Signs Date Time Temp Pulse Resp B/P (MAP) Pulse Ox O2 Delivery O2 Flow Rate FiO2 05/24/20 07:34 98.3 117 1 109/63 (78) 96 Room Air 98.3 05/24/20 07:25 2.0 Intake and Output 05/24/20 07:00 Intake Total 620 ml Balance 620 ml Intake Oral 620 ml # Voids 3 # Bowel Movements 1 Physical Exam Physical Exam She is alert,sitting in bed with head end of bed propped up and eating her breakfast. She continues with orthostasis. Plan Plan of Care To continue present rehab efforts as tolerated and to rehab unit when medically stable. Comment Review of Relevant I have reviewed the following items susan (where applicable) has been applied. Labs Laboratory Tests Test 05/23/20 05:40 White Blood Count 11.8 x10^3/uL (4.0-11.0) Red Blood Count 3.11 x10^6/uL (3.50-5.40) Hemoglobin 9.6 g/dL (12.0-15.5) Hematocrit 28.0 % (36.0-47.0) Mean Corpuscular Volume 90 fL (79-100) Mean Corpuscular Hemoglobin 31 pg (25-35) Mean Corpuscular Hemoglobin Concent 34 g/dL (31-37) Red Cell Distribution Width 13.2 % (11.5-14.5) Platelet Count 145 x10^3/uL (140-400) Sodium Level 138 mmol/L (136-145) Potassium Level 4.3 mmol/L (3.5-5.1) Chloride Level 104 mmol/L (98-107) Carbon Dioxide Level 31 mmol/L (21-32) Anion Gap 3 (6-14) Blood Urea Nitrogen 24 mg/dL (7-20) Creatinine 0.7 mg/dL (0.6-1.0) Estimated GFR (Cockcroft-Gault) 83.5 BUN/Creatinine Ratio 34 (6-20) Glucose Level 121 mg/dL (70-99) Calcium Level 8.5 mg/dL (8.5-10.1) Total Bilirubin 0.7 mg/dL (0.2-1.0) Aspartate Amino Transf (AST/SGOT) 59 U/L (15-37) Alanine Aminotransferase (ALT/SGPT) 89 U/L (14-59) Alkaline Phosphatase 68 U/L (46-116) Total Protein 7.2 g/dL (6.4-8.2) Albumin 2.1 g/dL (3.4-5.0) Albumin/Globulin Ratio 0.4 (1.0-1.7) Medications Current Medications Alprazolam (Xanax) 0.125 mg PRN QHS PRN PO ANXIETY / AGITATION Last administered on 05/23/20at 20:15; Start 05/14/20 at 00:45 Amitriptyline HCl (Elavil) 25 mg QHS PO Last administered on 05/23/20at 20:15; Start 05/14/20 at 01:00 Atorvastatin Calcium (Lipitor) 20 mg QHS PO Last administered on 05/23/20at 20:15; Start 05/14/20 at 21:00 Losartan Potassium (Cozaar) 50 mg DAILY PO Last administered on 05/21/20at 09:58; Start 05/14/20 at 09:00; Stop 05/22/20 at 13:50; Status DC Metoprolol Succinate (Toprol Xl) 100 mg DAILY PO Last administered on 05/22/20at 09:44; Start 05/14/20 at 09:00; Stop 05/22/20 at 13:50; Status DC Estrogens Conjugated (Premarin) 1.25 mg DAILY PO ; Start 05/14/20 at 09:00; Stop 05/17/20 at 08:23; Status DC Hydrochlorothiazide (Microzide) 12.5 mg DAILY PO Last administered on 05/23/20at 08:49; Start 05/14/20 at 09:00 Valacyclovir HCl (Valtrex) 1,000 mg BID PO Last administered on 05/22/20at 21:39; Start 05/14/20 at 09:00; Stop 05/24/20 at 08:01; Status DC Sodium Chloride 1,000 ml @ 100 mls/hr Q10H IV Last administered on 05/15/20at 07:00; Start 05/14/20 at 01:00; Stop 05/15/20 at 08:17; Status DC Labetalol HCl (Normodyne Iv Push) 10 mg PRN Q4HRS PRN IVP HYPERTENSION, 2ND CHOICE Last administered on 05/20/20 21:07; Start 05/14/20 at 01:00 Pantoprazole Sodium (PROTONIX VIAL for IV PUSH) 40 mg DAILYAC IVP Last administered on 05/15/20at 08:16; Start 05/14/20 at 07:30; Stop 05/15/20 at 08:23; Status DC Ketorolac Tromethamine (Toradol 15mg Vial) 15 mg PRN Q6HRS PRN IVP INFLAMMATION Last administered on 05/17/20at 22:31; Start 05/14/20 at 01:15; Stop 05/19/20 at 01:14; Status DC Lidocaine HCl (Lidocaine 1% 20ml Vial) 20 ml 1X ONCE INJ Last administered on 05/14/20 12:08; Start 05/14/20 at 12:00; Stop 05/14/20 at 12:01; Status DC Gabapentin (Neurontin) 300 mg HS PO Last administered on 05/23/20at 20:15; Start 05/14/20 at 21:00 Immune Globulin 400 ml @ 0 mls/hr Q24H IV Last administered on 05/16/20at 18:25; Start 05/14/20 at 18:00; Stop 05/16/20 at 18:01; Status DC Amino Acids/ Glycerin/ Electrolytes 1,000 ml @ 80 mls/hr [id number] IV Last administered on 05/16/20 16:13; Start 05/15/20 at 09:00; Stop 05/17/20 at 21:59; Status DC Lidocaine (Lidoderm) 2 patch DAILY TD Last administered on 05/24/20at 08:44; Start 05/15/20 at 09:00 Miscellaneous (Lidoderm Patch Removal) 1 ea QHS MC Last administered on 05/23/20at 21:00; Start 05/15/20 at 21:00 Pantoprazole Sodium (PROTONIX VIAL for IV PUSH) 40 mg BID IVP Last administered on 05/23/20at 08:52; Start 05/15/20 at 21:00; Stop 05/23/20 at 12:48; Status DC Enoxaparin Sodium (Lovenox 40mg Syringe) 40 mg Q24H SQ Last administered on 05/23/20at 14:19; Start 05/15/20 at 14:00 Enalaprilat (Vasotec Inj) 2.5 mg Q6HRS IVP ; Start 05/15/20 at 21:00; Stop 05/15/20 at 20:19; Status DC Enalaprilat (Vasotec Inj) 2.5 mg PRN Q6HRS PRN IVP HYPERTENSION, 1ST CHOICE Last administered on 05/19/20at 20:17; Start 05/15/20 at 20:30 Gadoterate Meglumine (Dotarem) 14 ml 1X ONCE IVP Last administered on 05/16/20at 12:58; Start 05/16/20 at 09:15; Stop 05/16/20 at 09:16; Status DC Estrogens Conjugated (Premarin) 2 sarah DAILY VG Last administered on 05/22/20at 09:00; Start 05/17/20 at 09:00; Stop 05/24/20 at 08:08; Status DC Info (Tpn Per Pharmacy) 1 each PRN DAILY PRN MC SEE COMMENTS Last administered on 05/22/20at 10:53; Start 05/17/20 at 08:30; Stop 05/22/20 at 13:50; Status DC Sodium Chloride 90 meq/Potassium Chloride 50 meq/ Potassium Phosphate 13.6 mmol/Magnesium Sulfate 5 meq/ Calcium Gluconate 10 meq/ Multivitamins 10 ml/Chromium/ Copper/Manganese/ Seleni/Zn 1 ml/ Total Parenteral Nutrition/Amino Acids/Dextrose/ Fat Emulsion Intravenous 1,512 ml @ 63 mls/hr TPN CONT IV Last administered on 05/18/20at 02:39; Start 05/17/20 at 22:00; Stop 05/18/20 at 21:59; Status DC Lidocaine HCl (Buffered Lidocaine 1%) 3 ml 1X ONCE INJ Last administered on 05/17/20at 14:22; Start 05/17/20 at 14:00; Stop 05/17/20 at 14:01; Status DC Lidocaine HCl (Buffered Lidocaine 1%) 3 ml STK-MED ONCE .ROUTE ; Start 05/17/20 at 14:06; Stop 05/17/20 at 14:07; Status DC Immune Globulin 300 ml @ 0 mls/hr Q24H IV Last administered on 05/18/20at 17:47; Start 05/17/20 at 18:00; Stop 05/18/20 at 18:01; Status DC Fentanyl Citrate (Fentanyl 2ml Vial) 50 mcg PRN Q3HRS PRN IVP SEVERE PAIN 7-10 Last administered on 05/22/20at 06:23; Start 05/18/20 at 02:00 Sodium Chloride 90 meq/Potassium Chloride 50 meq/ Potassium Phosphate 20 mmol/ Magnesium Sulfate 5 meq/Calcium Gluconate 10 meq/ Multivitamins 10 ml/Chromium/ Copper/Manganese/ Seleni/Zn 1 ml/ Total Parenteral Nutrition/Amino Acids/Dextrose/ Fat Emulsion Intravenous 1,512 ml @ 63 mls/hr TPN CONT IV Last administered on 05/18/20at 21:58; Start 05/18/20 at 22:00; Stop 05/19/20 at 21:59; Status DC Fentanyl (Duragesic 25mcg/ Hr Patch) 1 patch Q3DAYS TD Last administered on 05/19/20at 10:50; Start 05/19/20 at 11:00; Stop 05/22/20 at 08:23; Status DC Sodium Chloride 90 meq/Potassium Acetate 70 meq/ Potassium Phosphate 20 mmol/ Magnesium Sulfate 5 meq/Calcium Gluconate 10 meq/ Multivitamins 10 ml/Chromium/ Copper/Manganese/ Seleni/Zn 1 ml/ Total Parenteral Nutrition/Amino Acids/Dextrose/ Fat Emulsion Intravenous 1,512 ml @ 63 mls/hr TPN CONT IV Last administered on 05/19/20at 22:15; Start 05/19/20 at 22:00; Stop 05/20/20 at 21:59; Status DC Lorazepam (Ativan Inj) 0.5 mg PRN Q6HRS PRN IVP ANXIETY / AGITATION Last administered on 05/19/20at 20:15; Start 05/19/20 at 20:15 Bisacodyl (Dulcolax Supp) 10 mg PRN DAILY PRN ID CONSTIPATION-1st choice; Start 05/20/20 at 09:45 Docusate Sodium (Enemeez) 283 mg PRN DAILY PRN ID CONSTIPATION; Start 05/20/20 at 09:45 Methylprednisolone Acetate (DEPO-Medrol 40MG VIAL) 40 mg 1X ONCE IM ; Start 05/20/20 at 10:00; Stop 05/20/20 at 10:01; Status DC Bupivacaine HCl (Sensorcaine-Mpf 0.25%) 10 ml 1X ONCE IJ ; Start 05/20/20 at 10:00; Stop 05/20/20 at 10:01; Status DC Barium Sulfate (Varibar Thin Liquid Apple) 148 gm 1X ONCE PO Last administered on 05/20/20at 14:30; Start 05/20/20 at 11:15; Stop 05/20/20 at 11:17; Status DC Sodium Chloride 90 meq/Potassium Acetate 70 meq/ Potassium Phosphate 20 mmol/ Magnesium Sulfate 5 meq/Calcium Gluconate 10 meq/ Multivitamins 10 ml/Chromium/ Copper/Manganese/ Seleni/Zn 1 ml/ Total Parenteral Nutrition/Amino Acids/Dextrose/ Fat Emulsion Intravenous 1,512 ml @ 63 mls/hr TPN CONT IV Last administered on 05/20/20at 21:39; Start 05/20/20 at 22:00; Stop 05/21/20 at 21:59; Status DC Fluticasone Propionate (Flonase) 2 spray DAILY NS Last administered on 05/24/20at 08:34; Start 05/21/20 at 12:00 Sodium Chloride 90 meq/Potassium Acetate 70 meq/ Potassium Phosphate 20 mmol/ Magnesium Sulfate 5 meq/Calcium Gluconate 10 meq/ Multivitamins 10 ml/Chromium/ Copper/Manganese/ Seleni/Zn 1 ml/ Total Parenteral Nutrition/Amino Acids/Dextrose/ Fat Emulsion Intravenous 1,512 ml @ 63 mls/hr TPN CONT IV Last administered on 05/21/20at 22:04; Start 05/21/20 at 22:00; Stop 05/22/20 at 21:59; Status DC Fentanyl (Duragesic 50mcg/ Hr Patch) 1 patch Q3DAYS TD Last administered on 05/22/20at 09:45; Start 05/22/20 at 09:00 Sodium Chloride 90 meq/Potassium Acetate 70 meq/ Potassium Phosphate 20 mmol/ Magnesium Sulfate 5 meq/Calcium Gluconate 10 meq/ Multivitamins 10 ml/Chromium/ Copper/Manganese/ Seleni/Zn 1 ml/ Total Parenteral Nutrition/Amino Acids/Dextrose/ Fat Emulsion Intravenous 1,512 ml @ 63 mls/hr TPN CONT IV ; Start 05/22/20 at 22:00; Stop 05/23/20 at 19:13; Status DC Losartan Potassium (Cozaar) 25 mg DAILY PO Last administered on 05/23/20at 08:48; Start 05/23/20 at 09:00; Stop 05/24/20 at 08:08; Status DC Metoprolol Succinate (Toprol Xl) 50 mg DAILY PO ; Start 05/23/20 at 09:00; Stop 05/24/20 at 08:08; Status DC Pantoprazole Sodium (Protonix) 40 mg BIDAC PO Last administered on 05/24/20at 08:47; Start 05/23/20 at 16:30 Metoprolol Succinate (Toprol Xl) 25 mg DAILY PO ; Start 05/24/20 at 09:00 Estrogens Conjugated (Premarin) 1.25 mg DAILY PO Last administered on 05/24/20at 08:37; Start 05/24/20 at 09:00 Sodium Chloride 500 ml @ 500 mls/hr 1X ONCE IV ; Start 05/24/20 at 08:15; Stop 05/24/20 at 09:14 Active Scripts Active Reported Valacyclovir (Valacyclovir Hcl) 1,000 Mg Tablet 1 Tab PO BID Metoprolol Succinate ( Xl ) (Metoprolol Succinate) 100 Mg Tab.er.24h 1 Tab PO DAILY Losartan Potassium 50 Mg Tablet 50 Mg PO DAILY Hydrochlorothiazide Tablet (Hydrochlorothiazide) 12.5 Mg Tablet 12.5 Mg PO DAILY Nexium Capsule (Esomeprazole Magnesium) 40 Mg Capsule.dr 1 Cap PO DAILY Premarin (Estrogens, Conjugated) 1.25 Mg Tablet 1 Tab PO DAILY Atorvastatin Calcium 20 Mg Tablet 1 Tab PO DAILY Amitriptyline Hcl 25 Mg Tablet 1 Tab PO QHS Alprazolam 0.25 Mg Tablet 0.5 Tab PO QHS PRN Vitals/I & O Vital Sign - Last 24 Hours 05/23/20 05/23/20 05/23/20 05/23/20 10:42 14:44 19:30 23:30 Temp 98.3 98.4 98.6 98.1 98.3 98.4 98.6 98.1 Pulse 102 110 114 84 Resp 18 18 20 18 B/P (MAP) 97/62 (74) 105/60 (75) 118/65 (82) 117/68 (84) Pulse Ox 96 96 94 95 O2 Delivery Room Air Room Air Room Air Room Air 05/24/20 05/24/20 05/24/20 03:35 07:25 07:34 Temp 98.9 98.3 98.9 98.3 Pulse 112 117 Resp 1 1 B/P (MAP) 117/62 (80) 109/63 (78) Pulse Ox 96 96 O2 Delivery Room Air Room Air Room Air O2 Flow Rate 2.0 Intake and Output 05/23/20 05/23/20 05/24/20 15:00 23:00 07:00 Intake Total 350 ml 150 ml 120 ml Balance 350 ml 150 ml 120 ml Justifications for Admission Other Justification Nutrition Consultation Dietary Evaluation: Recommendations by RD: Dietary education by RD, Increase Calorie Intake, Protein supplementation Comments: REC adding Ensure Enlive BID from fridge on 2 , thickened to nectar thick before serving to patient Continue w/diet per DIRECTORY COMPILER (dysphagia III w/nectar thick liquids) Expected Outcomes/Goals: diet advancement- met TPN to meet >75% of pt needs- met, new goal est 05/23 New goal 05/23: Pt to meet 75% of needs PO Malnutrition Findings: Food and Nutrition Intake (Sev: <50% est energy req 5days Body Fat Depletion (Non Severe: Mild Depletion Weight Status: Overweight JORDAN MORILLO MD May 24, 2020 08:52
[2020-05-24] MEDS ORDERED: METOPROLOL SUCC 24HR ER 25 MG TAB.ER.24H. PO SCH (09:00)
[2020-05-24] MEDS: hydroCHLOROthiazide 12.5 MG CAPSULE PO SCH (09:00)
[2020-05-24 10:05] LABS: CALCIUM 8.3 mg/dL (8.5-10.1); CREATININE 0.9 mg/dL (0.6-1.0); GFR 62.5; POTASSIUM 3.9 mmol/L (3.5-5.1)
[2020-05-24 10:06] LABS: HEMATOCRIT 27.8 % (36.0-47.0); HEMOGLOBIN 9.8 g/dL (12.0-15.5); RED BLOOD COUNT 3.12 x10^6/uL (3.50-5.40); RED CELL DISTRIBUTION WIDTH 13.1 % (11.5-14.5); WHITE BLOOD COUNT 10.9 x10^3/uL (4.0-11.0)
[2020-05-24 10:11] LABS: ALBUMIN 2.1 g/dL (3.4-5.0); ALBUMIN/GLOBULIN RATIO 0.4 (1.0-1.7); TOTAL BILIRUBIN 0.7 mg/dL (0.2-1.0); TOTAL PROTEIN 7.2 g/dL (6.4-8.2)
--- NOTE | 2020-05-24 10:19 | PDOC ---
Date of Service: DATE: 05/24/20 TIME: 10:16 Subjective: Subjective: Tolerating diet w/o swallowing issues - might have gotten a small piece of sausage caught. Mostly she has an odd sensation in lower throat when she takes a deep breath - not globus - hard to describe, makes her cough. Objective: Vital Signs: Vital Signs Date Time Temp Pulse Resp B/P (MAP) Pulse Ox O2 Delivery O2 Flow Rate FiO2 05/24/20 07:34 98.3 117 1 109/63 (78) 96 Room Air 98.3 05/24/20 07:25 2.0 Labs: Laboratory Tests Test 05/24/20 09:30 Sodium Level 136 mmol/L Potassium Level 3.9 mmol/L Chloride Level 101 mmol/L Carbon Dioxide Level 28 mmol/L Anion Gap 7 Blood Urea Nitrogen 25 mg/dL Creatinine 0.9 mg/dL Estimated GFR (Cockcroft-Gault) 62.5 BUN/Creatinine Ratio 28 Glucose Level 240 mg/dL Calcium Level 8.3 mg/dL Total Bilirubin 0.7 mg/dL Aspartate Amino Transf (AST/SGOT) 63 U/L Alanine Aminotransferase (ALT/SGPT) 99 U/L Alkaline Phosphatase 83 U/L Total Protein 7.2 g/dL Albumin 2.1 g/dL Albumin/Globulin Ratio 0.4 PE: GEN: NAD LUNGS: clear HEART: tachycardic ABD: NABS, S/ND/NT NEURO/PSYCH: A & O 3 A/P: Suspected Guillian-[place] Dysphagia - improved H/o GERD Mildly elevated AST and ALT - off TPN now -- Awaiting insurance approval prior to DC. Continue PPI. Monitor swallowing. Monitor LFTs and consider liver imaging if indicated. Justicifation of Admission Dx: Justifications for Admission: Justification of Admission Dx: Yes GENARO POWELL May 24, 2020 10:19
[2020-05-24 10:49] VITALS: BP 122/57
--- NOTE | 2020-05-24 10:53 | PDOC ---
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 She noticed weakness starting after flu and shingles shots on 05/02 Spinal fluid showed 4 white blood cells, 1825 red blood cells, protein 54.2. 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 Pachymeningeal enhancement, likely related to recent spinal tap. Coronavirus negative at [facility] that she was on Valacyclovir for zoster or herpes, I told her this would not of caused the Guillain Medrano Complains of orthostatic lightheadedness, note hypotension Plan She has completed the course of IVIG. If she deteriorates in 3-4 weeks she could receive another 1 g/kg Rehab, will need inpatient, consult social work, Dr. Jacob's consult appreciated Monitor oral intake Continue physical therapy. Continue close monitoring. Dr. Barnes is relaxing blood pressure meds further Subjective Complains of orthostatic lightheadedness Objective Vital Signs Date Time Temp Pulse Resp B/P (MAP) Pulse Ox O2 Delivery O2 Flow Rate FiO2 05/24/20 07:34 98.3 117 1 109/63 (78) 96 Room Air 98.3 05/24/20 07:25 2.0 Intake and Output 05/24/20 07:00 Intake Total 620 ml Balance 620 ml Intake Oral 620 ml # Voids 3 # Bowel Movements 1 PHYSICAL EXAM Alert. Oriented to time, place and person. PERRL. EOMI. CN: no focal findings. Muscle tone: normal. Muscle strength: 3/5 DTR: 0-1+ Plantar reflex: Flexor Gait: not examined in bed. Sensory exam: Normal pinprick, decreased vibratory appreciation in feet. No cerebellar signs elicited. Review of Relevant I have reviewed the following items susan (where applicable) has been applied. Labs Laboratory Tests Test 05/23/20 05:40 05/24/20 09:30 White Blood Count 11.8 x10^3/uL (4.0-11.0) 10.9 x10^3/uL (4.0-11.0) Red Blood Count 3.11 x10^6/uL (3.50-5.40) 3.12 x10^6/uL (3.50-5.40) Hemoglobin 9.6 g/dL (12.0-15.5) 9.8 g/dL (12.0-15.5) Hematocrit 28.0 % (36.0-47.0) 27.8 % (36.0-47.0) Mean Corpuscular Volume 90 fL (79-100) 89 fL (79-100) Mean Corpuscular Hemoglobin 31 pg (25-35) 32 pg (25-35) Mean Corpuscular Hemoglobin Concent 34 g/dL (31-37) 35 g/dL (31-37) Red Cell Distribution Width 13.2 % (11.5-14.5) 13.1 % (11.5-14.5) Platelet Count 145 x10^3/uL (140-400) 143 x10^3/uL (140-400) Sodium Level 138 mmol/L (136-145) 136 mmol/L (136-145) Potassium Level 4.3 mmol/L (3.5-5.1) 3.9 mmol/L (3.5-5.1) Chloride Level 104 mmol/L (98-107) 101 mmol/L (98-107) Carbon Dioxide Level 31 mmol/L (21-32) 28 mmol/L (21-32) Anion Gap 3 (6-14) 7 (6-14) Blood Urea Nitrogen 24 mg/dL (7-20) 25 mg/dL (7-20) Creatinine 0.7 mg/dL (0.6-1.0) 0.9 mg/dL (0.6-1.0) Estimated GFR (Cockcroft-Gault) 83.5 62.5 BUN/Creatinine Ratio 34 (6-20) 28 (6-20) Glucose Level 121 mg/dL (70-99) 240 mg/dL (70-99) Calcium Level 8.5 mg/dL (8.5-10.1) 8.3 mg/dL (8.5-10.1) Total Bilirubin 0.7 mg/dL (0.2-1.0) 0.7 mg/dL (0.2-1.0) Aspartate Amino Transf (AST/SGOT) 59 U/L (15-37) 63 U/L (15-37) Alanine Aminotransferase (ALT/SGPT) 89 U/L (14-59) 99 U/L (14-59) Alkaline Phosphatase 68 U/L (46-116) 83 U/L (46-116) Total Protein 7.2 g/dL (6.4-8.2) 7.2 g/dL (6.4-8.2) Albumin 2.1 g/dL (3.4-5.0) 2.1 g/dL (3.4-5.0) Albumin/Globulin Ratio 0.4 (1.0-1.7) 0.4 (1.0-1.7) Laboratory Tests Test 05/24/20 09:30 White Blood Count 10.9 x10^3/uL (4.0-11.0) Red Blood Count 3.12 x10^6/uL (3.50-5.40) Hemoglobin 9.8 g/dL (12.0-15.5) Hematocrit 27.8 % (36.0-47.0) Mean Corpuscular Volume 89 fL (79-100) Mean Corpuscular Hemoglobin 32 pg (25-35) Mean Corpuscular Hemoglobin Concent 35 g/dL (31-37) Red Cell Distribution Width 13.1 % (11.5-14.5) Platelet Count 143 x10^3/uL (140-400) Sodium Level 136 mmol/L (136-145) Potassium Level 3.9 mmol/L (3.5-5.1) Chloride Level 101 mmol/L (98-107) Carbon Dioxide Level 28 mmol/L (21-32) Anion Gap 7 (6-14) Blood Urea Nitrogen 25 mg/dL (7-20) Creatinine 0.9 mg/dL (0.6-1.0) Estimated GFR (Cockcroft-Gault) 62.5 BUN/Creatinine Ratio 28 (6-20) Glucose Level 240 mg/dL (70-99) Calcium Level 8.3 mg/dL (8.5-10.1) Total Bilirubin 0.7 mg/dL (0.2-1.0) Aspartate Amino Transf (AST/SGOT) 63 U/L (15-37) Alanine Aminotransferase (ALT/SGPT) 99 U/L (14-59) Alkaline Phosphatase 83 U/L (46-116) Total Protein 7.2 g/dL (6.4-8.2) Albumin 2.1 g/dL (3.4-5.0) Albumin/Globulin Ratio 0.4 (1.0-1.7) Medications Current Medications Alprazolam (Xanax) 0.125 mg PRN QHS PRN PO ANXIETY / AGITATION Last administered on 05/23/20at 20:15; Start 05/14/20 at 00:45 Amitriptyline HCl (Elavil) 25 mg QHS PO Last administered on 05/23/20at 20:15; Start 05/14/20 at 01:00 Atorvastatin Calcium (Lipitor) 20 mg QHS PO Last administered on 05/23/20at 20:15; Start 05/14/20 at 21:00 Losartan Potassium (Cozaar) 50 mg DAILY PO Last administered on 05/21/20at 09:58; Start 05/14/20 at 09:00; Stop 05/22/20 at 13:50; Status DC Metoprolol Succinate (Toprol Xl) 100 mg DAILY PO Last administered on 05/22/20at 09:44; Start 05/14/20 at 09:00; Stop 05/22/20 at 13:50; Status DC Estrogens Conjugated (Premarin) 1.25 mg DAILY PO ; Start 05/14/20 at 09:00; Stop 05/17/20 at 08:23; Status DC Hydrochlorothiazide (Microzide) 12.5 mg DAILY PO Last administered on 05/23/20 at 08:49; Start 05/14/20 at 09:00 Valacyclovir HCl (Valtrex) 1,000 mg BID PO Last administered on 05/22/20at 21:39; Start 05/14/20 at 09:00; Stop 05/24/20 at 08:01; Status DC Sodium Chloride 1,000 ml @ 100 mls/hr Q10H IV Last administered on 05/15/20at 07:00; Start 05/14/20 at 01:00; Stop 05/15/20 at 08:17; Status DC Labetalol HCl (Normodyne Iv Push) 10 mg PRN Q4HRS PRN IVP HYPERTENSION, 2ND CHOICE Last administered on 05/20/20at 21:07; Start 05/14/20 at 01:00 Pantoprazole Sodium (PROTONIX VIAL for IV PUSH) 40 mg DAILYAC IVP Last administered on 05/15/20at 08:16; Start 05/14/20 at 07:30; Stop 05/15/20 at 08:23; Status DC Ketorolac Tromethamine (Toradol 15mg Vial) 15 mg PRN Q6HRS PRN IVP INFLAMMATION Last administered on 05/17/20at 22:31; Start 05/14/20 at 01:15; Stop 05/19/20 at 01:14; Status DC Lidocaine HCl (Lidocaine 1% 20ml Vial) 20 ml 1X ONCE INJ Last administered on 05/14/20at 12:08; Start 05/14/20 at 12:00; Stop 05/14/20 at 12:01; Status DC Gabapentin (Neurontin) 300 mg HS PO Last administered on 05/23/20at 20:15; Start 05/14/20 at 21:00 Immune Globulin 400 ml @ 0 mls/hr Q24H IV Last administered on 05/16/20 18:25; Start 05/14/20 at 18:00; Stop 05/16/20 at 18:01; Status DC Amino Acids/ Glycerin/ Electrolytes 1,000 ml @ 80 mls/hr [id number] IV Last administered on 05/16/20at 16:13; Start 05/15/20 at 09:00; Stop 05/17/20 at 21:59; Status DC Lidocaine (Lidoderm) 2 patch DAILY TD Last administered on 05/24/20at 08:44; Start 05/15/20 at 09:00 Miscellaneous (Lidoderm Patch Removal) 1 ea QHS MC Last administered on 05/23/20at 21:00; Start 05/15/20 at 21:00 Pantoprazole Sodium (PROTONIX VIAL for IV PUSH) 40 mg BID IVP Last administered on 05/23/20at 08:52; Start 05/15/20 at 21:00; Stop 05/23/20 at 12:48; Status DC Enoxaparin Sodium (Lovenox 40mg Syringe) 40 mg Q24H SQ Last administered on 05/23/20at 14:19; Start 05/15/20 at 14:00 Enalaprilat (Vasotec Inj) 2.5 mg Q6HRS IVP ; Start 05/15/20 at 21:00; Stop 05/15/20 at 20:19; Status DC Enalaprilat (Vasotec Inj) 2.5 mg PRN Q6HRS PRN IVP HYPERTENSION, 1ST CHOICE Last administered on 05/19/20at 20:17; Start 05/15/20 at 20:30 Gadoterate Meglumine (Dotarem) 14 ml 1X ONCE IVP Last administered on 05/16/20at 12:58; Start 05/16/20 at 09:15; Stop 05/16/20 at 09:16; Status DC Estrogens Conjugated (Premarin) 2 sarah DAILY VG Last administered on 05/22/20at 09:00; Start 05/17/20 at 09:00; Stop 05/24/20 at 08:08; Status DC Info (Tpn Per Pharmacy) 1 each PRN DAILY PRN MC SEE COMMENTS Last administered on 05/22/20at 10:53; Start 05/17/20 at 08:30; Stop 05/22/20 at 13:50; Status DC Sodium Chloride 90 meq/Potassium Chloride 50 meq/ Potassium Phosphate 13.6 mmol/Magnesium Sulfate 5 meq/ Calcium Gluconate 10 meq/ Multivitamins 10 ml/Chromium/ Copper/Manganese/ Seleni/Zn 1 ml/ Total Parenteral Nutrition/Amino Acids/Dextrose/ Fat Emulsion Intravenous 1,512 ml @ 63 mls/hr TPN CONT IV Last administered on 05/18/20at 02:39; Start 05/17/20 at 22:00; Stop 05/18/20 at 21:59; Status DC Lidocaine HCl (Buffered Lidocaine 1%) 3 ml 1X ONCE INJ Last administered on 05/17/20at 14:22; Start 05/17/20 at 14:00; Stop 05/17/20 at 14:01; Status DC Lidocaine HCl (Buffered Lidocaine 1%) 3 ml STK-MED ONCE .ROUTE ; Start 05/17/20 at 14:06; Stop 05/17/20 at 14:07; Status DC Immune Globulin 300 ml @ 0 mls/hr Q24H IV Last administered on 05/18/20at 17:47; Start 05/17/20 at 18:00; Stop 05/18/20 at 18:01; Status DC Fentanyl Citrate (Fentanyl 2ml Vial) 50 mcg PRN Q3HRS PRN IVP SEVERE PAIN 7-10 Last administered on 05/22/20at 06:23; Start 05/18/20 at 02:00 Sodium Chloride 90 meq/Potassium Chloride 50 meq/ Potassium Phosphate 20 mmol/ Magnesium Sulfate 5 meq/Calcium Gluconate 10 meq/ Multivitamins 10 ml/Chromium/ Copper/Manganese/ Seleni/Zn 1 ml/ Total Parenteral Nutrition/Amino Acids/Dextrose/ Fat Emulsion Intravenous 1,512 ml @ 63 mls/hr TPN CONT IV Last administered on 05/18/20at 21:58; Start 05/18/20 at 22:00; Stop 05/19/20 at 21:59; Status DC Fentanyl (Duragesic 25mcg/ Hr Patch) 1 patch Q3DAYS TD Last administered on 05/19/20at 10:50; Start 05/19/20 at 11:00; Stop 05/22/20 at 08:23; Status DC Sodium Chloride 90 meq/Potassium Acetate 70 meq/ Potassium Phosphate 20 mmol/ Magnesium Sulfate 5 meq/Calcium Gluconate 10 meq/ Multivitamins 10 ml/Chromium/ Copper/Manganese/ Seleni/Zn 1 ml/ Total Parenteral Nutrition/Amino Acids/Dextrose/ Fat Emulsion Intravenous 1,512 ml @ 63 mls/hr TPN CONT IV Last administered on 05/19/20at 22:15; Start 05/19/20 at 22:00; Stop 05/20/20 at 21:59; Status DC Lorazepam (Ativan Inj) 0.5 mg PRN Q6HRS PRN IVP ANXIETY / AGITATION Last administered on 05/19/20at 20:15; Start 05/19/20 at 20:15 Bisacodyl (Dulcolax Supp) 10 mg PRN DAILY PRN [place] [employer]-1st choice; Start 05/20/20 at 09:45 Docusate Sodium (Enemeez) 283 mg PRN DAILY PRN [place] [employer]; Start 05/20/20 at 09:45 Methylprednisolone Acetate (DEPO-Medrol 40MG VIAL) 40 mg 1X ONCE IM ; Start 05/20/20 at 10:00; Stop 05/20/20 at 10:01; Status DC Bupivacaine HCl (Sensorcaine-Mpf 0.25%) 10 ml 1X ONCE IJ ; Start 05/20/20 at 10:00; Stop 05/20/20 at 10:01; Status DC Barium Sulfate (Varibar Thin Liquid Apple) 148 gm 1X ONCE PO Last administered on 05/20/20at 14:30; Start 05/20/20 at 11:15; Stop 05/20/20 at 11:17; Status DC Sodium Chloride 90 meq/Potassium Acetate 70 meq/ Potassium Phosphate 20 mmol/ Magnesium Sulfate 5 meq/Calcium Gluconate 10 meq/ Multivitamins 10 ml/Chromium/ Copper/Manganese/ Seleni/Zn 1 ml/ Total Parenteral Nutrition/Amino Acids/Dextrose/ Fat Emulsion Intravenous 1,512 ml @ 63 mls/hr TPN CONT IV Last administered on 05/20/20at 21:39; Start 05/20/20 at 22:00; Stop 05/21/20 at 21:59; Status DC Fluticasone Propionate (Flonase) 2 spray DAILY NS Last administered on 05/24/20at 08:34; Start 05/21/20 at 12:00 Sodium Chloride 90 meq/Potassium Acetate 70 meq/ Potassium Phosphate 20 mmol/ Magnesium Sulfate 5 meq/Calcium Gluconate 10 meq/ Multivitamins 10 ml/Chromium/ Copper/Manganese/ Seleni/Zn 1 ml/ Total Parenteral Nutrition/Amino Acids/Dextrose/ Fat Emulsion Intravenous 1,512 ml @ 63 mls/hr TPN CONT IV Last administered on 05/21/20at 22:04; Start 05/21/20 at 22:00; Stop 05/22/20 at 21:59; Status DC Fentanyl (Duragesic 50mcg/ Hr Patch) 1 patch Q3DAYS TD Last administered on 05/22/20at 09:45; Start 05/22/20 at 09:00 Sodium Chloride 90 meq/Potassium Acetate 70 meq/ Potassium Phosphate 20 mmol/ Magnesium Sulfate 5 meq/Calcium Gluconate 10 meq/ Multivitamins 10 ml/Chromium/ Copper/Manganese/ Seleni/Zn 1 ml/ Total Parenteral Nutrition/Amino Acids/Dextrose/ Fat Emulsion Intravenous 1,512 ml @ 63 mls/hr TPN CONT IV ; Start 05/22/20 at 22:00; Stop 05/23/20 at 19:13; Status DC Losartan Potassium (Cozaar) 25 mg DAILY PO Last administered on 05/23/20at 08:48; Start 05/23/20 at 09:00; Stop 05/24/20 at 08:08; Status DC Metoprolol Succinate (Toprol Xl) 50 mg DAILY PO ; Start 05/23/20 at 09:00; Stop 05/24/20 at 08:08; Status DC Pantoprazole Sodium (Protonix) 40 mg BIDAC PO Last administered on 05/24/20at 08:47; Start 05/23/20 at 16:30 Metoprolol Succinate (Toprol Xl) 25 mg DAILY PO ; Start 05/24/20 at 09:00 Estrogens Conjugated (Premarin) 1.25 mg DAILY PO Last administered on 05/24/20at 08:37; Start 05/24/20 at 09:00 Sodium Chloride 500 ml @ 500 mls/hr 1X ONCE IV Last administered on 05/24/20at 10:40; Start 05/24/20 at 08:15; Stop 05/24/20 at 09:14; Status DC Active Scripts Active Reported Valacyclovir (Valacyclovir Hcl) 1,000 Mg Tablet 1 Tab PO BID Metoprolol Succinate ( Xl ) (Metoprolol Succinate) 100 Mg Tab.er.24h 1 Tab PO DAILY Losartan Potassium 50 Mg Tablet 50 Mg PO DAILY Hydrochlorothiazide Tablet (Hydrochlorothiazide) 12.5 Mg Tablet 12.5 Mg PO DAILY Nexium Capsule (Esomeprazole Magnesium) 40 Mg Capsule.dr 1 Cap PO DAILY Premarin (Estrogens, Conjugated) 1.25 Mg Tablet 1 Tab PO DAILY Atorvastatin Calcium 20 Mg Tablet 1 Tab PO DAILY Amitriptyline Hcl 25 Mg Tablet 1 Tab PO QHS Alprazolam 0.25 Mg Tablet 0.5 Tab PO QHS PRN Vitals/I & O Vital Sign - Last 24 Hours 05/23/20 05/23/20 05/23/20 05/24/20 14:44 19:30 23:30 03:35 Temp 98.4 98.6 98.1 98.9 98.4 98.6 98.1 98.9 Pulse 110 114 84 112 Resp 18 20 18 1 B/P (MAP) 105/60 (75) 118/65 (82) 117/68 (84) 117/62 (80) Pulse Ox 96 94 95 96 O2 Delivery Room Air Room Air Room Air Room Air 05/24/20 05/24/20 07:25 07:34 Temp 98.3 98.3 Pulse 117 Resp 1 B/P (MAP) 109/63 (78) Pulse Ox 96 O2 Delivery Room Air Room Air O2 Flow Rate 2.0 Intake and Output 05/23/20 05/23/20 05/24/20 15:00 23:00 07:00 Intake Total 350 ml 150 ml 120 ml Balance 350 ml 150 ml 120 ml Justicifation of Admission Dx: Justifications for Admission: Justification of Admission Dx: Yes ROLY SHABAZZ MD May 24, 2020 10:53
--- NOTE | 2020-05-24 13:45 | NUR ---
SS following up with discharge planning. SS reviewed pt chart and discussed with pt RN. Pt is currently on room air. COVID19 negative. Pt accepted at [facility] pending insurance authorization. Case management sent updates to [facility] this morning. Discharge orders have been phoned and faxed to [facility], ; fax [phone]. SS will continue to follow for discharge planning.
[2020-05-24 14:42] VITALS: BP 127/62
[2020-05-24] MEDS: ENOXAPARIN 40 MG/0.4 ML SYRINGE. SQ SCH (15:21)
[2020-05-24 19:25] VITALS: BP 131/72
[2020-05-24] MEDS: GABAPENTIN 300 MG CAPSULE. PO SCH (20:41)
[2020-05-24] MEDS: AMITRIPTYLINE HCL 25 MG TABLET. PO SCH (20:41)
[2020-05-24] MEDS: ATORVASTATIN CALCIUM 20 MG TABLET PO SCH (20:41)
[2020-05-24] MEDS: PATCH REMOVAL. MC SCH (20:45)
[2020-05-24 23:15] VITALS: BP 133/73
[2020-05-25 03:20] VITALS: BP 133/68
[2020-05-25] MEDS: fentaNYL PF VIAL 100 MCG/2 ML VIAL IVP PRN (04:54)
[2020-05-25 07:00] VITALS: BP 136/75
[2020-05-25] MEDS: PANTOPRAZOLE 40 MG TABLET.DR. PO SCH (07:47)
[2020-05-25] MEDS: hydroCHLOROthiazide 12.5 MG CAPSULE PO SCH (09:00)
[2020-05-25] MEDS: FLUTICASONE 50MCG/NASAL SPRAY 16GM BOTTLE. NS SCH (09:00)
--- NOTE | 2020-05-25 09:29 | PDOC ---
Date of Service: DATE: 05/25/20 TIME: 09:27 Subjective: Subjective: Ate all of oatmeal w/o swallowing issues. Didn't eat much of eggs and potatoes - doesn't like them. Some coughing w/ deep breathing - says she talked to pulm about this. Objective: Vital Signs: Vital Signs Date Time Temp Pulse Resp B/P (MAP) Pulse Ox O2 Delivery O2 Flow Rate FiO2 05/25/20 07:55 Room Air 05/25/20 07:00 98.0 108 20 136/75 (95) 97 98.0 05/24/20 07:25 2.0 Labs: Laboratory Tests Test 05/24/20 09:30 White Blood Count 10.9 x10^3/uL Red Blood Count 3.12 x10^6/uL Hemoglobin 9.8 g/dL Hematocrit 27.8 % Mean Corpuscular Volume 89 fL Mean Corpuscular Hemoglobin 32 pg Mean Corpuscular Hemoglobin Concent 35 g/dL Red Cell Distribution Width 13.1 % Platelet Count 143 x10^3/uL Sodium Level 136 mmol/L Potassium Level 3.9 mmol/L Chloride Level 101 mmol/L Carbon Dioxide Level 28 mmol/L Anion Gap 7 Blood Urea Nitrogen 25 mg/dL Creatinine 0.9 mg/dL Estimated GFR (Cockcroft-Gault) 62.5 BUN/Creatinine Ratio 28 Glucose Level 240 mg/dL Calcium Level 8.3 mg/dL Total Bilirubin 0.7 mg/dL Aspartate Amino Transf (AST/SGOT) 63 U/L Alanine Aminotransferase (ALT/SGPT) 99 U/L Alkaline Phosphatase 83 U/L Total Protein 7.2 g/dL Albumin 2.1 g/dL Albumin/Globulin Ratio 0.4 PE: GEN: NAD - looks better today LUNGS: CTAB HEART: RRR ABD: NABS, S/ND/NT NEURO/PSYCH: A & O 3 A/P: Suspected [place] - resp status and weakness improving Dysphagia - improved H/o GERD Mildly elevated AST and ALT - ?related to TPN (now stopped) - checked 05/24 -- Awaiting insurance auth for DC to rehab. Continue PPI. Can monitor LFTs as outpt. Justicifation of Admission Dx: Justifications for Admission: Justification of Admission Dx: Yes GENARO POWELL May 25, 2020 09:29
[2020-05-25] MEDS: ESTROGENS, CONJUGATED 0.625 MG TABLET PO SCH (09:31)
[2020-05-25] MEDS: LIDOCAINE (700MG/PATCH) PATCH. TD SCH (09:41)
--- NOTE | 2020-05-25 09:42 | PDOC ---
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 She noticed weakness starting after flu and shingles shots on 05/02 Spinal fluid showed 4 white blood cells, 1825 red blood cells, protein 54.2. 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 Pachymeningeal enhancement, likely related to recent spinal tap. 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 If she deteriorates in 3-4 weeks she could receive another 1 g/kg Rehab, will need inpatient, consult social work, Dr. Jacob's consult appreciated Monitor oral intake Continue physical therapy. Continue close monitoring. Dr. Barnes is relaxing blood pressure meds further, I stopped the metoprolol Subjective Still lightheaded when she stands Objective Vital Signs Date Time Temp Pulse Resp B/P (MAP) Pulse Ox O2 Delivery O2 Flow Rate FiO2 05/25/20 07:55 Room Air 05/25/20 07:00 98.0 108 20 136/75 (95) 97 98.0 05/24/20 07:25 2.0 Intake and Output 05/25/20 07:00 Intake Total 1210 ml Output Total 350 ml Balance 860 ml Intake Oral 1210 ml Output Urine Total 350 ml PHYSICAL EXAM Alert. Oriented to time, place and person. PERRL. EOMI. CN: no focal findings. Muscle tone: normal. Muscle strength: 4/5 DTR: 0-1+ Plantar reflex: Flexor Gait: not examined in bed. Sensory exam: Normal pinprick, decreased vibratory appreciation in feet. No cerebellar signs elicited. Review of Relevant I have reviewed the following items susan (where applicable) has been applied. Labs Laboratory Tests Test 05/24/20 09:30 White Blood Count 10.9 x10^3/uL (4.0-11.0) Red Blood Count 3.12 x10^6/uL (3.50-5.40) Hemoglobin 9.8 g/dL (12.0-15.5) Hematocrit 27.8 % (36.0-47.0) Mean Corpuscular Volume 89 fL (79-100) Mean Corpuscular Hemoglobin 32 pg (25-35) Mean Corpuscular Hemoglobin Concent 35 g/dL (31-37) Red Cell Distribution Width 13.1 % (11.5-14.5) Platelet Count 143 x10^3/uL (140-400) Sodium Level 136 mmol/L (136-145) Potassium Level 3.9 mmol/L (3.5-5.1) Chloride Level 101 mmol/L (98-107) Carbon Dioxide Level 28 mmol/L (21-32) Anion Gap 7 (6-14) Blood Urea Nitrogen 25 mg/dL (7-20) Creatinine 0.9 mg/dL (0.6-1.0) Estimated GFR (Cockcroft-Gault) 62.5 BUN/Creatinine Ratio 28 (6-20) Glucose Level 240 mg/dL (70-99) Calcium Level 8.3 mg/dL (8.5-10.1) Total Bilirubin 0.7 mg/dL (0.2-1.0) Aspartate Amino Transf (AST/SGOT) 63 U/L (15-37) Alanine Aminotransferase (ALT/SGPT) 99 U/L (14-59) Alkaline Phosphatase 83 U/L (46-116) Total Protein 7.2 g/dL (6.4-8.2) Albumin 2.1 g/dL (3.4-5.0) Albumin/Globulin Ratio 0.4 (1.0-1.7) Medications Current Medications Alprazolam (Xanax) 0.125 mg PRN QHS PRN PO ANXIETY / AGITATION Last administered on 05/23/20at 20:15; Start 05/14/20 at 00:45 Amitriptyline HCl (Elavil) 25 mg QHS PO Last administered on 05/24/20at 20:41; Start 05/14/20 at 01:00 Atorvastatin Calcium (Lipitor) 20 mg QHS PO Last administered on 05/24/20at 20:41; Start 05/14/20 at 21:00 Losartan Potassium (Cozaar) 50 mg DAILY PO Last administered on 05/21/20at 09:58; Start 05/14/20 at 09:00; Stop 05/22/20 at 13:50; Status DC Metoprolol Succinate (Toprol Xl) 100 mg DAILY PO Last administered on 05/22/20at 09:44; Start 05/14/20 at 09:00; Stop 05/22/20 at 13:50; Status DC Estrogens Conjugated (Premarin) 1.25 mg DAILY PO ; Start 05/14/20 at 09:00; Stop 05/17/20 at 08:23; Status DC Hydrochlorothiazide (Microzide) 12.5 mg DAILY PO Last administered on 05/23/20at 08:49; Start 05/14/20 at 09:00 Valacyclovir HCl (Valtrex) 1,000 mg BID PO Last administered on 05/22/20at 21:39; Start 05/14/20 at 09:00; Stop 05/24/20 at 08:01; Status DC Sodium Chloride 1,000 ml @ 100 mls/hr Q10H IV Last administered on 05/15/20at 07:00; Start 05/14/20 at 01:00; Stop 05/15/20 at 08:17; Status DC Labetalol HCl (Normodyne Iv Push) 10 mg PRN Q4HRS PRN IVP HYPERTENSION, 2ND CHOICE Last administered on 05/20/20at 21:07; Start 05/14/20 at 01:00 Pantoprazole Sodium (PROTONIX VIAL for IV PUSH) 40 mg DAILYAC IVP Last administered on 05/15/20at 08:16; Start 05/14/20 at 07:30; Stop 05/15/20 at 08:23; Status DC Ketorolac Tromethamine (Toradol 15mg Vial) 15 mg PRN Q6HRS PRN IVP INFLAMMATION Last administered on 05/17/20at 22:31; Start 05/14/20 at 01:15; Stop 05/19/20 at 01:14; Status DC Lidocaine HCl (Lidocaine 1% 20ml Vial) 20 ml 1X ONCE INJ Last administered on 05/14/20at 12:08; Start 05/14/20 at 12:00; Stop 05/14/20 at 12:01; Status DC Gabapentin (Neurontin) 300 mg HS PO Last administered on 05/24/20at 20:41; Start 05/14/20 at 21:00 Immune Globulin 400 ml @ 0 mls/hr Q24H IV Last administered on 05/16/20 18:25; Start 05/14/20 at 18:00; Stop 05/16/20 at 18:01; Status DC Amino Acids/ Glycerin/ Electrolytes 1,000 ml @ 80 mls/hr [id number] IV Last administered on 05/16/20 16:13; Start 05/15/20 at 09:00; Stop 05/17/20 at 21:59; Status DC Lidocaine (Lidoderm) 2 patch DAILY TD Last administered on 05/24/20at 08:44; Start 05/15/20 at 09:00 Miscellaneous (Lidoderm Patch Removal) 1 ea QHS MC Last administered on 05/24/20 20:45; Start 05/15/20 at 21:00 Pantoprazole Sodium (PROTONIX VIAL for IV PUSH) 40 mg BID IVP Last administered on 05/23/20at 08:52; Start 05/15/20 at 21:00; Stop 05/23/20 at 12:48; Status DC Enoxaparin Sodium (Lovenox 40mg Syringe) 40 mg Q24H SQ Last administered on 05/24/20at 15:21; Start 05/15/20 at 14:00 Enalaprilat (Vasotec Inj) 2.5 mg Q6HRS IVP ; Start 05/15/20 at 21:00; Stop 05/15/20 at 20:19; Status DC Enalaprilat (Vasotec Inj) 2.5 mg PRN Q6HRS PRN IVP HYPERTENSION, 1ST CHOICE Last administered on 05/19/20at 20:17; Start 05/15/20 at 20:30 Gadoterate Meglumine (Dotarem) 14 ml 1X ONCE IVP Last administered on 05/16/20at 12:58; Start 05/16/20 at 09:15; Stop 05/16/20 at 09:16; Status DC Estrogens Conjugated (Premarin) 2 sarah DAILY VG Last administered on 05/22/20at 09:00; Start 05/17/20 at 09:00; Stop 05/24/20 at 08:08; Status DC Info (Tpn Per Pharmacy) 1 each PRN DAILY PRN MC SEE COMMENTS Last administered on 05/22/20at 10:53; Start 05/17/20 at 08:30; Stop 05/22/20 at 13:50; Status DC Sodium Chloride 90 meq/Potassium Chloride 50 meq/ Potassium Phosphate 13.6 mmol/Magnesium Sulfate 5 meq/ Calcium Gluconate 10 meq/ Multivitamins 10 ml/Chromium/ Copper/Manganese/ Seleni/Zn 1 ml/ Total Parenteral Nutrition/Amino Acids/Dextrose/ Fat Emulsion Intravenous 1,512 ml @ 63 mls/hr TPN CONT IV Last administered on 05/18/20at 02:39; Start 05/17/20 at 22:00; Stop 05/18/20 at 21:59; Status DC Lidocaine HCl (Buffered Lidocaine 1%) 3 ml 1X ONCE INJ Last administered on 05/17/20at 14:22; Start 05/17/20 at 14:00; Stop 05/17/20 at 14:01; Status DC Lidocaine HCl (Buffered Lidocaine 1%) 3 ml STK-MED ONCE .ROUTE ; Start 05/17/20 at 14:06; Stop 05/17/20 at 14:07; Status DC Immune Globulin 300 ml @ 0 mls/hr Q24H IV Last administered on 05/18/20at 17:47; Start 05/17/20 at 18:00; Stop 05/18/20 at 18:01; Status DC Fentanyl Citrate (Fentanyl 2ml Vial) 50 mcg PRN Q3HRS PRN IVP SEVERE PAIN 7-10 Last administered on 05/25/20at 04:54; Start 05/18/20 at 02:00 Sodium Chloride 90 meq/Potassium Chloride 50 meq/ Potassium Phosphate 20 mmol/ Magnesium Sulfate 5 meq/Calcium Gluconate 10 meq/ Multivitamins 10 ml/Chromium/ Copper/Manganese/ Seleni/Zn 1 ml/ Total Parenteral Nutrition/Amino Acids/Dextrose/ Fat Emulsion Intravenous 1,512 ml @ 63 mls/hr TPN CONT IV Last administered on 05/18/20at 21:58; Start 05/18/20 at 22:00; Stop 05/19/20 at 21:59; Status DC Fentanyl (Duragesic 25mcg/ Hr Patch) 1 patch Q3DAYS TD Last administered on 05/19/20at 10:50; Start 05/19/20 at 11:00; Stop 05/22/20 at 08:23; Status DC Sodium Chloride 90 meq/Potassium Acetate 70 meq/ Potassium Phosphate 20 mmol/ Magnesium Sulfate 5 meq/Calcium Gluconate 10 meq/ Multivitamins 10 ml/Chromium/ Copper/Manganese/ Seleni/Zn 1 ml/ Total Parenteral Nutrition/Amino Acids/Dextrose/ Fat Emulsion Intravenous 1,512 ml @ 63 mls/hr TPN CONT IV Last administered on 05/19/20at 22:15; Start 05/19/20 at 22:00; Stop 05/20/20 at 21:59; Status DC Lorazepam (Ativan Inj) 0.5 mg PRN Q6HRS PRN IVP ANXIETY / AGITATION Last administered on 05/19/20at 20:15; Start 05/19/20 at 20:15 Bisacodyl (Dulcolax Supp) 10 mg PRN DAILY PRN [place] [employer]-1st choice; Start 05/20/20 at 09:45 Docusate Sodium (Enemeez) 283 mg PRN DAILY PRN [place]; Start 05/20/20 at 09:45 Methylprednisolone Acetate (DEPO-Medrol 40MG VIAL) 40 mg 1X ONCE IM ; Start 05/20/20 at 10:00; Stop 05/20/20 at 10:01; Status DC Bupivacaine HCl (Sensorcaine-Mpf 0.25%) 10 ml 1X ONCE IJ ; Start 05/20/20 at 10:00; Stop 05/20/20 at 10:01; Status DC Barium Sulfate (Varibar Thin Liquid Apple) 148 gm 1X ONCE PO Last administered on 05/20/20at 14:30; Start 05/20/20 at 11:15; Stop 05/20/20 at 11:17; Status DC Sodium Chloride 90 meq/Potassium Acetate 70 meq/ Potassium Phosphate 20 mmol/ Magnesium Sulfate 5 meq/Calcium Gluconate 10 meq/ Multivitamins 10 ml/Chromium/ Copper/Manganese/ Seleni/Zn 1 ml/ Total Parenteral Nutrition/Amino Acids/Dextrose/ Fat Emulsion Intravenous 1,512 ml @ 63 mls/hr TPN CONT IV Last administered on 05/20/20at 21:39; Start 05/20/20 at 22:00; Stop 05/21/20 at 21:59; Status DC Fluticasone Propionate (Flonase) 2 spray DAILY NS Last administered on 05/24/20at 08:34; Start 05/21/20 at 12:00 Sodium Chloride 90 meq/Potassium Acetate 70 meq/ Potassium Phosphate 20 mmol/ Magnesium Sulfate 5 meq/Calcium Gluconate 10 meq/ Multivitamins 10 ml/Chromium/ Copper/Manganese/ Seleni/Zn 1 ml/ Total Parenteral Nutrition/Amino Acids/Dextrose/ Fat Emulsion Intravenous 1,512 ml @ 63 mls/hr TPN CONT IV Last administered on 05/21/20at 22:04; Start 05/21/20 at 22:00; Stop 05/22/20 at 21:59; Status DC Fentanyl (Duragesic 50mcg/ Hr Patch) 1 patch Q3DAYS TD Last administered on 05/22/20at 09:45; Start 05/22/20 at 09:00 Sodium Chloride 90 meq/Potassium Acetate 70 meq/ Potassium Phosphate 20 mmol/ Magnesium Sulfate 5 meq/Calcium Gluconate 10 meq/ Multivitamins 10 ml/Chromium/ Copper/Manganese/ Seleni/Zn 1 ml/ Total Parenteral Nutrition/Amino Acids/Dextrose/ Fat Emulsion Intravenous 1,512 ml @ 63 mls/hr TPN CONT IV ; Start 05/22/20 at 22:00; Stop 05/23/20 at 19:13; Status DC Losartan Potassium (Cozaar) 25 mg DAILY PO Last administered on 05/23/20at 08:48; Start 05/23/20 at 09:00; Stop 05/24/20 at 08:08; Status DC Metoprolol Succinate (Toprol Xl) 50 mg DAILY PO ; Start 05/23/20 at 09:00; Stop 05/24/20 at 08:08; Status DC Pantoprazole Sodium (Protonix) 40 mg BIDAC PO Last administered on 05/25/20at 07:47; Start 05/23/20 at 16:30 Metoprolol Succinate (Toprol Xl) 25 mg DAILY PO ; Start 05/24/20 at 09:00 Estrogens Conjugated (Premarin) 1.25 mg DAILY PO Last administered on 05/24/20at 08:37; Start 05/24/20 at 09:00 Sodium Chloride 500 ml @ 500 mls/hr 1X ONCE IV Last administered on 05/24/20at 10:40; Start 05/24/20 at 08:15; Stop 05/24/20 at 09:14; Status DC Active Scripts Active Reported Valacyclovir (Valacyclovir Hcl) 1,000 Mg Tablet 1 Tab PO BID Metoprolol Succinate ( Xl ) (Metoprolol Succinate) 100 Mg Tab.er.24h 1 Tab PO DAILY Losartan Potassium 50 Mg Tablet 50 Mg PO DAILY Hydrochlorothiazide Tablet (Hydrochlorothiazide) 12.5 Mg Tablet 12.5 Mg PO DAILY Nexium Capsule (Esomeprazole Magnesium) 40 Mg Capsule.dr 1 Cap PO DAILY Premarin (Estrogens, Conjugated) 1.25 Mg Tablet 1 Tab PO DAILY Atorvastatin Calcium 20 Mg Tablet 1 Tab PO DAILY Amitriptyline Hcl 25 Mg Tablet 1 Tab PO QHS Alprazolam 0.25 Mg Tablet 0.5 Tab PO QHS PRN Vitals/I & O Vital Sign - Last 24 Hours 05/24/20 05/24/20 05/24/20 05/24/20 10:49 14:42 19:25 20:00 Temp 98.7 99.0 98.5 98.7 99.0 98.5 Pulse 118 122 122 Resp 18 18 18 B/P (MAP) 122/57 (78) 127/62 (83) 131/72 (91) Pulse Ox 96 97 96 O2 Delivery Room Air Room Air Room Air Room Air 05/24/20 05/25/20 05/25/20 05/25/20 23:15 03:20 05:42 07:00 Temp 98.4 98.3 98.0 98.4 98.3 98.0 Pulse 114 114 108 Resp 20 B/P (MAP) 133/73 (93) 133/68 (89) 136/75 (95) Pulse Ox 97 97 97 O2 Delivery Room Air Room Air Room Air Room Air 05/25/20 07:55 O2 Delivery Room Air Intake and Output 05/24/20 05/24/20 05/25/20 15:00 23:00 07:00 Intake Total 360 ml 500 ml 350 ml Output Total 350 ml Balance 10 ml 500 ml 350 ml Justicifation of Admission Dx: Justifications for Admission: Justification of Admission Dx: Yes ROLY SHABAZZ MD May 25, 2020 09:41
[2020-05-25] MEDS: fentaNYL 50MCG/HR PATCH 1 PATCH PATCH.TD72 TD SCH (09:43)
[2020-05-25] MEDS ORDERED: POLYETHYLENE GLYCOL 3350 17 GM PACKET. PO SCH (10:00)
[2020-05-25] MEDS ORDERED: DOCUSATE SODIUM 100 MG CAPSULE. PO SCH (10:00)
[2020-05-25] MEDS ORDERED: METOPROLOL SUCC 24HR ER 25 MG TAB.ER.24H. PO SCH (10:00)
[2020-05-25] MEDS: IV NORMAL SALINE 1000ML BAG 1,000 ML IV ONE ×2 (10:15→12:04)
--- NOTE | 2020-05-25 10:45 | NUR ---
SS following up with discharge planning. SS reviewed pt chart and discussed with pt RN. Pt is currently on room air. Insurance authorization received for [facility], ; fax [phone]. Discharge orders have been faxed to [facility]. COVID19 negative. Pt will discharge today and go to [facility] at 1300. [facility] to provide transportation. Pt, pt's RN, and pt's spouse notified.
[2020-05-25 11:11] VITALS: BP 166/79
--- NOTE | 2020-05-25 11:15 | NUR ---
Pt's 1000 dose of metoprolol nonadministered by this RN. Pt already received dose of metoprolol succ 25 mg, refer to discontinued order for details. This RN also nonadministered NS bolus as pt's BP is 166/79, HR 120's. Will continue to monitor pt.
--- NOTE | 2020-05-25 11:15 | PN ---
DATE: 05/25/2020 SUBJECTIVE: The patient is resting, slightly propped up in bed, in no apparent distress. She is now on dysphagia 3 with thickened liquid. She continued to have problems with postural hypotension and feels dizzy. We did start her on elastic stockings and abdominal binder. I cut down her antihypertensive medications. PHYSICAL EXAMINATION: GENERAL: When I saw her this morning, she looked well and was clearly in no apparent respiratory distress, pale. No jaundice, cyanosis or thyromegaly. No jugular venous distention or limb edema. VITAL SIGNS: Her heart rate was 108, blood pressure was 136/75, temperature 98, respiratory rate was 20, and oxygen saturation was 97%. HEENT: Showed normocephalic, atraumatic. NECK: Supple. HEART: Showed normal first and second heart sounds. No gallop, rub or murmur. CHEST: Clear to auscultation. No crepitation or rhonchi. ABDOMEN: Distended, soft, nontender. NEUROLOGIC: She was awake, alert, responding appropriately. All cranial nerves are intact. She moves extremities without difficulty. She continued to have problems with inability to walk due to postural hypotension. I did make parameters for antihypertensive medication. We will give her IV fluid prior to physical therapy to see if that will help with her postural hypotension. LABORATORY WORK: As of yesterday showed a white cell count of 10,000, hemoglobin 10, hematocrit 28, MCV 89 and platelet count of 143,000. Her chemistry showed a serum sodium 136, potassium 3.9, chloride 101, bicarbonate 28, anion gap of 7, BUN 25, creatinine 0.9, estimated GFR was 62 mL per minute. Her glucose was 140, calcium was 8.3. Total bilirubin and alkaline phosphatase normal. AST, ALT slightly elevated, but trending down. Her total protein was 7.3, albumin was 2.1. ASSESSMENT: 1. Guillain-[place] syndrome. The patient has completed her IVIG treatment and received a total of 2 g/kg and doing well. She did have a video swallowing evaluation and she is now on dysphagia 3 nectar thickened liquid. 2. She is having problems with postural hypotension, likely due to autonomic neuropathy, for which she is now started on elastic stockings and abdominal binder. I did cut down her blood pressure medication; however, she continues to have some form of autonomic neuropathy as she has tachycardia. 3. Pachymeningeal enhancement likely due to recent spinal tap. 4. Her coronavirus by PCR was negative. 5. She has multiple other medical problems including: A. Hypertension that is now very labile. B. Hyperlipidemia. C. Hiatal hernia. D. Gastroesophageal reflux disease. The patient's orders are there, available for her to be discharged if she was accepted in [facility]. BLANCHE MARROQUIN MD DR: SONIA/sudarshan JOB#: [id number] / [id number]
[2020-05-25 12:20] VITALS: BP 116/78
--- NOTE | 2020-05-25 13:35 | NUR ---
This RN gave transfer report to MARYSE Shane of [facility] at 1320. Pt left unit at approx 1320 by wheelchair via transportation. PICC line removed, dressing C/D/I and no bleeding noted. VSS. Discharge paperwork sent with transportation.
--- NOTE | 2020-05-25 14:23 | PDOC ---
PROGRESS NOTES Date of Service DATE: 05/25/20 TIME: 14:17 Subjective Subjective When I saw her at 11.45 AM,she feels good. Objective Objective Vital Signs Date Time Temp Pulse Resp B/P (MAP) Pulse Ox O2 Delivery O2 Flow Rate FiO2 05/25/20 12:20 116/78 (91) 05/25/20 11:11 98.2 118 20 98 Room Air 98.2 05/24/20 07:25 2.0 Intake and Output 05/25/20 07:00 Intake Total 1210 ml Output Total 350 ml Balance 860 ml Intake Oral 1210 ml Output Urine Total 350 ml Physical Exam Physical Exam I saw her sitting at edge of bed and comfortable and her B P is 122 mm Hg. She got up by herself using roller walker and she felt dizzy within a minute and has to sit down and her B P dropped to 65/50 mm Hg. She did not have abdominal binder and MACIEJ hose on. Plan Plan of Care Hope her orthostatic hypotension does not come in her way of making progress with her rehabilitation. We may have to decrease any hypertension medicines she is on and also she needs bowel program training as last bowel movement is on 05/22/2020. Comment Review of Relevant I have reviewed the following items susan (where applicable) has been applied. Labs Laboratory Tests Test 05/24/20 09:30 White Blood Count 10.9 x10^3/uL (4.0-11.0) Red Blood Count 3.12 x10^6/uL (3.50-5.40) Hemoglobin 9.8 g/dL (12.0-15.5) Hematocrit 27.8 % (36.0-47.0) Mean Corpuscular Volume 89 fL (79-100) Mean Corpuscular Hemoglobin 32 pg (25-35) Mean Corpuscular Hemoglobin Concent 35 g/dL (31-37) Red Cell Distribution Width 13.1 % (11.5-14.5) Platelet Count 143 x10^3/uL (140-400) Sodium Level 136 mmol/L (136-145) Potassium Level 3.9 mmol/L (3.5-5.1) Chloride Level 101 mmol/L (98-107) Carbon Dioxide Level 28 mmol/L (21-32) Anion Gap 7 (6-14) Blood Urea Nitrogen 25 mg/dL (7-20) Creatinine 0.9 mg/dL (0.6-1.0) Estimated GFR (Cockcroft-Gault) 62.5 BUN/Creatinine Ratio 28 (6-20) Glucose Level 240 mg/dL (70-99) Calcium Level 8.3 mg/dL (8.5-10.1) Total Bilirubin 0.7 mg/dL (0.2-1.0) Aspartate Amino Transf (AST/SGOT) 63 U/L (15-37) Alanine Aminotransferase (ALT/SGPT) 99 U/L (14-59) Alkaline Phosphatase 83 U/L (46-116) Total Protein 7.2 g/dL (6.4-8.2) Albumin 2.1 g/dL (3.4-5.0) Albumin/Globulin Ratio 0.4 (1.0-1.7) Medications Current Medications Alprazolam (Xanax) 0.125 mg PRN QHS PRN PO ANXIETY / AGITATION Last administered on 05/23/20at 20:15; Start 05/14/20 at 00:45; Stop 05/25/20 at 14:10; Status DC Amitriptyline HCl (Elavil) 25 mg QHS PO Last administered on 05/24/20at 20:41; Start 05/14/20 at 01:00; Stop 05/25/20 at 14:10; Status DC Atorvastatin Calcium (Lipitor) 20 mg QHS PO Last administered on 05/24/20at 20:41; Start 05/14/20 at 21:00; Stop 05/25/20 at 14:10; Status DC Losartan Potassium (Cozaar) 50 mg DAILY PO Last administered on 05/21/20at 09:58; Start 05/14/20 at 09:00; Stop 05/22/20 at 13:50; Status DC Metoprolol Succinate (Toprol Xl) 100 mg DAILY PO Last administered on 05/22/20a t 09:44; Start 05/14/20 at 09:00; Stop 05/22/20 at 13:50; Status DC Estrogens Conjugated (Premarin) 1.25 mg DAILY PO ; Start 05/14/20 at 09:00; Stop 05/17/20 at 08:23; Status DC Hydrochlorothiazide (Microzide) 12.5 mg DAILY PO Last administered on at 08:49; Start 05/14/20 at 09:00; Stop 05/25/20 at 14:10; Status DC Valacyclovir HCl (Valtrex) 1,000 mg BID PO Last administered on 05/22/20at 21:39; Start 05/14/20 at 09:00; Stop 05/24/20 at 08:01; Status DC Sodium Chloride 1,000 ml @ 100 mls/hr Q10H IV Last administered on 05/15/20at 07:00; Start 05/14/20 at 01:00; Stop 05/15/20 at 08:17; Status DC Labetalol HCl (Normodyne Iv Push) 10 mg PRN Q4HRS PRN IVP HYPERTENSION, 2ND CHOICE Last administered on 05/20/20at 21:07; Start 05/14/20 at 01:00; Stop 05/25/20 at 14:10; Status DC Pantoprazole Sodium (PROTONIX VIAL for IV PUSH) 40 mg DAILYAC IVP Last administered on 05/15/20at 08:16; Start 05/14/20 at 07:30; Stop 05/15/20 at 08:23; Status DC Ketorolac Tromethamine (Toradol 15mg Vial) 15 mg PRN Q6HRS PRN IVP INFLAMMATION Last administered on 05/17/20at 22:31; Start 05/14/20 at 01:15; Stop 05/19/20 at 01:14; Status DC Lidocaine HCl (Lidocaine 1% 20ml Vial) 20 ml 1X ONCE INJ Last administered on 05/14/20at 12:08; Start 05/14/20 at 12:00; Stop 05/14/20 at 12:01; Status DC Gabapentin (Neurontin) 300 mg HS PO Last administered on 05/24/20at 20:41; Start 05/14/20 at 21:00; Stop 05/25/20 at 14:10; Status DC Immune Globulin 400 ml @ 0 mls/hr Q24H IV Last administered on 05/16/20at 18:25; Start 05/14/20 at 18:00; Stop 05/16/20 at 18:01; Status DC Amino Acids/ Glycerin/ Electrolytes 1,000 ml @ 80 mls/hr [id number] IV Last administered on 05/16/20at 16:13; Start 05/15/20 at 09:00; Stop 05/17/20 at 21:59; Status DC Lidocaine (Lidoderm) 2 patch DAILY TD Last administered on 05/25/20at 09:41; Start 05/15/20 at 09:00; Stop 05/25/20 at 14:10; Status DC Miscellaneous (Lidoderm Patch Removal) 1 ea QHS MC Last administered on 05/24/20at 20:45; Start 05/15/20 at 21:00; Stop 05/25/20 at 14:10; Status DC Pantoprazole Sodium (PROTONIX VIAL for IV PUSH) 40 mg BID IVP Last administered on 05/23/20at 08:52; Start 05/15/20 at 21:00; Stop 05/23/20 at 12:48; Status DC Enoxaparin Sodium (Lovenox 40mg Syringe) 40 mg Q24H SQ Last administered on 05/24/20at 15:21; Start 05/15/20 at 14:00; Stop 05/25/20 at 14:10; Status DC Enalaprilat (Vasotec Inj) 2.5 mg Q6HRS IVP ; Start 05/15/20 at 21:00; Stop 05/15/20 at 20:19; Status DC Enalaprilat (Vasotec Inj) 2.5 mg PRN Q6HRS PRN IVP HYPERTENSION, 1ST CHOICE Last administered on 05/19/20at 20:17; Start 05/15/20 at 20:30; Stop 05/25/20 at 14:10; Status DC Gadoterate Meglumine (Dotarem) 14 ml 1X ONCE IVP Last administered on 05/16/20at 12:58; Start 05/16/20 at 09:15; Stop 05/16/20 at 09:16; Status DC Estrogens Conjugated (Premarin) 2 sarah DAILY VG Last administered on 05/22/20at 09:00; Start 05/17/20 at 09:00; Stop 05/24/20 at 08:08; Status DC Info (Tpn Per Pharmacy) 1 each PRN DAILY PRN MC SEE COMMENTS Last administered on 05/22/20at 10:53; Start 05/17/20 at 08:30; Stop 05/22/20 at 13:50; Status DC Sodium Chloride 90 meq/Potassium Chloride 50 meq/ Potassium Phosphate 13.6 mmol/Magnesium Sulfate 5 meq/ Calcium Gluconate 10 meq/ Multivitamins 10 ml/Chromium/ Copper/Manganese/ Seleni/Zn 1 ml/ Total Parenteral Nutrition/Amino Acids/Dextrose/ Fat Emulsion Intravenous 1,512 ml @ 63 mls/hr TPN CONT IV Last administered on 05/18/20at 02:39; Start 05/17/20 at 22:00; Stop 05/18/20 at 21:59; Status DC Lidocaine HCl (Buffered Lidocaine 1%) 3 ml 1X ONCE INJ Last administered on 05/17/20at 14:22; Start 05/17/20 at 14:00; Stop 05/17/20 at 14:01; Status DC Lidocaine HCl (Buffered Lidocaine 1%) 3 ml STK-MED ONCE .ROUTE ; Start 05/17/20 at 14:06; Stop 05/17/20 at 14:07; Status DC Immune Globulin 300 ml @ 0 mls/hr Q24H IV Last administered on 05/18/20at 17:47; Start 05/17/20 at 18:00; Stop 05/18/20 at 18:01; Status DC Fentanyl Citrate (Fentanyl 2ml Vial) 50 mcg PRN Q3HRS PRN IVP SEVERE PAIN 7-10 Last administered on 05/25/20at 04:54; Start 05/18/20 at 02:00; Stop 05/25/20 at 14:10; Status DC Sodium Chloride 90 meq/Potassium Chloride 50 meq/ Potassium Phosphate 20 mmol/ Magnesium Sulfate 5 meq/Calcium Gluconate 10 meq/ Multivitamins 10 ml/Chromium/ Copper/Manganese/ Seleni/Zn 1 ml/ Total Parenteral Nutrition/Amino Acids/Dextrose/ Fat Emulsion Intravenous 1,512 ml @ 63 mls/hr TPN CONT IV Last administered on 05/18/20at 21:58; Start 05/18/20 at 22:00; Stop 05/19/20 at 21:59; Status DC Fentanyl (Duragesic 25mcg/ Hr Patch) 1 patch Q3DAYS TD Last administered on 05/19/20at 10:50; Start 05/19/20 at 11:00; Stop 05/22/20 at 08:23; Status DC Sodium Chloride 90 meq/Potassium Acetate 70 meq/ Potassium Phosphate 20 mmol/ Magnesium Sulfate 5 meq/Calcium Gluconate 10 meq/ Multivitamins 10 ml/Chromium/ Copper/Manganese/ Seleni/Zn 1 ml/ Total Parenteral Nutrition/Amino Acids/Dextrose/ Fat Emulsion Intravenous 1,512 ml @ 63 mls/hr TPN CONT IV Last administered on 05/19/20at 22:15; Start 05/19/20 at 22:00; Stop 05/20/20 at 21:59; Status DC Lorazepam (Ativan Inj) 0.5 mg PRN Q6HRS PRN IVP ANXIETY / AGITATION Last administered on 05/19/20at 20:15; Start 05/19/20 at 20:15; Stop 05/25/20 at 14:10; Status DC Bisacodyl (Dulcolax Supp) 10 mg PRN DAILY PRN [place] CONSTIPATION-1st choice; Start 05/20/20 at 09:45; Stop 05/25/20 at 14:10; Status DC Docusate Sodium (Enemeez) 283 mg PRN DAILY PRN [place] CONSTIPATION; Start 05/20/20 at 09:45; Stop 05/25/20 at 14:10; Status DC Methylprednisolone Acetate (DEPO-Medrol 40MG VIAL) 40 mg 1X ONCE IM ; Start 05/20/20 at 10:00; Stop 05/20/20 at 10:01; Status DC Bupivacaine HCl (Sensorcaine-Mpf 0.25%) 10 ml 1X ONCE IJ ; Start 05/20/20 at 10:00; Stop 05/20/20 at 10:01; Status DC Barium Sulfate (Varibar Thin Liquid Apple) 148 gm 1X ONCE PO Last administered on 05/20/20at 14:30; Start 05/20/20 at 11:15; Stop 05/20/20 at 11:17; Status DC Sodium Chloride 90 meq/Potassium Acetate 70 meq/ Potassium Phosphate 20 mmol/ Magnesium Sulfate 5 meq/Calcium Gluconate 10 meq/ Multivitamins 10 ml/Chromium/ Copper/Manganese/ Seleni/Zn 1 ml/ Total Parenteral Nutrition/Amino Acids/Dextrose/ Fat Emulsion Intravenous 1,512 ml @ 63 mls/hr TPN CONT IV Last administered on 05/20/20at 21:39; Start 05/20/20 at 22:00; Stop 05/21/20 at 21:59; Status DC Fluticasone Propionate (Flonase) 2 spray DAILY NS Last administered on 05/25/20at 09:00; Start 05/21/20 at 12:00; Stop 05/25/20 at 14:10; Status DC Sodium Chloride 90 meq/Potassium Acetate 70 meq/ Potassium Phosphate 20 mmol/ Magnesium Sulfate 5 meq/Calcium Gluconate 10 meq/ Multivitamins 10 ml/Chromium/ Copper/Manganese/ Seleni/Zn 1 ml/ Total Parenteral Nutrition/Amino Acids/Dextrose/ Fat Emulsion Intravenous 1,512 ml @ 63 mls/hr TPN CONT IV Last administered on 05/21/20at 22:04; Start 05/21/20 at 22:00; Stop 05/22/20 at 21:59; Status DC Fentanyl (Duragesic 50mcg/ Hr Patch) 1 patch Q3DAYS TD Last administered on 05/25/20at 09:43; Start 05/22/20 at 09:00; Stop 05/25/20 at 14:10; Status DC Sodium Chloride 90 meq/Potassium Acetate 70 meq/ Potassium Phosphate 20 mmol/ Ma gnesium Sulfate 5 meq/Calcium Gluconate 10 meq/ Multivitamins 10 ml/Chromium/ Copper/Manganese/ Seleni/Zn 1 ml/ Total Parenteral Nutrition/Amino Acids/Dextrose/ Fat Emulsion Intravenous 1,512 ml @ 63 mls/hr TPN CONT IV ; Start 05/22/20 at 22:00; Stop 05/23/20 at 19:13; Status DC Losartan Potassium (Cozaar) 25 mg DAILY PO Last administered on 05/23/20at 08:48; Start 05/23/20 at 09:00; Stop 05/24/20 at 08:08; Status DC Metoprolol Succinate (Toprol Xl) 50 mg DAILY PO ; Start 05/23/20 at 09:00; Stop 05/24/20 at 08:08; Status DC Pantoprazole Sodium (Protonix) 40 mg BIDAC PO Last administered on 05/25/20at 07:47; Start 05/23/20 at 16:30; Stop 05/25/20 at 14:10; Status DC Metoprolol Succinate (Toprol Xl) 25 mg DAILY PO ; Start 05/24/20 at 09:00; S top 05/25/20 at 09:40; Status DC Estrogens Conjugated (Premarin) 1.25 mg DAILY PO Last administered on 05/25/20at 09:31; Start 05/24/20 at 09:00; Stop 05/25/20 at 14:10; Status DC Sodium Chloride 500 ml @ 500 mls/hr 1X ONCE IV Last administered on 05/24/20at 10:40; Start 05/24/20 at 08:15; Stop 05/24/20 at 09:14; Status DC Docusate Sodium (Colace) 100 mg BID PO ; Start 05/25/20 at 10:00; Stop 05/25/20 at 14:10; Status DC Polyethylene Glycol (miraLAX PACKET) 17 gm DAILY PO ; Start 05/25/20 at 10:00; Stop 05/25/20 at 14:10; Status DC Metoprolol Succinate (Toprol Xl) 25 mg DAILY PO ; Start 05/25/20 at 10:00; Stop 05/25/20 at 14:10; Status DC Sodium Chloride 1,000 ml @ 1,000 mls/hr 1X ONCE IV Last administered on 05/25/20at 12:04; Start 05/25/20 at 10:15; Stop 05/25/20 at 11:14; Status DC Active Scripts Active Reported Valacyclovir (Valacyclovir Hcl) 1,000 Mg Tablet 1 Tab PO BID Metoprolol Succinate ( Xl ) (Metoprolol Succinate) 100 Mg Tab.er.24h 1 Tab PO DAILY Losartan Potassium 50 Mg Tablet 50 Mg PO DAILY Hydrochlorothiazide Tablet (Hydrochlorothiazide) 12.5 Mg Tablet 12.5 Mg PO DAILY Nexium Capsule (Esomeprazole Magnesium) 40 Mg Capsule.dr 1 Cap PO DAILY Premarin (Estrogens, Conjugated) 1.25 Mg Tablet 1 Tab PO DAILY Atorvastatin Calcium 20 Mg Tablet 1 Tab PO DAILY Amitriptyline Hcl 25 Mg Tablet 1 Tab PO QHS Alprazolam 0.25 Mg Tablet 0.5 Tab PO QHS PRN Vitals/I & O Vital Sign - Last 24 Hours 05/24/20 05/24/20 05/24/20 05/24/20 14:42 19:25 20:00 23:15 Temp 99.0 98.5 98.4 99.0 98.5 98.4 Pulse 122 122 114 Resp 18 18 18 B/P (MAP) 127/62 (83) 131/72 (91) 133/73 (93) Pulse Ox 97 96 97 O2 Delivery Room Air Room Air Room Air Room Air 10/2105/25/20 05/25/20 05/25/20 03:20 05:42 07:00 07:55 Temp 98.3 98.0 98.3 98.0 Pulse 114 108 Resp 20 18 20 B/P (MAP) 133/68 (89) 136/75 (95) Pulse Ox 97 97 O2 Delivery Room Air Room Air Room Air Room Air 05/25/20 05/25/20 11:11 12:20 Temp 98.2 98.2 Pulse 118 Resp 20 B/P (MAP) 166/79 (108) 116/78 (91) Pulse Ox 98 O2 Delivery Room Air Intake and Output 05/24/20 05/24/20 05/25/20 15:00 23:00 07:00 Intake Total 360 ml 500 ml 350 ml Output Total 350 ml Balance 10 ml 500 ml 350 ml Justifications for Admission Other Justification Nutrition Consultation Dietary Evaluation: Recommendations by RD: Dietary education by RD, Increase Calorie Intake, Protein supplementation Comments: REC adding Ensure Enlive BID from fridge on 2 south, thickened to nectar thick before serving to patient Continue w/diet per SUSTAINABLE DESIGN COORDINATOR (dysphagia III w/nectar thick liquids) Expected Outcomes/Goals: diet advancement- met TPN to meet >75% of pt needs- met, new goal est 05/23 New goal 05/23: Pt to meet 75% of needs PO Malnutrition Findings: Food and Nutrition Intake (Sev: <50% est energy req 5days Body Fat Depletion (Non Severe: Mild Depletion Weight Status: Overweight JORDAN MORILLO MD May 25, 2020 14:22
== END 2020-05-25 14:07 | DRG 94 ==
LOC: 6 SOUTH 22:05 → 2 SOUTH 05-14 11:17
PROVIDERS: ADMIT Internal Medicine; ATTEND Internal Medicine
PROC: 02HV33Z Insertion of Infusion Device into Superior Vena Cava, Percutaneous Approach (ICD-10-PCS; principal; 2020-05-17)
PROC: B5181ZA Fluoroscopy of Superior Vena Cava using Low Osmolar Contrast, Guidance (ICD-10-PCS; 2020-05-17)
PROC: B548ZZA Ultrasonography of Superior Vena Cava, Guidance (ICD-10-PCS; 2020-05-17)
DX: G61.0 Guillain-Barre syndrome (principal); J96.01 Acute respiratory failure with hypoxia; J98.11 Atelectasis; E78.5 Hyperlipidemia, unspecified; F41.9 Anxiety disorder, unspecified; G90.9 Disorder of the autonomic nervous system, unspecified; I10 Essential (primary) hypertension; I95.1 Orthostatic hypotension; K44.9 Diaphragmatic hernia without obstruction or gangrene; K58.9 Irritable bowel syndrome, unspecified; Z23 Encounter for immunization; Z80.1 Family history of malignant neoplasm of trachea, bronchus and lung; Z82.3 Family history of stroke; Z82.49 Family history of ischemic heart disease and other diseases of the circulatory system; Z83.3 Family history of diabetes mellitus; Z90.710 Acquired absence of both cervix and uterus; K21.9 Gastro-esophageal reflux disease without esophagitis; Z88.0 Allergy status to penicillin; R13.10 Dysphagia, unspecified; Z20.828 Contact with and (suspected) exposure to other viral communicable diseases
CPT/HCPCS: 36415; 36573; 62270; 70553; 71045; 72158; 74230; 77001; 80048; 80053; 82607; 83735; 84100; 84157; 84165; 84443; 84478; 85025; 85027; 86038; 86140; 89051; 94150; 94760; A9575; C9113; J0610; J1561; J1650; J1885; J2060; J3010; J3475; J3480; J3490; J7030; J7040; 92526-GN; 92610-GN; 92611-GN; 97110-GO; 97110-GP; 97116-GP; 97530-GO; 97530-GP; 97535-GO; G0378

== ENCOUNTER → 2021-05-09 | Outpatient (CLI) | payer BC ==
[~2021-05-09] MED LIST: ALPR0.254 PO; AMIT25TA PO; ATOR20TA58 PO; ESOM40CA PO; ESTR1.25 PO; GADOTERATE 7.5 MMOL/15ML VIAL. IVP ONE; HYDR12.58 PO; LOSA-73 PO; METO-247 PO; VALA10008 PO
--- NOTE | 2021-05-09 17:13 | KCIC ---
EXAM: Brain MRI with and without contrast. HISTORY: Meningioma follow-up. TECHNIQUE: Multiplanar, multisequence magnetic resonance imaging of the brain was performed prior to and following the administration of intravenous contrast. COMPARISON: 05/16/2020 FINDINGS: There is no restricted diffusion to suggest acute or subacute infarction. There is no susce ptibility effect to suggest hemorrhage. There is no midline shift or hydrocephalus. There is a stable avidly enhancing dural based lesion within the anterior left middle cranial fossa a long the sphenoid wing measuring 2.0 cm in maximum dimension. There is adjacent dural thickening and enhancement which is stable in appearance. There is no adjacent parenchyma signal abnormality to sugg est edema. There has been no change in mild diffuse pachymeningeal enhancement. There are scattered focal areas of signal change within the cerebral white matter, most commonly due to chronic small vessel disease. The orbits are unremarkable. The paranasal sinuses mastoid air cells are unremarkable. There are norm al flow voids within the cerebral vessels. There is no suspicious calvarial lesion. There is mild cer vical kyphosis and degenerative change involving the visualized cervical spine. IMPRESSION: 1. Stable 2.0 cm meningioma within the anterior left middle cranial fossa along the sphenoid bone. Th ere is no adjacent parenchyma signal abnormality. 2. Stable mild increased pachymeningeal enhancement. This was previously suspected to be secondary to recent lumbar puncture. However, given the interval stability, the possibility of a component of chr onic intracranial hypotension is not excluded. 3. Scattered focal areas of signal change within the cerebral white matter, most commonly due to cafeteria or lunchroom checker mariano small vessel disease in patients of this age. Electronically signed by: Judy Kowalski MD (05/09/2021 5:11 PM) [id number]
== END ==
LOC: KCIC MRI 14:26
PROVIDERS: ATTEND Psychiatry & Neurology Neurology with Special Qualifications in Child Neurology
DX: D32.9 Benign neoplasm of meninges, unspecified (principal); I73.9 Peripheral vascular disease, unspecified
CPT/HCPCS: 70553; 82565; A9575